=== PATIENT | male | born 1945 | race Caucasian/White ===

== ENCOUNTER 2016-10-29 15:06 | Inpatient (IN) | payer OTHER, MEDICARE ==
[2016-10-29] MEDS ORDERED: SODIUM CHLORIDE 0.9% 1,000 ML IV STA ×2 (15:26)
--- NOTE | 2016-10-29 15:46 | ED ---
General Adult HPI - General Chief complaint: Neuro Symptoms/Deficit Stated complaint: numbness right side Time Seen by Provider: 10/29/16 15:26 Source: patient, RN notes reviewed, old records reviewed Mode of arrival: wheelchair Limitations: no limitations - History of Present Illness Initial comments: This is a 62-year-old male the ER for evaluation bear patient is a for evaluation of neurological symptoms or complaint. Patient was slurred speech. Patient has right-sided not continuing. Patient has history of CVA TIA, history of high blood pressure history of high cholesterol history of cancer, history of NC, history of diabetes. Symptoms are about 10 AM today, seemed to wax and wane. - Related Data Home Medications Medication Instructions Recorded Confirmed RX: Nitroglycerin Sl Tabs 0.4 mg SUBLINGUAL Q5M PRN 08/11/13 10/29/16 [Nitrostat] RX: Tamsulosin [Flomax] 0.4 mg PO QAM 08/28/13 10/29/16 RX: Aspirin 81 mg PO BID 11/14/14 10/29/16 RX: Cholecalciferol [Vitamin D3] 1,000 unit PO QAM 11/14/14 10/29/16 Atorvastatin [Lipitor] 20 mg PO HS 10/29/16 10/29/16 Cyanocobalamin (Vitamin B-12) 2,000 mcg PO DAILY 10/29/16 10/29/16 [Vitamin B-12] Ferrous Sulfate [Feosol] 325 mg PO DAILY 10/29/16 10/29/16 Furosemide [Lasix] 20 mg PO DAILY 10/29/16 10/29/16 Insulin Aspart [NovoLOG] See Protocol SQ AC-TID 10/29/16 10/29/16 Insulin Glargine [Lantus] 10 unit SQ DAILY 10/29/16 10/29/16 RX: Omeprazole 40 mg PO DAILY 10/29/16 10/29/16 amLODIPine [Norvasc] 5 mg PO DAILY 10/29/16 10/29/16 prednisoLONE ACETATE [Pred Forte 1 drop RIGHT EYE QID 10/29/16 10/29/16 1%] Allergies Allergy/AdvReac Type Severity Reaction Status Date / Time enalapril [Enalapril] AdvReac Unknown Unknown Verified 10/29/16 15:39 lisinopril AdvReac Dizziness Verified 10/29/16 15:39 Review of Systems ROS Statement: Those systems with pertinent positive or pertinent negative responses have been documented in the HPI. ROS Other: All systems not noted in ROS Statement are negative. 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 ulcer in past. Last Myocardial Infarction Date:: 11/2012 History of Any Multi-Drug Resistant Organisms: None Reported Past Surgical History: Bowel Resection, Heart Catheterization, Heart Catheterization With Stent, Hernia Repair Additional Past Surgical History / Comment(s): Colon Resection 1999. Right femoral thrombolectomy 11/2012. Colonoscopy 2012. Anal fissure repair.RT CARTOTID ENDARTERECTOMY, incarcerated ventral hernia/lysis of adhesions. Past Anesthesia/Blood Transfusion Reactions: No Reported Reaction Additional Past Anesthesia/Blood Transfusion Reaction / Comment(s): HX OF BLOOD TRANSFUSION Date of Last Stent Placement:: 11/2012 Past Psychological History: No Psychological Hx Reported Smoking Status: Former smoker Past Alcohol Use History: Occasional Past Drug Use History: None Reported - Past Family History Father Family Medical History: CVA/TIA, Diabetes Mellitus Mother Family Medical History: Dementia General Exam - General Exam Comments Initial Comments: NIH of 2 Limitations: no limitations General appearance: alert, in no apparent distress Head exam: Present: atraumatic, normocephalic, normal inspection Eye exam: Present: normal appearance, PERRL, EOMI. Absent: scleral icterus, conjunctival injection, periorbital swelling ENT exam: Present: normal exam, mucous membranes moist Neck exam: Present: normal inspection. Absent: tenderness, meningismus, lymphadenopathy Respiratory exam: Present: normal lung sounds bilaterally. Absent: respiratory distress, wheezes, rales, rhonchi, stridor Cardiovascular Exam: Present: regular rate, normal rhythm, normal heart sounds. Absent: systolic murmur, diastolic murmur, rubs, gallop, clicks GI/Abdominal exam: Present: soft, normal bowel sounds. Absent: distended, tenderness, guarding, rebound, rigid Extremities exam: Present: normal inspection, full ROM, normal capillary refill. Absent: tenderness, pedal edema, joint swelling, calf tenderness Back exam: Present: normal inspection Neurological exam: Present: alert, oriented X3, CN II-XII intact Psychiatric exam: Present: normal affect, normal mood Skin exam: Present: warm, dry, intact, normal color. Absent: rash Course Vital Signs 10/29/16 10/29/16 15:19 16:19 Temperature 97.5 F L Pulse Rate 77 Pulse Rate [ 80 Left] Respiratory 16 18 Rate Blood Pressure 195/89 Blood Pressure 180/82 [Left Arm] O2 Sat by Pulse 99 Oximetry - Reevaluation(s) Reevaluation #1: 10/29/16 16:21 Patient not a TPA candidate secondary to onset of symptoms being 10 AM, arrival to ER [id number] Reevaluation #2: 10/29/16 16:21 Patient still having right-sided numbness and tingling, no appreciable strength deficit. Slurred speech has resolved EKG Findings - EKG Comments: EKG Findings:: EKG shows sinus rate of 72, pO2 56, QRS 154, QRS 462 Medical Decision Making - Medical Decision Making 6 emailed ear with history of CVA TIA, history of multiple medical Jackelyn is including heart disease with stents. Patient be admitted for neurological observation, evaluation and treatment - Lab Data Result diagrams: 10/29/16 15:44 10/29/16 15:44 Lab Results 10/29/16 10/29/16 10/29/16 Range/Units 15:44 15:44 15:44 WBC 7.7 (3.8-10.6) k/uL RBC 5.09 (4.30-5.90) m/uL Hgb 14.8 (13.0-17.5) gm/dL Hct 44.0 (39.0-53.0) % MCV 86.4 (80.0-100.0) fL MCH 29.1 (25.0-35.0) pg MCHC 33.7 (31.0-37.0) g/dL RDW 15.2 (11.5-15.5) % Plt Count 171 (150-450) k/uL Neutrophils % 77 % Lymphocytes % 15 % Monocytes % 4 % Eosinophils % 2 % Basophils % 1 % Neutrophils # 5.9 (1.3-7.7) k/uL Lymphocytes # 1.1 (1.0-4.8) k/uL Monocytes # 0.3 (0-1.0) k/uL Eosinophils # 0.2 (0-0.7) k/uL Basophils # 0.0 (0-0.2) k/uL PT (9.0-12.0) sec INR (<1.2) APTT (22.0-30.0) sec Sodium 143 (137-145) mmol/L Potassium 5.5 H (3.5-5.1) mmol/L Chloride 107 (98-107) mmol/L Carbon Dioxide 24 (22-30) mmol/L Anion Gap 12 mmol/L BUN 25 H (9-20) mg/dL Creatinine 1.40 H (0.66-1.25) mg/dL Est GFR (MDRD) Af Amer >60 (>60 ml/min/1.73 sqM) Est GFR (MDRD) Non-Af 50 (>60 ml/min/1.73 sqM) Glucose 105 H (74-99) mg/dL Calcium 10.2 (8.4-10.2) mg/dL Phosphorus 3.5 (2.5-4.5) mg/dL Magnesium 1.8 (1.6-2.3) mg/dL Total Bilirubin 0.9 (0.2-1.3) mg/dL AST 20 (17-59) U/L ALT 47 (21-72) U/L Alkaline Phosphatase 76 (38-126) U/L Total Creatine Kinase 65 (55-170) U/L CK-MB (CK-2) 0.8 (0.0-2.4) ng/mL CK-MB (CK-2) Rel Index 1.2 Troponin I <0.012 (0.000-0.034) ng/mL Total Protein 7.6 (6.3-8.2) g/dL Albumin 4.7 (3.5-5.0) g/dL 10/29/16 Range/Units 15:44 WBC (3.8-10.6) k/uL RBC (4.30-5.90) m/uL Hgb (13.0-17.5) gm/dL Hct (39.0-53.0) % MCV (80.0-100.0) fL MCH (25.0-35.0) pg MCHC (31.0-37.0) g/dL RDW (11.5-15.5) % Plt Count (150-450) k/uL Neutrophils % % Lymphocytes % % Monocytes % % Eosinophils % % Basophils % % Neutrophils # (1.3-7.7) k/uL Lymphocytes # (1.0-4.8) k/uL Monocytes # (0-1.0) k/uL Eosinophils # (0-0.7) k/uL Basophils # (0-0.2) k/uL PT 11.3 (9.0-12.0) sec INR 1.1 (<1.2) APTT 27.9 (22.0-30.0) sec Sodium (137-145) mmol/L Potassium (3.5-5.1) mmol/L Chloride (98-107) mmol/L Carbon Dioxide (22-30) mmol/L Anion Gap mmol/L BUN (9-20) mg/dL Creatinine (0.66-1.25) mg/dL Est GFR (MDRD) Af Amer (>60 ml/min/1.73 sqM) Est GFR (MDRD) Non-Af (>60 ml/min/1.73 sqM) Glucose (74-99) mg/dL Calcium (8.4-10.2) mg/dL Phosphorus (2.5-4.5) mg/dL Magnesium (1.6-2.3) mg/dL Total Bilirubin (0.2-1.3) mg/dL AST (17-59) U/L ALT (21-72) U/L Alkaline Phosphatase (38-126) U/L Total Creatine Kinase (55-170) U/L CK-MB (CK-2) (0.0-2.4) ng/mL CK-MB (CK-2) Rel Index Troponin I (0.000-0.034) ng/mL Total Protein (6.3-8.2) g/dL Albumin (3.5-5.0) g/dL - Radiology Data Radiology results: report reviewed (Chest x-ray negative CT brain is negative for acute disease), image reviewed Disposition Clinical Impression: Cerebrovascular accident Disposition: ADMITTED IP TO THIS HOSP Condition: Fair
[2016-10-29 16:04] LABS: Basophils % (A) 1 %; CH 29.3; CHCM 34.1; Eosinophils # (A) 0.2 k/uL (0-0.7); Eosinophils % (A) 2 %; HDW 2.71; HGB 14.8 gm/dL (13.0-17.5); Luc # (Auto) 0.14; Luc % (Auto) 2; Lymphocytes # (A) 1.1 k/uL (1.0-4.8); Lymphocytes % (A) 15 %; MCH 29.1 pg (25.0-35.0); MCHC 33.7 g/dL (31.0-37.0); MCV 86.4 fL (80.0-100.0); Monocytes # (A) 0.3 k/uL (0-1.0); Monocytes % (A) 4 %; Neutrophils # (A) 5.9 k/uL (1.3-7.7); Neutrophils % (A) 77 %; RBC 5.09 m/uL (4.30-5.90); RDW 15.2 % (11.5-15.5); WBC 7.7 k/uL (3.8-10.6); WBC (Perox) 7.24
[2016-10-29 16:08] LABS: INR 1.1 (<1.2); Partial Thromboplastin Time 27.9 sec (22.0-30.0); Prothrombin Time 11.3 sec (9.0-12.0)
--- NOTE | 2016-10-29 16:11 | CT ---
EXAMINATION TYPE: CT brain wo con DATE OF EXAM: 10/29/2016 COMPARISON: 11/05/2013 HISTORY: Patient complains of right side body weakness and numbness. CT DLP: 776.2 mGycm Automated exposure control for dose reduction was used. FINDINGS: There is diffuse cerebral cortical atrophy. There is a 4 cm area of hypodensity in the right posterio r frontal lobe cortex. There is a 5 x 3 cm area of hypodensity in the right occipital lobe cortex. Th ere is no mass effect nor midline shift. There is no sign of intracranial hemorrhage. There is mild w lyle matter hypodensity around the frontal horns of the lateral ventricles. There is a 2.5 cm area of hypodensity in the medial left occipital lobe. IMPRESSION: CEREBRAL ATROPHY. OLD RIGHT POSTERIOR FRONTAL LOBE CORTICAL INFARCT. OLD BILATERAL OCCIPITAL LOBE INF ARCTS. NO SIGNIFICANT CHANGE COMPARED TO OLD EXAM.
[2016-10-29] MEDS ORDERED: ASPIRIN 325 MG TAB PO STA (16:17)
[2016-10-29 16:18] LABS: ALT 47 U/L (21-72); AST 20 U/L (17-59); Alkaline Phosphatase 76 U/L (38-126); Anion Gap 12 mmol/L; Blood Urea Nitrogen 25 mg/dL (9-20); Calcium 10.2 mg/dL (8.4-10.2); Carbon Dioxide 24 mmol/L (22-30); Chloride 107 mmol/L (98-107); Creatine Kinase 65 U/L (55-170); Glucose 105 mg/dL (74-99); Magnesium 1.8 mg/dL (1.6-2.3); Non-African American GFR(MDRD) 50 (>60 ml/min/1.73 sqM); Phosphorous 3.5 mg/dL (2.5-4.5); Potassium 5.5 mmol/L (3.5-5.1); Sodium 143 mmol/L (137-145); Total Bilirubin 0.9 mg/dL (0.2-1.3); Total Protein 7.6 g/dL (6.3-8.2)
--- NOTE | 2016-10-29 16:24 | XR ---
EXAMINATION TYPE: XR chest 2V DATE OF EXAM: 10/29/2016 COMPARISON: 05/27/2015 HISTORY: Slurred speech TECHNIQUE: Frontal and lateral views of the chest are obtained. FINDINGS: Heart and mediastinum are normal. Lungs are clear of consolidation. There are small calcif ied granulomata at the right pulmonary hilum. There is no pleural effusion. IMPRESSION: No active cardiopulmonary disease. No change compared to old exam.
[2016-10-29 16:30] LABS: Creatine Kinase MB 0.8 ng/mL (0.0-2.4); Troponin I <0.012 ng/mL (0.000-0.034)
[2016-10-29] MEDS ORDERED: SODIUM CHLORIDE 0.9% 1,000 ML IV SCH (16:30)
[2016-10-29 17:14] LABS: Appearance,Urine Clear (Clear); Bilirubin,Urine Negative (Negative); Glucose,Urine (UA) Negative (Negative); Ketones,Urine Negative (Negative); Leukocyte Esterase,Urine Negative (Negative); Mucus,Urine Rare /hpf; Nitrite,Urine Negative (Negative); Particle Count 1747; Protein,Urine 1+ (Negative); Specific Gravity,Urine 1.003 (1.001-1.035); Sperm,Urine Occasional /hpf; UA Billing (MACRO vs. MICRO) MICRO; Urobilinogen,Urine <2.0 mg/dL (<2.0); WBC,Urine <1 /hpf (0-5)
[2016-10-29 17:24] LABS: Glucose,Whole Blood 98 mg/dL (75-99)
--- NOTE | 2016-10-29 18:24 | P.HPIM ---
History of Present Illness Patient is a very pleasant 70-year-old man came in with the complaints of right upper limb and lower limb tingling numbness involving the whole right side of the body except for face, he denied any weakness in the right side. Patient apparently appears to have had some speech abnormality as per the he is unable to explain what appears like Wernicke's aphasia, although not clear. Patient in symptoms are resolving at this point of time patient has good strength in bilateral upper limbs. Patient had a history of CVA in the past patient is on aspirin 81 mg daily along with the high-dose statin. Patient has history of coronary artery disease stents in the past and history of cardiomyopathy previous ejection be fraction being 45% patient is on Lasix with poor kidney function of creatinine of 1.6 and he ago his creatinine was 1.4 before that it was around 1. Neurology a valid the patient already in the recommending aspirin as well as Plavix which are started. Repeating an echocardiogram today which will help me today as is the recent ejection fraction and also looking for intraventricular thrombus. As a part of stroke workup carotid Doppler was ordered and neurology is recommending an MRI as well. Review of Systems REVIEW OF SYSTEMS: CONSTITUTIONAL: No fever, no malaise, no fatigue. HEENT: No recent visual problems or hearing problems. Denied any sore throat. CARDIOVASCULAR: No chest pain, orthopnea, PND, no palpitations, no syncope. PULMONARY: No shortness of breath, no cough, no hemoptysis. GASTROINTESTINAL: No diarrhea, no nausea, no vomiting, no abdominal pain. Normoactive bowel sounds. NEUROLOGICAL: No headaches, HEMATOLOGICAL: Denies any bleeding or petechiae. GENITOURINARY: Denies any burning micturition, frequency, or urgency. MUSCULOSKELETAL/RHEUMATOLOGICAL: Denies any joint pain, swelling, or any muscle pain. ENDOCRINE: Denies any polyuria or polydipsia. Past Medical History Past Medical History: Coronary Artery Disease (CAD), Cancer, Heart Failure, CVA/ TIA, Diabetes Mellitus, Deep Vein Thrombosis (DVT), GERD/Reflux, Hyperlipidemia , Hypertension, Myocardial Infarction ([place]) Additional Past Medical History / Comment(s): Blood transfusion; BOWEL OBRSTRUCTION, HX 2ND DEGREE HB,IBS,A FIB, RT FEMORAL DVT,CARDIO PULMONARY ARREST 2013, ATRIAL SEPTAL DEFECT,PVD, COLON CANCER 2007, per old hx ? ulcer in past. Last Myocardial Infarction Date:: 11/2012 History of Any Multi-Drug Resistant Organisms: None Reported Past Surgical History: Bowel Resection, Heart Catheterization, Heart Catheterization With Stent, Hernia Repair Additional Past Surgical History / Comment(s): Colon Resection 1999. Right femoral thrombolectomy 11/2012. Colonoscopy 2012. Anal fissure repair.RT CARTOTID ENDARTERECTOMY, incarcerated ventral hernia/lysis of adhesions. Past Anesthesia/Blood Transfusion Reactions: No Reported Reaction Additional Past Anesthesia/Blood Transfusion Reaction / Comment(s): HX OF BLOOD TRANSFUSION Date of Last Stent Placement:: 11/2012 Past Psychological History: No Psychological Hx Reported Smoking Status: Former smoker Past Alcohol Use History: Occasional Past Drug Use History: None Reported - Past Family History Father Family Medical History: CVA/TIA, Diabetes Mellitus Mother Family Medical History: Dementia Medications and Allergies Home Medications Medication Instructions Recorded Confirmed Type Nitroglycerin Sl Tabs [Nitrostat] 0.4 mg SUBLINGUAL Q5M PRN 08/11/13 10/29/16 History Tamsulosin [Flomax] 0.4 mg PO QAM 08/28/13 10/29/16 History Aspirin 81 mg PO BID 11/14/14 10/29/16 History Cholecalciferol [Vitamin D3] 1,000 unit PO QAM 11/14/14 10/29/16 History Atorvastatin [Lipitor] 20 mg PO HS 10/29/16 10/29/16 History Cyanocobalamin (Vitamin B-12) 2,000 mcg PO DAILY 10/29/16 10/29/16 History [Vitamin B-12] Ferrous Sulfate [Feosol] 325 mg PO DAILY 10/29/16 10/29/16 History Furosemide [Lasix] 20 mg PO DAILY 10/29/16 10/29/16 History Insulin Aspart [NovoLOG] See Protocol SQ AC-TID 10/29/16 10/29/16 History Insulin Glargine [Lantus] 10 unit SQ DAILY 10/29/16 10/29/16 History Omeprazole 40 mg PO DAILY 10/29/16 10/29/16 History amLODIPine [Norvasc] 5 mg PO DAILY 10/29/16 10/29/16 History prednisoLONE ACETATE [Pred Forte 1 drop RIGHT EYE QID 10/29/16 10/29/16 History 1%] Allergies Allergy/AdvReac Type Severity Reaction Status Date / Time enalapril [Enalapril] AdvReac Unknown Unknown Verified 10/29/16 15:39 lisinopril AdvReac Dizziness Verified 10/29/16 15:39 Physical Exam Vitals: Vital Signs Temp Pulse Pulse Resp BP BP Pulse Ox 10/29/16 17:00 98.1 F 79 20 163/87 98 10/29/16 16:44 96.9 F L 85 18 191/87 97 10/29/16 16:19 80 18 180/82 10/29/16 15:19 97.5 F L 77 16 195/89 99 Intake and Output 10/29/16 10/29/16 10/29/16 06:59 14:59 22:59 Intake Total 100 Output Total 350 Balance -250 Intake: Intake, IV Titration 100 Amount Sodium Chloride 0.9% 1, 100 000 ml @ 100 mls/hr IV . Q10H REZA Rx#:[id number] Output: Urine 350 Other: Weight 94.801 kg Patient Weight 10/30/16 06:59 Weight 94.801 kg PHYSICAL EXAMINATION: GENERAL: The patient is alert and oriented x3, not in any acute distress. Well developed, well nourished. HEENT: Pupils are round and equally reacting to light. EOMI. No scleral icterus. No conjunctival pallor. Normocephalic, atraumatic. No pharyngeal erythema. No thyromegaly. CARDIOVASCULAR: S1 and S2 present. No murmurs, rubs, or gallops. PULMONARY: Chest is clear to auscultation, no wheezing or crackles. ABDOMEN: Soft, nontender, nondistended, normoactive bowel sounds. No palpable organomegaly. MUSCULOSKELETAL: No joint swelling or deformity. EXTREMITIES: No cyanosis, clubbing, or pedal edema. NEUROLOGICAL: Gross neurological examination did not reveal any focal deficits. SKIN: No rashes. Results CBC & Chem 7: 10/29/16 15:44 10/29/16 15:44 Labs: Abnormal Lab Results - Last 24 Hours (Table) 10/29/16 10/29/16 Range/Units 15:44 16:56 Potassium 5.5 H (3.5-5.1) mmol/L BUN 25 H (9-20) mg/dL Creatinine 1.40 H (0.66-1.25) mg/dL Glucose 105 H (74-99) mg/dL Urine Protein 1+ H (Negative) Urine Mucus Rare H (None) /hpf Urine Sperm Occasional H (None) /hpf Thrombosis Risk Factor Assmnt - Choose All That Apply Each Factor Represents 1 point: Obesity (BMI >25) Other Risk Factors: Yes Each Risk Factor Represents 2 Points: Age 61-74 years Each Risk Factor Represents 3 Points: History of DVT/PE Thrombosis Risk Factor Assessment Total Risk Factor Score: 6 Thrombosis Risk Factor Assessment Level: High Risk Assessment and Plan Plan: Possible TIA: Appears to have pure sensory TIA probably involving the posterior ventrolateral nucleus of the thalamus, although we may not find any ischemic lesions on MRI as patient had a TIA with complete resolution of symptoms. Antiplatelet therapy as mentioned above. On aspirin and Plavix as recommended by neurology. #2 congestive heart failure chronic systolic dysfunction, ischemic cardiomyopathy with previous ejection fraction which was low at around 35-40%: Patient is hypervolemic at this point of time with acute renal failure because of that reason I'll hold off on Lasix patient is getting IV fluids presently which will be discontinued as well. #3 history of CVA in the past 4 Type 2 diabetes mellitus: Continue with his own home regimen along with sliding scale titration as per the blood sugars here #5 history of coronary artery disease #6 hypertension continue with his home regimen as his blood pressure remains high. But we will let his blood pressures stay little bit high as permissive hypertension post TIA #7 benign prostatic hypertrophy #8 acute renal failure: Secondary to excessive diuretic therapy which is being held. #9 hyperlipidemia #10 gastroesophageal reflux disease
--- NOTE | 2016-10-29 18:29 | P.CNNES ---
History of Present Illness Consult date: 10/29/16 Reason for Consult: Patient admitted for episode of slurred speech and TIA versus stroke. History of Present Illness: This patient is a 70-year-old right-handed male who apparently was in his usual state of health until early this morning. Patient was out driving with his in his vehicle and apparently noticed sudden onset of right-sided numbness involving his right arm and leg. He did not pay much attention initially thinking it would resolve. He then became a little concerned as the numbness persisted. Apparently he was able to drive himself home and when he got out of the vehicle his noted that he was having difficulty walking. He seemed to be off balance and having and a very unsteady gait. Patient was concerned as he has a history of stroke as well as blood clot in the legs which caused him similar symptoms of weakness. His also noted that he was having word finding difficulties during this episode. As a patient does have previous history of stroke they were concerned and decided to come to the emergency room at [facility] for further evaluation. Patient was evaluated in the emergency room by Dr. Segura. He underwent a computed tomography scan of the brain today which revealed evidence of cerebral atrophy with evidence of an old right temporal lobe infarct as well as bilateral occipital infarcts. No evidence of new or acute stroke was noted. Patient states he does take aspirin on a regular basis since his initial stroke. His last stroke occurred in 2013. He was also on Plavix up until recently when his service counselor Dr. Leal recommended to stop the Plavix. Patient is currently only on aspirin therapy. He does have a history of coronary artery disease with stent placement. Since admission to the hospital his strength has improved on the right side. The patient was evaluated in the ER by Dr. Segura. He was not felt to be a TPA candidate as his onset of symptoms occurred early this morning at 10 AM. He was out of the therapeutic window. He was subsequently admitted to the hospital today for further evaluation. Patient states he is feeling somewhat better since admission. He does have a known history of diabetes mellitus and is on insulin therapy. His last hemoglobin A1c was 6.8. The patient is now been admitted and neurology has been consulted for further evaluation and recommendations. Review of Systems Constitutional: Denies chills, Denies fever Eyes: denies blurred vision, denies pain Ears, nose, mouth and throat: Denies headache, Denies sore throat Cardiovascular: Denies chest pain, Denies shortness of breath Respiratory: Denies cough Gastrointestinal: Denies abdominal pain, Denies diarrhea, Denies nausea, Denies vomiting Musculoskeletal: Denies myalgias Integumentary: Denies pruritus, Denies rash Neurological: Reports change in speech, Reports confusion, Reports lack of coordination, Reports paresthesias, Reports tingling, Denies numbness, Denies weakness Psychiatric: Denies anxiety, Denies depression Endocrine: Denies fatigue, Denies weight change Past Medical History Past Medical History: Coronary Artery Disease (CAD), Cancer, Heart Failure, CVA/ TIA, Diabetes Mellitus, Deep Vein Thrombosis (DVT), GERD/Reflux, Hyperlipidemia , Hypertension, Myocardial Infarction (ID) Additional Past Medical History / Comment(s): Blood transfusion; BOWEL OBRSTRUCTION, HX 2ND DEGREE HB,IBS,A FIB, RT FEMORAL DVT,CARDIO PULMONARY ARREST 2013, ATRIAL SEPTAL DEFECT,PVD, COLON CANCER 2007, per old hx ? ulcer in past. Last Myocardial Infarction Date:: 11/2012 History of Any Multi-Drug Resistant Organisms: None Reported Past Surgical History: Bowel Resection, Heart Catheterization, Heart Catheterization With Stent, Hernia Repair Additional Past Surgical History / Comment(s): Colon Resection 1999. Right femoral thrombolectomy 11/2012. Colonoscopy 2012. Anal fissure repair.RT CARTOTID ENDARTERECTOMY, incarcerated ventral hernia/lysis of adhesions. Past Anesthesia/Blood Transfusion Reactions: No Reported Reaction Additional Past Anesthesia/Blood Transfusion Reaction / Comment(s): HX OF BLOOD TRANSFUSION Date of Last Stent Placement:: 11/2012 Past Psychological History: No Psychological Hx Reported Smoking Status: Former smoker Past Alcohol Use History: Occasional Past Drug Use History: None Reported - Past Family History Father Family Medical History: CVA/TIA, Diabetes Mellitus Mother Family Medical History: Dementia Medications and Allergies Home Medications Medication Instructions Recorded Confirmed Type Nitroglycerin Sl Tabs [Nitrostat] 0.4 mg SUBLINGUAL Q5M PRN 08/11/13 10/29/16 History Tamsulosin [Flomax] 0.4 mg PO QAM 08/28/13 10/29/16 History Aspirin 81 mg PO BID 11/14/14 10/29/16 History Cholecalciferol [Vitamin D3] 1,000 unit PO QAM 11/14/14 10/29/16 History Atorvastatin [Lipitor] 20 mg PO HS 10/29/16 10/29/16 History Cyanocobalamin (Vitamin B-12) 2,000 mcg PO DAILY 10/29/16 10/29/16 History [Vitamin B-12] Ferrous Sulfate [Feosol] 325 mg PO DAILY 10/29/16 10/29/16 History Furosemide [Lasix] 20 mg PO DAILY 10/29/16 10/29/16 History Insulin Aspart [NovoLOG] See Protocol SQ AC-TID 10/29/16 10/29/16 History Insulin Glargine [Lantus] 10 unit SQ DAILY 10/29/16 10/29/16 History Omeprazole 40 mg PO DAILY 10/29/16 10/29/16 History amLODIPine [Norvasc] 5 mg PO DAILY 10/29/16 10/29/16 History prednisoLONE ACETATE [Pred Forte 1 drop RIGHT EYE QID 10/29/16 10/29/16 History 1%] Allergies Allergy/AdvReac Type Severity Reaction Status Date / Time enalapril [Enalapril] AdvReac Unknown Unknown Verified 10/29/16 15:39 lisinopril AdvReac Dizziness Verified 10/29/16 15:39 Physical Examination - Vital Signs Vital Signs: Vital Signs Temp Pulse Pulse Resp BP BP Pulse Ox 10/29/16 17:00 98.1 F 79 20 163/87 98 10/29/16 16:19 80 18 180/82 10/29/16 15:19 97.5 F L 77 16 195/89 99 Intake and Output 10/29/16 10/29/16 10/29/16 06:59 14:59 22:59 Other: Weight 94.801 kg Patient Weight 10/30/16 06:59 Weight 94.801 kg - Constitutional General appearance: average body habitus, cooperative - EENT EENT: PERRL, mucous membranes moist - Respiratory Respiratory: lungs clear, normal breath sounds - Cardiovascular Cardiovascular: regular rate, normal S1, normal S2 Extremities: no peripheral edema bilaterally - Gastrointestinal Gastrointestinal: normoactive bowel sounds - Integumentary Integumentary: normal - Neurologic Cranial nerve examination: PERRL, EOMI, VFF, V1/V2/V3 grossly intact, face symmetric, tongue midline, intact gag reflex, intact corneal reflex, normal palatal elevation Speech examination: intact Sensorimotor examination: intact Detailed motor examination: grossly full strength in all extremities Motor examination - right side: 5/5: biceps, triceps, wrist flexion, wrist extension, market sales manager, hip flexors, knee extensors, dorsiflexion, toe extension (EHL) , plantarflexion Motor examination - left side: 5/5: biceps, triceps, wrist flexion, wrist extension, market sales manager, hip flexors, knee extensors, dorsiflexion, toe extension (EHL) , plantarflexion Detailed sensory examination: intact Reflex and gait examination: intact Reflexes: 1+: ankle, bicep, knee, tricep - Musculoskeletal Musculoskeletal: no pain - Psychiatric Psychiatric: mood/affect appropriate, cooperative Results - Laboratory Findings CBC and BMP: 10/29/16 15:44 10/29/16 15:44 Abnormal Lab Findings: Abnormal Labs 10/29/16 10/29/16 15:44 16:56 Potassium 5.5 H BUN 25 H Creatinine 1.40 H Glucose 105 H Urine Protein 1+ H Urine Mucus Rare H Urine Sperm Occasional H Assessment and Plan (1) Left acute arterial ischemic stroke, MCA (middle cerebral artery) Status: Acute Code(s): I63.512 - CEREB INFRC D/T UNSP OCCLS OR STENOS OF LEFT MID CEREB ART (2) Occipital stroke Status: Acute Code(s): I63.9 - CEREBRAL INFARCTION, UNSPECIFIED (3) Colon cancer Status: Acute Code(s): C18.9 - MALIGNANT NEOPLASM OF COLON, UNSPECIFIED (4) Diabetes mellitus Status: Chronic Code(s): E11.9 - TYPE 2 DIABETES MELLITUS WITHOUT COMPLICATIONS Plan: This patient is a 70-year-old male who was in his usual state of health until early this morning. He was driving his vehicle at 10 AM when he developed sudden right-sided numbness and tingling involving his right arm and leg. He was able to drive home and when he got out of the vehicle his noted that he was unsteady in his walk. Seemed to have difficulty with his gait. She also noted that he was having word finding difficulties. Patient was brought into the emergency room at [facility] for further evaluation. He was seen in the ER by Dr. Segura. He was not felt to be a candidate for TPA as he was out of the therapeutic window. He was sent for computed tomography scan of the brain which revealed old bilateral occipital strokes and right parietal temporal lobe infarct. He was admitted to hospital for further evaluation. His neurological examination at this time is nonfocal. Clinical history suggesting acute left hemispheric TIA. We have recommended a complete stroke evaluation for the patient. He is currently on aspirin. Depending on his workup he may benefit from a combination of dual platelet therapy with aspirin and Plavix. His overall prognosis at this time remains guarded. Case was discussed at length with the patient and his at bedside. All their questions are answered. They are aware of his guarded condition. We will continue close neurological follow-up for this patient during this admission. Time with Patient: Greater than 30
[2016-10-29] MEDS: prednisoLONE ACETATE 1% OPHTH DROPS 1 ML BTL RIGHT EYE SCH ×2 (18:30→19:58)
[2016-10-29] MEDS: ATORVASTATIN 20 MG TAB PO SCH (19:58)
[2016-10-29] MEDS: FAMOTIDINE 20 MG TAB PO SCH (19:59)
[2016-10-29] MEDS: CLOPIDOGREL 75 MG TAB PO SCH (19:59)
[2016-10-29 20:14] LABS: Glucose,Whole Blood 134 mg/dL (75-99)
[2016-10-29] MEDS ORDERED: ATORVASTATIN 40 MG TAB PO SCH (21:00)
[2016-10-29] MEDS ORDERED: ATORVASTATIN 80 MG TAB PO SCH (21:00)
[2016-10-30 05:46] LABS: Glucose,Whole Blood 92 mg/dL (75-99)
[2016-10-30 06:15] LABS: CH 29.1; CHCM 33.7; HCT 41.4 % (39.0-53.0); HDW 2.69; HGB 13.8 gm/dL (13.0-17.5); MCH 28.9 pg (25.0-35.0); MCHC 33.2 g/dL (31.0-37.0); MCV 86.9 fL (80.0-100.0); Mean Platelet Volume 8.6; RBC 4.76 m/uL (4.30-5.90)
[2016-10-30 06:33] LABS: Anion Gap 9 mmol/L; Blood Urea Nitrogen 23 mg/dL (9-20); Calcium 9.3 mg/dL (8.4-10.2); Carbon Dioxide 27 mmol/L (22-30); Chloride 107 mmol/L (98-107); Cholesterol 142 mg/dL (<200); Glucose 89 mg/dL (74-99); HDL Cholesterol 61 mg/dL (40-60); Non-African American GFR(MDRD) 51 (>60 ml/min/1.73 sqM); Potassium 4.6 mmol/L (3.5-5.1); Sodium 143 mmol/L (137-145); Triglycerides 79 mg/dL (<150)
[2016-10-30] MEDS: ASPIRIN 81 MG CHEW PO SCH (08:33)
[2016-10-30] MEDS: CLOPIDOGREL 75 MG TAB PO SCH (08:33)
[2016-10-30] MEDS: TAMSULOSIN 0.4 MG CAP.ER.24H PO SCH (08:34)
[2016-10-30] MEDS: amLODIPine 5 MG TAB PO SCH (08:34)
[2016-10-30] MEDS: FAMOTIDINE 20 MG TAB PO SCH ×2 (08:34→19:56)
[2016-10-30] MEDS: prednisoLONE ACETATE 1% OPHTH DROPS 1 ML BTL RIGHT EYE SCH ×4 (08:34→19:56)
[2016-10-30] MEDS: INSULIN GLARGINE 100 UNIT/ML 10 ML VIAL SQ SCH (08:38)
[2016-10-30] MEDS ORDERED: ASPIRIN 325 MG TAB PO SCH (09:00)
[2016-10-30 11:51] LABS: Glucose,Whole Blood 98 mg/dL (75-99)
--- NOTE | 2016-10-30 13:50 | P.PN ---
Subjective 70-year-old admitted for possible CVA or TIA, patient can use to symptoms of something numbness in the right leg. Patient is awaiting MRI and the echo cardiac exam. Patient denied any new weakness,, fevers, chills, nausea, vomiting, cough, abdominal pain, dysuria. Objective - Vital Signs Vital signs: Vital Signs Temp 95 F L 10/30/16 11:35 Pulse 52 L 10/30/16 11:35 Resp 18 10/30/16 11:35 BP 164/74 10/30/16 11:35 Pulse Ox 97 10/30/16 11:35 Intake & Output 10/29/16 10/30/16 10/30/16 18:59 06:59 18:59 Intake Total 100 120 Output Total 350 970 Balance -250 -970 120 Weight 94.801 kg 90.5 kg Intake: Intake, IV Titration 100 Amount Sodium Chloride 0.9% 1, 100 000 ml @ 100 mls/hr IV . Q10H [facility] Rx#:[id number] Oral 120 Output: Urine 350 970 Other: Voiding Method Urinal Urinal # Voids 1 1 - Exam PHYSICAL EXAMINATION: GENERAL: The patient is alert and oriented x3, not in any acute distress. Well developed, well nourished. HEENT: Pupils are round and equally reacting to light. EOMI. No scleral icterus. No conjunctival pallor. Normocephalic, atraumatic. No pharyngeal erythema. No thyromegaly. CARDIOVASCULAR: S1 and S2 present. No murmurs, rubs, or gallops. PULMONARY: Chest is clear to auscultation, no wheezing or crackles. ABDOMEN: Soft, nontender, nondistended, normoactive bowel sounds. No palpable organomegaly. MUSCULOSKELETAL: No joint swelling or deformity. EXTREMITIES: No cyanosis, clubbing, or pedal edema. NEUROLOGICAL: Gross neurological examination did not reveal any focal deficits. SKIN: No rashes. - Labs CBC & Chem 7: 10/30/16 05:55 10/30/16 05:55 Labs: Abnormal Lab Results - Last 24 Hours (Table) 10/29/16 10/29/16 10/29/16 Range/Units 15:44 16:56 20:13 Potassium 5.5 H (3.5-5.1) mmol/L BUN 25 H (9-20) mg/dL Creatinine 1.40 H (0.66-1.25) mg/dL Glucose 105 H (74-99) mg/dL POC Glucose (mg/dL) 134 H (75-99) mg/dL HDL Cholesterol (40-60) mg/dL Urine Protein 1+ H (Negative) Urine Mucus Rare H (None) /hpf Urine Sperm Occasional H (None) /hpf 10/30/16 Range/Units 05:55 Potassium (3.5-5.1) mmol/L BUN 23 H (9-20) mg/dL Creatinine 1.39 H (0.66-1.25) mg/dL Glucose (74-99) mg/dL POC Glucose (mg/dL) (75-99) mg/dL HDL Cholesterol 61 H (40-60) mg/dL Urine Protein (Negative) Urine Mucus (None) /hpf Urine Sperm (None) /hpf Assessment and Plan Plan: Possible TIA: Appears to have pure sensory TIA probably involving the posterior ventrolateral nucleus of the thalamus, although we may not find any ischemic lesions on MRI as patient had a TIA with complete resolution of symptoms. Antiplatelet therapy as mentioned above. On aspirin and Plavix as recommended by neurology. #2 congestive heart failure chronic systolic dysfunction, ischemic cardiomyopathy with previous ejection fraction which was low at around 35-40%: Patient is hypervolemic at this point of time with acute renal failure because of that reason I'll hold off on Lasix patient is getting IV fluids presently which will be discontinued as well. #3 history of CVA in the past 4 Type 2 diabetes mellitus: Continue with his own home regimen along with sliding scale titration as per the blood sugars here #5 history of coronary artery disease #6 hypertension continue with his home regimen as his blood pressure remains high. But we will let his blood pressures stay little bit high as permissive hypertension post TIA #7 benign prostatic hypertrophy #8 acute renal failure: Secondary to excessive diuretic therapy which is being held. #9 hyperlipidemia #10 gastroesophageal reflux disease
--- NOTE | 2016-10-30 14:38 | US ---
EXAMINATION TYPE: US carotid duplex BILAT DATE OF EXAM: 10/30/2016 COMPARISON: US CLINICAL HISTORY: Tia/ stroke. Tia, right endarterectomy EXAM MEASUREMENTS: RIGHT: Peak Systolic Velocity (PSV) cm/sec ----- Right CCA: 57.2 ----- Right ICA: 100.8 ----- Right ECA: 113.5 ICA/CCA ratio: 1.8 RIGHT: End Diastole cm/sec ----- Right CCA: 15.4 ----- Right ICA: 27.1 ----- Right ECA: 10.4 LEFT: Peak Systolic Velocity (PSV) cm/sec ----- Left CCA: 94.0 ----- Left ICA: 76.1 ----- Left ECA: 96.2 ICA/CCA ratio: 0.8 LEFT: End Diastole cm/sec ----- Left CCA: 13.7 ----- Left ICA: 18.7 ----- Left ECA: 6.6 VERTEBRALS (direction of flow): Right Vertebral: Antegrade Left Vertebral: Antegrade No elevated velocities, no significant stenosis IMPRESSION: There is antegrade flow in the vertebral arteries. The images and measurements suggest c lose to 0% stenosis in both internal carotid arteries. Criteria for Assigning % of Stenosis / Diameter reduction (Estimation based on the indirect measurements of the internal carotid artery velocities (ICA PSV). 1. Normal (no stenosis)=ICA PSV < 125 cm/s: ratio < 2.0: ICA EDV<40 cm/s. 2. Less than 50% stenosis=ICA PSV < 125 cm/s: ratio < 2.0: ICA EDV<40 cm/s. 3. 50 to 69% stenosis=ICA PSV of 125 to 230 cm/s: ration 2.0 ? 4.0: ICA EDV 40-100 cm/s. 4. Greater than 70% stenosis to near occlusion= ICA PSV > 230 cm/s: ratio > 4.0: ICA EDV > 100 cm/s. 5. Near occlusion= ICA PSV velocities may be low or undetectable: variable ratio and ICA EDV. 6. Total occlusion=unable to detect flow.
[2016-10-30 16:44] LABS: Glucose,Whole Blood 105 mg/dL (75-99)
--- NOTE | 2016-10-30 16:58 | P.PN ---
Subjective This patient is a 70-year-old male who is being evaluated for possibility of recurrent TIA. Patient was admitted to hospital yesterday with symptoms of weakness and slurred speech. He is being evaluated for possibility of recurrent TIA versus stroke. He is scheduled to undergo MRI of the brain tomorrow and we are waiting these results. Patient should continue on aspirin plus Plavix at this time for secondary stroke prevention. Patient states he has been doing well today. He has no further recurrent symptoms of TIA. He is scheduled to have MRI of the brain hopefully tomorrow. He is to increase activity as he tolerates and to let us know if there is any recurrent TIA like symptoms. 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 Given the recurrent TIA symptoms we think the dual platelet therapy for the patient is best treatment for his current condition. We will give further recommendations depending on his MRI results. Objective - Vital Signs Vital signs: Vital Signs Temp 95 F L 10/30/16 11:35 Pulse 52 L 10/30/16 11:35 Resp 18 10/30/16 11:35 BP 164/74 10/30/16 11:35 Pulse Ox 97 10/30/16 11:35 Intake & Output 10/29/16 10/30/16 10/30/16 18:59 06:59 18:59 Intake Total 100 120 Output Total 350 970 Balance -250 -970 120 Weight 94.801 kg 90.5 kg Intake: Intake, IV Titration 100 Amount Sodium Chloride 0.9% 1, 100 000 ml @ 100 mls/hr IV . Q10H [facility] Rx#:[id number] Oral 120 Output: Urine 350 970 Other: Voiding Method Urinal Urinal # Voids 1 1 - Exam Physical examination: PHYSICAL EXAMINATION: Patient is resting comfortably in bed. VITAL SIGNS: Blood pressure is [138/72]. Heart rate is [55]. Respiration is [18] . Temperature is [96.7]. HEENT: Head is atraumatic, neck is supple, there were no carotid bruits. CHEST: Lungs are clear to auscultation and percussion. CARDIAC: S1, S2 normal rate and rhythm. There is no murmur. ABDOMEN: Soft and nontender. Bowel sounds are present. EXTREMITIES: There is no pedal edema. Peripheral pulses are present. Neurological examination: Patient has a nonfocal neurological examination today. - Labs CBC & Chem 7: 10/30/16 05:55 10/30/16 05:55 Labs: Abnormal Lab Results - Last 24 Hours (Table) 10/29/16 10/29/16 10/29/16 Range/Units 15:44 16:56 20:13 Potassium 5.5 H (3.5-5.1) mmol/L BUN 25 H (9-20) mg/dL Creatinine 1.40 H (0.66-1.25) mg/dL Glucose 105 H (74-99) mg/dL POC Glucose (mg/dL) 134 H (75-99) mg/dL HDL Cholesterol (40-60) mg/dL Urine Protein 1+ H (Negative) Urine Mucus Rare H (None) /hpf Urine Sperm Occasional H (None) /hpf 10/30/16 Range/Units 05:55 Potassium (3.5-5.1) mmol/L BUN 23 H (9-20) mg/dL Creatinine 1.39 H (0.66-1.25) mg/dL Glucose (74-99) mg/dL POC Glucose (mg/dL) (75-99) mg/dL HDL Cholesterol 61 H (40-60) mg/dL Urine Protein (Negative) Urine Mucus (None) /hpf Urine Sperm (None) /hpf Assessment and Plan (1) Left acute arterial ischemic stroke, MCA (middle cerebral artery) Status: Acute Code(s): I63.512 - CEREB INFRC D/T UNSP OCCLS OR STENOS OF LEFT MID CEREB ART (2) Occipital stroke Status: Acute Code(s): I63.9 - CEREBRAL INFARCTION, UNSPECIFIED (3) Colon cancer Status: Acute Code(s): C18.9 - MALIGNANT NEOPLASM OF COLON, UNSPECIFIED (4) Diabetes mellitus Status: Chronic Code(s): E11.9 - TYPE 2 DIABETES MELLITUS WITHOUT COMPLICATIONS Plan: This patient is a 70-year-old male who is being evaluated for left hemispheric TIA. Patient developed sudden right-sided numbness and some speech impairment while driving yesterday. He was brought into the emergency room subsequent admitted to Hospital. He is scheduled to undergo MRI of the brain tomorrow for further evaluation. He is to continue on dual platelet therapy for secondary stroke prevention. We will continue close neurological follow-up of the patient during this admission. His overall prognosis at this time remains guarded.
[2016-10-30] MEDS: ATORVASTATIN 20 MG TAB PO SCH (19:56)
[2016-10-30 20:54] LABS: Glucose,Whole Blood 138 mg/dL (75-99)
[2016-10-31 01:06] VITALS: RESP 16
[2016-10-31 05:53] LABS: Glucose,Whole Blood 86 mg/dL (75-99)
[2016-10-31] MEDS: FAMOTIDINE 20 MG TAB PO SCH (08:28)
[2016-10-31] MEDS: prednisoLONE ACETATE 1% OPHTH DROPS 1 ML BTL RIGHT EYE SCH ×2 (08:28→16:24)
[2016-10-31] MEDS: TAMSULOSIN 0.4 MG CAP.ER.24H PO SCH (08:28)
[2016-10-31] MEDS: ASPIRIN 81 MG CHEW PO SCH (08:28)
[2016-10-31] MEDS: amLODIPine 5 MG TAB PO SCH (08:28)
[2016-10-31] MEDS: CLOPIDOGREL 75 MG TAB PO SCH (08:28)
[2016-10-31] MEDS: INSULIN GLARGINE 100 UNIT/ML 10 ML VIAL SQ SCH ×2 (08:32→08:41)
[2016-10-31 08:40] VITALS: TEMP 97.9
[2016-10-31 11:26] VITALS: BP 176/81; PULSE 77
--- NOTE | 2016-10-31 11:51 | MR ---
MR brain without contrast HISTORY: Right-sided weakness Multiplanar multisequence imaging obtained through the brain and correlated to prior MRI brain dated 11/07/2013 Evidence of prior infarction involving the right cerebellar hemisphere, right temporal occipital julio césar on is stable. Cortical atrophy is again noted. Scattered hyperintensities on inversion recovery and T 2-weighted sequences within the deep white matter again noted. No hemorrhage or hydrocephalus. There are normal vascular flow voids. Orbits show symmetric appearance. The corpus callosum, pituitary, cer vical medullary junction, cerebellopontine angles are unremarkable. Mucosal disease present in the ma xillary sinuses. There is small bandlike area of restricted diffusion seen within the mayte slightly to the left of mid line. This is an interval finding. IMPRESSION: Subacute ischemia involving the mayte is an interval finding, there are areas of chronic s mall vessel ischemia, age related atrophy.
[2016-10-31 12:01] LABS: Glucose,Whole Blood 112 mg/dL (75-99)
--- NOTE | 2016-10-31 12:14 | ECHOF ---
Referral Reason:TIA/STROKE MEASUREMENTS -------- HEIGHT: 167.6 cm WEIGHT: 89.8 kg BP: 171/80 IVSd: 1.6 cm (0.6 - 1.1) LVIDd: 5.2 cm (3.9 - 5.3) LVPWd: 1.1 cm (0.6 - 1.1) EDV(Teich): 131 ml IVSs: 1.8 cm LVIDs: 4.6 cm LVPWs: 1.1 cm %IVS Thck: 19 % ESV(Teich): 95 ml EF(Teich): 27 % %FS: 13 % SV(Teich): 35 ml LALs A4C: 6.5 cm LAAs A4C: 23.9 cm LAESV A-L A4C: 74 ml LAESV MOD A4C: 72 ml LALs A2C: 6.4 cm LAAs A2C: 24.4 cm LAESV A-L A2C: 79 ml LAESV MOD A2C: 75 ml LAESV(A-L): 77 ml LAESV Index (A-L): 38.77 ml/m Ao Diam: 3.5 cm (2.0 - 3.7) AV Cusp: 2.1 cm (1.5 - 2.6) LA Diam: 3.5 cm (2.7 - 3.8) MV EXCURSION: 14.230 mm (> 18.000) MV EF SLOPE: 83 mm/s (70 - 150) EPSS: 1.3 cm MV E Len: 0.73 m/s MV DecT: 140 ms MV Dec Weber: 5.2 m/s MV A Len: 1.23 m/s MV E/A Ratio: 0.60 MV PHT: 41 ms E/E': 21.65 E': 0.03 m/s MR Vmax: 4.81 m/s MR maxP.57 mmHg AV Vmax: 1.21 m/s AV maxP.85 mmHg AR Vmax: 3.07 m/s AR maxP.60 mmHg AR PHT: 406 ms AR Dec Time: 1400 ms AR Dec Weber: 2.2 m/s TR Vmax: 2.62 m/s TR maxP.37 mmHg RAP: 5.00 mmHg RVSP: 32.37 mmHg FINDINGS -------- Sinus rhythm. This was a technically difficult study with suboptimal views. There is mild concentric left ventricular hypertrophy. Overall left ventricular systolic function is moderately impaired with, an EF between 35 - 40 %. Inferiorlateral Hypokinesis The right ventricle is normal in size and function. LA is moderately dilated 34-39 ml/m2 The right atrium is normal in size. 1.5mg of Definity was utilized for enhancement of images Aortic valve is trileaflet and is mildly thickened. Trace amount of aortic regurgitation. The mitral valve leaflets are mildly thickened. Mild mitral regurgitation is present. Mild tricuspid regurgitation present. The right ventricular systolic pressure, as measured by Doppler, is 32.37mmHg. Pulmonic valve appears structurally normal. The aortic root size is normal. The pericardium is normal. CONCLUSIONS -------- 1. Sinus rhythm. 2. Aortic valve is trileaflet and is mildly thickened. 3. Trace amount of aortic regurgitation. 4. The mitral valve leaflets are mildly thickened. 5. Mild mitral regurgitation is present. 6. Mild tricuspid regurgitation present. 7. The right ventricular systolic pressure, as measured by Doppler, is 32.37mmHg. 8. Pulmonic valve appears structurally normal. 9. The aortic root size is normal. 10. The pericardium is normal. 11. This was a technically difficult study with suboptimal views. 12. There is mild concentric left ventricular hypertrophy. 13. Overall left ventricular systolic function is moderately impaired with, an EF between 35 - 40 %. 14. Inferiorlateral Hypokinesis 15. The right ventricle is normal in size and function. 16. LA is moderately dilated 34-39 ml/m2 17. The right atrium is normal in size. 18. 1.5mg of Definity was utilized for enhancement of images [facility] ADMINISTRATOR: Jennifer Sotelo [facility]
[2016-10-31 12:55] LABS: Anion Gap 11 mmol/L; Blood Urea Nitrogen 24 mg/dL (9-20); Carbon Dioxide 24 mmol/L (22-30); Chloride 104 mmol/L (98-107); Glucose 111 mg/dL (74-99); Non-African American GFR(MDRD) 56 (>60 ml/min/1.73 sqM); Potassium 4.7 mmol/L (3.5-5.1); Sodium 139 mmol/L (137-145)
--- NOTE | 2016-10-31 13:56 | P.DS ---
Providers Date of admission: 10/29/16 16:19 Attending physician: Veronica Dean Consults: 10/29/16 16:20 Consult Physician Routine Consulting Provider: Makayla Douglas Consult Reason/Comments: cva Do you want consulting provider notified?: Yes [facility] Course: 70-year-old admitted for possible CVA or TIA, patient can use to symptoms of something numbness in the right leg, continue to have numbness in the the right leg. Patient had an MRI which showed pontine stroke on the left side which appears to be subacute in nature. Patient is being discharged on aspirin and Plavix as recommended by neurology patient had multiple other strokes in the past. Patient echocardiogram showed the same ejection fraction is 35-40% without any intraventricular or thrombus. And came in with acute renal failure which improved at this point of time his creatinine is now around 1.1 as opposed to 1.4 when he came in his baseline is around 1 Cerebrovascular accident involving the left pontine area: #2 congestive heart failure chronic systolic dysfunction, ischemic cardiomyopathy with previous ejection fraction which was low at around 35-40%: Patient will continue his 20 mg of Lasix #3 history of CVA in the past 4 Type 2 diabetes mellitus: Continue with his own home regimen along with sliding scale titration as per the blood sugars here #5 history of coronary artery disease #6 hypertension continue with his home regimen and increasing the dose of amlodipine because of continued elevation of blood pressure. #7 benign prostatic hypertrophy #8 acute renal failure: Secondary to excessive diuretic therapy which is being held. #9 hyperlipidemia #10 gastroesophageal reflux disease PHYSICAL EXAMINATION: GENERAL: The patient is alert and oriented x3, not in any acute distress. Well developed, well nourished. HEENT: Pupils are round and equally reacting to light. EOMI. No scleral icterus. No conjunctival pallor. Normocephalic, atraumatic. No pharyngeal erythema. No thyromegaly. CARDIOVASCULAR: S1 and S2 present. No murmurs, rubs, or gallops. PULMONARY: Chest is clear to auscultation, no wheezing or crackles. ABDOMEN: Soft, nontender, nondistended, normoactive bowel sounds. No palpable organomegaly. MUSCULOSKELETAL: No joint swelling or deformity. EXTREMITIES: No cyanosis, clubbing, or pedal edema. NEUROLOGICAL: Gross neurological examination did not reveal any focal deficits. SKIN: No rashes. Patient Condition at Discharge: Fair Plan - Discharge Summary New Discharge Prescriptions: New Aspirin 81 mg PO DAILY Clopidogrel Bisulfate [Plavix] 75 mg PO DAILY #30 tab Continue Nitroglycerin Sl Tabs [Nitrostat] 0.4 mg SUBLINGUAL Q5M PRN PRN Reason: Chest Pain Tamsulosin [Flomax] 0.4 mg PO QAM Cholecalciferol [Vitamin D3] 1,000 unit PO QAM Omeprazole 40 mg PO DAILY Insulin Glargine [Lantus] 10 unit SQ DAILY Insulin Aspart [NovoLOG] See Protocol SQ AC-TID Cyanocobalamin (Vitamin B-12) [Vitamin B-12] 2,000 mcg PO DAILY Atorvastatin [Lipitor] 20 mg PO HS Furosemide [Lasix] 20 mg PO DAILY Ferrous Sulfate [Iron (65 MG Elemental)] 325 mg PO DAILY prednisoLONE ACETATE [Pred Forte 1%] 1 drop RIGHT EYE QID Changed amLODIPine [Norvasc] 10 mg PO DAILY #30 Discontinued Aspirin 81 mg PO BID Discharge Medication List Nitroglycerin Sl Tabs [Nitrostat] 0.4 mg SUBLINGUAL Q5M PRN 08/11/13 [History] Tamsulosin [Flomax] 0.4 mg PO QAM 08/28/13 [History] Cholecalciferol [Vitamin D3] 1,000 unit PO QAM 11/14/14 [History] Atorvastatin [Lipitor] 20 mg PO HS 10/29/16 [History] Cyanocobalamin (Vitamin B-12) [Vitamin B-12] 2,000 mcg PO DAILY 10/29/16 [ History] Ferrous Sulfate [Iron (65 MG Elemental)] 325 mg PO DAILY 10/29/16 [History] Furosemide [Lasix] 20 mg PO DAILY 10/29/16 [History] Insulin Aspart [NovoLOG] See Protocol SQ AC-TID 10/29/16 [History] Insulin Glargine [Lantus] 10 unit SQ DAILY 10/29/16 [History] Omeprazole 40 mg PO DAILY 10/29/16 [History] prednisoLONE ACETATE [Pred Forte 1%] 1 drop RIGHT EYE QID 10/29/16 [History] Aspirin 81 mg PO DAILY 10/31/16 [Rx] Clopidogrel Bisulfate [Plavix] 75 mg PO DAILY #30 tab 10/31/16 [Rx] amLODIPine [Norvasc] 10 mg PO DAILY #30 10/31/16 [Rx] Follow up Appointment(s)/Referral(s): Makayla Douglas MD [STAFF PHYSICIAN] - 11/18/16 9:45 am Brandon Graham DO [Primary Care Provider] - 11/08/16 10:00 am Patient Instructions/Handouts: Ischemic Stroke (DC) Discharge Disposition: HOME SELF-CARE
[2016-11-01] MEDS ORDERED: FAMOTIDINE 20 MG TAB PO SCH (09:00)
== END 2016-10-31 16:36 | disposition home or self-care (01) | DRG 65 ==
LOC: EC 15:06 → 6SEL 16:19
PROVIDERS: ADMIT Hospitalist; ATTEND Hospitalist
DX: I63.9 Cerebral infarction, unspecified (principal); I50.22 Chronic systolic (congestive) heart failure; N17.9 Acute kidney failure, unspecified; E11.51 Type 2 diabetes mellitus with diabetic peripheral angiopathy without gangrene; I11.0 Hypertensive heart disease with heart failure; E11.9 Type 2 diabetes mellitus without complications; E78.00 Pure hypercholesterolemia, unspecified; E78.5 Hyperlipidemia, unspecified; I25.10 Atherosclerotic heart disease of native coronary artery without angina pectoris; I25.2 Old myocardial infarction; I25.5 Ischemic cardiomyopathy; K21.9 Gastro-esophageal reflux disease without esophagitis; N40.0 Benign prostatic hyperplasia without lower urinary tract symptoms; R26.2 Difficulty in walking, not elsewhere classified; R47.81 Slurred speech; K58.9 Irritable bowel syndrome, unspecified; I48.91 Unspecified atrial fibrillation; T50.2X5A Adverse effect of carbonic-anhydrase inhibitors, benzothiadiazides and other diuretics, initial encounter; Z86.74 Personal history of sudden cardiac arrest; Z95.5 Presence of coronary angioplasty implant and graft; Z87.891 Personal history of nicotine dependence; Z86.73 Personal history of transient ischemic attack (TIA), and cerebral infarction without residual deficits; Z79.4 Long term (current) use of insulin; Z79.82 Long term (current) use of aspirin; Z79.899 Other long term (current) drug therapy; Z88.8 Allergy status to other drugs, medicaments and biological substances; Z85.038 Personal history of other malignant neoplasm of large intestine; Y92.9 Unspecified place or not applicable
CPT/HCPCS: 36415; 70450; 70551; 71020; 80048; 80053; 80061; 81001; 82550; 82553; 83735; 84100; 84484; 85025; 85027; 85610; 85730; 93005; 93306; 93880

== ENCOUNTER 2016-12-18 03:16 | Emergency (ER) | payer MEDICARE, OTHER ==
--- NOTE | 2016-12-18 03:34 | ED ---
General Adult HPI - General Chief complaint: Arrhythmia/Palpitations Stated complaint: Sent by /Janitor Custodian issue Time Seen by Provider: 12/18/16 03:27 Source: patient, family, RN notes reviewed Mode of arrival: ambulatory Limitations: no limitations - History of Present Illness Initial comments: Patient is a pleasant 71-year-old male presenting to the emergency department with possible rhythm problem. Patient was awoken from a phone call stating to come to the hospital. Patient does have a monitor externally attached to his chest. Family states this is present because of a stroke that he had in October. Patient states he feels fine and has no complaints. Patient had no complaints earlier either. No chest pain. No palpitations. No dyspnea fatigue or weakness. - Related Data Home Medications Medication Instructions Recorded Confirmed Nitroglycerin Sl Tabs [Nitrostat] 0.4 mg SUBLINGUAL Q5M PRN 08/11/13 12/18/16 Tamsulosin [Flomax] 0.4 mg PO QAM 08/28/13 12/18/16 Cholecalciferol [Vitamin D3] 1,000 unit PO QAM 11/14/14 12/18/16 Atorvastatin [Lipitor] 20 mg PO HS 10/29/16 12/18/16 Cyanocobalamin (Vitamin B-12) 2,000 mcg PO DAILY 10/29/16 12/18/16 [Vitamin B-12] Ferrous Sulfate [Iron (65 MG 325 mg PO DAILY 10/29/16 12/18/16 Elemental)] Furosemide [Lasix] 20 mg PO DAILY 10/29/16 12/18/16 Insulin Aspart [NovoLOG] See Protocol SQ AC-TID 10/29/16 12/18/16 Insulin Glargine [Lantus] 10 unit SQ DAILY 10/29/16 12/18/16 Omeprazole 40 mg PO DAILY 10/29/16 12/18/16 Metoprolol Succinate [Toprol XL] 50 mg PO 12/18/16 Previous Rx's Medication Instructions Recorded Aspirin 81 mg PO DAILY 10/31/16 Clopidogrel Bisulfate [Plavix] 75 mg PO DAILY #30 tab 10/31/16 amLODIPine [Norvasc] 10 mg PO DAILY #30 10/31/16 hydrALAZINE HCL [Hydralazine HCl] 25 mg PO BID #20 tablet 12/18/16 Allergies Allergy/AdvReac Type Severity Reaction Status Date / Time enalapril [Enalapril] AdvReac Unknown Unknown Verified 12/18/16 03:24 lisinopril AdvReac Dizziness Verified 12/18/16 03:24 Review of Systems ROS Statement: Those systems with pertinent positive or pertinent negative responses have been documented in the HPI. ROS Other: All systems not noted in ROS Statement are negative. Constitutional: Denies: fever Eyes: Denies: eye pain ENT: Denies: ear pain Respiratory: Denies: cough Cardiovascular: Denies: chest pain, palpitations Endocrine: Denies: fatigue Gastrointestinal: Denies: abdominal pain Genitourinary: Denies: urgency Musculoskeletal: Denies: back pain Skin: Denies: rash Neurological: Denies: headache Past Medical History Past Medical History: Coronary Artery Disease (CAD), Cancer, Heart Failure, CVA/ TIA, Diabetes Mellitus, Deep Vein Thrombosis (DVT), GERD/Reflux, Hyperlipidemia , Hypertension, Myocardial Infarction ([place]) Additional Past Medical History / Comment(s): Blood transfusion; BOWEL OBRSTRUCTION, HX 2ND DEGREE HB,IBS,A FIB, RT FEMORAL DVT,CARDIO PULMONARY ARREST 2013, ATRIAL SEPTAL DEFECT,PVD, COLON CANCER 2007, per old hx ? ulcer in past. Last Myocardial Infarction Date:: 11/2012 History of Any Multi-Drug Resistant Organisms: None Reported Past Surgical History: Bowel Resection, Heart Catheterization, Heart Catheterization With Stent, Hernia Repair Additional Past Surgical History / Comment(s): Colon Resection 1999. Right femoral thrombolectomy 11/2012. Colonoscopy 2012. Anal fissure repair.RT CARTOTID ENDARTERECTOMY, incarcerated ventral hernia/lysis of adhesions. Past Anesthesia/Blood Transfusion Reactions: No Reported Reaction Additional Past Anesthesia/Blood Transfusion Reaction / Comment(s): HX OF BLOOD TRANSFUSION Date of Last Stent Placement:: 11/2012 Past Psychological History: No Psychological Hx Reported Smoking Status: Former smoker Past Alcohol Use History: Occasional Past Drug Use History: None Reported - Past Family History Father Family Medical History: CVA/TIA, Diabetes Mellitus Mother Family Medical History: Dementia General Exam Limitations: no limitations General appearance: alert, in no apparent distress Head exam: Present: atraumatic Eye exam: Present: normal appearance, PERRL ENT exam: Present: normal oropharynx Neck exam: Present: normal inspection Respiratory exam: Present: normal lung sounds bilaterally Cardiovascular Exam: Present: regular rate, normal rhythm Expanded Peripheral pulses: 2+: Radial (R), Radial (L), Dorsalis Pedis (R), Dorsalis Pedis (L) GI/Abdominal exam: Present: soft. Absent: tenderness Extremities exam: Present: normal inspection. Absent: pedal edema, calf tenderness Neurological exam: Present: alert Psychiatric exam: Present: normal affect, normal mood Skin exam: Present: normal color Course Vital Signs 12/18/16 12/18/16 03:24 04:35 Pulse Rate 83 77 Respiratory 18 16 Rate Blood Pressure 217/107 201/96 O2 Sat by Pulse 100 93 L Oximetry EKG Findings - EKG Comments: EKG Findings:: Sinus rhythm 75. MA 200. QRS 150. QT 412. QTC 460. Normal axis. Right bundle branch block. Inferior Q waves. Inferior T wave inversion. Medical Decision Making - Medical Decision Making Case discussed in detail with Dr. Rodriguez who is aware of this patient,including labs and blood pressure. He states patient did have low heart rate prior to arrival. He recommends adding hydralazine and holding metoprolol, discharge and follow-up Monday. Patient has had steady heart rate since in the emergency department. Patient remains asymptomatic. Patient and family updated on results and need for close follow-up. - Lab Data Result diagrams: 12/18/16 03:20 12/18/16 03:20 Lab Results 12/18/16 12/18/16 12/18/16 Range/Units 03:20 03:20 03:20 WBC 7.1 (3.8-10.6) k/uL RBC 4.97 (4.30-5.90) m/uL Hgb 14.0 (13.0-17.5) gm/dL Hct 42.6 (39.0-53.0) % MCV 85.7 (80.0-100.0) fL MCH 28.3 (25.0-35.0) pg MCHC 33.0 (31.0-37.0) g/dL RDW 15.0 (11.5-15.5) % Plt Count 161 (150-450) k/uL Neutrophils % 59 % Lymphocytes % 28 % Monocytes % 5 % Eosinophils % 6 % Basophils % 1 % Neutrophils # 4.1 (1.3-7.7) k/uL Lymphocytes # 2.0 (1.0-4.8) k/uL Monocytes # 0.3 (0-1.0) k/uL Eosinophils # 0.5 (0-0.7) k/uL Basophils # 0.0 (0-0.2) k/uL PT (9.0-12.0) sec INR (<1.2) APTT (22.0-30.0) sec Sodium 142 (137-145) mmol/L Potassium 4.2 (3.5-5.1) mmol/L Chloride 108 H (98-107) mmol/L Carbon Dioxide 22 (22-30) mmol/L Anion Gap 12 mmol/L BUN 27 H (9-20) mg/dL Creatinine 1.20 (0.66-1.25) mg/dL Est GFR (MDRD) Af Amer >60 (>60 ml/min/1.73 sqM) Est GFR (MDRD) Non-Af >60 (>60 ml/min/1.73 sqM) Glucose 96 (74-99) mg/dL Calcium 9.7 (8.4-10.2) mg/dL Magnesium 1.7 (1.6-2.3) mg/dL Total Bilirubin 0.7 (0.2-1.3) mg/dL AST 18 (17-59) U/L ALT 27 (21-72) U/L Alkaline Phosphatase 68 (38-126) U/L Total Creatine Kinase 73 (55-170) U/L CK-MB (CK-2) 1.0 (0.0-2.4) ng/mL CK-MB (CK-2) Rel Index 1.4 Troponin I 0.015 (0.000-0.034) ng/mL Total Protein 7.4 (6.3-8.2) g/dL Albumin 4.5 (3.5-5.0) g/dL TSH 7.650 H (0.465-4.680) mIU/L Free T4 1.02 (0.78-2.19) ng/dL Free T3 pg/mL 3.2 (2.8-5.3) pg/ml 12/18/16 Range/Units 03:20 WBC (3.8-10.6) k/uL RBC (4.30-5.90) m/uL Hgb (13.0-17.5) gm/dL Hct (39.0-53.0) % MCV (80.0-100.0) fL MCH (25.0-35.0) pg MCHC (31.0-37.0) g/dL RDW (11.5-15.5) % Plt Count (150-450) k/uL Neutrophils % % Lymphocytes % % Monocytes % % Eosinophils % % Basophils % % Neutrophils # (1.3-7.7) k/uL Lymphocytes # (1.0-4.8) k/uL Monocytes # (0-1.0) k/uL Eosinophils # (0-0.7) k/uL Basophils # (0-0.2) k/uL PT 10.5 (9.0-12.0) sec INR 1.0 (<1.2) APTT 22.8 (22.0-30.0) sec Sodium (137-145) mmol/L Potassium (3.5-5.1) mmol/L Chloride (98-107) mmol/L Carbon Dioxide (22-30) mmol/L Anion Gap mmol/L BUN (9-20) mg/dL Creatinine (0.66-1.25) mg/dL Est GFR (MDRD) Af Amer (>60 ml/min/1.73 sqM) Est GFR (MDRD) Non-Af (>60 ml/min/1.73 sqM) Glucose (74-99) mg/dL Calcium (8.4-10.2) mg/dL Magnesium (1.6-2.3) mg/dL Total Bilirubin (0.2-1.3) mg/dL AST (17-59) U/L ALT (21-72) U/L Alkaline Phosphatase (38-126) U/L Total Creatine Kinase (55-170) U/L CK-MB (CK-2) (0.0-2.4) ng/mL CK-MB (CK-2) Rel Index Troponin I (0.000-0.034) ng/mL Total Protein (6.3-8.2) g/dL Albumin (3.5-5.0) g/dL TSH (0.465-4.680) mIU/L Free T4 (0.78-2.19) ng/dL Free T3 pg/mL (2.8-5.3) pg/ml Disposition Clinical Impression: Bradycardia Disposition: HOME SELF-CARE Condition: Stable Instructions: Bradycardia (ED) Additional Instructions: Hold metoprolol, prescription provided for hydralazine. Follow-up on Monday with your police specialist and primary care physician. Return for weakness, irregular heartbeat, shortness of breath, pain, worsening symptoms or other concerns. Prescriptions: hydrALAZINE HCL [Hydralazine HCl] 25 mg PO BID #20 tablet Referrals: Brandon Graham DO [Primary Care Provider] - 1-2 days Time of Disposition: 05:06
[2016-12-18 03:42] LABS: Basophils % (A) 1 %; CH 29.6; CHCM 34.7; Eosinophils # (A) 0.5 k/uL (0-0.7); Eosinophils % (A) 6 %; HCT 42.6 % (39.0-53.0); HDW 2.78; Luc # (Auto) 0.15; Luc % (Auto) 2; Lymphocytes % (A) 28 %; MCH 28.3 pg (25.0-35.0); MCV 85.7 fL (80.0-100.0); Mean Platelet Volume 8.3; Monocytes # (A) 0.3 k/uL (0-1.0); Monocytes % (A) 5 %; Neutrophils # (A) 4.1 k/uL (1.3-7.7); Neutrophils % (A) 59 %; RBC 4.97 m/uL (4.30-5.90); WBC 7.1 k/uL (3.8-10.6); WBC (Perox) 7.33
[2016-12-18 03:51] LABS: Partial Thromboplastin Time 22.8 sec (22.0-30.0); Prothrombin Time 10.5 sec (9.0-12.0)
--- NOTE | 2016-12-18 03:51 | XR ---
EXAM: XR Chest, 1 View CLINICAL HISTORY: Reason: dysrhythmia TECHNIQUE: Frontal view of the chest. COMPARISON: 10/29/16 FINDINGS: Lungs: Unremarkable. No consolidation. Pleural space: Unremarkable. No pneumothorax. Heart: Unremarkable. No cardiomegaly. Mediastinum: Unremarkable. Bones/joints: Unremarkable. IMPRESSION: Normal chest x-ray.
[2016-12-18 03:52] LABS: ALT 27 U/L (21-72); AST 18 U/L (17-59); Alkaline Phosphatase 68 U/L (38-126); Anion Gap 12 mmol/L; Blood Urea Nitrogen 27 mg/dL (9-20); Calcium 9.7 mg/dL (8.4-10.2); Carbon Dioxide 22 mmol/L (22-30); Chloride 108 mmol/L (98-107); Glucose 96 mg/dL (74-99); Magnesium 1.7 mg/dL (1.6-2.3); Non-African American GFR(MDRD) >60 (>60 ml/min/1.73 sqM); Potassium 4.2 mmol/L (3.5-5.1); Sodium 142 mmol/L (137-145); Total Bilirubin 0.7 mg/dL (0.2-1.3); Total Protein 7.4 g/dL (6.3-8.2)
[2016-12-18 04:15] LABS: Troponin I 0.015 ng/mL (0.000-0.034)
[2016-12-18 04:36] VITALS: RESP 16
[2016-12-18] MEDS ORDERED: FUROSEMIDE 20 MG TAB PO STA (04:36)
[2016-12-18] MEDS ORDERED: amLODIPine 10 MG TAB PO STA (04:36)
[2016-12-18] MEDS ORDERED: METOPROLOL SUCCINATE (ER) 50 MG TAB.ER.24H PO STA (04:36)
[2016-12-18] MEDS ORDERED: hydrALAZINE HCL 25 MG TAB PO STA (04:51)
[2016-12-18 05:11] VITALS: BP 190/90; PULSE 78
== END 2016-12-18 05:22 | disposition home or self-care (01) ==
LOC: EC 03:16
DX: R00.1 Bradycardia, unspecified (principal); I25.10 Atherosclerotic heart disease of native coronary artery without angina pectoris; I11.0 Hypertensive heart disease with heart failure; I50.9 Heart failure, unspecified; E11.9 Type 2 diabetes mellitus without complications; E78.5 Hyperlipidemia, unspecified; K21.9 Gastro-esophageal reflux disease without esophagitis; I25.2 Old myocardial infarction; Z86.718 Personal history of other venous thrombosis and embolism; Z86.73 Personal history of transient ischemic attack (TIA), and cerebral infarction without residual deficits; Z85.038 Personal history of other malignant neoplasm of large intestine; Z87.891 Personal history of nicotine dependence; Z79.4 Long term (current) use of insulin; Z79.899 Other long term (current) drug therapy; Z88.8 Allergy status to other drugs, medicaments and biological substances
CPT/HCPCS: 36415; 71010; 80053; 82550; 82553; 83735; 84439; 84443; 84481; 84484; 85025; 85610; 85730; 93005; 99285

== ENCOUNTER 2017-02-09 08:28 | Day surgery (SDC) | payer MEDICARE, OTHER ==
[2017-02-06 10:47] VITALS: BMI 32.1
[~2017-02-09 08:28] MED LIST: ALPRAZolam 0.25 MG TAB PO PRN; ALPRAZolam 0.5 MG TAB PO PRN; ASPIRIN 325 MG TAB PO STA; ATORVASTATIN 80 MG TAB PO STA; NITROGLYCERIN SL TABS 0.4 MG TAB SUBLINGUAL PRN; SODIUM CHLORIDE 0.9% 1,000 ML in EMPTY BAG 1 BAG IV ONE
[2017-02-09 08:52] VITALS: RESP 18
[2017-02-09 09:01] LABS: Basophils % (A) 1 %; CHCM 33.4; Eosinophils # (A) 0.4 k/uL (0-0.7); Eosinophils % (A) 7 %; HCT 44.6 % (39.0-53.0); HDW 2.76; HGB 14.5 gm/dL (13.0-17.5); Luc # (Auto) 0.08; Luc % (Auto) 1; Lymphocytes # (A) 1.1 k/uL (1.0-4.8); Lymphocytes % (A) 21 %; MCH 28.4 pg (25.0-35.0); MCHC 32.6 g/dL (31.0-37.0); MCV 87.1 fL (80.0-100.0); Mean Platelet Volume 8.4; Monocytes # (A) 0.3 k/uL (0-1.0); Monocytes % (A) 6 %; Neutrophils # (A) 3.5 k/uL (1.3-7.7); Neutrophils % (A) 65 %; RBC 5.12 m/uL (4.30-5.90); RDW 13.8 % (11.5-15.5); WBC 5.5 k/uL (3.8-10.6); WBC (Perox) 5.34
[2017-02-09 09:04] LABS: Glucose,Whole Blood 96 mg/dL (75-99)
[2017-02-09 09:16] LABS: Anion Gap 11 mmol/L; Blood Urea Nitrogen 25 mg/dL (9-20); Calcium 9.4 mg/dL (8.4-10.2); Carbon Dioxide 23 mmol/L (22-30); Chloride 108 mmol/L (98-107); Glucose 109 mg/dL (74-99); Non-African American GFR(MDRD) 53 (>60 ml/min/1.73 sqM); Potassium 4.3 mmol/L (3.5-5.1); Sodium 142 mmol/L (137-145)
[2017-02-09] MEDS ORDERED: VERAPAMIL 2.5 MG/ML 2 ML AMP ONE (10:01)
[2017-02-09] MEDS ORDERED: LIDOCAINE 2% INJ 20 MG/ML (20 ML MDV) ONE (10:02)
[2017-02-09] MEDS ORDERED: MIDAZOLAM 2 MG/2 ML VIAL ONE (10:02)
[2017-02-09] MEDS ORDERED: MIDAZOLAM 2 MG/2 ML VIAL IV ONE (10:57)
[2017-02-09] MEDS ORDERED: LIDOCAINE 2% INJ 20 MG/ML SQ ONE (11:00)
[2017-02-09] MEDS ORDERED: IODIXANOL 320 MG/ML 100 ML INTRAARTER ONE (11:14)
[2017-02-09] MEDS ORDERED: RX INFO: IV CONTRAST WAS GIVEN 1 EACH MISC MISCELLANE PRN (11:23)
[2017-02-09] MEDS ORDERED: SODIUM CHLORIDE 0.9% 1,000 ML IV SCH (11:30)
--- NOTE | 2017-02-09 12:32 | CC ---
CARDIAC CATHETERIZATION REPORT DATE OF SERVICE: 02/09/2017 PERFORMING PHYSICIAN: Mookie Leal MD, Environmental Coordinator. PROCEDURE PERFORMED: 1. Selective right and left coronary angiogram. 2. Left heart catheterization. 3. Left ventriculography. INDICATION: This is a pleasant 71-year-old gentleman who is known to have coronary artery disease and prior chronic total occlusion of the RCA, intermediate disease involving the mid LAD, was diagnosed with cardiomyopathy. The heart catheterization is to see if there is any progression in the severity of coronary artery disease. APPROACH: Right common femoral artery. COMPLICATION: None. LEVEL OF SEDATION: Moderate with sedation length of 24 minutes. PROCEDURE DESCRIPTION: After obtaining an informed consent, the patient was brought to the Cardiac Junior Administrative Assistant. The right common femoral artery was cannulated using micropuncture technique and a micropuncture wire passed easily. Then I placed a 6-Kazakh sheath in the right common femoral artery. Subsequently, I did selective right and left coronary angiogram using JR4 and JL4 catheters. After that, I did left heart catheterization and subsequently, LV gram using 6-Kazakh pigtail catheter. The procedure was completed without any complication. SELECTIVE CORONARY ANGIOGRAM: 1. The RCA is chronically occluded by the proximal portion. 2. The left main is a short left main, but angiographically normal. It bifurcates into the left circumflex and left anterior descending artery. 3. The left circumflex is a large caliber vessel and is a nondominant vessel. The left circumflex has mild disease only. 4. The left anterior descending artery: The proximal LAD appeared to be angiographically normal and gives rise into the first diagonal branch which has 2 subbranches. They have mild disease only. The mid LAD just before the bifurcation of the second diagonal branch has a long tubular lesion appeared to be in the range of 60%. The second diagonal branch appears to be angiographically normal but the LAD distally is stented and the stent is patent. HEMODYNAMICS: The left ventricular end-diastolic pressure was 6 mmHg and no gradient was identified across the aortic valve. Left ventriculography was performed in the ESTRADA projection and using a power injection. The left ventricular systolic function is impaired with EF between 30% to 35% with inferobasal akinesia. CONCLUSION: 1. Chronic total occlusion of the right coronary artery. 2. Normal left main coronary artery. 3. Normal left circumflex coronary artery. 4. Intermediate disease involving the mid left anterior descending artery with patent stent in the distal LAD. 5. Impaired left ventricular function with ejection fraction between 30% to 35%. POSTPROCEDURE MANAGEMENT: I will obtain a stress test as an outpatient to assess for ischemia in the inferior wall. The patient down the line might need to have an ICD for primary prevention. EDITH / SULEIMAN: [id number] /
[2017-02-09 12:35] LABS: Glucose,Whole Blood 88 mg/dL (75-99)
[2017-02-09 17:40] LABS: Glucose,Whole Blood 146 mg/dL (75-99)
[2017-02-09 19:41] VITALS: BP 150/64; PULSE 78; TEMP 97.8
== END 2017-02-09 19:33 | disposition home or self-care (01) ==
LOC: CATHCVL 08:28 → 3OBS 11:20 → CATHCVL 19:33
PROVIDERS: ATTEND Internal Medicine Interventional Cardiology
DX: I25.10 Atherosclerotic heart disease of native coronary artery without angina pectoris (principal); I25.82 Chronic total occlusion of coronary artery; I25.5 Ischemic cardiomyopathy; Z95.5 Presence of coronary angioplasty implant and graft; E78.00 Pure hypercholesterolemia, unspecified; I10 Essential (primary) hypertension; E11.9 Type 2 diabetes mellitus without complications; I77.9 Disorder of arteries and arterioles, unspecified; Z86.73 Personal history of transient ischemic attack (TIA), and cerebral infarction without residual deficits; Z79.02 Long term (current) use of antithrombotics/antiplatelets; Z79.82 Long term (current) use of aspirin; Z79.4 Long term (current) use of insulin; Z79.899 Other long term (current) drug therapy; Z88.8 Allergy status to other drugs, medicaments and biological substances; Z87.891 Personal history of nicotine dependence
CPT/HCPCS: 93458; 80048; 85025; C1894; C1769 ×2; J2001; J2250; Q9967

== ENCOUNTER → 2018-04-11 | Outpatient (CLI) | payer OTHER ==
--- NOTE | 2018-04-11 14:37 | MR ---
EXAMINATION TYPE: MR knee LT wo con DATE OF EXAM: 04/11/2018 COMPARISON: None HISTORY: Left knee pain TECHNIQUE: Multiplanar, multisequence imaging of the left knee is performed without IV contrast. FINDINGS: MEDIAL MENISCUS: There is increased linear signal within the substance of the posterior horn medial m eniscus. This may communicate with the superior anterior articular surface compatible with a horizont al tear. The anterior and posterior horns of the medial meniscus appears small LATERAL MENISCUS: There is increased signal within the substance of the anterior horn lateral meniscu s. No communication with the articular surface is evident. CRUCIATE LIGAMENTS: Posterior cruciate ligament is intact. The anterior cruciate ligament is faintly visualized but has a normal course. Partial tear of the anterior cruciate ligament should be consider ed. COLLATERAL LIGAMENTS: The medial collateral ligament and lateral collateral ligament complex are inta ct and unremarkable. EXTENSOR MECHANISM: Visualized quadriceps and patellar tendons are intact. EFFUSION: There is a moderate joint effusion present. POPLITEAL CYST: No popliteal/huber cyst. TRICOMPARTMENT SPACES AND CARTILAGE: There is narrowing of the medial compartment joint space. There is loss of the articular cartilage along the distal femoral condyle. There is narrowing and loss of t he tibial plateau cartilage anteriorly within the medial compartment. There is thinning of the latera l compartment articular cartilage. There is some thinning of the medial patellofemoral articular cart ilage along the anterior femur. BONE MARROW SIGNAL: No focal abnormal marrow signal is appreciated. OTHER: No additional significant abnormality is appreciated. IMPRESSION: 1. Suspected partial tear of the anterior cruciate ligament. There are fibers that remain present in the normal orientation. 2. Moderate joint effusion. 3. Advanced osteoarthritic degenerative change medial compartment left knee. Moderate narrowing and d egenerative changes are within the lateral compartment joint space and patellofemoral joint space. 4. Horizontal tear posterior horn medial meniscus. There is internal derangement of the anterior horn lateral meniscus.
== END ==
LOC: RADMRIMAIN 11:26
PROVIDERS: ATTEND Orthopaedic Surgery
DX: M17.12 Unilateral primary osteoarthritis, left knee (principal); S83.282A Other tear of lateral meniscus, current injury, left knee, initial encounter; S83.242A Other tear of medial meniscus, current injury, left knee, initial encounter

== ENCOUNTER → 2018-04-24 | Outpatient (CLI) | payer OTHER ==
[2018-04-24 12:51] LABS: Basophils % (A) 1 %; Eosinophils # (A) 0.3 k/uL (0-0.7); Eosinophils % (A) 4 %; HCT 40.1 % (39.0-53.0); HGB 12.5 gm/dL (13.0-17.5); Lymphocytes # (A) 1.1 k/uL (1.0-4.8); Lymphocytes % (A) 16 %; MCH 26.3 pg (25.0-35.0); MCHC 31.2 g/dL (31.0-37.0); MCV 84.4 fL (80.0-100.0); Mean Platelet Volume 7.5; Monocytes # (A) 0.3 k/uL (0-1.0); Monocytes % (A) 5 %; Neutrophils % (A) 73 %; Platelet Count 194 k/uL (150-450); RBC 4.76 m/uL (4.30-5.90); RDW 14.1 % (11.5-15.5); WBC 6.8 k/uL (3.8-10.6)
[2018-04-24 12:53] LABS: Potassium 4.4 mmol/L (3.5-5.1)
== END | disposition home or self-care (01) ==
LOC: LABPAT 11:19
PROVIDERS: ATTEND Orthopaedic Surgery
DX: Z01.818 Encounter for other preprocedural examination (principal); Z01.812 Encounter for preprocedural laboratory examination; M23.92 Unspecified internal derangement of left knee
CPT/HCPCS: 36415; 80051; 85025; 93005

== ENCOUNTER 2018-05-24 10:44 | Day surgery (SDC) | payer OTHER ==
[2018-05-14 16:15] VITALS: BMI 34.4
--- NOTE | 2018-05-23 17:13 | HP ---
HISTORY AND PHYSICAL DATE OF SERVICE: Surgery is scheduled for 05/24/2018 HISTORY OF PRESENT ILLNESS: Austin Barnes is a 72-year-old patient seen with progressive left knee pain. Treatment options were discussed with him. He elected to proceed with arthroscopy. Consent regarding the procedure was obtained, clearance was provided by Dr. Leal. PAST MEDICAL HISTORY: Hypertension, insulin-dependent diabetes, gastroesophageal reflux disease, hyperlipidemia. PAST SURGICAL HISTORY: Cholecystectomy, knee arthroscopy. MEDICATIONS: Amlodipine, aspirin, atorvastatin, furosemide, NovoLog, omeprazole. ALLERGIES: LISINOPRIL, ENALAPRIL. SOCIAL HISTORY: Denies tobacco use. PHYSICAL EXAMINATION: Evaluation of the left knee is range of motion is -1 to 120 degrees. There is a mild effusion. Tenderness along the lateral joint line. Positive lateral Bi's. Crepitus medial, lateral and patellofemoral compartments. Ligaments are stable. Hip rotation without pain. Distal neurovascular exam is intact. RADIOGRAPHS: Of left knee reveal osteoarthritic changes. Left knee MRI revealed medial meniscal tear. IMPRESSION: 1. Internal derangement, left knee with medial meniscal tear. 2. Hypertension. 3. Hyperlipidemia. 4. Insulin-dependent diabetes. PLAN: Arthroscopy left knee with partial meniscectomy and debridement. Surgery is scheduled for 05/24/2018. MMODL / IJN: [id number] /
[~2018-05-24 10:44] MED LIST changes: -ALPRAZolam 0.25 MG TAB PO PRN; -ALPRAZolam 0.5 MG TAB PO PRN; -ASPIRIN 325 MG TAB PO STA; -ATORVASTATIN 80 MG TAB PO STA; +DEXAMETHASONE SOD PHOSPHATE 10 MG/ML 1 ML VIAL IV ONE; +HYDROmorphone 0.5 MG/0.5 ML SYRINGE IVP PRN; +LIDOCAINE 1% 20 ML VIAL (10MG/ML) FOR IV START INTRADERMA PRN; +MIDAZOLAM (PF) 2 MG/2 ML VIAL IV PRN; -NITROGLYCERIN SL TABS 0.4 MG TAB SUBLINGUAL PRN; +ONDANSETRON 4 MG/2 ML VIAL IVP ONE; -SODIUM CHLORIDE 0.9% 1,000 ML in EMPTY BAG 1 BAG IV ONE; +ceFAZolin IN SWFI 2 GM/20 ML SYRINGE IVP ONE; +fentaNYL (PF) 50 MCG/ML 2 ML AMP IV PRN
[2018-05-24 12:02] LABS: Glucose,Whole Blood 110 mg/dL (75-99)
[2018-05-24] MEDS: LACTATED RINGERS 1,000 ML IV SCH ×2 (12:06→12:41)
[2018-05-24] MEDS ORDERED: PROPOFOL 10 MG/ML 20 ML VIAL IV ONE (12:39)
[2018-05-24] MEDS ORDERED: SUCCINYLCHOLINE CHLORIDE 100 MG/5 ML SYR IV ONE (12:39)
[2018-05-24] MEDS ORDERED: MIDAZOLAM 2 MG/2 ML VIAL ONE (12:39)
[2018-05-24] MEDS ORDERED: fentaNYL (PF) 50 MCG/ML 2 ML AMP ONE (12:39)
[2018-05-24] MEDS ORDERED: LIDOCAINE 1% INJ 10MG/ML (20 ML MDV) ONE (12:39)
[2018-05-24] MEDS ORDERED: BUPIVACAINE (PF) 0.25% 30 ML VIAL INTRAARTIC ONE (12:55)
--- NOTE | 2018-05-24 13:29 | P.OP ---
Date of Procedure: 05/24/18 Preoperative Diagnosis: Internal derangement left knee Postoperative Diagnosis: 1. Tear medial meniscus left knee 2. Grade 3 chondromalacia patella left knee 3. Reactive synovitis medial, lateral and suprapatellar compartments left knee Procedure(s) Performed: 1. Arthroscopic partial medial meniscectomy left knee 2. Arthroscopic chondroplasty patella left knee 3. Arthroscopic partial synovectomy medial, lateral and suprapatellar compartments left knee Anesthesia: TRISHAA, local Surgeon: Justin Samaniego Estimated Blood Loss (ml): 10 Pathology: none sent Condition: stable Disposition: PACU Indications for Procedure: 72-year-old patient seen with progressive left knee pain. After treatment options were discussed, he elected to proceed with arthroscopy. Operative Findings: see description of procedure Description of Procedure: Patient was taken to the operative suite. Patient underwent a general anesthetic by the department of anesthesia. Patient was given preoperative antibiotics. The left lower extremity was placed in a well-padded arthroscopic leg barajas. The left leg was prepped and draped in the normal sterile orthopedic fashion. A lateral parapatellar and suprapatellar incision was made. Trochars were inserted. Arthroscopy was initiated. Suprapatellar pouch revealed diffuse thick reactive synovitis. The patellofemoral joint appeared to articulate congruently. There was grade 3 chondromalacia patella with some small osteochondral tears present. The scope was guided into the medial gutter. Loose bodies or plica were identified. The scope was then guided into the medial compartment. A medial parapatellar incision was made. Trocar inserted followed by probe. Was a complex tear involving the mid body and posterior horn of the medial meniscus. There were grade 4 chondral moist changes of the femoral condyle and tibial plateau with areas of exposed bone. There was thick reactive synovitis anteriorly. I performed a partial medial meniscectomy down to stable tissue. I performed a partial synovectomy decompressing that thick reactive synovitis. The residual meniscus was found to be stable. There was good decompression of the synovitis. Scope and probe were then guided into the intercondylar notch. Cruciates were identified, probed and found to be stable. The scope and probe were then guided into lateral compartment. Lateral meniscus revealed no evidence for tear. There were some grade 1/2 chondromalacia changes lateral compartment no osteochondral tears were present. There was thick reactive synovitis anteriorly. I introduced a motorized shaver and performed a partial synovectomy decompressing the synovitis. There was good decompression of the synovitis. The scope was in guided back into the suprapatellar compartment. I introduced a motorized shaver into the super patellar compartment. I debrided some piecemeal fragments of meniscus I encountered. I performed a chondroplasty of the patella getting down to stable osteochondral tissue. I performed a partial synovectomy decompressing the thick reactive synovitis. The shaver was removed. I took one more look on the entire knee, no residual debris. Instruments were now removed from the joint. The joint was infiltrated with .25 % Marcaine. Steri-Strips were applied to the portal sites. Sterile dressings were applied. The patient was placed into a VIRGIL hose. No tourniquet was utilized. The patient was awakened, transferred to a bed and taken to recovery stable satisfactory condition.
[2018-05-24 13:32] VITALS: RESP 16; TEMP 97.4
[2018-05-24 13:39] LABS: Glucose,Whole Blood 136 mg/dL (75-99)
[2018-05-24 14:48] VITALS: BP 153/78; PULSE 74
== END 2018-05-24 15:34 | disposition home or self-care (01) ==
LOC: OR 10:44
PROVIDERS: ATTEND Orthopaedic Surgery
DX: S83.242A Other tear of medial meniscus, current injury, left knee, initial encounter (principal); X58.XXXA Exposure to other specified factors, initial encounter; M22.42 Chondromalacia patellae, left knee; M65.862 Other synovitis and tenosynovitis, left lower leg; I25.10 Atherosclerotic heart disease of native coronary artery without angina pectoris; I10 Essential (primary) hypertension; I25.5 Ischemic cardiomyopathy; E11.51 Type 2 diabetes mellitus with diabetic peripheral angiopathy without gangrene; Z79.4 Long term (current) use of insulin; E78.5 Hyperlipidemia, unspecified; Z72.0 Tobacco use; I69.354 Hemiplegia and hemiparesis following cerebral infarction affecting left non-dominant side; Z95.5 Presence of coronary angioplasty implant and graft; I65.21 Occlusion and stenosis of right carotid artery; Z79.82 Long term (current) use of aspirin; Z79.899 Other long term (current) drug therapy; Z88.8 Allergy status to other drugs, medicaments and biological substances; K21.9 Gastro-esophageal reflux disease without esophagitis; I25.2 Old myocardial infarction
CPT/HCPCS: 84132; 29881; J2250; J1100; J2405; J2001; J3010; J0330; J2704

== ENCOUNTER → 2018-10-15 | Outpatient (CLI) | payer OTHER ==
--- NOTE | 2018-10-15 15:26 | US ---
EXAMINATION TYPE: US kidneys/renal and bladder DATE OF EXAM: 10/15/2018 COMPARISON: NONE CLINICAL HISTORY: 72-year-old male N18.3 CKD stage 3. No pain, CKD TECHNIQUE: Multiple sonographic images of the kidneys and bladder are obtained. FINDINGS: EXAM MEASUREMENTS: Right Kidney: 10.3 x 4.8 x 5.1 cm Left Kidney: 10.8 x 4.4 x 5.6 cm Right Kidney: No hydronephrosis. Left Kidney: Mild pelviectasis likely transient. No calyceal dilatation to suggest hydronephrosis. Bladder: Mildly distended, wnl Bilateral Jets seen IMPRESSION: Mild pelviectasis on the left is likely transient. No calyceal dilatation to suggest hydronephrosis. Both ureteral jets are visualized.
== END | disposition home or self-care (01) ==
LOC: RADUSWWP 10:39
PROVIDERS: ATTEND Internal Medicine
DX: N28.89 Other specified disorders of kidney and ureter (principal); N19 Unspecified kidney failure
CPT/HCPCS: 76770

== ENCOUNTER 2018-10-19 06:45 | Day surgery (SDC) | payer OTHER ==
[~2018-10-19 06:45] MED LIST changes: -DEXAMETHASONE SOD PHOSPHATE 10 MG/ML 1 ML VIAL IV ONE; -HYDROmorphone 0.5 MG/0.5 ML SYRINGE IVP PRN; +LACTATED RINGERS 1,000 ML IV SCH; -LIDOCAINE 1% 20 ML VIAL (10MG/ML) FOR IV START INTRADERMA PRN; -MIDAZOLAM (PF) 2 MG/2 ML VIAL IV PRN; -ONDANSETRON 4 MG/2 ML VIAL IVP ONE; -ceFAZolin IN SWFI 2 GM/20 ML SYRINGE IVP ONE; -fentaNYL (PF) 50 MCG/ML 2 ML AMP IV PRN
[2018-10-19] MEDS ORDERED: LACTATED RINGERS 1,000 ML IV ONE (07:07)
[2018-10-19 07:18] VITALS: TEMP 98.6
[2018-10-19] MEDS ORDERED: KETAMINE 10 MG/ML 20 ML VIAL ONE (07:33)
[2018-10-19] MEDS ORDERED: LIDOCAINE 1% INJ 10MG/ML (20 ML MDV) ONE (07:33)
[2018-10-19] MEDS ORDERED: MIDAZOLAM 2 MG/2 ML VIAL ONE (07:33)
[2018-10-19] MEDS ORDERED: PROPOFOL 10 MG/ML 20 ML VIAL IV ONE (07:33)
[2018-10-19 07:36] LABS: Glucose,Whole Blood 94 mg/dL (75-99)
--- NOTE | 2018-10-19 08:07 | P.PCN ---
Date of Procedure: 10/19/18 Procedure(s) Performed: Brief history: Patient is a pleasant 72-year-old white male, scheduled for an elective upper endoscopy as well as colonoscopy as a part of evaluation of iron deficiency anemia. He has prior history of colon cancer diagnosed in 1999. Status post right hemicolectomy. He denies any GI symptoms. Procedure performed: Esophagogastroduodenoscopy with biopsy Colonoscopy Preoperative diagnosis: Iron deficiency anemia History of colon cancer in 2001 Anesthesia: MAC Procedure: After informed consent was obtained from the patient was brought into the endoscopy unit and IV sedation was administered by anesthesia under continuous monitoring. Initially upper endoscopy was done. The Olympus GF 160 video endoscope was inserted inserted into the mouth and esophagus intubated without any difficulty and was gradually advanced into the stomach and duodenum and carefully examined. The bulb and second part of the duodenum appeared normal. The scope was then withdrawn into the stomach adequately insufflated with air and upon careful examination the antrum had scattered erosions and biopsies were done from this area. The body, cardia and fundus appeared normal. The scope was then withdrawn into the esophagus. The GE junction was located at 40 cm to the incisors. It appeared regular with no erythema erosions or ulcerations. Rest of the esophagus appeared normal. Patient tolerated the procedure well. At this time the patient continued to remain sedation. Initial digital rectal examination was normal. Olympus CF 160 video colonoscope was then inserted into the rectum and gradually advanced to the right colon with the ileocolic anastomosis was visualized and appeared normal. The prep was excellent. Mucosa of the ascending colon, transverse colon, descending colon, sigmoid colon and rectum appeared normal. Retroflexion was performed in the rectum and no lesions were noted. Patient tolerated the procedure well. Impression: 1. Upper endoscopy revealed antral erosive gastritis but no evidence of esophagitis or peptic ulcer disease 2. Colonoscopy revealed normal appearing right-sided ileocolic anastomosis and no evidence of colitis or colorectal neoplasia Recommendations: Findings of this examination were discussed with the patient as well as his family. He was advised to follow with the biopsy results. He can have a repeat surveillance colonoscopy in 5 years.
[2018-10-19 08:15] LABS: Glucose,Whole Blood 98 mg/dL (75-99)
[2018-10-19 08:21] VITALS: BP 154/74; PULSE 69; RESP 16
== END 2018-10-19 08:51 | disposition home or self-care (01) ==
LOC: ORWHC2ENDO 06:45
PROVIDERS: ATTEND Internal Medicine Gastroenterology
DX: D50.9 Iron deficiency anemia, unspecified (principal); Z85.038 Personal history of other malignant neoplasm of large intestine; Z90.49 Acquired absence of other specified parts of digestive tract; Z98.0 Intestinal bypass and anastomosis status; K29.60 Other gastritis without bleeding; K29.50 Unspecified chronic gastritis without bleeding; I10 Essential (primary) hypertension; E78.5 Hyperlipidemia, unspecified; E11.9 Type 2 diabetes mellitus without complications; K21.9 Gastro-esophageal reflux disease without esophagitis; I25.10 Atherosclerotic heart disease of native coronary artery without angina pectoris; Z95.5 Presence of coronary angioplasty implant and graft; I69.359 Hemiplegia and hemiparesis following cerebral infarction affecting unspecified side; Z79.4 Long term (current) use of insulin; Z79.899 Other long term (current) drug therapy; Z88.8 Allergy status to other drugs, medicaments and biological substances; Z97.2 Presence of dental prosthetic device (complete) (partial)
CPT/HCPCS: 43239; 45378; 88305; J2250; J2001; J2704

== ENCOUNTER → 2018-11-06 | Outpatient (CLI) | payer OTHER ==
[2018-11-06 10:18] LABS: HCT 42.7 % (39.0-53.0); HGB 13.6 gm/dL (13.0-17.5); MCH 27.1 pg (25.0-35.0); MCHC 31.8 g/dL (31.0-37.0); MCV 85.3 fL (80.0-100.0); Platelet Count 177 k/uL (150-450); RBC 5.01 m/uL (4.30-5.90)
[2018-11-06 10:50] LABS: Appearance,Urine Clear (Clear); Bilirubin,Urine Negative (Negative); Blood,Urine Negative (Negative); Color,Urine Light Yellow; Glucose,Urine (UA) Negative (Negative); Ketones,Urine Negative (Negative); Leukocyte Esterase,Urine Negative (Negative); Nitrite,Urine Negative (Negative); Protein,Urine Trace (Negative); Specific Gravity,Urine 1.012 (1.001-1.035); Urobilinogen,Urine <2.0 mg/dL (<2.0)
[2018-11-06 19:12] LABS: Iron Saturation 28.68 (15.00-50.00)
[2018-11-06 19:20] LABS: Vitamin D 25 Hydroxy 26.8 ng/mL (30.0-100.0)
[2018-11-06 20:02] LABS: African American GFR (CKD) 43.2 (60.0-200.0); Albumin 4.5 g/dL (3.80-4.90); Albumin/Globulin Ratio 2.05 (1.60-3.17); Anion Gap 13.5 mmol/L (4.00-12.00); BUN/Creat Ratio 22.22 Ratio (12.00-20.00); Calcium 9.5 mg/dL (8.7-10.3); Carbon Dioxide 22.5 mmol/L (21.6-31.8); Globulin 2.2 g/dL (1.6-3.3); Magnesium 1.9 mg/dL (1.5-2.4); Phosphorus 3.3 mg/dL (2.4-5.1); Potassium 5.2 mmol/L (3.5-5.5); Total Bilirubin 0.8 mg/dL (0.3-1.2); Total Protein 6.7 g/dL (6.2-8.2); Uric Acid 8.6 mg/dL (3.7-8.7)
== END | disposition home or self-care (01) ==
LOC: LABWHC1 09:14
PROVIDERS: ATTEND Internal Medicine
DX: N39.0 Urinary tract infection, site not specified (principal); D63.1 Anemia in chronic kidney disease; R80.9 Proteinuria, unspecified; N25.81 Secondary hyperparathyroidism of renal origin; E83.39 Other disorders of phosphorus metabolism; M10.9 Gout, unspecified; N18.3 Chronic kidney disease, stage 3 (moderate)
CPT/HCPCS: 36415; 80053; 81003; 82043; 82306; 82570; 82728; 83540; 83550; 83735; 83970; 84100; 84550; 85027

== ENCOUNTER 2021-11-22 13:57 | Emergency (ER) | payer OTHER ==
[2021-11-22 14:02] VITALS: BP 143/77; PULSE 99; RESP 20
[2021-11-22] MEDS ORDERED: ACETAMINOPHEN TAB 500 MG TAB PO STA (14:20)
[2021-11-22] MEDS ORDERED: SODIUM CHLORIDE 0.9% 500 ML 500 ML IV STA (14:26)
--- NOTE | 2021-11-22 14:29 | ED ---
General Adult HPI - General Chief complaint: Weakness Stated complaint: weakness, hypertension Time Seen by Provider: 11/22/21 14:19 Source: patient Mode of arrival: ambulatory Limitations: no limitations - History of Present Illness Initial comments: Dictation was produced using [employer] dictation software. please excuse any grammatical, word or spelling errors. Chief Complaint: 75-year-old male with multiple comorbidities presents to the a fever and generalized weakness History of Present Illness: 75-year-old male he is vaccinated for COVID-19. Presents to the emergency department for muscle aches and slight respiratory symptoms. Patient has a mild cough nonproductive of sputum. He has mild runny nose also clear. Symptoms began this morning. He started to feel little aching in his legs when he walks. Slightly weak feeling. Patient has any abdominal pain. No diarrhea. No nausea. The ROS documented in this emergency department record has been reviewed and confirmed by me. Those systems with pertinent positive or negative responses have been documented in the HPI. All other systems are other negative and/or n oncontributory. PHYSICAL EXAM: General Impression: Alert and oriented x3, not in acute distress HEENT: Normocephalic atraumatic, extra-ocular movements intact, pupils equal and reactive to light bilaterally, mucous membranes moist. Cardiovascular: Heart regular rate and rhythm Chest: Able to complete full sentences, no retractions, no tachypnea Abdomen: abdomen soft, non-tender, non-distended, no organomegaly Musculoskeletal: Pulses present and equal in all extremities, no peripheral edema Motor: no focal deficits noted Neurological: CN II-XII grossly intact, no focal motor or sensory deficits noted Skin: Intact with no visualized rashes Psych: Normal affect and mood ED course: 75-year-old well-appearing male presents emergency department for myalgias and mild respiratory symptoms. Vital Signs upon arrival shows temperature 101.2, rest of vital signs within acceptable limits. Laboratory evaluation obtained. CBC metabolic panel is unremarkable. Urinalysis negative. Patient is COVID-19 test positive. Chest x-ray is nonacute. Patient observed in emergency department or approximately 2 hours. Reevaluation at bedside at 4:00 PM found to be in stable medical condition. Patient will be prescribed antiviral medications sent to pharmacy. Patient is agreeable discharge. Advised follow-up with primary care doctor. - Related Data Home Medications Medication Instructions Recorded Confirmed Nitroglycerin Sl Tabs [Nitrostat] 0.4 mg SUBLINGUAL Q5M PRN 08/11/13 10/16/18 Tamsulosin [Flomax] 0.4 mg PO QAM 08/28/13 10/19/18 Cholecalciferol [Vitamin D3 (25 1,000 unit PO QAM 11/14/14 10/19/18 Mcg = 1000 Iu)] Atorvastatin [Lipitor] 20 mg PO HS 10/29/16 10/19/18 Cyanocobalamin (Vitamin B-12) 2,000 mcg PO BID 10/29/16 10/19/18 [Vitamin B-12] Furosemide [Lasix] 20 mg PO QAM 10/29/16 10/19/18 Insulin Aspart Scale Rx Form See Protocol SQ ACHS 02/06/17 10/19/18 [NovoLOG Outpatient Scale Rx Form] Aspirin 81 mg PO BID 05/14/18 10/16/18 Famotidine 40 mg PO QAM 10/16/18 10/19/18 Losartan [Cozaar] 25 mg PO QAM 10/16/18 10/19/18 amLODIPine [Norvasc] 10 mg PO QAM 10/16/18 10/19/18 Previous Rx's Medication Instructions Recorded hydrALAZINE HCL 25 mg PO BID #20 tablet 12/18/16 Nirmatrelvir/Ritonavir [Paxlovid 1 each PO BID 5 Days #10 tab 11/22/21 150-100 mg Pack (Eua)] Allergies Allergy/AdvReac Type Severity Reaction Status Date / Time enalapril [Enalapril] AdvReac Unknown Unknown Verified 11/22/21 14:02 lisinopril AdvReac Dizziness Verified 11/22/21 14:02 Review of Systems ROS Statement: Those systems with pertinent positive or pertinent negative responses have been documented in the HPI. ROS Other: All systems not noted in ROS Statement are negative. Past Medical History Past Medical History: Atrial Fibrillation, Coronary Artery Disease (CAD), Cancer, Heart Failure, CVA/TIA, Diabetes Mellitus, Deep Vein Thrombosis (DVT), GERD/Reflux, Hyperlipidemia, Hypertension, Myocardial Infarction (PR), Vascular Disorder Additional Past Medical History / Comment(s): BBOWEL OBSTRUCTION after colon cancer surgery., HX 2ND DEGREE HB,IBS,A FIB, RT FEMORAL DVT,CARDIO PULMONARY ARREST 2013, ATRIAL SEPTAL DEFECT,PVD, COLON CANCER 2006, per old hx ? ulcer in past. states her had a slight stroke no weakness from the stroke. Last Myocardial Infarction Date:: 11/2012 History of Any Multi-Drug Resistant Organisms: None Reported Past Surgical History: Bowel Resection, Heart Catheterization, Heart Catheterization With Stent, Hernia Repair Additional Past Surgical History / Comment(s): Colon Resection 1999. Right femoral thrombolectomy 11/2012. Colonoscopy 2012. Anal fissure repair.RT CARTOTID ENDARTERECTOMY, incarcerated ventral hernia/lysis of adhesions. Past Anesthesia/Blood Transfusion Reactions: No Reported Reaction Additional Past Anesthesia/Blood Transfusion Reaction / Comment(s): HX OF BLOOD TRANSFUSION Date of Last Stent Placement:: 11/2012 Past Psychological History: No Psychological Hx Reported Smoking Status: Never smoker Past Alcohol Use History: Rare Past Drug Use History: None Reported - Past Family History Sister(s) Family Medical History: Cancer Father Family Medical History: CVA/TIA, Diabetes Mellitus Mother Family Medical History: Dementia General Exam Limitations: no limitations Course Vital Signs 11/22/21 13:59 Temperature 101.2 F H Pulse Rate 99 Respiratory 20 Rate Blood Pressure 143/77 O2 Sat by Pulse 96 Oximetry Medical Decision Making - Lab Data Result diagrams: 11/22/21 14:43 11/22/21 14:43 Lab Results 11/22/21 11/22/21 11/22/21 Range/Units 14:43 14:43 14:43 WBC 6.8 (3.8-10.6) k/uL RBC 4.77 (4.30-5.90) m/uL Hgb 14.2 (13.0-17.5) gm/dL Hct 42.0 (39.0-53.0) % MCV 88.1 (80.0-100.0) fL MCH 29.7 (25.0-35.0) pg MCHC 33.7 (31.0-37.0) g/dL RDW 15.5 (11.5-15.5) % Plt Count 157 (150-450) k/uL MPV 7.7 Neutrophils % 87 % Lymphocytes % 5 % Monocytes % 5 % Eosinophils % 1 % Basophils % 1 % Neutrophils # 5.9 (1.3-7.7) k/uL Lymphocytes # 0.3 L (1.0-4.8) k/uL Monocytes # 0.3 (0-1.0) k/uL Eosinophils # 0.1 (0-0.7) k/uL Basophils # 0.0 (0-0.2) k/uL Sodium 136 L (137-145) mmol/L Potassium 4.7 (3.5-5.1) mmol/L Chloride 102 (98-107) mmol/L Carbon Dioxide 20 L (22-30) mmol/L Anion Gap 14 mmol/L BUN 30 H (9-20) mg/dL Creatinine 1.82 H (0.66-1.25) mg/dL Est GFR (CKD-EPI)AfAm 42 (>60 ml/min/1.73 sqM) Est GFR (CKD-EPI)NonAf 36 (>60 ml/min/1.73 sqM) Glucose 124 H (74-99) mg/dL Plasma Lactic Acid Kirk 1.1 (0.7-2.0) mmol/L Calcium 9.4 (8.4-10.2) mg/dL Urine Color Urine Appearance (Clear) Urine pH (5.0-8.0) Ur Specific [place] (1.001-1.035) Urine Protein (Negative) Urine Glucose (UA) (Negative) Urine Ketones (Negative) Urine Blood (Negative) Urine Nitrite (Negative) Urine Bilirubin (Negative) Urine Urobilinogen (<2.0) mg/dL Ur Leukocyte Esterase (Negative) Urine RBC (0-5) /hpf Urine WBC (0-5) /hpf Ur Squamous Epith Cells (0-4) /hpf Urine Bacteria (None) /hpf Urine Mucus (None) /hpf Influenza Type A (PCR) (Not Detectd) Influenza Type B (PCR) (Not Detectd) RSV (PCR) (Not Detectd) SARS-CoV-2 (PCR) (Not Detectd) 11/22/21 11/22/21 Range/Units 14:55 14:55 WBC (3.8-10.6) k/uL RBC (4.30-5.90) m/uL Hgb (13.0-17.5) gm/dL Hct (39.0-53.0) % MCV (80.0-100.0) fL MCH (25.0-35.0) pg MCHC (31.0-37.0) g/dL RDW (11.5-15.5) % Plt Count (150-450) k/uL MPV Neutrophils % % Lymphocytes % % Monocytes % % Eosinophils % % Basophils % % Neutrophils # (1.3-7.7) k/uL Lymphocytes # (1.0-4.8) k/uL Monocytes # (0-1.0) k/uL Eosinophils # (0-0.7) k/uL Basophils # (0-0.2) k/uL Sodium (137-145) mmol/L Potassium (3.5-5.1) mmol/L Chloride (98-107) mmol/L Carbon Dioxide (22-30) mmol/L Anion Gap mmol/L BUN (9-20) mg/dL Creatinine (0.66-1.25) mg/dL Est GFR (CKD-EPI)AfAm (>60 ml/min/1.73 sqM) Est GFR (CKD-EPI)NonAf (>60 ml/min/1.73 sqM) Glucose (74-99) mg/dL Plasma Lactic Acid Kirk (0.7-2.0) mmol/L Calcium (8.4-10.2) mg/dL Urine Color Light Yellow Urine Appearance Clear (Clear) Urine pH 6.0 (5.0-8.0) Ur Specific [place] 1.012 (1.001-1.035) Urine Protein 2+ H (Negative) Urine Glucose (UA) Negative (Negative) Urine Ketones Negative (Negative) Urine Blood Trace H (Negative) Urine Nitrite Negative (Negative) Urine Bilirubin Negative (Negative) Urine Urobilinogen <2.0 (<2.0) mg/dL Ur Leukocyte Esterase Negative (Negative) Urine RBC 1 (0-5) /hpf Urine WBC 1 (0-5) /hpf Ur Squamous Epith Cells <1 (0-4) /hpf Urine Bacteria Rare H (None) /hpf Urine Mucus Rare H (None) /hpf Influenza Type A (PCR) Not Detected (Not Detectd) Influenza Type B (PCR) Not Detected (Not Detectd) RSV (PCR) Not Detected (Not Detectd) SARS-CoV-2 (PCR) Detected A (Not Detectd) Disposition Clinical Impression: Coronavirus infection Disposition: HOME SELF-CARE Condition: Fair Instructions (If sedation given, give patient instructions): Coronavirus Disease 2019 (COVID-19) Prescriptions: Nirmatrelvir/Ritonavir [Paxlovid 150-100 mg Pack (Eua)] 1 each PO BID 5 Days #10 tab Is patient prescribed a controlled substance at d/c from ED?: No Referrals: [facility],Clinic [Primary Care Provider] - 1-2 days Time of Disposition: 15:58
[2021-11-22 14:56] LABS: Basophils % (A) 1 %; Eosinophils # (A) 0.1 k/uL (0-0.7); Eosinophils % (A) 1 %; HGB 14.2 gm/dL (13.0-17.5); Lymphocytes # (A) 0.3 k/uL (1.0-4.8); Lymphocytes % (A) 5 %; MCH 29.7 pg (25.0-35.0); MCHC 33.7 g/dL (31.0-37.0); MCV 88.1 fL (80.0-100.0); Mean Platelet Volume 7.7; Monocytes # (A) 0.3 k/uL (0-1.0); Monocytes % (A) 5 %; Neutrophils # (A) 5.9 k/uL (1.3-7.7); Neutrophils % (A) 87 %; Platelet Count 157 k/uL (150-450); RBC 4.77 m/uL (4.30-5.90); RDW 15.5 % (11.5-15.5); WBC 6.8 k/uL (3.8-10.6)
[2021-11-22 15:04] LABS: Calcium 9.4 mg/dL (8.4-10.2); Potassium 4.7 mmol/L (3.5-5.1)
[2021-11-22 15:16] LABS: Appearance,Urine Clear (Clear); Bacteria,Urine Rare /hpf; Bilirubin,Urine Negative (Negative); Blood,Urine Trace (Negative); Color,Urine Light Yellow; Glucose,Urine (UA) Negative (Negative); Ketones,Urine Negative (Negative); Leukocyte Esterase,Urine Negative (Negative); Mucus,Urine Rare /hpf; Nitrite,Urine Negative (Negative); Protein,Urine 2+ (Negative); RBC,Urine 1 /hpf (0-5); Specific Gravity,Urine 1.012 (1.001-1.035); Squamous Epithelial Cell,Urine <1 /hpf (0-4); Urobilinogen,Urine <2.0 mg/dL (<2.0); WBC,Urine 1 /hpf (0-5)
--- NOTE | 2021-11-22 15:24 | XR ---
EXAMINATION TYPE: XR chest 2V DATE OF EXAM: 11/22/2021 COMPARISON: 12/18/2016 HISTORY: 75-year-old male with fever TECHNIQUE: PA and lateral views FINDINGS: Heart normal size. Aorta and pulmonary vasculature within normal limits. Peribronchial cuffing and in terstitial prominence. No consolidation or pleural effusion. IMPRESSION: Mild interstitial density could reflect bronchitis or asthma. No focal infiltrate seen.
[2021-11-22 16:21] VITALS: TEMP 98.3
== END 2021-11-22 16:34 | disposition home or self-care (01) ==
LOC: EC 13:57
DX: U07.1 COVID-19 (principal); I11.0 Hypertensive heart disease with heart failure; I50.9 Heart failure, unspecified; I48.91 Unspecified atrial fibrillation; I25.10 Atherosclerotic heart disease of native coronary artery without angina pectoris; E11.9 Type 2 diabetes mellitus without complications; K21.9 Gastro-esophageal reflux disease without esophagitis; E78.5 Hyperlipidemia, unspecified; I25.2 Old myocardial infarction; Z88.8 Allergy status to other drugs, medicaments and biological substances; Z79.899 Other long term (current) drug therapy; Z79.4 Long term (current) use of insulin; Z79.82 Long term (current) use of aspirin; Z79.84 Long term (current) use of oral hypoglycemic drugs
CPT/HCPCS: 36415; 71046; 80048; 81001; 83605; 85025; 87636; 96360; 99285

== ENCOUNTER → 2022-04-04 | Outpatient (CLI) | payer OTHER ==
--- NOTE | 2022-04-04 11:56 | US ---
EXAMINATION TYPE: US kidneys/renal and bladder DATE OF EXAM: 04/04/2022 COMPARISON: NONE CLINICAL HISTORY: N81.32 CHRONIC KIDNEY DISEASE, STAGE 3B. EXAM MEASUREMENTS: Right Kidney: 9.5 x 4.1 x 4.6 cm Left Kidney: 10.9 x 5.1 x 4.3 cm Patient of large body habitus with extensive overlying bowel gas, technically limited study. Right Kidney: No evidence of obstructive uropathy. Thinned cortex. Left Kidney: No evidence of obstructive uropathy. Thinned cortex. Bladder: wnl Bilateral Jets seen: yes IMPRESSION: No evidence of obstructive uropathy.
== END | disposition home or self-care (01) ==
LOC: RADUSWWP 10:50
PROVIDERS: ATTEND Internal Medicine Nephrology
DX: N18.32 Chronic kidney disease, stage 3b (principal)
CPT/HCPCS: 76770

== ENCOUNTER → 2024-04-23 | Outpatient (CLI) | payer OTHER ==
[2024-04-23 08:58] LABS: Appearance,Urine Clear (Clear); Bilirubin,Urine Negative (Negative); Blood,Urine Negative (Negative); Color,Urine Colorless; Glucose,Urine (UA) 3+ (Negative); Ketones,Urine Negative (Negative); Leukocyte Esterase,Urine Negative (Negative); Nitrite,Urine Negative (Negative); Protein,Urine Trace (Negative); Specific Gravity,Urine 1.014 (1.001-1.035); Urobilinogen,Urine <2.0 mg/dL (<2.0)
[2024-04-23 15:32] LABS: Basophils # (A) 0.06 X 10*3/uL (0.00-0.10); Basophils % (A) 0.8 %; Eosinophils # (A) 0.38 X 10*3/uL (0.04-0.35); Eosinophils % (A) 5.3 %; HCT 41.3 % (39.6-50.0); HGB 12.9 g/dL (13.0-17.0); Lymphocytes # (A) 1.15 X 10*3/uL (0.90-5.00); Lymphocytes % (A) 15.9 %; MCH 27.3 pg (27.0-32.0); MCHC 31.2 g/dL (32.0-37.0); MCV 87.5 FL (80.0-97.0); Mean Platelet Volume 11.5 FL (9.5-12.2); Monocytes # (A) 0.39 X 10*3/uL (0.20-1.00); Monocytes % (A) 5.4 %; NRBC Per 100 WBC 0 X 10*3/uL (0.00-0.01); Neutrophils # (A) 5.22 X 10*3/uL (1.80-7.70); Neutrophils % (A) 72.3 %; Platelet Count 202 X 10*3/uL (140-440); RBC 4.72 X 10*6/uL (4.40-5.60); RDW 15.2 % (11.5-14.5); WBC 7.22 X 10*3/uL (4.50-10.00)
[2024-04-23 16:51] LABS: % Iron Saturation 18.63 (15.00-50.00); ALT 9 U/L (10-49); AST 16 U/L (14-35); Albumin 4.6 g/dL (3.8-4.9); Albumin/Globulin Ratio 1.77 Ratio (1.60-3.17); Alkaline Phosphatase 57 U/L (41-126); BUN/Creat Ratio 25.27 Ratio (12.00-20.00); Blood Urea Nitrogen 55.6 mg/dL (9.0-27.0); Calcium 9.7 mg/dL (8.7-10.3); Carbon Dioxide 20.1 mmol/L (21.6-31.8); Chloride 107 mmol/L (96-109); Ferritin 72.4 ng/mL (22.0-322.0); Globulin 2.6 g/dL (1.6-3.3); Glucose 106 mg/dL (70-110); Iron 60 UG/DL (65-175); Magnesium 2.2 mg/dL (1.5-2.4); Phosphorus 3.5 mg/dL (2.4-5.1); Potassium 4.8 mmol/L (3.5-5.5); Sodium 140 mmol/L (135-145); Total Bilirubin 0.6 mg/dL (0.3-1.2); Total Iron Binding Capacity 322 UG/DL (228-460); Total Protein 7.2 g/dL (6.2-8.2); Uric Acid 6.4 mg/dL (3.7-8.7)
[2024-04-23 18:31] LABS: Urine Creatinine 68.5 mg/dL (39.0-259.0)
== END | disposition home or self-care (01) ==
LOC: LABWHC1 08:10
PROVIDERS: ATTEND Internal Medicine
DX: N18.32 Chronic kidney disease, stage 3b (principal)
CPT/HCPCS: 36415; 80053; 81003; 82043; 82306; 82570; 82728; 83540; 83550; 83735; 83970; 84100; 84550; 85025

== ENCOUNTER 2024-06-19 09:12 | Inpatient (IN) | payer OTHER, MEDICARE ==
--- NOTE | 2024-06-19 09:39 | ED ---
Extremity Problem HPI - General Chief complaint: Extremity Problem,Nontraumatic Stated complaint: phi leg swelling Time Seen by Provider: 06/19/24 09:19 Source: patient, family, RN notes reviewed Mode of arrival: ambulatory Limitations: no limitations - History of Present Illness Initial comments: 78-year-old male presents emergency department chief complaint of leg swelling, shortness of breath. Patient states he has been having increasing leg swelling and shortness of breath of the last couple days he states he was unable to lay flat last night because he was too short of breath. He does have a history of A-fib and CHF along with renal disease. Patient states he is on Lasix but has not weighed himself recently to know if he is having weight gain he states his symptoms are worse with exertion where he has difficulty while talking due shortness of breath. - Related Data Home Medications Medication Instructions Recorded Confirmed Nitroglycerin Sl Tabs [Nitrostat] 0.4 mg SUBLINGUAL Q5M PRN 08/11/13 10/16/18 Tamsulosin [Flomax] 0.4 mg PO QAM 08/28/13 10/19/18 Cholecalciferol [Vitamin D3 (25 1,000 unit PO QAM 11/14/14 10/19/18 Mcg = 1000 Iu)] Atorvastatin [Lipitor] 20 mg PO HS 10/29/16 10/19/18 Cyanocobalamin (Vitamin B-12) 2,000 mcg PO BID 10/29/16 10/19/18 [Vitamin B-12] Furosemide [Lasix] 20 mg PO QAM 10/29/16 10/19/18 Insulin Aspart Scale Rx Form See Protocol SQ ACHS 02/06/17 10/19/18 [NovoLOG Outpatient Scale Rx Form] Aspirin 81 mg PO BID 05/14/18 10/16/18 Famotidine 40 mg PO QAM 10/16/18 10/19/18 Losartan [Cozaar] 25 mg PO QAM 10/16/18 10/19/18 amLODIPine [Norvasc] 10 mg PO QAM 10/16/18 10/19/18 Previous Rx's Medication Instructions Recorded hydrALAZINE HCL 25 mg PO BID #20 tablet 12/18/16 Nirmatrelvir/Ritonavir [Paxlovid 1 each PO BID 5 Days #10 tab 08/15/22 150-100 mg Pack (Eua)] Allergies Allergy/AdvReac Type Severity Reaction Status Date / Time enalapril [Enalapril] AdvReac Unknown Unknown Verified 06/19/24 09:17 lisinopril AdvReac Dizziness Verified 06/19/24 09:17 Review of Systems ROS Statement: Those systems with pertinent positive or pertinent negative responses have been documented in the HPI. ROS Other: All systems not noted in ROS Statement are negative. Past Medical History Past Medical History: Atrial Fibrillation, Coronary Artery Disease (CAD), Cancer, Heart Failure, CVA/TIA, Diabetes Mellitus, Deep Vein Thrombosis (DVT), GERD/Reflux, Hyperlipidemia, Hypertension, Myocardial Infarction ([place]), Vascular Disorder Additional Past Medical History / Comment(s): BBOWEL OBSTRUCTION after colon cancer surgery., HX 2ND DEGREE HB,IBS,A FIB, RT FEMORAL DVT,CARDIO PULMONARY ARREST 2013, ATRIAL SEPTAL DEFECT,PVD, COLON CANCER 2005, per old hx ? ulcer in past. states her had a slight stroke no weakness from the stroke. Last Myocardial Infarction Date:: 11/2012 History of Any Multi-Drug Resistant Organisms: None Reported Past Surgical History: Bowel Resection, Heart Catheterization, Heart Catheterization With Stent, Hernia Repair Additional Past Surgical History / Comment(s): Colon Resection 1999. Right femoral thrombolectomy 11/2012. Colonoscopy 2012. Anal fissure repair.RT CARTOTID ENDARTERECTOMY, incarcerated ventral hernia/lysis of adhesions. Past Anesthesia/Blood Transfusion Reactions: No Reported Reaction Additional Past Anesthesia/Blood Transfusion Reaction / Comment(s): HX OF BLOOD TRANSFUSION Date of Last Stent Placement:: 11/2012 Past Psychological History: No Psychological Hx Reported Smoking Status: Former smoker Past Alcohol Use History: None Reported Past Drug Use History: None Reported - Past Family History Sister(s) Family Medical History: Cancer Father Family Medical History: CVA/TIA, Diabetes Mellitus Mother Family Medical History: Dementia General Exam Limitations: no limitations General appearance: alert, in no apparent distress Head exam: Present: atraumatic, normocephalic, normal inspection Eye exam: Present: normal appearance, PERRL, EOMI. Absent: scleral icterus, conjunctival injection, periorbital swelling ENT exam: Present: normal exam, mucous membranes moist Neck exam: Present: normal inspection. Absent: tenderness, meningismus, lymphadenopathy Respiratory exam: Present: rales. Absent: normal lung sounds bilaterally, respiratory distress, wheezes, rhonchi, stridor Cardiovascular Exam: Present: regular rate, normal rhythm, normal heart sounds. Absent: systolic murmur, diastolic murmur, rubs, gallop, clicks Extremities exam: Present: pedal edema Neurological exam: Present: alert, oriented X3, CN II-XII intact Skin exam: Present: warm, dry, intact, normal color. Absent: rash Course Vital Signs 06/19/24 06/19/24 09:15 09:30 Temperature 97.7 F Pulse Rate 104 H Pulse Rate [ 79 Graphic Specialist ] Respiratory 18 Rate Blood Pressure 157/89 O2 Sat by Pulse 94 L Oximetry Medical Decision Making - Medical Decision Making Was pt. sent in by a medical professional or institution (ALTAGRACIA Peterson, PRE SALES ARCHITECT, urgent care, hospital, or group home...) When possible be specific @ -No Did you speak to anyone other than the patient for history (EMS, parent, family, police, friend...)? What history was obtained from this source @ -No Did you review nursing and triage notes (agree or disagree)? Why? @ -I reviewed and agree with nursing and triage notes Were old charts reviewed (outside hosp., previous admission, EMS record, old EKG, old radiological studies, urgent care reports/EKG's, group home records)? Report findings @ -No old charts were reviewed Differential Diagnosis (chest pain, altered mental status, abdominal pain women, abdominal pain men, vaginal bleeding, weakness, fever, dyspnea, syncope, headache, dizziness, GI bleed, back pain, seizure, CVA, palpatations, mental health, musculoskeletal)? @ -Differential Dyspnea: Coronary syndrome, arrhythmia, tamponade, asthma, COPD, pulmonary embolism, pneumonia, pneumothorax, pulmonary effusion, anaphylaxis, diabetic ketoacidosis, flailed chest, pulmonary contusion, diaphragmatic rupture, anemia, neuromuscular, this is not meant to be an all-inclusive list. EKG interpreted by me (3pts min.). @ -As above X-rays interpreted by me (1pt min.). @ -Chest x-ray shows pulmonary edema CT interpreted by me (1pt min.). @ -None done U/S interpreted by me (1pt. min.). @ -None done What testing was considered but not performed or refused? (CT, X-rays, U/S, labs)? Why? @ -None What meds were considered but not given or refused? Why? @ -None Did you discuss the management of the patient with other professionals (professionals i.e. , PA, PRE SALES ARCHITECT, lab, RT, psych nurse, protective services social worker, ground crewman mission support, teacher, licensing officer, high risk case manager)? Give summary @ -Dr. Zuniga for admission Was smoking cessation discussed for >3mins.? @ -No Was critical care preformed (if so, how long)? @ -No Were there social determinants of health that impacted care today? How? (Homelessness, low income, unemployed, alcoholism, drug addiction, transportation, low edu. Level, literacy, decrease access to med. care, mcc, rehab)? @ -No Was there de-escalation of care discussed even if they declined (Discuss DNR or withdrawal of care, Hospice)? DNR status @ -No What co-morbidities impacted this encounter? (DM, HTN, Smoking, COPD, CAD, Cancer, CVA, ARF, Chemo, Hep., AIDS, mental health diagnosis, sleep apnea, morbid obesity)? @ -A-fib, CHF Was patient admitted / discharged? Hospital course, mention meds given and route, prescriptions, significant lab abnormalities, going to OR and other pertinent info. @ -Admitted found to have acute CHF exacerbation. Patient started on diuresis. Patient has mildly elevated troponin patient is currently anticoagulated will remain on anticoagulation, patient will cardiology evaluation Undiagnosed new problem with uncertain prognosis? @ -No Drug Therapy requiring intensive monitoring for toxicity (Heparin, Nitro, Insulin, Cardizem)? @ -No Were any procedures done? @ -No Diagnosis/symptom? @ -Acute CHF exacerbation Acute, or Chronic, or Acute on Chronic? @ -Acute Uncomplicated (without systemic symptoms) or Complicated (systemic symptoms)? @ -Complicated Side effects of treatment? @ -No Exacerbation, Progression, or Severe Exacerbation? @ -Exacerbation Poses a threat to life or bodily function? How? (Chest pain, USA, NC, pneumonia, PE, COPD, DKA, ARF, appy, cholecystitis, CVA, Diverticulitis, Homicidal, Suicidal, threat to staff... and all critical care pts) @ -Yes CHF, risk of cardiac function - Lab Data Result diagrams: 06/19/24 09:47 06/19/24 09:47 Lab Results 06/19/24 06/19/24 06/19/24 Range/Units 09:47 09:47 09:47 WBC 7.8 (3.8-10.6) k/uL RBC 4.76 (4.30-5.90) m/uL Hgb 12.4 L (13.0-17.5) gm/dL Hct 41.5 (39.0-53.0) % MCV 87.2 (80.0-100.0) fL MCH 26.0 (25.0-35.0) pg MCHC 29.8 L (31.0-37.0) g/dL RDW 16.0 H (11.5-15.5) % Plt Count 201 (150-450) k/uL MPV 7.6 Neutrophils % 82 % Lymphocytes % 10 % Monocytes % 4 % Eosinophils % 2 % Basophils % 0 % Neutrophils # 6.3 (1.3-7.7) k/uL Lymphocytes # 0.8 L (1.0-4.8) k/uL Monocytes # 0.3 (0-1.0) k/uL Eosinophils # 0.2 (0-0.7) k/uL Basophils # 0.0 (0-0.2) k/uL Hypochromasia Marked Anisocytosis Slight PT 11.2 (10.0-12.5) sec INR 1.0 (<1.2) APTT 24.8 (22.0-30.0) sec Sodium 140 (137-145) mmol/L Potassium 5.4 H (3.5-5.1) mmol/L Chloride 107 (98-107) mmol/L Carbon Dioxide 20 L (22-30) mmol/L Anion Gap 13 mmol/L BUN 53 H (9-20) mg/dL Creatinine 2.16 H (0.66-1.25) mg/dL Est GFR (CKD-EPI)AfAm 33 (>60 ml/min/1.73 sqM) Est GFR (CKD-EPI)NonAf 29 (>60 ml/min/1.73 sqM) Glucose 123 H (74-99) mg/dL Calcium 10.3 H (8.4-10.2) mg/dL Magnesium 2.3 (1.6-2.3) mg/dL Total Bilirubin 1.1 (0.2-1.3) mg/dL AST 19 (17-59) U/L ALT 13 (4-49) U/L Alkaline Phosphatase 66 (38-126) U/L Troponin I (0.000-0.034) ng/mL NT-Pro-B Natriuret Pep 82432 pg/mL Total Protein 7.9 (6.3-8.2) g/dL Albumin 4.9 (3.5-5.0) g/dL 06/19/24 Range/Units 09:47 WBC (3.8-10.6) k/uL RBC (4.30-5.90) m/uL Hgb (13.0-17.5) gm/dL Hct (39.0-53.0) % MCV (80.0-100.0) fL MCH (25.0-35.0) pg MCHC (31.0-37.0) g/dL RDW (11.5-15.5) % Plt Count (150-450) k/uL MPV Neutrophils % % Lymphocytes % % Monocytes % % Eosinophils % % Basophils % % Neutrophils # (1.3-7.7) k/uL Lymphocytes # (1.0-4.8) k/uL Monocytes # (0-1.0) k/uL Eosinophils # (0-0.7) k/uL Basophils # (0-0.2) k/uL Hypochromasia Anisocytosis PT (10.0-12.5) sec INR (<1.2) APTT (22.0-30.0) sec Sodium (137-145) mmol/L Potassium (3.5-5.1) mmol/L Chloride (98-107) mmol/L Carbon Dioxide (22-30) mmol/L Anion Gap mmol/L BUN (9-20) mg/dL Creatinine (0.66-1.25) mg/dL Est GFR (CKD-EPI)AfAm (>60 ml/min/1.73 sqM) Est GFR (CKD-EPI)NonAf (>60 ml/min/1.73 sqM) Glucose (74-99) mg/dL Calcium (8.4-10.2) mg/dL Magnesium (1.6-2.3) mg/dL Total Bilirubin (0.2-1.3) mg/dL AST (17-59) U/L ALT (4-49) U/L Alkaline Phosphatase (38-126) U/L Troponin I 0.046 H* (0.000-0.034) ng/mL NT-Pro-B Natriuret Pep pg/mL Total Protein (6.3-8.2) g/dL Albumin (3.5-5.0) g/dL - EKG Data -: EKG Interpreted by Me EKG Comments: EKG performed at 9: 27 A-fib rate of 77 QRS 154 QT/QTc 416/448 Critical Care Time Critical Care Time: Yes Total Critical Care Time: 35 Disposition Clinical Impression: Acute exacerbation of CHF (congestive heart failure), Dyspnea, Elevated troponin Disposition: ADMITTED IP TO THIS HOSP Condition: Poor Referrals: Brandon Graham DO [Primary Care Provider] - 1-2 days Time of Disposition: 10:38
[2024-06-19 10:00] LABS: Anisocytosis Slight; Basophils % (A) 0 %; Eosinophils # (A) 0.2 k/uL (0-0.7); Eosinophils % (A) 2 %; HCT 41.5 % (39.0-53.0); HGB 12.4 gm/dL (13.0-17.5); Hypochromasia Marked; Lymphocytes # (A) 0.8 k/uL (1.0-4.8); Lymphocytes % (A) 10 %; MCHC 29.8 g/dL (31.0-37.0); MCV 87.2 fL (80.0-100.0); Mean Platelet Volume 7.6; Monocytes # (A) 0.3 k/uL (0-1.0); Monocytes % (A) 4 %; Neutrophils # (A) 6.3 k/uL (1.3-7.7); Neutrophils % (A) 82 %; Platelet Count 201 k/uL (150-450); RBC 4.76 m/uL (4.30-5.90); WBC 7.8 k/uL (3.8-10.6)
--- NOTE | 2024-06-19 10:02 | XR ---
EXAMINATION TYPE: XR chest 2V DATE OF EXAM: 06/19/2024 9:55 AM COMPARISON: Chest radiographs from 11/22/2021. CLINICAL INDICATION: Male, 78 years old with history of difficulty breathing; [facility] TECHNIQUE: XR chest 2V Frontal and lateral views of the chest. FINDINGS: Lungs/Pleura: No evidence of focal consolidation or pneumothorax. Blunting of the costophrenic angles is present. Pulmonary vascularity: Pulmonary vascular congestion. Heart/mediastinum: Cardiomediastinal silhouette is enlarged and stable. Musculoskeletal: No acute osseous pathology. Other findings: None IMPRESSION: Cardiomegaly, pulmonary vascular congestion and bilateral pleural effusions. Correlate with BNP for c ongestive heart failure. [facility], , 06/19/2024 10:00 AM
[2024-06-19 10:12] LABS: ALT 13 U/L (4-49); AST 19 U/L (17-59); African American GFR (CKD) 33 (>60 ml/min/1.73 sqM); Albumin 4.9 g/dL (3.5-5.0); Alkaline Phosphatase 66 U/L (38-126); Anion Gap 13 mmol/L; Blood Urea Nitrogen 53 mg/dL (9-20); Calcium 10.3 mg/dL (8.4-10.2); Carbon Dioxide 20 mmol/L (22-30); Chloride 107 mmol/L (98-107); Glucose 123 mg/dL (74-99); Magnesium 2.3 mg/dL (1.6-2.3); Non-African American GFR(CKD) 29 (>60 ml/min/1.73 sqM); Partial Thromboplastin Time 24.8 sec (22.0-30.0); Potassium 5.4 mmol/L (3.5-5.1); Prothrombin Time 11.2 sec (10.0-12.5); Sodium 140 mmol/L (137-145); Total Bilirubin 1.1 mg/dL (0.2-1.3); Total Protein 7.9 g/dL (6.3-8.2)
[2024-06-19 10:19] LABS: NT-Pro-B-Type Natriuretic Pept 10700 pg/mL
[2024-06-19] MEDS: FUROSEMIDE 10 MG/ML 4 ML VIAL IV STA (10:38)
--- NOTE | 2024-06-19 12:22 | P.HPIM ---
History of Present Illness H&P Date: 06/19/24 History of Presenting Illness: Patient is a very pleasant 78-year-old male with a past medical history of CAD status post stenting x 2, history of cardiac arrest in 2013, ischemic cardiomyopathy, chronic systolic congestive heart failure, valvular heart dis ease with atrial septal defect, chronic atrial fibrillation, hypertension, hyperlipidemia, peripheral vascular disease, carotid stenosis status post R carotid endarterectomy, colon cancer status post bowel resection, insulin- dependent diabetes mellitus, stage IV CKD, DVT status post femoral thrombectomy, and previous CVA with no reported deficits. He presented to the emergency department with a chief complaint of bilateral lower extremity edema and shortness of breath. Patient reports he began noticing swelling in his legs a couple days ago and yesterday noticed that he was experiencing significant exertional shortness of breath and was unable to lie down last night due to severe orthopnea. Patient does report that he has a history of congestive heart failure and follows outpatient with Dr. Leal. Patient's reports that he is on Lasix and has been taking as prescribed. Patient and deny any recent medication changes. Patient denies having any headache, lightheadedness, d izziness, fevers, chills, diaphoresis, chest pain, palpitations, productive cough, abdominal pain, nausea, vomiting, or experiencing any numbness or focal weakness in his extremities. Upon arrival to our facility, patient underwent evaluation in the emergency department. Vital signs upon arrival show blood pressure 157/89, heart rate 104, respiratory rate 18, temp 97.7 F, and SpO2 of 94% on room air. EKG completed showing atrial fibrillation with a controlled ventricular rate of 77 bpm with T wave inversion in inferior, anterior, and septal leads II, III, aVF and V2 through V4. Chest x-ray showing cardiomegaly with pulmonary vascular congestion and bilateral pleural effusions consistent with CHF. Labs completed and reviewed. CBC showing normocytic anemia with hemoglobin of 12.4. Coagulation profile normal findings. BMP showing hyperkalemia with potassium of 5.4, hypocarbia with bicarb of 20, elevated anion gap of 13 and elevated renal function consistent with known stage IV CKD with BUN of 53, creatinine 2.16, GFR of 29. Blood glucose 123. Magnesium 2.3. Liver profile unremarkable. Troponin was elevated at 0.046 with proBNP of 10,700. Patient admitted under our services with consultation to cardiology. Review of systems: Pertinent positives and negatives as discussed in HPI, a complete review of systems was performed and all other systems are negative. Physical exam: Vital signs reviewed and stable. General: Nontoxic, no distress and appears stated age. Derm: Skin warm and dry, normal coloration for ethnicity. Head: Atraumatic, normocephalic and symmetric. Eyes: EOM's intact, no lid lag, and anicteric sclera Mouth: no lip lesions, mucus membranes moist Cardiovascular: Irregularly irregular, systolic murmur, positive posterior tibial pulses bilaterally, and cap refill < 2 seconds. Lungs: Respirations even, regular, and unlabored on room air. Lungs diminished w ith bibasilar crackles Abdominal: soft, nontender to palpation, no guarding, no appreciable organome vlad Ext: ROM intact. No gross muscle atrophy, 2-3+ pitting bilateral lower extremity edema, no contractures Neuro: Speech clear, face symmetrical and CN II-XII grossly intact with no noted focal neuro deficits Psych: Alert and oriented to person, place, time, and situation. Appropriate and pleasant affect. Assessment and Plan of Care: Acute on chronic systolic heart failure exacerbation Elevated troponin Ischemic cardiomyopathy with previously known EF of 45% History of CAD status post stenting History of cardiac arrest in 2013 Chronic atrial fibrillation History of valvular heart disease with atrial septal defect Peripheral vascular disease Carotid stenosis status post right carotid endarterectomy -Cardiology consult -Telemetry monitoring -Trend troponins -ProBNP 10,700 -Daily weights with Close monitoring of I's and O's -Cardiac diet -Lasix 40 mg IVP every 12 hours -Continue aspirin 81 mg daily, atorvastatin 20 mg nightly, Eliquis 5 mg twice daily, amlodipine 10 mg daily, Farxiga 5 mg daily, and hydralazine 50 mg 3 times daily. Losartan held secondary to hyperkalemia. -Lipid profile and Hgb A1c with a.m. labs. -Continued close monitoring of electrolytes while diuresing. -Consult placed to heart failure navigator program Hyperkalemia Stage IV CKD -Hyperkalemia with potassium 5.4, patient given IV diuretics for treatment of CHF which will in turn treat hyperkalemia. Losartan held at this time recommending discontinuation upon discharge secondary to hyperkalemia. -Will continue to monitor renal function and electrolytes closely. Insulin-dependent diabetes mellitus -Patient placed on glycemic protocol with NovoLog sliding scale. Follow-up on morning hemoglobin A1c. History of colon cancer status post bowel resection -Continue outpatient follow-ups with yearly cancer screenings. Data and imaging reviewed: As stated above in HPI The patient is admitted with an anticipated greater than 2 midnight stay for evaluation of CHF exacerbation and elevated troponin CODE STATUS: Full code DVT prophylaxis: Eliquis Anticipated discharge date: Pending clinical course Anticipated discharge place: Pending clinical course Patient was seen independently by Nurse Practitioner. This document was prepared using [employer] dictation software. Please allow for errors in adjuster leader while rare they do occur. Vin Murphy NP rendered care for this patient independently, reviewed the findings and plan as documented in the note above and agree with plan. I did not physically speak with or examine the patient on this date. Past Medical History Past Medical History: Atrial Fibrillation, Coronary Artery Disease (CAD), Cancer, Heart Failure, CVA/TIA, Diabetes Mellitus, Deep Vein Thrombosis (DVT), GERD/Reflux, Hyperlipidemia, Hypertension, Myocardial Infarction ([place]), Vascular Disorder Additional Past Medical History / Comment(s): BBOWEL OBSTRUCTION after colon cancer surgery., HX 2ND DEGREE HB,IBS,A FIB, RT FEMORAL DVT,CARDIO PULMONARY ARREST 2013, ATRIAL SEPTAL DEFECT,PVD, COLON CANCER 2005, per old hx ? ulcer in past. states her had a slight stroke no weakness from the stroke. Last Myocardial Infarction Date:: 11/2012 History of Any Multi-Drug Resistant Organisms: None Reported Past Surgical History: Bowel Resection, Heart Catheterization, Heart Catheterization With Stent, Hernia Repair Additional Past Surgical History / Comment(s): Colon Resection 1999. Right femoral thrombolectomy 11/2012. Colonoscopy 2012. Anal fissure repair.RT CARTOTID ENDARTERECTOMY, incarcerated ventral hernia/lysis of adhesions. Past Anesthesia/Blood Transfusion Reactions: No Reported Reaction Additional Past Anesthesia/Blood Transfusion Reaction / Comment(s): HX OF BLOOD TRANSFUSION Date of Last Stent Placement:: 11/2012 Past Psychological History: No Psychological Hx Reported Smoking Status: Former smoker Past Alcohol Use History: None Reported Past Drug Use History: None Reported - Past Family History Sister(s) Family Medical History: Cancer Father Family Medical History: CVA/TIA, Diabetes Mellitus Mother Family Medical History: Dementia Medications and Allergies Home Medications Medication Instructions Recorded Confirmed Type Nitroglycerin Sl Tabs [Nitrostat] 0.4 mg SL Q5M PRN 08/11/13 06/19/24 History Tamsulosin [Flomax] 0.4 mg PO DAILY 08/28/13 06/19/24 History Cholecalciferol [Vitamin D3 (25 50 mcg PO DAILY 11/14/14 06/19/24 History Mcg = 1000 Iu)] Atorvastatin [Lipitor] 20 mg PO HS 10/29/16 06/19/24 History Furosemide [Lasix] 20 mg PO AC-[id number] 10/29/16 06/19/24 History Famotidine 40 mg PO DAILY 10/16/18 06/19/24 History Aspirin EC [Ecotrin Low Dose] 162 mg PO DAILY 06/19/24 06/19/24 History Empagliflozin [Jardiance] 10 mg PO DAILY 06/19/24 06/19/24 History INSULIN ASPART (NovoLOG) [NovoLOG See Protocol SQ AC-TID 06/19/24 06/19/24 History (formulary)] Losartan [Cozaar] 50 mg PO BID 06/19/24 06/19/24 History Vitamin B-12 100mcg 200 mcg PO DAILY 06/19/24 06/19/24 History allopurinoL 100 mg PO DAILY 06/19/24 06/19/24 History amLODIPine [Norvasc] 10 mg PO DAILY 06/19/24 06/19/24 History calcitrioL 0.25 mcg PO MOWEFR 06/19/24 06/19/24 History Allergies Allergy/AdvReac Type Severity Reaction Status Date / Time enalapril [Enalapril] AdvReac Unknown STATES BP Verified 06/19/24 11:01 TOO LOW lisinopril AdvReac Dizziness Verified 06/19/24 11:01 niacin AdvReac hyperglycemia, Verified 06/19/24 11:01 nausea Physical Exam Vitals: Vital Signs Temp Pulse Pulse Resp BP Pulse Ox 06/19/24 09:30 79 06/19/24 09:15 97.7 F 104 H 18 157/89 94 L Intake and Output 06/18/24 06/19/24 06/19/24 22:59 06:59 14:59 Other: Weight 99.79 kg Results CBC & Chem 7: 06/19/24 09:47 06/19/24 09:47 Labs: Abnormal Lab Results - Last 24 Hours (Table) 06/19/24 06/19/24 06/19/24 Range/Units 09:47 09:47 09:47 Hgb 12.4 L (13.0-17.5) gm/dL MCHC 29.8 L (31.0-37.0) g/dL RDW 16.0 H (11.5-15.5) % Lymphocytes # 0.8 L (1.0-4.8) k/uL Potassium 5.4 H (3.5-5.1) mmol/L Carbon Dioxide 20 L (22-30) mmol/L BUN 53 H (9-20) mg/dL Creatinine 2.16 H (0.66-1.25) mg/dL Glucose 123 H (74-99) mg/dL Calcium 10.3 H (8.4-10.2) mg/dL Troponin I 0.046 H* (0.000-0.034) ng/mL
--- NOTE | 2024-06-19 13:10 | P.CRDCN ---
History of Present Illness Consult date: 06/19/24 Consult reason: congestive heart failure History of present illness: This is 78-year-old male patient of Dr. Leal with past medical history of co ronary artery disease with known BYPRODUCTS SUPERVISOR of the RCA, known intermediate disease involving the left coronary system, cardiomyopathy, valvular heart disease, dilated thoracic aorta, hypertension, dyslipidemia, carotid atherosclerosis, history of TIA, diabetes mellitus type 2, peripheral vascular disease. We have been asked to evaluate the patient for CHF. Patient states that his leg started getting swelling about 3 days ago. His states that he does not usually complain of pain but the lower legs have been very painful. Patient denies chest pain. Also patient states he does not have history of atrial fibrillation and has never been told he has irregular heartbeat. Patient is found to be in atrial fibrillation upon evaluation. Patient has been started on IV Lasix 40 mg every 12 hours. Blood pressure 157/89, heart rate 104, pulse ox 94% on room air. Patient is seen today in the emergency center waiting for bed on the cardiac stepdown unit. In records from 2013 and 2014, it was documented patient had paroxysmal atrial fibrillation but this note was not continued in the office notes. -EKG: Atrial fibrillation 77 bpm -Chest x-ray: Cardiomegaly, pulmonary vascular congestion and bilateral pleural effusions. -Laboratory studies: WBC 7.8, hemoglobin 12.4. Potassium 5.4, BUN 53 creatinine 2.16, troponin 0.046, proBNP 10,700. -Home cardiac medications: Amlodipine 10 mg daily, aspirin 162 mg daily, atorvastatin 20 mg at bedtime, Jardiance 10 mg daily, Lasix 20 mg daily, losart an 50 mg twice daily, Nitrostat as needed. -Cardiac catheterization performed in 2017 revealed BYPRODUCTS SUPERVISOR of the RCA, intermediate disease involving the mid LAD and patent stent in the distal LAD. -Echocardiogram performed 08/10/2022 revealed EF of 45%, moderate MR, mild AR, dilated aorta at 3.8 cm. -Lexiscan Cardiolite stress test performed 08/10/2022 revealed large inferior scar, small anterior scar with small PI ischemia. Review Of Systems: CONSTITUTIONAL: Denies fever or chills. HEENT: Denies blurred vision, vision changes, or eye pain. Denies hemoptysis CARDIOVASCULAR: Denies chest pain. Denies orthopnea. Denies PND. Denies palpitations. Reports edema. RESPIRATORY: Denies shortness of breath. GASTROINTESTINAL: Denies abdominal pain. Denies nausea or vomiting. HEMATOLOGIC: Denies bleeding disorders. GENITOURINARY: Denies any blood in urine. SKIN: Denies puritis. Denies rash. Physical examination: Gen: This is a 78-year-old male in no acute distress VS: reviewed HEENT: Head is atraumatic, normocephalic. Pupils equal, round. Sclerae is anicteric. NECK: Supple. No JVD. LUNGS: Diminished. No wheezes or rhonchi. No intercostal retractions. HEART: Irregular rate and rhythm. Systolic murmur. ABDOMEN: Soft No tenderness. EXTREMITIES: Bilateral lower extremity edema. No calf tenderness. NEUROLOGICAL: Patient is awake, alert and oriented x3. Assessment: Acute on chronic systolic heart failure Coronary artery disease with known [employer] SUPERVISOR of the RCA and known intermediate disease involving the left coronary system Ischemic cardiomyopathy with EF of 45% Uncontrolled hypertension Dyslipidemia Carotid atherosclerosis History of TIA Peripheral vascular disease Persistent atrial fibrillation Plan: Resume patient's home cardiac medications Change aspirin to 81 mg daily Continue IV Lasix 40 mg every 12 hours Add hydralazine 50 mg 3 times daily Monitor ЕЛЕНА, daily weights, electrolytes and renal function Obtain 2-D echocardiogram and Doppler study to assess cardiac structure and fu nction Further recommendations to follow based upon clinical course Thank you kindly for this consultation. Nurse practitioner note has been reviewed, I agree with documented findings and plan of care. Patient was seen and examined. Past Medical History Past Medical History: Atrial Fibrillation, Coronary Artery Disease (CAD), Cancer, Heart Failure, CVA/TIA, Diabetes Mellitus, Deep Vein Thrombosis (DVT), GERD/Reflux, Hyperlipidemia, Hypertension, Myocardial Infarction ([place]), Vascular Disorder Additional Past Medical History / Comment(s): BBOWEL OBSTRUCTION after colon cancer surgery., HX 2ND DEGREE HB,IBS,A FIB, RT FEMORAL DVT,CARDIO PULMONARY ARREST 2013, ATRIAL SEPTAL DEFECT,PVD, COLON CANCER 2005, per old hx ? ulcer in past. states her had a slight stroke no weakness from the stroke. Last Myocardial Infarction Date:: 11/2012 History of Any Multi-Drug Resistant Organisms: None Reported Past Surgical History: Bowel Resection, Heart Catheterization, Heart Catheterization With Stent, Hernia Repair Additional Past Surgical History / Comment(s): Colon Resection 1999. Right femoral thrombolectomy 11/2012. Colonoscopy 2012. Anal fissure repair.RT CARTOTID ENDARTERECTOMY, incarcerated ventral hernia/lysis of adhesions. Past Anesthesia/Blood Transfusion Reactions: No Reported Reaction Additional Past Anesthesia/Blood Transfusion Reaction / Comment(s): HX OF BLOOD TRANSFUSION Date of Last Stent Placement:: 11/2012 Past Psychological History: No Psychological Hx Reported Smoking Status: Former smoker Past Alcohol Use History: None Reported Past Drug Use History: None Reported - Past Family History Sister(s) Family Medical History: Cancer Father Family Medical History: CVA/TIA, Diabetes Mellitus Mother Family Medical History: Dementia Medications and Allergies Home Medications Medication Instructions Recorded Confirmed Type Nitroglycerin Sl Tabs [Nitrostat] 0.4 mg SL Q5M PRN 08/11/13 06/19/24 History Tamsulosin [Flomax] 0.4 mg PO DAILY 08/28/13 06/19/24 History Cholecalciferol [Vitamin D3 (25 50 mcg PO DAILY 11/14/14 06/19/24 History Mcg = 1000 Iu)] Atorvastatin [Lipitor] 20 mg PO HS 10/29/16 06/19/24 History Furosemide [Lasix] 20 mg PO AC-BRKFST 10/29/16 06/19/24 History Famotidine 40 mg PO DAILY 10/16/18 06/19/24 History Aspirin EC [Ecotrin Low Dose] 162 mg PO DAILY 06/19/24 06/19/24 History Empagliflozin [Jardiance] 10 mg PO DAILY 06/19/24 06/19/24 History INSULIN ASPART (NovoLOG) [NovoLOG See Protocol SQ AC-TID 06/19/24 06/19/24 History (formulary)] Losartan [Cozaar] 50 mg PO BID 06/19/24 06/19/24 History Vitamin B-12 100mcg 200 mcg PO DAILY 06/19/24 06/19/24 History allopurinoL 100 mg PO DAILY 06/19/24 06/19/24 History amLODIPine [Norvasc] 10 mg PO DAILY 06/19/24 06/19/24 History calcitrioL 0.25 mcg PO MOWEFR 06/19/24 06/19/24 History Allergies Allergy/AdvReac Type Severity Reaction Status Date / Time enalapril [Enalapril] AdvReac Unknown STATES BP Verified 06/19/24 11:01 TOO LOW lisinopril AdvReac Dizziness Verified 06/19/24 11:01 niacin AdvReac hyperglycemia, Verified 06/19/24 11:01 nausea Physical Exam Vitals: Vital Signs Temp Pulse Pulse Resp BP Pulse Ox 06/19/24 09:30 79 06/19/24 09:15 97.7 F 104 H 18 157/89 94 L Intake and Output 06/18/24 06/19/24 06/19/24 22:59 06:59 14:59 Other: Weight 99.79 kg Results 06/19/24 09:47 06/19/24 09:47 Cardiac Enzymes 06/19/24 06/19/24 Range/Units 09:47 09:47 AST 19 (17-59) U/L Troponin I 0.046 H* (0.000-0.034) ng/mL Coagulation 06/19/24 Range/Units 09:47 PT 11.2 (10.0-12.5) sec APTT 24.8 (22.0-30.0) sec CBC 06/19/24 Range/Units 09:47 WBC 7.8 (3.8-10.6) k/uL RBC 4.76 (4.30-5.90) m/uL Hgb 12.4 L (13.0-17.5) gm/dL Hct 41.5 (39.0-53.0) % Plt Count 201 (150-450) k/uL Comprehensive Metabolic Panel 06/19/24 Range/Units 09:47 Sodium 140 (137-145) mmol/L Potassium 5.4 H (3.5-5.1) mmol/L Chloride 107 (98-107) mmol/L Carbon Dioxide 20 L (22-30) mmol/L BUN 53 H (9-20) mg/dL Creatinine 2.16 H (0.66-1.25) mg/dL Glucose 123 H (74-99) mg/dL Calcium 10.3 H (8.4-10.2) mg/dL AST 19 (17-59) U/L ALT 13 (4-49) U/L Alkaline Phosphatase 66 (38-126) U/L Total Protein 7.9 (6.3-8.2) g/dL Albumin 4.9 (3.5-5.0) g/dL Current Medications Generic Name Dose Route Start Last Admin Trade Name Pepito PRN Reason Stop Dose Admin Allopurinol 100 mg 06/20/24 09:00 Allopurinol 100 Mg Tab PO DAILY REZA Amlodipine Besylate 10 mg 06/20/24 09:00 Amlodipine 10 Mg Tab PO DAILY REZA Atorvastatin Calcium 20 mg 06/19/24 21:00 Atorvastatin 40 Mg Tab PO HS REZA Calcitriol 0.25 mcg 06/19/24 12:30 Calcitriol 0.25 Mcg Cap PO MOWEFR REZA Furosemide 40 mg 06/19/24 21:00 Furosemide 10 Mg/Ml 4 Ml Vial IV Q12HR REZA Losartan Potassium 50 mg 06/19/24 21:00 Losartan 50 Mg Tab PO BID [facility] Non-Formulary Medication 162 mg 06/20/24 09:00 Aspirin Ec PO DAILY [facility] Non-Formulary Medication 50 mcg 06/20/24 09:00 Cholecalciferol PO DAILY REZA Non-Formulary Medication 10 mg 06/20/24 09:00 Empagliflozin [Jardiance] PO DAILY [facility] Non-Formulary Medication 40 mg 06/20/24 09:00 Famotidine [Famotidine] PO DAILY REZA Tamsulosin HCl 0.4 mg 06/20/24 09:00 Tamsulosin 0.4 Mg Cap.Er.24h PO DAILY [facility] Intake and Output 06/18/24 06/19/24 06/19/24 22:59 06:59 14:59 Other: Weight 99.79 kg Patient Weight 06/20/24 06:59 Weight 99.79 kg 06/19/24 09:47 06/19/24 09:47
[2024-06-19] MEDS: ASPIRIN 81 MG PO STA (13:20)
[2024-06-19] MEDS: APIXABAN 5 MG TAB PO SCH (13:21)
[2024-06-19] MEDS: hydrALAZINE HCL 50 MG TAB PO SCH (16:32)
[2024-06-19] MEDS ORDERED: DEXTROSE 50% SYRINGE 50 ML IVP PRN ×2 (17:22)
[2024-06-19 17:38] LABS: Glucose,Whole Blood 123 mg/dL (70-110)
[2024-06-19] MEDS: INSULIN LISPRO (HumaLOG) 100 UNIT/ML 10 mL VL SQ SCH (17:39)
[2024-06-19] MEDS ORDERED: LOSARTAN 50 MG TAB PO SCH (21:00)
[2024-06-19 21:03] LABS: Glucose,Whole Blood 164 mg/dL (70-110)
[2024-06-19] MEDS: ATORVASTATIN 20 MG TAB PO SCH (21:25)
[2024-06-19] MEDS: FUROSEMIDE 10 MG/ML 4 ML VIAL IV SCH (21:26)
[2024-06-20 06:53] LABS: Glucose,Whole Blood 117 mg/dL (70-110)
[2024-06-20 07:41] LABS: Anisocytosis Slight; HCT 41.6 % (39.0-53.0); HGB 12.5 gm/dL (13.0-17.5); Hypochromasia Marked; MCH 26.1 pg (25.0-35.0); MCHC 30.1 g/dL (31.0-37.0); MCV 86.7 fL (80.0-100.0); Mean Platelet Volume 7.5; Platelet Count 211 k/uL (150-450); WBC 8.7 k/uL (3.8-10.6)
[2024-06-20 08:04] LABS: African American GFR (CKD) 26 (>60 ml/min/1.73 sqM); Anion Gap 13 mmol/L; Blood Urea Nitrogen 60 mg/dL (9-20); Calcium 10.4 mg/dL (8.4-10.2); Carbon Dioxide 23 mmol/L (22-30); Chloride 104 mmol/L (98-107); Glucose 123 mg/dL (74-99); Magnesium 2.2 mg/dL (1.6-2.3); Non-African American GFR(CKD) 22 (>60 ml/min/1.73 sqM); Potassium 5.3 mmol/L (3.5-5.1); Sodium 140 mmol/L (137-145)
[2024-06-20] MEDS ORDERED: FAMOTIDINE 20 MG TAB PO SCH (09:00)
[2024-06-20] MEDS ORDERED: ASPIRIN 81 MG PO SCH (09:00)
[2024-06-20] MEDS: TAMSULOSIN 0.4 MG CAP.ER.24H PO SCH (09:31)
[2024-06-20] MEDS: amLODIPine 10 MG TAB PO SCH (09:31)
[2024-06-20] MEDS: allopurinoL 100 MG TAB PO SCH (09:32)
[2024-06-20] MEDS: FUROSEMIDE 40 MG TAB PO SCH (09:32)
[2024-06-20] MEDS: CHOLECALCIFEROL 25 MCG (1000 IU) TABLET PO SCH (09:32)
[2024-06-20] MEDS: FAMOTIDINE 20 MG TAB PO SCH (09:32)
[2024-06-20] MEDS: ASPIRIN 81 MG PO SCH (09:32)
[2024-06-20] MEDS: DAPAGLIFLOZIN PROPANEDIOL 5 MG TABLET PO SCH (09:32)
--- NOTE | 2024-06-20 10:13 | P.NPCON ---
History of Present Illness - Reason for Consult acute renal failure, chronic renal failure - History of Present Illness Reason for consultation: Acute kidney injury on chronic kidney disease History of present illness: Patient is a 78-year-old male seen in renal consultation for acute kidney injury on chronic kidney disease. Patient has chronic kidney disease stage IIIb with baseline creatinine 1.8-2 secondary to diabetic kidney disease. Creatinine was 2.16 on admission and is 2.69 today. Patient came to the hospital due to worsening edema in the lower extremities progressively getting worse over the last 2 to 3 days. Patient states he does take diuretic at home. He denies any weight gain. Patient states edema has improved with IV Lasix he has been receiving this admission. He is on room air and denies any chest pain or shortness of breath. Patient does have longstanding history of diabetes. Also has history of coronary artery disease with cardiac stents. It is noted the patient has systolic CHF ejection fraction of 45%. He denies excessive salt intake. He does admit to drinking 2-3 small bottles of pop and 2 cups of coffee daily. He denies excessive water intake. No vomiting or diarrhea. No chest pain. No fever or chills. Vital signs are stable. General: No acute distress. HEENT: Head exam is unremarkable. LUNGS: No audible rhonchi or wheezes. HEART: Rate and Rhythm are regular. ABDOMEN: Nontender. EXTREMITITES: No edema. Past Medical History Past Medical History: Atrial Fibrillation, Coronary Artery Disease (CAD), Cance r, Heart Failure, CVA/TIA, Diabetes Mellitus, Deep Vein Thrombosis (DVT), GERD/Reflux, Hyperlipidemia, Hypertension, Myocardial Infarction ([place]), Vascular Disorder Additional Past Medical History / Comment(s): BBOWEL OBSTRUCTION after colon cancer surgery., HX 2ND DEGREE HB,IBS,A FIB, RT FEMORAL DVT,CARDIO PULMONARY ARREST 2013, ATRIAL SEPTAL DEFECT,PVD, COLON CANCER 2005, per old hx ? ulcer in past. states her had a slight stroke no weakness from the stroke. Last Myocardial Infarction Date:: 11/2012 History of Any Multi-Drug Resistant Organisms: None Reported Past Surgical History: Bowel Resection, Heart Catheterization, Heart Catheterization With Stent, Hernia Repair Additional Past Surgical History / Comment(s): Colon Resection 1999. Right femoral thrombolectomy 11/2012. Colonoscopy 2012. Anal fissure repair.RT CARTOTID ENDARTERECTOMY, incarcerated ventral hernia/lysis of adhesions. Past Anesthesia/Blood Transfusion Reactions: No Reported Reaction Additional Past Anesthesia/Blood Transfusion Reaction / Comment(s): HX OF BLOOD TRANSFUSION Date of Last Stent Placement:: 11/2012 Past Psychological History: No Psychological Hx Reported Smoking Status: Former smoker Past Alcohol Use History: None Reported Additional Past Alcohol Use History / Comment(s): started smoking age 19 smoked 1ppk quit age 51 Past Drug Use History: None Reported - Past Family History Sister(s) Family Medical History: Cancer Father Family Medical History: CVA/TIA, Diabetes Mellitus Mother Family Medical History: Dementia Medications and Allergies Home Medications Medication Instructions Recorded Confirmed Type Nitroglycerin Sl Tabs [Nitrostat] 0.4 mg SL Q5M PRN 08/11/13 06/19/24 History Tamsulosin [Flomax] 0.4 mg PO DAILY 08/28/13 06/19/24 History Cholecalciferol [Vitamin D3 (25 50 mcg PO DAILY 11/14/14 06/19/24 History Mcg = 1000 Iu)] Atorvastatin [Lipitor] 20 mg PO HS 10/29/16 06/19/24 History Furosemide [Lasix] 20 mg PO AC-BRKFST 10/29/16 06/19/24 History Famotidine 40 mg PO DAILY 10/16/18 06/19/24 History Aspirin EC [Ecotrin Low Dose] 162 mg PO DAILY 06/19/24 06/19/24 History Empagliflozin [Jardiance] 10 mg PO DAILY 06/19/24 06/19/24 History INSULIN ASPART (NovoLOG) [NovoLOG See Protocol SQ AC-TID 06/19/24 06/19/24 History (formulary)] Losartan [Cozaar] 50 mg PO BID 06/19/24 06/19/24 History Vitamin B-12 100mcg 200 mcg PO DAILY 06/19/24 06/19/24 History allopurinoL 100 mg PO DAILY 06/19/24 06/19/24 History amLODIPine [Norvasc] 10 mg PO DAILY 06/19/24 06/19/24 History calcitrioL 0.25 mcg PO MOWEFR 06/19/24 06/19/24 History Allergies Allergy/AdvReac Type Severity Reaction Status Date / Time enalapril [Enalapril] AdvReac Unknown STATES BP Verified 06/19/24 11:01 TOO LOW lisinopril AdvReac Dizziness Verified 06/19/24 11:01 niacin AdvReac hyperglycemia, Verified 06/19/24 11:01 nausea Physical Exam Vitals: Vital Signs Temp Pulse Pulse Resp BP BP Pulse Ox 06/20/24 09:23 98.4 F 81 14 103/69 06/20/24 04:00 105 H 20 92/64 96 06/19/24 23:15 104 H 26 H 130/75 96 06/19/24 18:25 98.4 F 84 18 139/81 96 06/19/24 16:01 89 18 146/89 99 06/19/24 13:17 77 18 148/81 100 Intake and Output 06/19/24 06/20/24 06/20/24 22:59 06:59 14:59 Intake Total 340 Output Total 650 Balance -650 340 Intake: Oral 340 Output: Urine 650 Other: Voiding Method Toilet Urinal Weight 99.79 kg Results - Lab Results Most recent lab results Calcium 10.4 mg/dL (8.4-10.2) H 06/20/24 07:16 Magnesium 2.2 mg/dL (1.6-2.3) 06/20/24 07:16 06/20/24 07:16 06/20/24 07:16 Assessment and Plan Plan: Assessment: 1. Acute kidney injury secondary to ATN secondary to cardiorenal syndrome. Creatinine 2.1 on admission and is 2.69 today. 2. Chronic kidney disease stage IIIb with baseline creatinine 1.8-2 secondary to diabetic kidney disease. 3. Volume overload. Improved with diuresis. 4. Acute on chronic systolic CHF ejection fraction of 45%. 5. Coronary artery disease. 6. Diabetes mellitus. 7. Hypertension with chronic kidney disease. Blood pressure on the lower end. 8. Chronic kidney disease mineral bone disease. Calcium on the higher end at 10.4. On vitamin D and calcitriol. Plan: Agree with transitioning to oral Lasix. Losartan held due to AMY and high potassium. Stop amlodipine as blood pressure is low. Hold hydralazine for systolic blood pressure less than 120. Stop vitamin D for now. Maintain SGLT2 inhibitor. Avoid nephrotoxins. Thank you for the consultation. I will continue to follow the patient with you during his hospital stay.
--- NOTE | 2024-06-20 11:16 | P.PN ---
Subjective Progress Note Date: 06/20/24 Consult reason: congestive heart failure History of present illness: This is 78-year-old male patient of Dr. Leal with past medical history of coronary artery disease with known SALVAGE WINDER of the RCA, known intermediate disease involving the left coronary system, cardiomyopathy, valvular heart disease, dilated thoracic aorta, hypertension, dyslipidemia, carotid atherosclerosis, history of TIA, diabetes mellitus type 2, peripheral vascular disease. We have been asked to evaluate the patient for CHF. Patient states that his leg started getting swelling about 3 days ago. His states that he does not usually complain of pain but the lower legs have been very painful. Patient denies chest pain. Also patient states he does not have history of atrial fibrillation and has never been told he has irregular heartbeat. Patient is found to be in atrial fibrillation upon evaluation. Patient has been started on IV Lasix 40 mg every 12 hours. Blood pressure 157/89, heart rate 104, pulse ox 94% on room air. Patient is seen today in the emergency center waiting for bed on the cardiac stepdown unit. In records from 2013 and 2014, it was documented patient had paroxysmal atrial fibrillation but this note was not continued in the office notes. -EKG: Atrial fibrillation 77 bpm -Chest x-ray: Cardiomegaly, pulmonary vascular congestion and bilateral pleural effusions. -Laboratory studies: WBC 7.8, hemoglobin 12.4. Potassium 5.4, BUN 53 creatinine 2.16, troponin 0.046, proBNP 10,700. -Home cardiac medications: Amlodipine 10 mg daily, aspirin 162 mg daily, atorvastatin 20 mg at bedtime, Jardiance 10 mg daily, Lasix 20 mg daily, losartan 50 mg twice daily, Nitrostat as needed. -Cardiac catheterization performed in 2016 revealed SALVAGE WINDER of the RCA, intermediate disease involving the mid LAD and patent stent in the distal LAD. -Echocardiogram performed 08/10/2022 revealed EF of 45%, moderate MR, mild AR, dilated aorta at 3.8 cm. -Lexiscan Cardiolite stress test performed 08/10/2022 revealed large inferior scar, small anterior scar with small PI ischemia. 06/20 Patient seen and examined in the emergency center. Patient continues to wait for bed on the cardiac stepdown unit. Patient states that his breathing is better from yesterday. He also states that the lower extremity edema is improved. He has been maintained on IV Lasix 40 mg every 12 hours. Blood pressure 103/69, heart rate 81, pulse ox 96% on room air. Repeat blood work reveals hemoglobin 12.5, BUN 16 creatinine 2.69. Amlodipine was discontinued per nephrology for hypotension and parameters for hydralazine. Echocardiogram is pending. Physical examination: Gen: This is a 78-year-old male in no acute distress VS: reviewed HEENT: Head is atraumatic, normocephalic. Pupils equal, round. Sclerae is anicteric. NECK: Supple. No JVD. LUNGS: Diminished. No wheezes or rhonchi. No intercostal retractions. HEART: Irregular rate and rhythm. Systolic murmur. ABDOMEN: Soft No tenderness. EXTREMITIES: Bilateral minimal lower extremity edema. No calf tenderness. NEUROLOGICAL: Patient is awake, alert and oriented x3. Assessment: Acute on chronic systolic heart failure Coronary artery disease with known [employer] WINDER of the RCA and known intermediate disease involving the left coronary system Ischemic cardiomyopathy with EF of 45% Uncontrolled hypertension Dyslipidemia Carotid atherosclerosis History of TIA Peripheral vascular disease Persistent atrial fibrillation Plan: Continue patient's home cardiac medications Change aspirin to 81 mg daily Amlodipine was discontinued by nephrology due to hypotension Losartan on hold for acute kidney injury Transition IV Lasix to oral 40 mg twice daily Continue hydralazine 50 mg 3 times daily and nephrology added parameters Monitor ЕЛЕНА, daily weights, electrolytes and renal function Obtain 2-D echocardiogram and Doppler study to assess cardiac structure and function Further recommendations to follow based upon clinical course Nurse practitioner note has been reviewed, I agree with documented findings and plan of care. Patient was seen and examined. Objective - Vital Signs Vital signs: Vital Signs Temp 98.4 F 06/19/24 18:25 Pulse 105 H 06/20/24 04:00 Resp 20 06/20/24 04:00 BP 92/64 06/20/24 04:00 Pulse Ox 96 06/20/24 04:00 FiO2 Intake & Output 06/19/24 06/20/24 06/20/24 18:59 06:59 18:59 Intake Total 340 Output Total 650 Balance -650 340 Weight 99.79 kg 99.79 kg Intake: Oral 340 Output: Urine 650 Other: Voiding Method Toilet Urinal - Labs CBC & Chem 7: 06/20/24 07:16 06/20/24 07:16 Labs: Abnormal Lab Results - Last 24 Hours (Table) 06/19/24 06/19/24 06/19/24 Range/Units 09:47 09:47 09:47 Hgb 12.4 L (13.0-17.5) gm/dL MCHC 29.8 L (31.0-37.0) g/dL RDW 16.0 H (11.5-15.5) % Lymphocytes # 0.8 L (1.0-4.8) k/uL Potassium 5.4 H (3.5-5.1) mmol/L Carbon Dioxide 20 L (22-30) mmol/L BUN 53 H (9-20) mg/dL Creatinine 2.16 H (0.66-1.25) mg/dL Glucose 123 H (74-99) mg/dL POC Glucose (mg/dL) (70-110) mg/dL Calcium 10.3 H (8.4-10.2) mg/dL Troponin I 0.046 H* (0.000-0.034) ng/mL 06/19/24 06/19/24 06/19/24 Range/Units 12:33 15:55 17:35 Hgb (13.0-17.5) gm/dL MCHC (31.0-37.0) g/dL RDW (11.5-15.5) % Lymphocytes # (1.0-4.8) k/uL Potassium (3.5-5.1) mmol/L Carbon Dioxide (22-30) mmol/L BUN (9-20) mg/dL Creatinine (0.66-1.25) mg/dL Glucose (74-99) mg/dL POC Glucose (mg/dL) 123 H (70-110) mg/dL Calcium (8.4-10.2) mg/dL Troponin I 0.047 H* 0.054 H* (0.000-0.034) ng/mL 06/19/24 06/20/24 06/20/24 Range/Units 21:01 06:51 07:16 Hgb (13.0-17.5) gm/dL MCHC (31.0-37.0) g/dL RDW (11.5-15.5) % Lymphocytes # (1.0-4.8) k/uL Potassium 5.3 H (3.5-5.1) mmol/L Carbon Dioxide (22-30) mmol/L BUN 60 H (9-20) mg/dL Creatinine 2.69 H (0.66-1.25) mg/dL Glucose 123 H (74-99) mg/dL POC Glucose (mg/dL) 164 H 117 H (70-110) mg/dL Calcium 10.4 H (8.4-10.2) mg/dL Troponin I (0.000-0.034) ng/mL 06/20/24 Range/Units 07:16 Hgb 12.5 L (13.0-17.5) gm/dL MCHC 30.1 L (31.0-37.0) g/dL RDW 16.0 H (11.5-15.5) % Lymphocytes # (1.0-4.8) k/uL Potassium (3.5-5.1) mmol/L Carbon Dioxide (22-30) mmol/L BUN (9-20) mg/dL Creatinine (0.66-1.25) mg/dL Glucose (74-99) mg/dL POC Glucose (mg/dL) (70-110) mg/dL Calcium (8.4-10.2) mg/dL Troponin I (0.000-0.034) ng/mL
[2024-06-20 11:47] LABS: Glucose,Whole Blood 122 mg/dL (70-110)
--- NOTE | 2024-06-20 15:26 | P.PN ---
Subjective Progress Note Date: 06/20/24 Patient is a very pleasant 78-year-old male with a past medical history of CAD status post stenting x 2, history of cardiac arrest in 2014, ischemic cardiomyopathy, chronic systolic congestive heart failure, valvular heart disease with atrial septal defect, chronic atrial fibrillation, hypertension, hyperlipidemia, peripheral vascular disease, carotid stenosis status post R carotid endarterectomy, colon cancer status post bowel resection, insulin- dependent diabetes mellitus, stage IV CKD, DVT status post femoral thrombectomy, and previous CVA with no reported deficits. He presented to the emergency department with a chief complaint of bilateral lower extremity edema and shortness of breath. Patient reports he began noticing swelling in his legs a couple days ago and yesterday noticed that he was experiencing significant exertional shortness of breath and was unable to lie down last night due to severe orthopnea. Patient does report that he has a history of congestive heart failure and follows outpatient with Dr. Leal. Patient's reports that he is on Lasix and has been taking as prescribed. Patient and deny any recent medication changes. Patient denies having any headache, lightheadedness, dizziness, fevers, chills, diaphoresis, chest pain, palpitations, productive cough, abdominal pain, nausea, vomiting, or experiencing any numbness or focal weakness in his extremities. Upon arrival to our facility, patient underwent evaluation in the emergency department. Vital signs upon arrival show blood pressure 157/89, heart rate 104, respiratory rate 18, temp 97.7 F, and SpO2 of 94% on room air. EKG completed showing atrial fibrillation with a controlled ventricular rate of 77 bpm with T wave inversion in inferior, anterior, and septal leads II, III, aVF and V2 through V4. Chest x-ray showing cardiomegaly with pulmonary vascular congestion and bilateral pleural effusions consistent with CHF. Labs completed and reviewed. CBC showing normocytic anemia with hemoglobin of 12.4. Coagulation profile normal findings. BMP showing hyperkalemia with potassium of 5.4, hypocarbia with bicarb of 20, elevated anion gap of 13 and elevated renal function consistent w ith known stage IV CKD with BUN of 53, creatinine 2.16, GFR of 29. Blood glucose 123. Magnesium 2.3. Liver profile unremarkable. Troponin was elevated at 0.046 with proBNP of 10,700. Patient admitted under our services with consultation to cardiology. 06/20/2024 patient seen and examined at bedside. No acute events overnight. No new complaints. Labs today showed WBC 8.7, hemoglobin 12.5, platelet count 1 11,000, sodium 140, potassium 5.3, bicarb 23, BUN 16, creatinine 2.69, glucose 123, A1c 6.8, calcium 10.4, magnesium 2.2 Review of systems: Pertinent positives and negatives as discussed in HPI, a complete review of systems was performed and all other systems are negative. Physical exam: Vital signs reviewed and stable. General: Nontoxic, no distress and appears stated age. Derm: Skin warm and dry, normal coloration for ethnicity. Head: Atraumatic, normocephalic and symmetric. Eyes: EOM's intact, anicteric sclera Mouth: no lip lesions, mucus membranes moist Cardiovascular: Irregularly irregular, systolic murmur, positive posterior tibial pulses bilaterally, and cap refill < 2 seconds. Lungs: Respirations even, regular, and unlabored on room air. Lungs diminished with bibasilar crackles Abdominal: soft, nontender to palpation, no guarding, no appreciable organomegaly Ext: ROM intact. No gross muscle atrophy, 1+ pitting bilateral lower extremity edema, no contractures Neuro: Speech clear, face symmetrical and CN II-XII grossly intact with no noted focal neuro deficits Psych: Alert and oriented to person, place, time, and situation. Appropriate and pleasant affect. Assessment and Plan: Patient is a 78-year-old male with extensive cardiac history, CKD, hypertension, hyperlipidemia, PVD here for evaluation of shortness of breath and bilateral lower extremity edema. Found to be in heart failure exacerbation. Found to have hyperkalemia on labs. #. Acute on chronic systolic heart failure exacerbation #. NSTEMI, type II #. Ischemic cardiomyopathy with previously known EF of 45% -Cardiology consult -Telemetry monitoring -Trend troponins -ProBNP 10,700 -Daily weights with Close monitoring of I's and O's -Cardiac diet -Transition to Lasix p.o. 40 mg twice daily -Continue hydralazine 50 mg p.o. Hold if SBP less than 120 per nephrology -Monitor electrolytes while diuresing. -Consult placed to heart failure navigator program -Lipid profile and Hgb A1c with a.m. labs. -Cardiology consulted. Echocardiogram ordered #. Chronic atrial fibrillation -Patient hemodynamically stable -Continue Eliquis 5 mg twice p.o. daily #. AMY on CKD #. Hyperkalemia -Hyperkalemia with potassium 5.3 -Monitor renal function and electrolytes closely. -Losartan held. Recommending discontinuation upon discharge secondary to hyperkalemia. Chronic conditions: #. CAD status post stenting #. Insulin-dependent diabetes mellitus #. Peripheral vascular disease #. Hypertension #. Hyperlipidemia -Continue aspirin 81 mg daily, atorvastatin 20 mg nightly, Farxiga 5 mg daily, and hydralazine 50 mg 3 times daily -Amlodipine held due to hypotension -Patient placed on glycemic protocol with NovoLog sliding scale -Check hemoglobin A1c DVT ppx: Eliquis 5mg PO twice daily I have seen and evaluated the patient today. Discussed with the resident and agree with the residents finding and plan as documented in the resident's note. Changes highlighted in blue font. Objective - Vital Signs Vital signs: Vital Signs Temp 98.4 F 06/19/24 18:25 Pulse 105 H 06/20/24 04:00 Resp 20 06/20/24 04:00 BP 92/64 06/20/24 04:00 Pulse Ox 96 06/20/24 04:00 FiO2 Intake & Output 06/19/24 06/20/24 06/20/24 18:59 06:59 18:59 Output Total 650 Balance -650 Weight 99.79 kg Output: Urine 650 Other: Voiding Method Toilet Urinal - Labs CBC & Chem 7: 06/20/24 07:16 06/20/24 07:16 Labs: Abnormal Lab Results - Last 24 Hours (Table) 06/19/24 06/19/24 06/19/24 Range/Units 09:47 09:47 09:47 Hgb 12.4 L (13.0-17.5) gm/dL MCHC 29.8 L (31.0-37.0) g/dL RDW 16.0 H (11.5-15.5) % Lymphocytes # 0.8 L (1.0-4.8) k/uL Potassium 5.4 H (3.5-5.1) mmol/L Carbon Dioxide 20 L (22-30) mmol/L BUN 53 H (9-20) mg/dL Creatinine 2.16 H (0.66-1.25) mg/dL Glucose 123 H (74-99) mg/dL POC Glucose (mg/dL) (70-110) mg/dL Calcium 10.3 H (8.4-10.2) mg/dL Troponin I 0.046 H* (0.000-0.034) ng/mL 06/19/24 06/19/24 06/19/24 Range/Units 12:33 15:55 17:35 Hgb (13.0-17.5) gm/dL MCHC (31.0-37.0) g/dL RDW (11.5-15.5) % Lymphocytes # (1.0-4.8) k/uL Potassium (3.5-5.1) mmol/L Carbon Dioxide (22-30) mmol/L BUN (9-20) mg/dL Creatinine (0.66-1.25) mg/dL Glucose (74-99) mg/dL POC Glucose (mg/dL) 123 H (70-110) mg/dL Calcium (8.4-10.2) mg/dL Troponin I 0.047 H* 0.054 H* (0.000-0.034) ng/mL 06/19/24 06/20/24 Range/Units 21:01 06:51 Hgb (13.0-17.5) gm/dL MCHC (31.0-37.0) g/dL RDW (11.5-15.5) % Lymphocytes # (1.0-4.8) k/uL Potassium (3.5-5.1) mmol/L Carbon Dioxide (22-30) mmol/L BUN (9-20) mg/dL Creatinine (0.66-1.25) mg/dL Glucose (74-99) mg/dL POC Glucose (mg/dL) 164 H 117 H (70-110) mg/dL Calcium (8.4-10.2) mg/dL Troponin I (0.000-0.034) ng/mL
--- NOTE | 2024-06-20 17:42 | CA ---
Transthoracic Echo Report Name: Austin Barnes Age: 78 Gender: M : 1945 Exam Date: 06/20/2024 13:15 Exam Location: [facility] Ht (in): 66 Wt (lb): 220 Ordering Physician: Vin Murphy Attending/Referring Phys: Fnp Jeana Aguila RDCS Procedure CPT: Indications: chf Cardiac Hx: Technical Quality: Fair Contrast 1: Definity Total Dose (mL): 2 Contrast 2: Total Dose (mL): MEASUREMENTS (Male / Female) Normal Values 2D ECHO LV Diastolic Diameter PLAX 6.3 cm 4.2 - 5.9 / 3.9 - 5.3 cm LV Systolic Diameter PLAX 5.4 cm IVS Diastolic Thickness 1.4 cm 0.6 - 1.0 / 0.6 - 0.9 cm LVPW Diastolic Thickness 1.2 cm 0.6 - 1.0 / 0.6 - 0.9 cm LV Relative Wall Thickness 0.4 RV Internal Dim ED PLAX 2.6 cm LA Systolic Diameter LX 4.5 cm 3.0 - 4.0 / 2.7 - 3.8 cm LV Diastolic Volume MOD 4C 154.9 cm??? LV Systolic Volume MOD 4C 97.9 cm??? LV Ejection Fraction MOD 4C 36.8 % LV Cardiac Index MOD 4C 1998.3 cm???/min???m??? LV Diastolic Length 4C 8.8 cm LV Systolic Length 4C 8.1 cm LA Volume 87.0 cm??? 18 - 58 / 22 - 52 cm??? LA Volume Index 39.6 cm???/m??? 16 - 28 cm???/m??? M-MODE Aortic Root Diameter MM 3.7 cm LA Systolic Diameter MM 4.7 cm LA Ao Ratio MM 1.3 AV Cusp Separation MM 2.3 cm DOPPLER AI Peak Velocity 273.0 cm/s AI Peak Gradient 29.8 mmHg AI Pressure Half Time 1539.3 ms TR Peak Velocity 328.3 cm/s TR Peak Gradient 43.1 mmHg Right Atrial Pressure 10.0 mmHg Pulmonary Artery Systolic Pressu 53.1 mmHg Right Ventricular Systolic Press 53.1 mmHg FINDINGS Left Ventricle Left ventricular ejection fraction is estimated at 30-35 %. Anteroapical and anteroseptal apical akinesis. Mildly increased left ventricular diastolic diameter. Mildly increased left ventricular wall thickness. Right Ventricle Mild right ventricular dilatation. Moderate pulmonary hypertension. Right Atrium Moderate right atrial dilatation. Left Atrium Mildly increased left atrial diameter. Moderately increased left atrial volume. Mildly increased left atrial area. Mitral Valve Mitral valve thickened. Moderate mitral regurgitation. No mitral stenosis.mitral annular calcification. Aortic Valve Trileaflet aortic valve. Mild aortic regurgitation. No aortic stenosis.aortic valve sclerosis. Tricuspid Valve Structurally normal tricuspid valve. Moderate tricuspid regurgitation. No tricuspid stenosis. Pulmonic Valve Structurally normal pulmonic valve. No pulmonic stenosis. Pericardium No pericardial or pleural effusion. Aorta Aorta at upper limits of normal. CONCLUSIONS 1. Severely impaired left ventricular systolic function with segmental wall motion abnormality 2. Moderate mitral regurgitation and mild aortic regurgitation 3. Moderate tricuspid regurgitation with moderate pulmonary hypertension Previewed by: Dr. Marcial Acevedo MD (Electronically Signed) Final Date: 20 June 2024 17:42
[2024-06-20 17:44] LABS: Glucose,Whole Blood 136 mg/dL (70-110)
[2024-06-20 20:01] LABS: Glucose,Whole Blood 142 mg/dL (70-110)
[2024-06-21 06:05] LABS: Glucose,Whole Blood 152 mg/dL (70-110)
[2024-06-21 07:44] LABS: African American GFR (CKD) 20 (>60 ml/min/1.73 sqM); Anion Gap 16 mmol/L; Blood Urea Nitrogen 75 mg/dL (9-20); Carbon Dioxide 18 mmol/L (22-30); Chloride 102 mmol/L (98-107); Glucose 127 mg/dL (74-99); Magnesium 2.1 mg/dL (1.6-2.3); Non-African American GFR(CKD) 18 (>60 ml/min/1.73 sqM); Sodium 136 mmol/L (137-145)
--- NOTE | 2024-06-21 10:43 | P.PN ---
Subjective Patient is seen in follow-up for acute kidney injury on chronic kidney disease. Renal function worse. Edema improved. Admits to good urine output. Denies chest pain or shortness of breath. On room air. Vital signs are stable. General: No acute distress. HEENT: Head exam is unremarkable. LUNGS: No audible rhonchi or wheezes. HEART: Rate and Rhythm are regular. ABDOMEN: Nontender. EXTREMITITES: Trace edema. Objective - Vital Signs Vital signs: Vital Signs Temp 98.4 F 06/21/24 03:30 Pulse 89 06/21/24 03:30 Resp 16 06/21/24 03:30 BP 127/69 06/21/24 03:30 Pulse Ox 95 06/21/24 03:30 FiO2 Intake & Output 06/20/24 06/21/24 06/21/24 18:59 06:59 18:59 Intake Total 340 780 240 Output Total 600 Balance 340 180 240 Weight 99.79 kg 96.9 kg Intake: Oral 340 780 240 Output: Urine 600 Other: Voiding Method Toilet Toilet Urinal Urinal - Labs CBC & Chem 7: 06/20/24 07:16 06/21/24 06:41 Labs: Abnormal Lab Results - Last 24 Hours (Table) 06/20/24 06/20/24 06/20/24 Range/Units 11:46 17:32 20:00 Sodium (137-145) mmol/L Carbon Dioxide (22-30) mmol/L BUN (9-20) mg/dL Creatinine (0.66-1.25) mg/dL Glucose (74-99) mg/dL POC Glucose (mg/dL) 122 H 136 H 142 H (70-110) mg/dL 06/21/24 06/21/24 Range/Units 06:03 06:41 Sodium 136 L (137-145) mmol/L Carbon Dioxide 18 L (22-30) mmol/L BUN 75 H (9-20) mg/dL Creatinine 3.23 H (0.66-1.25) mg/dL Glucose 127 H (74-99) mg/dL POC Glucose (mg/dL) 152 H (70-110) mg/dL Assessment and Plan Plan: Assessment: 1. Acute kidney injury secondary to ATN secondary to cardiorenal syndrome. Renal function worse with diuresis - creatinine 3.23 today. 2. Chronic kidney disease stage IIIb with baseline creatinine 1.8-2 secondary to diabetic kidney disease. 3. Volume overload. Improved with diuresis. 4. Acute on chronic systolic CHF ejection fraction of 30 to 35% with moderate mitral and tricuspid regurgitation and pulmonary hypertension. 5. Coronary artery disease. 6. Diabetes mellitus. 7. Hypertension with chronic kidney disease. Controlled. 8. Chronic kidney disease mineral bone disease. Calcium on the higher end at 10.4--> 10.0 today. Calcitriol and vitamin D discontinued. 9. Metabolic acidosis secondary to acute kidney injury. Plan: Patient received Lasix and Farxiga this morning. Will discontinue for now and reassess tomorrow. All antihypertensives discontinued except hydralazine. Hold hydralazine for systolic blood pressure less than 120. Avoid nephrotoxins. Continue to monitor renal function and urine output. Check renal ultrasound. Add oral bicarb. Advised patient to monitor his weight closely at home and to notify physician if develops edema or gains more than 3 pounds in 1 week duration.
--- NOTE | 2024-06-21 11:34 | P.PN ---
Subjective Progress Note Date: 06/21/24 Patient is a very pleasant 78-year-old male with a past medical history of CAD status post stenting x 2, history of cardiac arrest in 2014, ischemic cardiomyopathy, chronic systolic congestive heart failure, valvular heart disease with atrial septal defect, chronic atrial fibrillation, hypertension, hyperlipidemia, peripheral vascular disease, carotid stenosis status post R carotid endarterectomy, colon cancer status post bowel resection, insulin- dependent diabetes mellitus, stage IV CKD, DVT status post femoral thrombectomy, and previous CVA with no reported deficits. He presented to the emergency department with a chief complaint of bilateral lower extremity edema and shortness of breath. Patient reports he began noticing swelling in his legs a couple days ago and yesterday noticed that he was experiencing significant exertional shortness of breath and was unable to lie down last night due to severe orthopnea. Patient does report that he has a history of congestive heart failure and follows outpatient with Dr. Leal. Patient's reports that he is on Lasix and has been taking as prescribed. Patient and deny any recent medication changes. Patient denies having any headache, lightheadedness, dizziness, fevers, chills, diaphoresis, chest pain, palpitations, productive cough, abdominal pain, nausea, vomiting, or experiencing any numbness or focal weakness in his extremities. Upon arrival to our facility, patient underwent evaluation in the emergency department. Vital signs upon arrival show blood pressure 157/89, heart rate 104, respiratory rate 18, temp 97.7 F, and SpO2 of 94% on room air. EKG completed showing atrial fibrillation with a controlled ventricular rate of 77 bpm with T wave inversion in inferior, anterior, and septal leads II, III, aVF and V2 through V4. Chest x-ray showing cardiomegaly with pulmonary vascular congestion and bilateral pleural effusions consistent with CHF. Labs completed and reviewed. CBC showing normocytic anemia with hemoglobin of 12.4. Coagulation profile normal findings. BMP showing hyperkalemia with potassium of 5.4, hypocarbia with bicarb of 20, elevated anion gap of 13 and elevated renal function consistent w ith known stage IV CKD with BUN of 53, creatinine 2.16, GFR of 29. Blood glucose 123. Magnesium 2.3. Liver profile unremarkable. Troponin was elevated at 0.046 with proBNP of 10,700. Patient admitted under our services with consultation to cardiology. 06/20/2024 patient seen and examined at bedside. No acute events overnight. No new complaints. Labs today showed WBC 8.7, hemoglobin 12.5, platelet count 1 11,000, sodium 140, potassium 5.3, bicarb 23, BUN 16, creatinine 2.69, glucose 123, A1c 6.8, calcium 10.4, magnesium 2.2 06/21/2024 patient seen and examined at bedside. No acute events overnight. No new complaints. Labs today showed sodium 136, potassium 5, bicarb 18, BUN 75, creatinine 3.23, glucose 127, calcium 10, magnesium 2.1. Echocardiogram showed left ventricular ejection fraction estimated at 30 to 35%, moderate mitral regurgitation and mild aortic regurgitation, moderate tricuspid regurgitation with moderate pulmonary hypertension Review of systems: Pertinent positives and negatives as discussed in HPI, a complete review of systems was performed and all other systems are negative. Physical exam: Vital signs reviewed and stable. General: Nontoxic, no distress and appears stated age. Derm: Skin warm and dry, normal coloration for ethnicity. Head: Atraumatic, normocephalic and symmetric. Eyes: EOM's intact, anicteric sclera Mouth: no lip lesions, mucus membranes moist Cardiovascular: S1S2 Regular, systolic murmur, positive posterior tibial pulses bilaterally, and cap refill < 2 seconds. Lungs: Respirations even, regular, and unlabored on room air. Lungs diminished with bibasilar crackles Abdominal: soft, nontender to palpation, no guarding, no appreciable organomegaly Ext: ROM intact. No gross muscle atrophy, 1+ pitting bilateral lower extremity edema, no contractures Neuro: Speech clear, face symmetrical and CN II-XII grossly intact with no noted focal neuro deficits Psych: Alert and oriented to person, place, time, and situation. Appropriate and pleasant affect. Assessment and Plan: Patient is a 78-year-old male with extensive cardiac history, CKD, hypertension, hyperlipidemia, PVD here for evaluation of shortness of breath and bilateral lower extremity edema. Found to be in heart failure exacerbation. Found to have hyperkalemia on labs. #. Acute on chronic systolic heart failure exacerbation, improved #. NSTEMI, type II #. Ischemic cardiomyopathy EF of 30 to 35% -Cardiology consult -Telemetry monitoring -Troponins flat -ProBNP 10,700 -Daily weights with Close monitoring of I's and O's -Cardiac diet -Discontinue Lasix due to worsening renal function -Continue hydralazine 50 mg p.o. Hold if SBP less than 120 per nephrology -Monitor electrolytes and renal function -Consult placed to heart failure navigator program -Lipid profile and Hgb A1c with a.m. labs. -Cardiology consulted. -Echocardiogram showed left ventricular ejection fraction estimated at 30 to 35%, moderate mitral regurgitation and mild aortic regurgitation, moderate tricuspid regurgitation with moderate pulmonary hypertension #. Chronic atrial fibrillation -Patient hemodynamically stable -Continue Eliquis 5 mg twice p.o. daily #. AMY on CKD secondary to diuresis -creatinine 3.23 -Discontinue Lasix due to worsening renal function -Monitor renal function and electrolytes closely. -Losartan held. Recommending discontinuation upon discharge secondary to hyperkalemia. -Encourage oral hydration #. Metabolic acidosis, secondary to uremia #. Hypovolemic hyponatremia secondary to diuresis -Monitor for now -Placed on oral bicarb per nephrology #. Hyperkalemia, resolved -Potassium 5 Chronic conditions: #. CAD status post stenting #. Insulin-dependent diabetes mellitus #. Peripheral vascular disease #. Hypertension #. Hyperlipidemia -Continue aspirin 81 mg daily, atorvastatin 20 mg nightly, Farxiga 5 mg daily, and hydralazine 50 mg 3 times daily -Amlodipine held due to hypotension -Patient placed on glycemic protocol with NovoLog sliding scale -hemoglobin A1c 6.8 DVT ppx: Eliquis 5mg PO twice daily I have seen and evaluated the patient today. Discussed with the resident and agree with the residents finding and plan as documented in the resident's note. Changes highlighted in blue font. Objective - Vital Signs Vital signs: Vital Signs Temp 98.4 F 06/21/24 03:30 Pulse 89 06/21/24 03:30 Resp 16 06/21/24 03:30 BP 127/69 06/21/24 03:30 Pulse Ox 95 06/21/24 03:30 FiO2 Intake & Output 06/20/24 06/21/24 06/21/24 18:59 06:59 18:59 Intake Total 340 780 Output Total 600 Balance 340 180 Weight 99.79 kg 96.9 kg Intake: Oral 340 780 Output: Urine 600 Other: Voiding Method Toilet Toilet Urinal Urinal - Labs CBC & Chem 7: 06/20/24 07:16 06/21/24 06:41 Labs: Abnormal Lab Results - Last 24 Hours (Table) 06/20/24 06/20/24 06/20/24 Range/Units 07:16 07:16 11:46 Sodium (137-145) mmol/L Potassium 5.3 H (3.5-5.1) mmol/L Carbon Dioxide (22-30) mmol/L BUN 60 H (9-20) mg/dL Creatinine 2.69 H (0.66-1.25) mg/dL Glucose 123 H (74-99) mg/dL POC Glucose (mg/dL) 122 H (70-110) mg/dL Hemoglobin A1c 6.8 H (<=6.0) % Calcium 10.4 H (8.4-10.2) mg/dL 06/20/24 06/20/24 06/21/24 Range/Units 17:32 20:00 06:03 Sodium (137-145) mmol/L Potassium (3.5-5.1) mmol/L Carbon Dioxide (22-30) mmol/L BUN (9-20) mg/dL Creatinine (0.66-1.25) mg/dL Glucose (74-99) mg/dL POC Glucose (mg/dL) 136 H 142 H 152 H (70-110) mg/dL Hemoglobin A1c (<=6.0) % Calcium (8.4-10.2) mg/dL 06/21/24 Range/Units 06:41 Sodium 136 L (137-145) mmol/L Potassium (3.5-5.1) mmol/L Carbon Dioxide 18 L (22-30) mmol/L BUN 75 H (9-20) mg/dL Creatinine 3.23 H (0.66-1.25) mg/dL Glucose 127 H (74-99) mg/dL POC Glucose (mg/dL) (70-110) mg/dL Hemoglobin A1c (<=6.0) % Calcium (8.4-10.2) mg/dL
[2024-06-21] MEDS: SODIUM BICARBONATE TAB 650 MG TAB PO SCH (11:54)
[2024-06-21 11:58] LABS: Glucose,Whole Blood 138 mg/dL (70-110)
[2024-06-21 12:46] VITALS: BMI 34.4
--- NOTE | 2024-06-21 13:24 | US ---
EXAMINATION TYPE: US kidneys/renal and bladder DATE OF EXAM: 06/21/2024 COMPARISON: US 04/04/2022 CLINICAL INDICATION: Male, 78 years old with history of amy; AMY TECHNIQUE: Grayscale imaging of the bilateral kidneys and urinary bladder: FINDINGS: EXAM MEASUREMENTS: Right Kidney: 9.3 x 5.5 x 4.6 cm Left Kidney: 10.7 x 6.6 x 6.0 cm Very limited due to gas and pt body habitus. Right Kidney: No hydronephrosis or masses seen Left Kidney: No hydronephrosis or masses seen Bladder: Appears wnl Bilateral Jets seen: Yes IMPRESSION: No evidence for obstructive uropathy or calculus. [facility], , 06/21/2024 1:22 PM
--- NOTE | 2024-06-21 14:24 | P.PN ---
Subjective Progress Note Date: 06/21/24 Consult reason: congestive heart failure History of present illness: This is 78-year-old male patient of Dr. Leal with past medical history of coronary artery disease with known CLAIMS ANALYST of the RCA, known intermediate disease involving the left coronary system, cardiomyopathy, valvular heart disease, dilated thoracic aorta, hypertension, dyslipidemia, carotid atherosclerosis, history of TIA, diabetes mellitus type 2, peripheral vascular disease. We have been asked to evaluate the patient for CHF. Patient states that his leg started getting swelling about 3 days ago. His states that he does not usually complain of pain but the lower legs have been very painful. Patient denies chest pain. Also patient states he does not have history of atrial fibrillation and has never been told he has irregular heartbeat. Patient is found to be in atrial fibrillation upon evaluation. Patient has been started on IV Lasix 40 mg every 12 hours. Blood pressure 157/89, heart rate 104, pulse ox 94% on room air. Patient is seen today in the emergency center waiting for bed on the cardiac stepdown unit. In records from 2013 and 2014, it was documented patient had paroxysmal atrial fibrillation but this note was not continued in the office notes. -EKG: Atrial fibrillation 77 bpm -Chest x-ray: Cardiomegaly, pulmonary vascular congestion and bilateral pleural effusions. -Laboratory studies: WBC 7.8, hemoglobin 12.4. Potassium 5.4, BUN 53 creatinine 2.16, troponin 0.046, proBNP 10,700. -Home cardiac medications: Amlodipine 10 mg daily, aspirin 162 mg daily, atorvastatin 20 mg at bedtime, Jardiance 10 mg daily, Lasix 20 mg daily, losartan 50 mg twice daily, Nitrostat as needed. -Cardiac catheterization performed in 2016 revealed CLAIMS ANALYST of the RCA, intermediate disease involving the mid LAD and patent stent in the distal LAD. -Echocardiogram performed 08/10/2022 revealed EF of 45%, moderate MR, mild AR, dilated aorta at 3.8 cm. -Lexiscan Cardiolite stress test performed 08/10/2022 revealed large inferior scar, small anterior scar with small PI ischemia. 06/20 Patient seen and examined in the emergency center. Patient continues to wait for bed on the cardiac stepdown unit. Patient states that his breathing is better from yesterday. He also states that the lower extremity edema is improved. He has been maintained on IV Lasix 40 mg every 12 hours. Blood pressure 103/69, heart rate 81, pulse ox 96% on room air. Repeat blood work reveals hemoglobin 12.5, BUN 16 creatinine 2.69. Amlodipine was discontinued per nephrology for hypotension and parameters for hydralazine. Echocardiogram is pending. 06/21 Patient seen and examined. Blood pressure 127/69, heart rate 89, pulse ox 95% on room air. Patient's renal function continues to worsen with BUN 75 creatinine 3.23. Potassium 5.0. Results of the echocardiogram reviewed with the patient and his . Nephrology has discontinued Lasix and Farxiga and added oral bicarb. Echocardiogram reveals EF of 30 to 35%, moderate MR and mild AR. Moderate TR and moderate pulmonary hypertension. Renal ultrasound reveals no obstructive uropathy or calculus. Physical examination: Gen: This is a 78-year-old male in no acute distress VS: reviewed HEENT: Head is atraumatic, normocephalic. Pupils equal, round. Sclerae is anicteric. NECK: Supple. No JVD. LUNGS: Diminished. No wheezes or rhonchi. No intercostal retractions. HEART: Irregular rate and rhythm. Systolic murmur. ABDOMEN: Soft No tenderness. EXTREMITIES: Bilateral minimal lower extremity edema. No calf tenderness. NEUROLOGICAL: Patient is awake, alert and oriented x3. Assessment: Acute on chronic systolic heart failure Coronary artery disease with known CLAIMS ANALYST of the RCA and known intermediate disease involving the left coronary system Ischemic cardiomyopathy with EF of 45% Uncontrolled hypertension Acute kidney injury Dyslipidemia Carotid atherosclerosis History of TIA Peripheral vascular disease Persistent atrial fibrillation Plan: Continue current cardiac medications: Eliquis, aspirin, atorvastatin Amlodipine, losartan, Lasix and Farxiga have been discontinued by nephrology Continue hydralazine 50 mg 3 times daily and nephrology added parameters Monitor ЕЛЕНА, daily weights, electrolytes and renal function Further recommendations to follow based upon clinical course Nurse practitioner note has been reviewed, I agree with documented findings and plan of care. Patient was seen and examined. Objective - Vital Signs Vital signs: Vital Signs Temp 98.4 F 06/21/24 03:30 Pulse 89 06/21/24 03:30 Resp 16 06/21/24 03:30 BP 127/69 06/21/24 03:30 Pulse Ox 95 06/21/24 03:30 FiO2 Intake & Output 0306/21/24 06/21/24 18:59 06:59 18:59 Intake Total 340 780 240 Output Total 600 Balance 340 180 240 Weight 99.79 kg 96.9 kg Intake: Oral 340 780 240 Output: Urine 600 Other: Voiding Method Toilet Toilet Urinal Urinal - Labs CBC & Chem 7: 06/20/24 07:16 06/21/24 06:41 Labs: Abnormal Lab Results - Last 24 Hours (Table) 06/20/24 06/20/24 06/20/24 Range/Units 07:16 11:46 17:32 Sodium (137-145) mmol/L Carbon Dioxide (22-30) mmol/L BUN (9-20) mg/dL Creatinine (0.66-1.25) mg/dL Glucose (74-99) mg/dL POC Glucose (mg/dL) 122 H 136 H (70-110) mg/dL Hemoglobin A1c 6.8 H (<=6.0) % 06/20/24 06/21/24 06/21/24 Range/Units 20:00 06:03 06:41 Sodium 136 L (137-145) mmol/L Carbon Dioxide 18 L (22-30) mmol/L BUN 75 H (9-20) mg/dL Creatinine 3.23 H (0.66-1.25) mg/dL Glucose 127 H (74-99) mg/dL POC Glucose (mg/dL) 142 H 152 H (70-110) mg/dL Hemoglobin A1c (<=6.0) %
[2024-06-21 17:08] LABS: Glucose,Whole Blood 172 mg/dL (70-110)
[2024-06-21 20:13] LABS: Glucose,Whole Blood 118 mg/dL (70-110)
[2024-06-22 06:20] LABS: Glucose,Whole Blood 128 mg/dL (70-110)
[2024-06-22 07:53] LABS: African American GFR (CKD) 18 (>60 ml/min/1.73 sqM); Anion Gap 12 mmol/L; Blood Urea Nitrogen 90 mg/dL (9-20); Calcium 9.3 mg/dL (8.4-10.2); Carbon Dioxide 21 mmol/L (22-30); Chloride 102 mmol/L (98-107); Glucose 128 mg/dL (74-99); Magnesium 2.3 mg/dL (1.6-2.3); Non-African American GFR(CKD) 15 (>60 ml/min/1.73 sqM); Potassium 4.8 mmol/L (3.5-5.1); Sodium 135 mmol/L (137-145)
--- NOTE | 2024-06-22 10:22 | P.PN ---
Subjective Patient is seen in follow-up for acute kidney injury on chronic kidney disease. Renal function worsening. Diuretics and Farxiga discontinued June 21, 2024. Edema improved. Admits to good urine output. Denies chest pain or shortness of breath. On room air. Vital signs are stable. General: No acute distress. HEENT: Head exam is unremarkable. LUNGS: No audible rhonchi or wheezes. HEART: Rate and Rhythm are regular. ABDOMEN: Nontender. EXTREMITITES: Trace edema. Objective - Vital Signs Vital signs: Vital Signs Temp 98.9 F 06/22/24 09:30 Pulse 84 06/22/24 09:30 Resp 17 06/22/24 09:30 BP 107/62 06/22/24 09:30 Pulse Ox 96 06/22/24 09:30 FiO2 Intake & Output 06/21/24 06/22/24 06/22/24 18:59 06:59 18:59 Intake Total 480 Output Total 725 Balance 480 -725 Weight 96.9 kg 96.7 kg Intake: Oral 480 Output: Urine 725 Other: Voiding Method Toilet Toilet Toilet Urinal Urinal Urinal - Labs CBC & Chem 7: 06/20/24 07:16 06/22/24 07:04 Labs: Abnormal Lab Results - Last 24 Hours (Table) 06/21/24 06/21/24 06/21/24 Range/Units 11:57 17:06 20:08 Sodium (137-145) mmol/L Carbon Dioxide (22-30) mmol/L BUN (9-20) mg/dL Creatinine (0.66-1.25) mg/dL Glucose (74-99) mg/dL POC Glucose (mg/dL) 138 H 172 H 118 H (70-110) mg/dL 06/22/24 06/22/24 Range/Units 06:15 07:04 Sodium 135 L (137-145) mmol/L Carbon Dioxide 21 L (22-30) mmol/L BUN 90 H (9-20) mg/dL Creatinine 3.62 H (0.66-1.25) mg/dL Glucose 128 H (74-99) mg/dL POC Glucose (mg/dL) 128 H (70-110) mg/dL Assessment and Plan Plan: Assessment: 1. Acute kidney injury secondary to ATN secondary to cardiorenal syndrome. Renal function worse with diuresis - creatinine 3.62 today. No hydronephrosis noted on kidney ultrasound. 2. Chronic kidney disease stage IIIb with baseline creatinine 1.8-2 secondary to diabetic kidney disease. 3. Volume overload. Improved with diuresis. 4. Acute on chronic systolic CHF ejection fraction of 30 to 35% with moderate mitral and tricuspid regurgitation and pulmonary hypertension. 5. Coronary artery disease. 6. Diabetes mellitus. 7. Hypertension with chronic kidney disease. Controlled. 8. Chronic kidney disease mineral bone disease. Calcium on the higher end at 10.4--> now normal. Calcitriol and vitamin D discontinued. 9. Metabolic acidosis secondary to acute kidney injury. On oral bicarb. Improved. Plan: Continue to hold diuretics and SGLT2 inhibitor. Both were discontinued June 21, 2024. All antihypertensives discontinued except hydralazine. Hold hydralazine for systolic blood pressure less than 120. Avoid nephrotoxins. Continue to monitor renal function and urine output. Check bladder scan to make sure no urinary retention. Check chest x-ray. Advised patient to monitor his weight closely at home and to notify physician if develops edema or gains more than 3 pounds in 1 week duration.
--- NOTE | 2024-06-22 11:21 | XR ---
EXAMINATION TYPE: XR chest 1V portable DATE OF EXAM: 06/22/2024 11:16 AM COMPARISON: Chest radiographs from 06/19/2024 TECHNIQUE: XR chest 1V portable Portable AP radiograph of the chest. CLINICAL INDICATION:Male, 78 years old with history of eval; shortness of breath. FINDINGS: Lungs/Pleura: Elevation of the right hemidiaphragm redemonstrated. Blunting of both costophrenic angl es suggesting small pleural effusions. Pulmonary vascularity: Central pulmonary vascular congestion. Heart/mediastinum: Cardiomediastinal silhouette is enlarged and stable. Atherosclerotic calcificatio ns are seen in the aorta. Musculoskeletal: No acute osseous pathology. IMPRESSION: Cardiomegaly and central pulmonary vascular congestion. Possible small bilateral pleural effusions. C orrelate with BNP for congestive heart failure. [facility], , 06/22/2024 11:19 AM
[2024-06-22 11:37] LABS: Glucose,Whole Blood 201 mg/dL (70-110)
--- NOTE | 2024-06-22 11:56 | P.PN ---
Subjective Progress Note Date: 06/22/24 Consult reason: congestive heart failure History of present illness: This is 78-year-old male patient of Dr. Leal with past medical history of coronary artery disease with known WOOL BUYER of the RCA, known intermediate disease involving the left coronary system, cardiomyopathy, valvular heart disease, dilated thoracic aorta, hypertension, dyslipidemia, carotid atherosclerosis, history of TIA, diabetes mellitus type 2, peripheral vascular disease. We have been asked to evaluate the patient for CHF. Patient states that his leg started getting swelling about 3 days ago. His states that he does not usually complain of pain but the lower legs have been very painful. Patient denies chest pain. Also patient states he does not have history of atrial fibrillation and has never been told he has irregular heartbeat. Patient is found to be in atrial fibrillation upon evaluation. Patient has been started on IV Lasix 40 mg every 12 hours. Blood pressure 157/89, heart rate 104, pulse ox 94% on room air. Patient is seen today in the emergency center waiting for bed on the cardiac stepdown unit. In records from 2013 and 2014, it was documented patient had paroxysmal atrial fibrillation but this note was not continued in the office notes. -EKG: Atrial fibrillation 77 bpm -Chest x-ray: Cardiomegaly, pulmonary vascular congestion and bilateral pleural effusions. -Laboratory studies: WBC 7.8, hemoglobin 12.4. Potassium 5.4, BUN 53 creatinine 2.16, troponin 0.046, proBNP 10,700. -Home cardiac medications: Amlodipine 10 mg daily, aspirin 162 mg daily, atorvastatin 20 mg at bedtime, Jardiance 10 mg daily, Lasix 20 mg daily, losartan 50 mg twice daily, Nitrostat as needed. -Cardiac catheterization performed in 2016 revealed WOOL BUYER of the RCA, intermediate disease involving the mid LAD and patent stent in the distal LAD. -Echocardiogram performed 08/10/2022 revealed EF of 45%, moderate MR, mild AR, dilated aorta at 3.8 cm. -Lexiscan Cardiolite stress test performed 08/10/2022 revealed large inferior scar, small anterior scar with small PI ischemia. 06/20 Patient seen and examined in the emergency center. Patient continues to wait for bed on the cardiac stepdown unit. Patient states that his breathing is better from yesterday. He also states that the lower extremity edema is improved. He has been maintained on IV Lasix 40 mg every 12 hours. Blood pressure 103/69, heart rate 81, pulse ox 96% on room air. Repeat blood work reveals hemoglobin 12.5, BUN 16 creatinine 2.69. Amlodipine was discontinued per nephrology for hypotension and parameters for hydralazine. Echocardiogram is pending. 06/21 Patient seen and examined. Blood pressure 127/69, heart rate 89, pulse ox 95% on room air. Patient's renal function continues to worsen with BUN 75 creatinine 3.23. Potassium 5.0. Results of the echocardiogram reviewed with the patient and his . Nephrology has discontinued Lasix and Farxiga and added oral bicarb. Echocardiogram reveals EF of 30 to 35%, moderate MR and mild AR. Moderate TR and moderate pulmonary hypertension. Renal ultrasound reveals no obstructive uropathy or calculus. 06/22 Patient seen and examined. Patient states he is feeling well today. He looks comfortable. He does have worsening renal function. He denies chest pain or shortness of breath. BUN 90, creatinine 3.62 and potassium 4.8. Blood pressure 111/65, heart rate 77, pulse ox 95 % on room air. Repeat chest x-ray reveals cardiomegaly and central pulmonary vascular congestion. Small bilateral pleural effusions. Physical examination: Gen: This is a 78-year-old male in no acute distress VS: reviewed HEENT: Head is atraumatic, normocephalic. Pupils equal, round. Sclerae is anicteric. NECK: Supple. No JVD. LUNGS: Diminished. No wheezes or rhonchi. No intercostal retractions. HEART: Irregular rate and rhythm. Systolic murmur. ABDOMEN: Soft No tenderness. EXTREMITIES: Bilateral minimal lower extremity edema. No calf tenderness. NEUROLOGICAL: Patient is awake, alert and oriented x3. Assessment: Acute on chronic systolic heart failure Coronary artery disease with known WOOL BUYER of the RCA and known intermediate disease involving the left coronary system Ischemic cardiomyopathy with EF of 45% Uncontrolled hypertension Acute kidney injury Dyslipidemia Carotid atherosclerosis History of TIA Peripheral vascular disease Persistent atrial fibrillation Plan: Continue current cardiac medications: Eliquis, aspirin, atorvastatin Amlodipine, losartan, Lasix and Farxiga have been discontinued by nephrology Continue hydralazine 50 mg 3 times daily and nephrology added parameters Monitor ЕЛЕНА, daily weights, electrolytes and renal function Further recommendations to follow based upon clinical course Nurse practitioner note has been reviewed, I agree with documented findings and plan of care. Patient was seen and examined. Objective - Vital Signs Vital signs: Vital Signs Temp 98.9 F 06/22/24 09:30 Pulse 84 06/22/24 09:30 Resp 17 06/22/24 09:30 BP 107/62 06/22/24 09:30 Pulse Ox 96 06/22/24 09:30 FiO2 Intake & Output 06/21/24 06/22/24 06/22/24 18:59 06:59 18:59 Intake Total 480 Output Total 725 Balance 480 -725 Weight 96.9 kg 96.7 kg Intake: Oral 480 Output: Urine 725 Other: Voiding Method Toilet Toilet Toilet Urinal Urinal Urinal - Labs CBC & Chem 7: 06/20/24 07:16 06/22/24 07:04 Labs: Abnormal Lab Results - Last 24 Hours (Table) 06/21/24 06/21/24 06/21/24 Range/Units 11:57 17:06 20:08 Sodium (137-145) mmol/L Carbon Dioxide (22-30) mmol/L BUN (9-20) mg/dL Creatinine (0.66-1.25) mg/dL Glucose (74-99) mg/dL POC Glucose (mg/dL) 138 H 172 H 118 H (70-110) mg/dL 06/22/24 06/22/24 Range/Units 06:15 07:04 Sodium 135 L (137-145) mmol/L Carbon Dioxide 21 L (22-30) mmol/L BUN 90 H (9-20) mg/dL Creatinine 3.62 H (0.66-1.25) mg/dL Glucose 128 H (74-99) mg/dL POC Glucose (mg/dL) 128 H (70-110) mg/dL
--- NOTE | 2024-06-22 13:45 | P.PN ---
Subjective Progress Note Date: 06/22/24 Patient is a very pleasant 78-year-old male with a past medical history of CAD status post stenting x 2, history of cardiac arrest in 2014, ischemic cardiomyopathy, chronic systolic congestive heart failure, valvular heart disease with atrial septal defect, chronic atrial fibrillation, hypertension, hyperlipidemia, peripheral vascular disease, carotid stenosis status post R carotid endarterectomy, colon cancer status post bowel resection, insulin- dependent diabetes mellitus, stage IV CKD, DVT status post femoral thrombectomy, and previous CVA with no reported deficits. He presented to the emergency department with a chief complaint of bilateral lower extremity edema and shortness of breath. Patient reports he began noticing swelling in his legs a couple days ago and yesterday noticed that he was experiencing significant exertional shortness of breath and was unable to lie down last night due to severe orthopnea. Patient does report that he has a history of congestive heart failure and follows outpatient with Dr. Leal. Patient's reports that he is on Lasix and has been taking as prescribed. Patient and deny any recent medication changes. Patient denies having any headache, lightheadedness, dizziness, fevers, chills, diaphoresis, chest pain, palpitations, productive cough, abdominal pain, nausea, vomiting, or experiencing any numbness or focal weakness in his extremities. Upon arrival to our facility, patient underwent evaluation in the emergency department. Vital signs upon arrival show blood pressure 157/89, heart rate 104, respiratory rate 18, temp 97.7 F, and SpO2 of 94% on room air. EKG completed showing atrial fibrillation with a controlled ventricular rate of 77 bpm with T wave inversion in inferior, anterior, and septal leads II, III, aVF and V2 through V4. Chest x-ray showing cardiomegaly with pulmonary vascular congestion and bilateral pleural effusions consistent with CHF. Labs completed and reviewed. CBC showing normocytic anemia with hemoglobin of 12.4. Coagulation profile normal findings. BMP showing hyperkalemia with potassium of 5.4, hypocarbia with bicarb of 20, elevated anion gap of 13 and elevated renal function consistent w ith known stage IV CKD with BUN of 53, creatinine 2.16, GFR of 29. Blood glucose 123. Magnesium 2.3. Liver profile unremarkable. Troponin was elevated at 0.046 with proBNP of 10,700. Patient admitted under our services with consultation to cardiology. 06/20/2024 patient seen and examined at bedside. No acute events overnight. No new complaints. Labs today showed WBC 8.7, hemoglobin 12.5, platelet count 1 11,000, sodium 140, potassium 5.3, bicarb 23, BUN 16, creatinine 2.69, glucose 123, A1c 6.8, calcium 10.4, magnesium 2.2 06/21/2024 patient seen and examined at bedside. No acute events overnight. No new complaints. Labs today showed sodium 136, potassium 5, bicarb 18, BUN 75, creatinine 3.23, glucose 127, calcium 10, magnesium 2.1. Echocardiogram showed left ventricular ejection fraction estimated at 30 to 35%, moderate mitral regurgitation and mild aortic regurgitation, moderate tricuspid regurgitation with moderate pulmonary hypertension 06/22/2024 patient seen and examined at bedside. No acute events overnight. No new complaints. Labs: Sodium 135, potassium 4.8, bicarb 21, BUN 90, creatinine 3.62, glucose 128, calcium 9.3, magnesium 2.3 Review of systems: Pertinent positives and negatives as discussed in HPI, a complete review of systems was performed and all other systems are negative. Physical exam: Vital signs reviewed and stable. General: Nontoxic, no distress and appears stated age. Derm: Skin warm and dry, normal coloration for ethnicity. Head: Atraumatic, normocephalic and symmetric. Eyes: EOM's intact, anicteric sclera Mouth: no lip lesions, mucus membranes moist Cardiovascular: S1S2 Regular, systolic murmur, positive posterior tibial pulses bilaterally, and cap refill < 2 seconds. Lungs: Respirations even, regular, and unlabored on room air. Lungs diminished with bibasilar crackles Abdominal: soft, nontender to palpation, no guarding, no appreciable organomegaly Ext: ROM intact. No gross muscle atrophy, no edema, no contractures Neuro: Speech clear, face symmetrical and CN II-XII grossly intact with no noted focal neuro deficits Psych: Alert and oriented to person, place, time, and situation. Appropriate and pleasant affect. Assessment and Plan: Patient is a 78-year-old male with extensive cardiac history, CKD, hypertension, hyperlipidemia, PVD here for evaluation of shortness of breath and bilateral lower extremity edema. Found to be in heart failure exacerbation. Found to have hyperkalemia on labs. #. Acute on chronic systolic heart failure exacerbation, improved #. NSTEMI, type II #. Ischemic cardiomyopathy EF of 30 to 35% -Cardiology consult -Telemetry monitoring -Troponins flat -ProBNP 10,700 -Daily weights with Close monitoring of I's and O's -Cardiac diet -Laxis discontinued 06/21 -Continue hydralazine 50 mg p.o. Hold if SBP less than 120 per nephrology -Monitor electrolytes and renal function -Consult placed to heart failure navigator program -Lipid profile ordered -Hgb A1c 6.8 -Cardiology consulted. -Echocardiogram showed left ventricular ejection fraction estimated at 30 to 35%, moderate mitral regurgitation and mild aortic regurgitation, moderate tricuspid regurgitation with moderate pulmonary hypertension -Heart failure GDMT on discharge #. AMY on CKD secondary to diuresis -creatinine 3.23 -> 3.62 -Laxis discontinued since 06/21 -Monitor renal function and electrolytes closely. -Losartan held. Recommending discontinuation upon discharge secondary to hyperkalemia. -Encourage oral hydration -On home flomax 0.4mg po daily #. Metabolic acidosis, secondary to uremia, improving #. Hypovolemic hyponatremia secondary to diuresis -Monitor for now -Placed on oral bicarb per nephrology #. Chronic atrial fibrillation -Patient hemodynamically stable -Continue Eliquis 5 mg twice p.o. daily #. Hyperkalemia, resolved Chronic conditions: #. CAD status post stenting #. Insulin-dependent diabetes mellitus #. Peripheral vascular disease #. Hypertension #. Hyperlipidemia -Continue aspirin 81 mg daily, atorvastatin 20 mg nightly, and hydralazine 50 mg 3 times daily, flomax 0.4mg daily -Amlodipine and faxiga held due to hypotension -Patient placed on glycemic protocol with NovoLog sliding scale -hemoglobin A1c 6.8 DVT ppx: Eliquis 5mg PO twice daily I have seen and evaluated the patient today. Discussed with the resident and agree with the residents finding and plan as documented in the resident's note. Changes highlighted in blue font. Objective - Vital Signs Vital signs: Vital Signs Temp 98.9 F 06/22/24 09:30 Pulse 77 06/22/24 11:28 Resp 16 06/22/24 11:28 BP 111/65 06/22/24 11:28 Pulse Ox 95 06/22/24 11:28 FiO2 Intake & Output 03/14/25 03/15/25 03/15/25 18:59 06:59 18:59 Intake Total 480 360 Output Total 725 Balance 480 -725 360 Weight 96.9 kg 96.7 kg Intake: Oral 480 360 Output: Urine 725 Other: Voiding Method Toilet Toilet Toilet Urinal Urinal Urinal - Labs CBC & Chem 7: 06/20/24 07:16 06/22/24 07:04 Labs: Abnormal Lab Results - Last 24 Hours (Table) 06/21/24 06/21/24 06/22/24 Range/Units 17:06 20:08 06:15 Sodium (137-145) mmol/L Carbon Dioxide (22-30) mmol/L BUN (9-20) mg/dL Creatinine (0.66-1.25) mg/dL Glucose (74-99) mg/dL POC Glucose (mg/dL) 172 H 118 H 128 H (70-110) mg/dL 06/22/24 06/22/24 Range/Units 07:04 11:36 Sodium 135 L (137-145) mmol/L Carbon Dioxide 21 L (22-30) mmol/L BUN 90 H (9-20) mg/dL Creatinine 3.62 H (0.66-1.25) mg/dL Glucose 128 H (74-99) mg/dL POC Glucose (mg/dL) 201 H (70-110) mg/dL
[2024-06-22 16:39] LABS: Glucose,Whole Blood 142 mg/dL (70-110)
[2024-06-22 20:18] LABS: Glucose,Whole Blood 188 mg/dL (70-110)
[2024-06-23 06:21] LABS: Glucose,Whole Blood 152 mg/dL (70-110)
[2024-06-23 07:56] LABS: LDL Cholesterol,Calculated 30.4 mg/dL (0.0-131.0); VLDL Calculation 12.74 mg/dL (5.00-40.00)
--- NOTE | 2024-06-23 10:19 | P.PN ---
Subjective Patient is seen in follow-up for acute kidney injury on chronic kidney disease. Renal function worsening. Creatinine 3.62 yesterday. Diuretics and Farxiga discontinued June 21, 2024. Edema improved. Admits to good urine output. Denies chest pain or shortness of breath. On room air. Perez catheter was placed yesterday due to urinary retention. Vital signs are stable. General: No acute distress. HEENT: Head exam is unremarkable. LUNGS: No audible rhonchi or wheezes. HEART: Rate and Rhythm are regular. ABDOMEN: Nontender. EXTREMITITES: Trace edema. Objective - Vital Signs Vital signs: Vital Signs Temp 98.0 F 06/23/24 08:16 Pulse 74 06/23/24 08:16 Resp 18 06/23/24 08:16 BP 117/72 06/23/24 08:16 Pulse Ox 96 06/23/24 08:16 FiO2 Intake & Output 06/22/24 06/23/24 06/23/24 18:59 06:59 18:59 Intake Total 1020 240 480 Output Total 300 350 Balance 720 -110 480 Weight 96.7 kg Intake: Oral 1020 240 480 Output: Urine 300 350 Other: Voiding Method Indwelling Catheter Indwelling Catheter Indwelling Catheter - Labs CBC & Chem 7: 06/20/24 07:16 06/22/24 07:04 Labs: Abnormal Lab Results - Last 24 Hours (Table) 06/22/24 06/22/24 06/22/24 Range/Units 11:36 16:38 20:11 POC Glucose (mg/dL) 201 H 142 H 188 H (70-110) mg/dL Magnesium (1.6-2.3) mg/dL 06/23/24 06/23/24 Range/Units 06:08 07:45 POC Glucose (mg/dL) 152 H (70-110) mg/dL Magnesium 2.4 H (1.6-2.3) mg/dL Assessment and Plan Plan: Assessment: 1. Acute kidney injury secondary to ATN secondary to cardiorenal syndrome. Perez catheter placed June 22, 2024 due to urinary retention. Renal function worse with diuresis - creatinine 3.62 yesterday. No hydronephrosis noted on kidney ultrasound. 2. Chronic kidney disease stage IIIb with baseline creatinine 1.8-2 secondary to diabetic kidney disease. 3. Volume overload. Status post diuresis. Improved. 4. Acute on chronic systolic CHF ejection fraction of 30 to 35% with moderate mitral and tricuspid regurgitation and pulmonary hypertension. 5. Coronary artery disease. 6. Diabetes mellitus. 7. Hypertension with chronic kidney disease. Controlled. 8. Chronic kidney disease mineral bone disease. Calcium on the higher end at 10.4--> now normal. Calcitriol and vitamin D discontinued. 9. Metabolic acidosis secondary to acute kidney injury. On oral bicarb. Improved. 10. Urinary retention. Perez catheter placed June 22. On Flomax. Plan: Continue to hold diuretics and SGLT2 inhibitor. Both were discontinued June 21, 2024. All antihypertensives discontinued except hydralazine. Hold hydralazine for systolic blood pressure less than 120. Avoid nephrotoxins. Continue to monitor renal function and urine output. Advised patient to monitor his weight closely at home and to notify physician if develops edema or gains more than 3 pounds in 1 week duration.
[2024-06-23 10:40] LABS: African American GFR (CKD) 18 (>60 ml/min/1.73 sqM); Anion Gap 16 mmol/L; Blood Urea Nitrogen 96 mg/dL (9-20); Calcium 9.6 mg/dL (8.4-10.2); Carbon Dioxide 19 mmol/L (22-30); Chloride 98 mmol/L (98-107); Glucose 154 mg/dL (74-99); Non-African American GFR(CKD) 16 (>60 ml/min/1.73 sqM); Potassium 4.5 mmol/L (3.5-5.1); Sodium 133 mmol/L (137-145)
[2024-06-23 11:44] LABS: Glucose,Whole Blood 157 mg/dL (70-110)
--- NOTE | 2024-06-23 12:11 | P.PN ---
Subjective Progress Note Date: 06/23/24 Subjective: Patient seen and examined at bedside. No acute events overnight. Was having urinary retention yesterday, Perez catheter in place. Pertinent positives and negatives as discussed above, a complete review of systems was performed and all other systems are negative. Vitals Signs Reviewed. General: Nontoxic, no distress, appears at stated age, Perez catheter in place Derm: Warm, dry Head: Atraumatic, normocephalic, symmetric Eyes: EOMI, no lid lag, anicteric sclera Mouth: No lip lesion, mucus membranes moist Cardiovascular: S1S2 reg, no murmur Lungs: Fine rales bibasilar, no accessory muscle use Abdominal: Soft, nontender to palpation, no guarding, no appreciable organome vlad Ext: No gross muscle atrophy, no edema, no contractures Neuro: CN II-XI grossly intact, no focal neuro deficits Psych: Alert, oriented, appropriate affect Data Reviewed Today: Pertinent Labs: Sodium 133, bicarb 19, anion gap 16, creatinine 3.51, magnesium 2.4, blood sugars range between 1 52-1 57 Imaging: Chest x-ray independently interpreted from yesterday, shows persistent bilateral interstitial opacities unchanged from prior Assessment and Plan: #. Acute on chronic systolic heart failure exacerbation, improved #. NSTEMI, type II #. Ischemic cardiomyopathy EF of 30 to 35% -Cardiology following -Telemetry, daily weights, I's and O's -Laxis discontinued 06/21, patient likely over diuresed -Continue hydralazine 50 mg p.o. Hold if SBP less than 120 per nephrology -Echocardiogram showed left ventricular ejection fraction estimated at 30 to 35%, moderate mitral regurgitation and mild aortic regurgitation, moderate tricuspid regurgitation with moderate pulmonary hypertension -Currently holding Farxiga and losartan #. AMY on CKD secondary to overdiuresis, improving #. Acute urinary retention status post Perez -Creatinine now stable and improving -Hold antihypertensives, but maintained on hydralazine 50 3 times daily with parameters -Monitor renal function and electrolytes closely. -On home flomax 0.4mg po daily -Nephrology following -Do a voiding trial today #. Metabolic acidosis, secondary to uremia #. Hypovolemic hyponatremia secondary to diuresis -Monitor for now -Placed on oral sodium bicarb tabs 650 twice daily per nephrology #. Chronic atrial fibrillation -Patient hemodynamically stable -Continue Eliquis 5 mg twice p.o. daily #. Hyperkalemia, resolved Chronic conditions: #. CAD status post stenting #. Insulin-dependent diabetes mellitus #. Peripheral vascular disease #. Hypertension #. Hyperlipidemia -Continue aspirin 81 mg daily, atorvastatin 20 mg nightly, and hydralazine 50 mg 3 times daily, flomax 0.4mg daily -Amlodipine and faxiga held due to hypotension -Patient placed on glycemic protocol with NovoLog sliding scale, monitor for hyp oglycemia -hemoglobin A1c 6.8 DVT ppx: Eliquis 5mg PO twice daily Code status: Full code Anticipated discharge place: Pending clinical course Anticipated discharge time: pending clinical course Objective - Vital Signs Vital signs: Vital Signs Temp 98.0 F 06/23/24 08:16 Pulse 74 06/23/24 11:01 Resp 17 06/23/24 11:01 BP 137/71 06/23/24 11:01 Pulse Ox 97 06/23/24 11:01 FiO2 Intake & Output 06/22/24 06/23/24 06/23/24 18:59 06:59 18:59 Intake Total 1020 240 720 Output Total 300 350 Balance 720 -110 720 Weight 96.7 kg Intake: Oral 1020 240 720 Output: Urine 300 350 Other: Voiding Method Indwelling Catheter Indwelling Catheter Indwelling Catheter - Labs CBC & Chem 7: 06/20/24 07:16 06/23/24 07:45 Labs: Abnormal Lab Results - Last 24 Hours (Table) 06/22/24 06/22/24 06/23/24 Range/Units 16:38 20:11 06:08 Sodium (137-145) mmol/L Carbon Dioxide (22-30) mmol/L BUN (9-20) mg/dL Creatinine (0.66-1.25) mg/dL Glucose (74-99) mg/dL POC Glucose (mg/dL) 142 H 188 H 152 H (70-110) mg/dL Magnesium (1.6-2.3) mg/dL 06/23/24 06/23/24 06/23/24 Range/Units 07:45 07:45 11:41 Sodium 133 L (137-145) mmol/L Carbon Dioxide 19 L (22-30) mmol/L BUN 96 H (9-20) mg/dL Creatinine 3.51 H (0.66-1.25) mg/dL Glucose 154 H (74-99) mg/dL POC Glucose (mg/dL) 157 H (70-110) mg/dL Magnesium 2.4 H (1.6-2.3) mg/dL
--- NOTE | 2024-06-23 12:38 | P.PN ---
Subjective Progress Note Date: 06/23/24 Consult reason: congestive heart failure History of present illness: This is 78-year-old male patient of Dr. 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 We have been asked to evaluate the patient for CHF. Patient states that his leg started getting swelling about 3 days ago. His states that he does not usually complain of pain but the lower legs have been very painful. Patient denies chest pain. Also patient states he does not have history of atrial fibrillation and has never been told he has irregular heartbeat. Patient is found to be in atrial fibrillation upon evaluation. Patient has been started on IV Lasix 40 mg every 12 hours. Blood pressure 157/89, heart rate 104, pulse ox 94% on room air. Patient is seen today in the emergency center waiting for bed on the cardiac stepdown unit. In records from 2013 and 2014, it was documented patient had paroxysmal atrial fibrillation but this note was not continued in the office notes. -EKG: Atrial fibrillation 77 bpm -Chest x-ray: Cardiomegaly, pulmonary vascular congestion and bilateral pleural effusions. -Laboratory studies: WBC 7.8, hemoglobin 12.4. Potassium 5.4, BUN 53 creatinine 2.16, troponin 0.046, proBNP 10,700. -Home cardiac medications: Amlodipine 10 mg daily, aspirin 162 mg daily, atorvastatin 20 mg at bedtime, Jardiance 10 mg daily, Lasix 20 mg daily, losartan 50 mg twice daily, Nitrostat as needed. -Cardiac catheterization performed in 2016 revealed HYDRAULIC BILLET MAKER of the RCA, intermediate disease involving the mid LAD and patent stent in the distal LAD. -Echocardiogram performed 08/10/2022 revealed EF of 45%, moderate MR, mild AR, dilated aorta at 3.8 cm. -Lexiscan Cardiolite stress test performed 08/10/2022 revealed large inferior scar, small anterior scar with small PI ischemia. 06/20 Patient seen and examined in the emergency center. Patient continues to wait for bed on the cardiac stepdown unit. Patient states that his breathing is better from yesterday. He also states that the lower extremity edema is improved. He has been maintained on IV Lasix 40 mg every 12 hours. Blood pressure 103/69, heart rate 81, pulse ox 96% on room air. Repeat blood work reveals hemoglobin 12.5, BUN 16 creatinine 2.69. Amlodipine was discontinued per nephrology for hypotension and parameters for hydralazine. Echocardiogram is pending. 06/21 Patient seen and examined. Blood pressure 127/69, heart rate 89, pulse ox 95% on room air. Patient's renal function continues to worsen with BUN 75 creatinine 3.23. Potassium 5.0. Results of the echocardiogram reviewed with the patient and his . Nephrology has discontinued Lasix and Farxiga and added oral bicarb. Echocardiogram reveals EF of 30 to 35%, moderate MR and mild AR. Moderate TR and moderate pulmonary hypertension. Renal ultrasound reveals no obstructive uropathy or calculus. 06/22 Patient seen and examined. Patient states he is feeling well today. He looks comfortable. He does have worsening renal function. He denies chest pain or shortness of breath. BUN 90, creatinine 3.62 and potassium 4.8. Blood pressure 111/65, heart rate 77, pulse ox 95 % on room air. Repeat chest x-ray reveals cardiomegaly and central pulmonary vascular congestion. Small bilateral pleural effusions. 06/23 Patient seen and examined. Patient has minimally improved renal function from yesterday with BUN 96, creatinine 3.51. Patient denies chest pain, chest pressure, shortness of breath. Blood pressure 137/71, heart rate 74, pulse ox 97% on room air. Physical examination: Gen: This is a 78-year-old male in no acute distress VS: reviewed HEENT: Head is atraumatic, normocephalic. Pupils equal, round. Sclerae is anicteric. NECK: Supple. No JVD. LUNGS: Diminished. No wheezes or rhonchi. No intercostal retractions. HEART: Irregular rate and rhythm. Systolic murmur. ABDOMEN: Soft No tenderness. EXTREMITIES: Bilateral minimal lower extremity edema. No calf tenderness. NEUROLOGICAL: Patient is awake, alert and oriented x3. Assessment: Acute on chronic systolic heart failure Coronary artery disease with known HYDRAULIC BILLET MAKER of the RCA and known intermediate disease involving the left coronary system Ischemic cardiomyopathy with EF of 45% Uncontrolled hypertension Acute kidney injury Dyslipidemia Carotid atherosclerosis History of TIA Peripheral vascular disease Persistent atrial fibrillation Plan: Continue current cardiac medications: Eliquis, aspirin, atorvastatin Amlodipine, losartan, Lasix and Farxiga have been discontinued by nephrology Continue hydralazine 50 mg 3 times daily and nephrology added parameters Monitor ЕЛЕНА, daily weights, electrolytes and renal function Further recommendations to follow based upon clinical course Nurse practitioner note has been reviewed, I agree with documented findings and plan of care. Patient was seen and examined. Objective - Vital Signs Vital signs: Vital Signs Temp 98.0 F 06/23/24 08:16 Pulse 74 06/23/24 08:16 Resp 18 06/23/24 08:16 BP 117/72 06/23/24 08:16 Pulse Ox 96 06/23/24 08:16 FiO2 Intake & Output 06/22/24 06/23/24 06/23/24 18:59 06:59 18:59 Intake Total 1020 240 480 Output Total 300 350 Balance 720 -110 480 Weight 96.7 kg Intake: Oral 1020 240 480 Output: Urine 300 350 Other: Voiding Method Indwelling Catheter Indwelling Catheter Indwelling Catheter - Labs CBC & Chem 7: 06/20/24 07:16 06/23/24 07:45 Labs: Abnormal Lab Results - Last 24 Hours (Table) 06/22/24 06/22/24 06/22/24 Range/Units 11:36 16:38 20:11 Sodium (137-145) mmol/L Carbon Dioxide (22-30) mmol/L BUN (9-20) mg/dL Creatinine (0.66-1.25) mg/dL Glucose (74-99) mg/dL POC Glucose (mg/dL) 201 H 142 H 188 H (70-110) mg/dL Magnesium (1.6-2.3) mg/dL 06/23/24 06/23/24 06/23/24 Range/Units 06:08 07:45 07:45 Sodium 133 L (137-145) mmol/L Carbon Dioxide 19 L (22-30) mmol/L BUN 96 H (9-20) mg/dL Creatinine 3.51 H (0.66-1.25) mg/dL Glucose 154 H (74-99) mg/dL POC Glucose (mg/dL) 152 H (70-110) mg/dL Magnesium 2.4 H (1.6-2.3) mg/dL
[2024-06-23 16:39] LABS: Glucose,Whole Blood 215 mg/dL (70-110)
[2024-06-23 20:02] LABS: Glucose,Whole Blood 177 mg/dL (70-110)
[2024-06-24 06:17] LABS: Glucose,Whole Blood 119 mg/dL (70-110)
[2024-06-24 07:20] LABS: African American GFR (CKD) 20 (>60 ml/min/1.73 sqM); Anion Gap 14 mmol/L; Calcium 9.1 mg/dL (8.4-10.2); Carbon Dioxide 20 mmol/L (22-30); Chloride 95 mmol/L (98-107); Glucose 112 mg/dL (74-99); Magnesium 2.5 mg/dL (1.6-2.3); Non-African American GFR(CKD) 17 (>60 ml/min/1.73 sqM); Potassium 4.3 mmol/L (3.5-5.1); Sodium 129 mmol/L (137-145)
[2024-06-24 07:33] LABS: Blood Urea Nitrogen 101 mg/dL (9-20)
[2024-06-24 11:25] LABS: Glucose,Whole Blood 220 mg/dL (70-110)
[2024-06-24 11:59] LABS: Anisocytosis Slight; HGB 10.6 gm/dL (13.0-17.5); Hypochromasia Moderate; MCH 26.1 pg (25.0-35.0); MCHC 30.3 g/dL (31.0-37.0); MCV 86.3 fL (80.0-100.0); Mean Platelet Volume 9.6; Platelet Count 176 k/uL (150-450); RBC 4.05 m/uL (4.30-5.90); WBC 8.3 k/uL (3.8-10.6)
--- NOTE | 2024-06-24 12:32 | P.PN ---
Subjective Progress Note Date: 06/24/24 Patient is a very pleasant 78-year-old male with a past medical history of CAD status post stenting x 2, history of cardiac arrest in 2014, ischemic cardiomyopathy, chronic systolic congestive heart failure, valvular heart disease with atrial septal defect, chronic atrial fibrillation, hypertension, hyperlipidemia, peripheral vascular disease, carotid stenosis status post R carotid endarterectomy, colon cancer status post bowel resection, insulin- dependent diabetes mellitus, stage IV CKD, DVT status post femoral thrombectomy, and previous CVA with no reported deficits. He presented to the emergency department with a chief complaint of bilateral lower extremity edema and shortness of breath. Patient reports he began noticing swelling in his legs a couple days ago and yesterday noticed that he was experiencing significant exertional shortness of breath and was unable to lie down last night due to severe orthopnea. Patient does report that he has a history of congestive heart failure and follows outpatient with Dr. Leal. Patient's reports that he is on Lasix and has been taking as prescribed. Patient and deny any recent medication changes. Patient denies having any headache, lightheadedness, dizziness, fevers, chills, diaphoresis, chest pain, palpitations, productive cough, abdominal pain, nausea, vomiting, or experiencing any numbness or focal weakness in his extremities. Upon arrival to our facility, patient underwent evaluation in the emergency department. Vital signs upon arrival show blood pressure 157/89, heart rate 104, respiratory rate 18, temp 97.7 F, and SpO2 of 94% on room air. EKG completed showing atrial fibrillation with a controlled ventricular rate of 77 bpm with T wave inversion in inferior, anterior, and septal leads II, III, aVF and V2 through V4. Chest x-ray showing cardiomegaly with pulmonary vascular congestion and bilateral pleural effusions consistent with CHF. Labs completed and reviewed. CBC showing normocytic anemia with hemoglobin of 12.4. Coagulation profile normal findings. BMP showing hyperkalemia with potassium of 5.4, hypocarbia with bicarb of 20, elevated anion gap of 13 and elevated renal function consistent w ith known stage IV CKD with BUN of 53, creatinine 2.16, GFR of 29. Blood glucose 123. Magnesium 2.3. Liver profile unremarkable. Troponin was elevated at 0.046 with proBNP of 10,700. Patient admitted under our services with consultation to cardiology. 06/20/2024 patient seen and examined at bedside. No acute events overnight. No new complaints. Labs today showed WBC 8.7, hemoglobin 12.5, platelet count 1 11,000, sodium 140, potassium 5.3, bicarb 23, BUN 16, creatinine 2.69, glucose 123, A1c 6.8, calcium 10.4, magnesium 2.2 06/21/2024 patient seen and examined at bedside. No acute events overnight. No new complaints. Labs today showed sodium 136, potassium 5, bicarb 18, BUN 75, creatinine 3.23, glucose 127, calcium 10, magnesium 2.1. Echocardiogram showed left ventricular ejection fraction estimated at 30 to 35%, moderate mitral regurgitation and mild aortic regurgitation, moderate tricuspid regurgitation with moderate pulmonary hypertension 06/22/2024 patient seen and examined at bedside. No acute events overnight. No new complaints. Labs: Sodium 135, potassium 4.8, bicarb 21, BUN 90, creatinine 3.62, glucose 128, calcium 9.3, magnesium 2.3 06/23/2024 Patient seen and examined at bedside. No acute events overnight. Was having urinary retention yesterday, Perez catheter in place. 06/24/2024 patient seen and examined at bedside. No acute events overnight. Patient was still having urinary retention despite having urinary output. Labs: Sodium 129, potassium 4.3, chloride 95, bicarb 20, BUN 101, creatinine 3.26, glucose 112, calcium 9.1, magnesium 2.5 Review of systems: Pertinent positives and negatives as discussed in HPI, a complete review of systems was performed and all other systems are negative. Physical exam: Vital signs reviewed and stable. General: Nontoxic, no distress and appears stated age. Derm: Skin warm and dry, normal coloration for ethnicity. Head: Atraumatic, normocephalic and symmetric. Eyes: EOM's intact, anicteric sclera Mouth: no lip lesions, mucus membranes moist Cardiovascular: S1S2 Regular, systolic murmur, positive posterior tibial pulses bilaterally, and cap refill < 2 seconds. Lungs: Respirations even, regular, and unlabored on room air. Abdominal: soft, nontender to palpation, no guarding, no appreciable orga nomegaly Ext: ROM intact. No gross muscle atrophy, +1 bialteral lower extremity pitting edema, no contractures Neuro: Speech clear, face symmetrical and CN II-XII grossly intact with no noted focal neuro deficits Psych: Alert and oriented to person, place, time, and situation. Appropriate and pleasant affect. Assessment and Plan: Patient is a 78-year-old male with extensive cardiac history, CKD, hypertension, hyperlipidemia, PVD here for evaluation of shortness of breath and bilateral lower extremity edema. Found to be in heart failure exacerbation. Found to have hyperkalemia on labs. #. Acute on chronic systolic heart failure exacerbation, improved #. NSTEMI, type II #. Ischemic cardiomyopathy EF of 30 to 35% -Cardiology consult -Telemetry monitoring -Daily weights with Close monitoring of I's and O's -Cardiac diet with fluid restriction -Laxis discontinued 06/21 -Continue hydralazine 50 mg p.o. Hold if SBP less than 120 per nephrology -Monitor electrolytes and renal function -Consult placed to heart failure navigator program -Cardiology consulted. -Echocardiogram showed left ventricular ejection fraction estimated at 30 to 35%, moderate mitral regurgitation and mild aortic regurgitation, moderate tricuspid regurgitation with moderate pulmonary hypertension -Heart failure GDMT on discharge #. AMY on CKD secondary to diuresis #. Urinary retention -creatinine 3.26 -Laxis discontinued since 06/21 -Monitor renal function and electrolytes closely. -Losartan held. Recommending discontinuation upon discharge secondary to hyperkalemia. -Encourage oral hydration -Bladder scan as needed. Place Perez if severely retaining. -On home flomax 0.4mg po daily #. Metabolic acidosis, secondary to uremia, improving #. Hypovolemic hyponatremia secondary to diuresis -Monitor for now -Discussed with nephrology, placed oral bicarb and repeat CBC, repeat BMP #. Hyperkalemia, resolved Chronic conditions: #. Chronic atrial fibrillation -Patient hemodynamically stable -Continue Eliquis 5 mg twice p.o. daily #. CAD status post stenting #. Insulin-dependent diabetes mellitus #. Peripheral vascular disease #. Hypertension #. Hyperlipidemia -Continue aspirin 81 mg daily, atorvastatin 20 mg nightly, and hydralazine 50 mg 3 times daily, flomax 0.4mg daily -Amlodipine and faxiga held due to hypotension -Patient placed on glycemic protocol with NovoLog sliding scale -hemoglobin A1c 6.8 DVT ppx: Eliquis 5mg PO twice daily I have seen and evaluated the patient today. Discussed with the resident and agree with the residents finding and plan as documented in the resident's note. Changes highlighted in blue font. Objective - Vital Signs Vital signs: Vital Signs Temp 97.5 F L 06/24/24 08:15 Pulse 82 06/24/24 08:15 Resp 17 06/24/24 08:15 BP 123/61 06/24/24 08:15 Pulse Ox 99 06/24/24 08:15 FiO2 Intake & Output 06/23/24 06/24/24 06/24/24 18:59 06:59 18:59 Intake Total 1644 20 10 Output Total 500 504 Balance 1144 20 -494 Weight 98.7 kg Intake: IV 20 10 Invasive Line 2 20 10 Oral 1644 Output: Urine 500 250 Post Void Residual 254 Other: Voiding Method Urinal Urinal Urinal # Voids 1 - Labs CBC & Chem 7: 06/24/24 06:39 06/24/24 12:39 Labs: Abnormal Lab Results - Last 24 Hours (Table) 06/23/24 06/23/24 06/23/24 Range/Units 07:45 11:41 16:38 Sodium 133 L (137-145) mmol/L Chloride (98-107) mmol/L Carbon Dioxide 19 L (22-30) mmol/L BUN 96 H (9-20) mg/dL Creatinine 3.51 H (0.66-1.25) mg/dL Glucose 154 H (74-99) mg/dL POC Glucose (mg/dL) 157 H 215 H (70-110) mg/dL Magnesium (1.6-2.3) mg/dL 06/23/24 06/24/24 06/24/24 Range/Units 20:01 06:16 06:39 Sodium 129 L (137-145) mmol/L Chloride 95 L (98-107) mmol/L Carbon Dioxide 20 L (22-30) mmol/L BUN 101 H* (9-20) mg/dL Creatinine 3.26 H (0.66-1.25) mg/dL Glucose 112 H (74-99) mg/dL POC Glucose (mg/dL) 177 H 119 H (70-110) mg/dL Magnesium 2.5 H (1.6-2.3) mg/dL
--- NOTE | 2024-06-24 12:56 | P.PN ---
Subjective HISTORY OF PRESENT ILLNESS: This is 78-year-old male patient of Dr. Leal with past medical history of coronary artery disease with known PRODUCT DEVELOPMENT COORDINATOR of the RCA, known intermediate disease involving the left coronary system, cardiomyopathy, valvular heart disease, dilated thoracic aorta, hypertension, dyslipidemia, carotid atherosclerosis, history of TIA, diabetes mellitus type 2, peripheral vascular disease. We have been asked to evaluate the patient for CHF. Patient states that his leg started getting swelling about 3 days ago. His states that he does not usually complain of pain but the lower legs have been very painful. Patient denies chest pain. Also patient states he does not have history of atrial fibrillation and has never been told he has irregular heartbeat. Patient is found to be in atrial fibrillation upon evaluation. Patient has been started on IV Lasix 40 mg every 12 hours. Blood pressure 157/89, heart rate 104, pulse ox 94% on room air. Patient is seen today in the emergency center waiting for bed on the cardiac stepdown unit. In records from 2013 and 2014, it was documented patient had paroxysmal atrial fibrillation but this note was not continued in the office notes. -EKG: Atrial fibrillation 77 bpm -Chest x-ray: Cardiomegaly, pulmonary vascular congestion and bilateral pleural effusions. -Laboratory studies: WBC 7.8, hemoglobin 12.4. Potassium 5.4, BUN 53 creatinine 2.16, troponin 0.046, proBNP 10,700. -Home cardiac medications: Amlodipine 10 mg daily, aspirin 162 mg daily, atorvastatin 20 mg at bedtime, Jardiance 10 mg daily, Lasix 20 mg daily, losartan 50 mg twice daily, Nitrostat as needed. -Cardiac catheterization performed in 2016 revealed PRODUCT DEVELOPMENT COORDINATOR of the RCA, intermediate disease involving the mid LAD and patent stent in the distal LAD. -Echocardiogram performed 08/10/2022 revealed EF of 45%, moderate MR, mild AR, dilated aorta at 3.8 cm. -Lexiscan Cardiolite stress test performed 08/10/2022 revealed large inferior scar, small anterior scar with small PI ischemia. 06/20 Patient seen and examined in the emergency center. Patient continues to wait for bed on the cardiac stepdown unit. Patient states that his breathing is better from yesterday. He also states that the lower extremity edema is improved. He has been maintained on IV Lasix 40 mg every 12 hours. Blood pressure 103/69, heart rate 81, pulse ox 96% on room air. Repeat blood work reveals hemoglobin 12.5, BUN 16 creatinine 2.69. Amlodipine was discontinued per nephrology for hypotension and parameters for hydralazine. Echocardiogram is pending. 06/21 Patient seen and examined. Blood pressure 127/69, heart rate 89, pulse ox 95% on room air. Patient's renal function continues to worsen with BUN 75 creatinine 3.23. Potassium 5.0. Results of the echocardiogram reviewed with the patient and his . Nephrology has discontinued Lasix and Farxiga and added oral bicarb. Echocardiogram reveals EF of 30 to 35%, moderate MR and mild AR. Moderate TR and moderate pulmonary hypertension. Renal ultrasound reveals no obstructive uropathy or calculus. 06/22 Patient seen and examined. Patient states he is feeling well today. He looks comfortable. He does have worsening renal function. He denies chest pain or shortness of breath. BUN 90, creatinine 3.62 and potassium 4.8. Blood pressure 111/65, heart rate 77, pulse ox 95 % on room air. Repeat chest x-ray reveals cardiomegaly and central pulmonary vascular congestion. Small bilateral pleural effusions. 06/23 Patient seen and examined. Patient has minimally improved renal function from yesterday with BUN 96, creatinine 3.51. Patient denies chest pain, chest pressure, shortness of breath. Blood pressure 137/71, heart rate 74, pulse ox 97% on room air. 06/24/2024 Patient examined this morning at the bedside. Patient is laying flat in bed. He denies any shortness of breath. He denies any chest pain or pressure. He states that he slept well overnight. Creatinine 3.26. PHYSICAL EXAM: VITAL SIGNS: Reviewed. GENERAL: Well-developed in no acute distress. NECK: Supple. No JVD or thyromegaly LUNGS: Respirations even and unlabored. Lungs essentially clear to auscultation bilaterally. HEART: Irregular rate and rhythm. S1 and S2 heard. Systolic murmur noted. EXTREMITIES: Normal range of motion. No clubbing or cyanosis. Peripheral pulses intact. Minimal bilateral lower extremity edema ASSESSMENT: Hyponatremia Acute on chronic heart failure with reduced EF Coronary artery disease with known PRODUCT DEVELOPMENT COORDINATOR of the RCA and known intermediate disease involving the left coronary system Ischemic cardiomyopathy with EF, 3035% Uncontrolled hypertension, improved Acute on chronic kidney disease Dyslipidemia Carotid atherosclerosis History of TIA Peripheral vascular disease Persistent atrial fibrillation PLAN: Amlodipine, losartan, Lasix and Farxiga have been discontinued by nephrology Continue hydralazine, aspirin, Eliquis, and atorvastatin Continue to monitor kidney function Continue telemetry monitoring Further recommendations pending patient course Nurse practitioner note has been reviewed by physician. Signing provider agrees with the documented findings, assessment, and plan of care documented by FILM PROCESS OPERATOR as a scribe. Objective - Vital Signs Vital signs: Vital Signs Temp 97.5 F L 06/24/24 08:15 Pulse 74 06/24/24 11:48 Resp 16 06/24/24 11:48 BP 114/56 06/24/24 11:48 Pulse Ox 97 06/24/24 11:48 FiO2 Intake & Output 06/23/24 06/24/24 06/24/24 18:59 06:59 18:59 Intake Total 1644 20 10 Output Total 500 504 Balance 1144 20 -494 Weight 98.7 kg Intake: IV 20 10 Invasive Line 2 20 10 Oral 1644 Output: Urine 500 250 Post Void Residual 254 Other: Voiding Method Urinal Urinal Urinal # Voids 1 - Labs CBC & Chem 7: 06/24/24 06:39 06/24/24 06:39 Labs: Abnormal Lab Results - Last 24 Hours (Table) 06/23/24 06/23/24 06/24/24 Range/Units 16:38 20:01 06:16 RBC (4.30-5.90) m/uL Hgb (13.0-17.5) gm/dL Hct (39.0-53.0) % MCHC (31.0-37.0) g/dL RDW (11.5-15.5) % Sodium (137-145) mmol/L Chloride (98-107) mmol/L Carbon Dioxide (22-30) mmol/L BUN (9-20) mg/dL Creatinine (0.66-1.25) mg/dL Glucose (74-99) mg/dL POC Glucose (mg/dL) 215 H 177 H 119 H (70-110) mg/dL Magnesium (1.6-2.3) mg/dL 06/24/24 06/24/24 06/24/24 Range/Units 06:39 06:39 11:23 RBC 4.05 L (4.30-5.90) m/uL Hgb 10.6 L (13.0-17.5) gm/dL Hct 35.0 L (39.0-53.0) % MCHC 30.3 L (31.0-37.0) g/dL RDW 16.0 H (11.5-15.5) % Sodium 129 L (137-145) mmol/L Chloride 95 L (98-107) mmol/L Carbon Dioxide 20 L (22-30) mmol/L BUN 101 H* (9-20) mg/dL Creatinine 3.26 H (0.66-1.25) mg/dL Glucose 112 H (74-99) mg/dL POC Glucose (mg/dL) 220 H (70-110) mg/dL Magnesium 2.5 H (1.6-2.3) mg/dL
[2024-06-24 13:04] LABS: African American GFR (CKD) 19 (>60 ml/min/1.73 sqM); Anion Gap 16 mmol/L; Carbon Dioxide 20 mmol/L (22-30); Chloride 96 mmol/L (98-107); Glucose 162 mg/dL (74-99); Non-African American GFR(CKD) 17 (>60 ml/min/1.73 sqM); Potassium 4.1 mmol/L (3.5-5.1); Sodium 132 mmol/L (137-145)
[2024-06-24 13:10] LABS: Blood Urea Nitrogen 107 mg/dL (9-20)
--- NOTE | 2024-06-24 15:24 | P.PN ---
Subjective Patient is seen for follow-up for acute kidney injury. Patient was noted to be in volume overload on initial admission and received a couple of doses of IV Lasix. Diuretics have been on hold. No complaints of shortness of breath. Patient has been able to ambulate to the bathroom and back without any complaints. Chest x-ray on 06/22/24 did show pulmonary vascular congestion. BUN is elevated at 107. No active bleeding noted. Hemoglobin at 10.6 from 12.4 on initial admission. No steroids noted on med list. Losartan has been on hold. Patient has had urine retention on and off. Perez catheter was discontinued this morning however patient was unable to void and Perez catheter was replaced. Objective - Vital Signs Vital signs: Vital Signs Temp 97.5 F L 06/24/24 08:15 Pulse 74 06/24/24 11:48 Resp 16 06/24/24 11:48 BP 114/56 06/24/24 11:48 Pulse Ox 97 06/24/24 11:48 FiO2 Intake & Output 06/23/24 06/24/24 06/24/24 18:59 06:59 18:59 Intake Total 1644 20 250 Output Total 500 504 Balance 1144 20 -254 Weight 98.7 kg Intake: IV 20 10 Invasive Line 2 20 10 Oral 1644 240 Output: Urine 500 250 Post Void Residual 254 Other: Voiding Method Urinal Urinal Urinal # Voids 1 - Exam Patient is awake, comfortable, no acute distress. Examination of the heart S1 and S2 Examination of the lungs bilateral breath sounds are heard Abdomen is soft nontender Examination of lower extremities shows trace edema bilaterally with chronic skin changes [employer] [place] [place] exam grossly intact - Labs CBC & Chem 7: 06/24/24 06:39 06/24/24 12:39 Labs: Abnormal Lab Results - Last 24 Hours (Table) 06/23/24 06/23/24 06/24/24 Range/Units 16:38 20:01 06:16 RBC (4.30-5.90) m/uL Hgb (13.0-17.5) gm/dL Hct (39.0-53.0) % MCHC (31.0-37.0) g/dL RDW (11.5-15.5) % Sodium (137-145) mmol/L Chloride (98-107) mmol/L Carbon Dioxide (22-30) mmol/L BUN (9-20) mg/dL Creatinine (0.66-1.25) mg/dL Glucose (74-99) mg/dL POC Glucose (mg/dL) 215 H 177 H 119 H (70-110) mg/dL Magnesium (1.6-2.3) mg/dL 06/24/24 06/24/24 06/24/24 Range/Units 06:39 06:39 11:23 RBC 4.05 L (4.30-5.90) m/uL Hgb 10.6 L (13.0-17.5) gm/dL Hct 35.0 L (39.0-53.0) % MCHC 30.3 L (31.0-37.0) g/dL RDW 16.0 H (11.5-15.5) % Sodium 129 L (137-145) mmol/L Chloride 95 L (98-107) mmol/L Carbon Dioxide 20 L (22-30) mmol/L BUN 101 H* (9-20) mg/dL Creatinine 3.26 H (0.66-1.25) mg/dL Glucose 112 H (74-99) mg/dL POC Glucose (mg/dL) 220 H (70-110) mg/dL Magnesium 2.5 H (1.6-2.3) mg/dL 06/24/24 Range/Units 12:39 RBC (4.30-5.90) m/uL Hgb (13.0-17.5) gm/dL Hct (39.0-53.0) % MCHC (31.0-37.0) g/dL RDW (11.5-15.5) % Sodium 132 L (137-145) mmol/L Chloride 96 L (98-107) mmol/L Carbon Dioxide 20 L (22-30) mmol/L BUN 107 H* (9-20) mg/dL Creatinine 3.36 H (0.66-1.25) mg/dL Glucose 162 H (74-99) mg/dL POC Glucose (mg/dL) (70-110) mg/dL Magnesium (1.6-2.3) mg/dL Assessment and Plan Assessment: 1. Acute kidney injury secondary to ATN secondary to cardiorenal syndrome. Perez catheter placed June 22, 2024 due to urinary retention. Renal function worse with diuresis - creatinine slightly improved however BUN remains disproportionately elevated. Hemoglobin is slightly lower than on admission with no active bleeding noted. Patient is not on any steroids. No hydronephrosis noted on kidney ultrasound. 2. Chronic kidney disease stage IIIb with baseline creatinine 1.8-2 secondary to diabetic kidney disease. 3. Volume overload. Status post diuresis. Improved. 4. Acute on chronic systolic CHF ejection fraction of 30 to 35% with moderate mitral and tricuspid regurgitation and pulmonary hypertension. 5. Coronary artery disease. 6. Diabetes mellitus. 7. Hypertension with chronic kidney disease. Controlled. 8. Chronic kidney disease mineral bone disease. Calcium on the higher end at 10.4--> now normal. Calcitriol and vitamin D discontinued. 9. Metabolic acidosis secondary to acute kidney injury. On oral bicarb. Im proved. 10. Urinary retention. Perez catheter placed June 22. On Flomax. Plan: Since patient does not appear to be in significant volume overload, I will proceed with fluid challenge. Check chest x-ray today. Check stool for occult blood to rule out occult GI bleed Continue to hold diuretics Check UA Continue with Perez catheter for now.
[2024-06-24] MEDS: SODIUM CHLORIDE 0.9% 1,000 ML IV SCH (16:34)
[2024-06-24 16:36] LABS: Glucose,Whole Blood 181 mg/dL (70-110)
--- NOTE | 2024-06-24 17:12 | XR ---
EXAMINATION TYPE: XR chest 1V DATE OF EXAM: 06/24/2024 5:00 PM COMPARISON: Chest radiographs from 06/22/2024. CLINICAL INDICATION: Male, 78 years old with history of chf; TECHNIQUE: XR chest 1V Frontal view of the chest. FINDINGS: Lungs/Pleura: There is no evidence of pleural effusion, focal consolidation, or pneumothorax. Pulmonary vascularity: Unremarkable. Heart/mediastinum: Cardiomediastinal silhouette is prominent in size. Musculoskeletal: No acute osseous pathology. Other findings: None IMPRESSION: No acute cardiopulmonary disease/process. [facility], , 06/24/2024 5:10 PM
[2024-06-24] MEDS: ACETAMINOPHEN TAB 325 MG TAB PO PRN (17:59)
[2024-06-24 20:12] LABS: Glucose,Whole Blood 172 mg/dL (70-110)
[2024-06-24] MEDS: MELATONIN 5 MG TABLET PO PRN (20:24)
[2024-06-25 04:54] LABS: African American GFR (CKD) 22 (>60 ml/min/1.73 sqM); Anion Gap 14 mmol/L; Calcium 9.1 mg/dL (8.4-10.2); Carbon Dioxide 20 mmol/L (22-30); Chloride 97 mmol/L (98-107); Glucose 117 mg/dL (74-99); Non-African American GFR(CKD) 19 (>60 ml/min/1.73 sqM); Potassium 4.1 mmol/L (3.5-5.1); Sodium 131 mmol/L (137-145)
[2024-06-25 05:08] LABS: Blood Urea Nitrogen 106 mg/dL (9-20)
[2024-06-25 07:16] LABS: Glucose,Whole Blood 131 mg/dL (70-110)
[2024-06-25 12:05] LABS: Glucose,Whole Blood 238 mg/dL (70-110)
[2024-06-25 13:22] VITALS: RESP 18; TEMP 98.5
--- NOTE | 2024-06-25 13:27 | P.PN ---
Subjective Progress Note Date: 06/25/24 HISTORY OF PRESENT ILLNESS: This is 78-year-old male patient of Dr. Leal with past medical history of co ronary artery disease with known VISUAL DISPLAY MANAGER of the RCA, known intermediate disease involving the left coronary system, cardiomyopathy, valvular heart disease, dilated thoracic aorta, hypertension, dyslipidemia, carotid atherosclerosis, history of TIA, diabetes mellitus type 2, peripheral vascular disease. We have been asked to evaluate the patient for CHF. Patient states that his leg started getting swelling about 3 days ago. His states that he does not usually complain of pain but the lower legs have been very painful. Patient denies chest pain. Also patient states he does not have history of atrial fibrillation and has never been told he has irregular heartbeat. Patient is found to be in atrial fibrillation upon evaluation. Patient has been started on IV Lasix 40 mg every 12 hours. Blood pressure 157/89, heart rate 104, pulse ox 94% on room air. Patient is seen today in the emergency center waiting for bed on the cardiac stepdown unit. In records from 2013 and 2014, it was documented patient had paroxysmal atrial fibrillation but this note was not continued in the office notes. -EKG: Atrial fibrillation 77 bpm -Chest x-ray: Cardiomegaly, pulmonary vascular congestion and bilateral pleural effusions. -Laboratory studies: WBC 7.8, hemoglobin 12.4. Potassium 5.4, BUN 53 creatinine 2.16, troponin 0.046, proBNP 10,700. -Home cardiac medications: Amlodipine 10 mg daily, aspirin 162 mg daily, atorvastatin 20 mg at bedtime, Jardiance 10 mg daily, Lasix 20 mg daily, losart an 50 mg twice daily, Nitrostat as needed. -Cardiac catheterization performed in 2016 revealed VISUAL DISPLAY MANAGER of the RCA, intermediate disease involving the mid LAD and patent stent in the distal LAD. -Echocardiogram performed 08/10/2022 revealed EF of 45%, moderate MR, mild AR, dilated aorta at 3.8 cm. -Lexiscan Cardiolite stress test performed 08/10/2022 revealed large inferior scar, small anterior scar with small PI ischemia. 06/20 Patient seen and examined in the emergency center. Patient continues to wait for bed on the cardiac stepdown unit. Patient states that his breathing is better from yesterday. He also states that the lower extremity edema is improved. He has been maintained on IV Lasix 40 mg every 12 hours. Blood pressure 103/69, heart rate 81, pulse ox 96% on room air. Repeat blood work reveals hemoglobin 12.5, BUN 16 creatinine 2.69. Amlodipine was discontinued per nephrology for hypotension and parameters for hydralazine. Echocardiogram is pending. 06/21 Patient seen and examined. Blood pressure 127/69, heart rate 89, pulse ox 95% on room air. Patient's renal function continues to worsen with BUN 75 creatinine 3.23. Potassium 5.0. Results of the echocardiogram reviewed with the patient and his . Nephrology has discontinued Lasix and Farxiga and added oral bicarb. Echocardiogram reveals EF of 30 to 35%, moderate MR and mild AR. Moderate TR and moderate pulmonary hypertension. Renal ultrasound reveals no obstructive uropathy or calculus. 06/22 Patient seen and examined. Patient states he is feeling well today. He looks comfortable. He does have worsening renal function. He denies chest pain or shortness of breath. BUN 90, creatinine 3.62 and potassium 4.8. Blood pressure 111/65, heart rate 77, pulse ox 95 % on room air. Repeat chest x-ray reveals cardiomegaly and central pulmonary vascular congestion. Small bilateral pleural effusions. 06/23 Patient seen and examined. Patient has minimally improved renal function from yesterday with BUN 96, creatinine 3.51. Patient denies chest pain, chest pressure, shortness of breath. Blood pressure 137/71, heart rate 74, pulse ox 97% on room air. 06/24/2024 Patient examined this morning at the bedside. Patient is laying flat in bed. He denies any shortness of breath. He denies any chest pain or pressure. He states that he slept well overnight. Creatinine 3.26. 06/25 Patient seen and examined on the [facility] floor. Blood pressure 148/87, heart rate 72, pulse ox 97% on room air. Patient has been followed by nephrology for acute kidney injury and is noted some improvement of his lab work. BUN 106, creatinine 3.08, sodium 131, potassium 4.1. Patient's states that he is hoping to go home today. PHYSICAL EXAM: VITAL SIGNS: Reviewed. GENERAL: Well-developed in no acute distress. NECK: Supple. No JVD or thyromegaly LUNGS: Respirations even and unlabored. Lungs essentially clear to auscultation bilaterally. HEART: Irregular rate and rhythm. S1 and S2 heard. Systolic murmur noted. EXTREMITIES: Normal range of motion. No clubbing or cyanosis. Peripheral pulses intact. Minimal bilateral lower extremity edema ASSESSMENT: Hyponatremia Acute on chronic heart failure with reduced EF Coronary artery disease with known VISUAL DISPLAY MANAGER of the RCA and known intermediate disease involving the left coronary system Ischemic cardiomyopathy with EF, 3035% Uncontrolled hypertension, improved Acute on chronic kidney disease Dyslipidemia Carotid atherosclerosis History of TIA Peripheral vascular disease Persistent atrial fibrillation PLAN: Amlodipine, losartan, Lasix and Farxiga have been discontinued by nephrology Continue hydralazine, aspirin, Eliquis, and atorvastatin Patient is cleared for discharge from a cardiology perspective and will follow- up in the office with Dr. Leal in 1 to 2 weeks. Nurse practitioner note has been reviewed by physician. Signing provider agrees with the documented findings, assessment, and plan of care documented by SPINDLE MAKER as a scribe. Objective - Vital Signs Vital signs: Vital Signs Temp 97.9 F 06/25/24 07:18 Pulse 68 06/25/24 07:18 Resp 16 06/25/24 07:18 BP 131/67 06/25/24 07:18 Pulse Ox 97 06/25/24 07:18 FiO2 Intake & Output 06/24/24 06/25/24 06/25/24 18:59 06:59 18:59 Intake Total 490 240 Output Total 1054 500 Balance -564 -260 Weight 99.6 kg Intake: IV 10 Invasive Line 2 10 Oral 480 240 Output: Urine 800 500 Post Void Residual 254 Other: Voiding Method Urinal Indwelling Catheter # Voids 1 - Labs CBC & Chem 7: 06/24/24 06:39 06/25/24 04:06 Labs: Abnormal Lab Results - Last 24 Hours (Table) 06/24/24 06/24/24 06/24/24 Range/Units 06:39 11:23 12:39 RBC 4.05 L (4.30-5.90) m/uL Hgb 10.6 L (13.0-17.5) gm/dL Hct 35.0 L (39.0-53.0) % MCHC 30.3 L (31.0-37.0) g/dL RDW 16.0 H (11.5-15.5) % Sodium 132 L (137-145) mmol/L Chloride 96 L (98-107) mmol/L Carbon Dioxide 20 L (22-30) mmol/L BUN 107 H* (9-20) mg/dL Creatinine 3.36 H (0.66-1.25) mg/dL Glucose 162 H (74-99) mg/dL POC Glucose (mg/dL) 220 H (70-110) mg/dL 06/24/24 06/24/24 06/25/24 Range/Units 16:34 20:11 04:06 RBC (4.30-5.90) m/uL Hgb (13.0-17.5) gm/dL Hct (39.0-53.0) % MCHC (31.0-37.0) g/dL RDW (11.5-15.5) % Sodium 131 L (137-145) mmol/L Chloride 97 L (98-107) mmol/L Carbon Dioxide 20 L (22-30) mmol/L BUN 106 H* (9-20) mg/dL Creatinine 3.08 H (0.66-1.25) mg/dL Glucose 117 H (74-99) mg/dL POC Glucose (mg/dL) 181 H 172 H (70-110) mg/dL 06/25/24 Range/Units 07:15 RBC (4.30-5.90) m/uL Hgb (13.0-17.5) gm/dL Hct (39.0-53.0) % MCHC (31.0-37.0) g/dL RDW (11.5-15.5) % Sodium (137-145) mmol/L Chloride (98-107) mmol/L Carbon Dioxide (22-30) mmol/L BUN (9-20) mg/dL Creatinine (0.66-1.25) mg/dL Glucose (74-99) mg/dL POC Glucose (mg/dL) 131 H (70-110) mg/dL
[2024-06-25 16:13] VITALS: BP 127/75; PULSE 76
[2024-06-25 17:22] LABS: Glucose,Whole Blood 200 mg/dL (70-110)
--- NOTE | 2024-06-25 17:38 | P.PN ---
Subjective Patient is seen for follow-up for acute kidney injury. Patient was noted to be in volume overload on initial admission and received a couple of doses of IV Lasix. Diuretics have been on hold. No complaints of shortness of breath. Patient has been able to ambulate to the bathroom and back without any complaints. Patient was started on gentle IV hydration with saline at 50 cc an hour yesterday. Serum creatinine decreased to 3.0 and BUN at 106. Patient wants to go home today Objective - Vital Signs Vital signs: Vital Signs Temp 98.5 F 06/25/24 13:06 Pulse 76 06/25/24 16:05 Resp 18 06/25/24 13:06 BP 127/75 06/25/24 16:05 Pulse Ox 97 06/25/24 13:06 FiO2 Intake & Output 06/24/24 06/25/24 06/25/24 18:59 06:59 18:59 Intake Total 026 548 6557 Output Total 1054 500 300 Balance -564 -260 700 Weight 99.6 kg Intake: IV 10 Invasive Line 2 10 Oral 205 543 2181 Output: Urine 800 500 300 Post Void Residual 254 Other: Voiding Method Urinal Indwelling Catheter Indwelling Catheter # Voids 1 # Bowel Movements 2 - Exam Patient is awake, comfortable, no acute distress. 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 exam grossly intact - Labs CBC & Chem 7: 06/24/24 06:39 06/25/24 04:06 Labs: Abnormal Lab Results - Last 24 Hours (Table) 06/24/24 06/25/24 06/25/24 Range/Units 20:11 04:06 07:15 Sodium 131 L (137-145) mmol/L Chloride 97 L (98-107) mmol/L Carbon Dioxide 20 L (22-30) mmol/L BUN 106 H* (9-20) mg/dL Creatinine 3.08 H (0.66-1.25) mg/dL Glucose 117 H (74-99) mg/dL POC Glucose (mg/dL) 172 H 131 H (70-110) mg/dL 06/25/24 06/25/24 Range/Units 12:03 17:20 Sodium (137-145) mmol/L Chloride (98-107) mmol/L Carbon Dioxide (22-30) mmol/L BUN (9-20) mg/dL Creatinine (0.66-1.25) mg/dL Glucose (74-99) mg/dL POC Glucose (mg/dL) 238 H 200 H (70-110) mg/dL Assessment and Plan Assessment: 1. Acute kidney injury secondary to ATN secondary to cardiorenal syndrome. Perez catheter placed June 22, 2024 due to urinary retention. Renal function worse with diuresis - creatinine slightly improved however BUN remains disproportionately elevated. Started on gentle IV hydration yesterday. Hemoglobin is slightly lower than on admission with no active bleeding noted. Patient is not on any steroids. No hydronephrosis noted on kidney ultrasound. 2. Chronic kidney disease stage IIIb with baseline creatinine 1.8-2 secondary to diabetic kidney disease. 3. Volume overload. Status post diuresis. Improved. 4. Acute on chronic systolic CHF ejection fraction of 30 to 35% with moderate mitral and tricuspid regurgitation and pulmonary hypertension. 5. Coronary artery disease. 6. Diabetes mellitus. 7. Hypertension with chronic kidney disease. Controlled. 8. Chronic kidney disease mineral bone disease. Calcium on the higher end at 10.4--> now normal. Calcitriol and vitamin D discontinued. 9. Metabolic acidosis secondary to acute kidney injury. On oral bicarb. Improved. 10. Urinary retention. Perez catheter placed June 22. On Flomax. Plan: Patient can be discharged from nephrology standpoint. Advised to monitor weight on a daily basis and resume diuretics if there is more than 2 to 3 pound weight gain in 1 day Continue to hold diuretics for now Continue with Perez catheter for now. Follow-up in the office in 1 week
--- NOTE | 2024-06-25 17:44 | P.DS ---
Providers Date of admission: 06/19/24 10:42 Expected date of discharge: 06/25/24 Attending physician: Abe Zuniga Consults: 06/19/24 10:39 Consult Physician Routine Consulting Provider: Mookie Leal Consult Reason/Comments: chf Do you want consulting provider notified?: Yes 06/19/24 12:42 Consult Physician Routine Consulting Provider: Audi Ruth Consult Reason/Comments: AMY Do you want consulting provider notified?: Yes Primary care physician: [facility] Course: Hospital Course: Patient is a very pleasant 78-year-old male with a past medical history of CAD status post stenting x 2, history of cardiac arrest in 2014, ischemic cardiomyopathy, chronic systolic congestive heart failure, valvular heart disease with atrial septal defect, chronic atrial fibrillation, hypertension, hyperlipidemia, peripheral vascular disease, carotid stenosis status post R carotid endarterectomy, colon cancer status post bowel resection, insulin- dependent diabetes mellitus, stage IV CKD, DVT status post femoral thrombectomy, and previous CVA with no reported deficits. He presented to the emergency department with a chief complaint of bilateral lower extremity edema and shortness of breath. On admission, Vital signs: Blood pressure 157/89, heart rate 104, respiratory rate 18, temp 97.7 F, and SpO2 of 94% on room air. Imaging: EKG completed showing atrial fibrillation with a controlled ventricular rate of 77 bpm with T wave inversion in inferior, anterior, and septal leads II, III, aVF and V2 through V4. Chest x-ray showing cardiomegaly with pulmonary vascular congestion and bilateral pleural effusions consistent with CHF. Labs: hemoglobin of 12.4. Coagulation profile normal findings. potassium of 5.4, hypocarbia with bicarb of 20, elevated anion gap of 13 and elevated renal function consistent with known stage IV CKD with BUN of 53, creatinine 2.16, GFR of 29. Blood glucose 123. Magnesium 2.3. Liver profile unremarkable. Troponi n was elevated at 0.046 with proBNP of 10,700. Patient admitted under our services with consultation to cardiology. Patient was admitted for evaluation of acute on chronic systolic heart failure exacerbation, NSTEMI type II and AMY on CKD. Telemetry, troponins, Lasix, echocardiogram, monitoring of daily weights and I's and O's were ordered. Farxiga and other antihypertensives were held. Cardiology and nephrology consulted. Echocardiogram showed left ventricular ejection fraction estimated at 30 to 35%, moderate mitral regurgitation and mild aortic regurgitation, moderate tricuspid regurgitation with moderate pulmonary hypertension. Patient's course was complicated with urinary retention and he was placed on a Perez for a few days. He became increasingly uremic despite stable creatinine. Perez was removed today and voiding trial was successful. Patient's symptoms improved throughout hospital stay. He is cleared for discharge today and was prescribed hydralazine, Eliquis and oral bicarbonate tablets. We discontinued his Lasix, Jardiance Cozaar and amlodipine. He is advised to closely follow-up with nephrology, urology, cardiology and his PCP. He is advised to have a BMP 1 week later to follow-up his renal function and BUN and to monitor his daily weights. Final Diagnosis: #. Acute on chronic systolic heart failure exacerbation #. NSTEMI, type II #. Ischemic cardiomyopathy EF of 30 to 35% #. AMY on CKD secondary to diuresis #. Urinary retention #. Metabolic acidosis, secondary to uremia, improving #. Hypovolemic hyponatremia secondary to diuresis #. Hyperkalemia, resolved #. Chronic atrial fibrillation #. CAD status post stenting #. Insulin-dependent diabetes mellitus #. Peripheral vascular disease #. Hypertension #. Hyperlipidemia Physical examination: Vital signs reviewed General: non toxic, no distress Derm: no unusual rashes/lesions, warm Head: atraumatic, normocephalic, symmetric Eyes: EOMI, anicteric sclera, pupils equal round reactive to light ENT: Nose and ears atraumatic Neck: No cervical lymphadenopathy, trachea midline, supple Mouth: no lip lesion, mucus membranes moist Cardiovascular: S1S2 reg, no murmur Lungs: CTA bilateral, no rhonchi, no rales, no accessory muscle use Abdominal: soft, nondistended, nontender to palpation, no guarding Ext: muscle strength 5 out of 5 in all 4 extremities grossly, no gross muscle atrophy, no contractures, positive dorsalis pedis pulse bilateral, no edema Neuro: CN II-XI grossly intact, no gross focal neuro deficits Psych: Alert, oriented, appropriate affect and mood A total of 36 minutes of time were spent preparing this complex discharge summary. Patient was discharged on 06/25/2024 at 1440. I have seen and evaluated the patient today. Discussed with the resident and agree with the residents finding and plan as documented in the resident's note. Changes highlighted in blue font. Patient Condition at Discharge: Stable Plan - Discharge Summary Discharge Rx Participant: No New Discharge Prescriptions: New hydrALAZINE HCL [Apresoline] 50 mg PO TID #90 tab Apixaban [Eliquis] 5 mg PO BID #120 tab Sodium Bicarbonate Tab 650 mg PO BID #60 tab Continue Nitroglycerin Sl Tabs [Nitrostat] 0.4 mg SL Q5M PRN PRN Reason: Chest Pain Tamsulosin [Flomax] 0.4 mg PO DAILY Cholecalciferol [Vitamin D3 (25 Mcg = 1000 Iu)] 50 mcg PO DAILY Atorvastatin [Lipitor] 20 mg PO HS Famotidine 40 mg PO DAILY INSULIN ASPART (NovoLOG) [NovoLOG (formulary)] See Protocol SQ AC-TID calcitrioL 0.25 mcg PO MOWEFR allopurinoL 100 mg PO DAILY Aspirin EC [Ecotrin Low Dose] 162 mg PO DAILY Vitamin B-12 100mcg 200 mcg PO DAILY Discontinued Furosemide [Lasix] 20 mg PO AC-BRKFST Empagliflozin [Jardiance] 10 mg PO DAILY Losartan [Cozaar] 50 mg PO BID amLODIPine [Norvasc] 10 mg PO DAILY Discharge Medication List Nitroglycerin Sl Tabs [Nitrostat] 0.4 mg SL Q5M PRN 08/11/13 [History] Tamsulosin [Flomax] 0.4 mg PO DAILY 08/28/13 [History] Cholecalciferol [Vitamin D3 (25 Mcg = 1000 Iu)] 50 mcg PO DAILY 11/14/14 [History] Atorvastatin [Lipitor] 20 mg PO HS 10/29/16 [History] Famotidine 40 mg PO DAILY 10/16/18 [History] Aspirin EC [Ecotrin Low Dose] 162 mg PO DAILY 06/19/24 [History] INSULIN ASPART (NovoLOG) [NovoLOG (formulary)] See Protocol SQ AC-TID 06/19/24 [History] Vitamin B-12 100mcg 200 mcg PO DAILY 06/19/24 [History] allopurinoL 100 mg PO DAILY 06/19/24 [History] calcitrioL 0.25 mcg PO MOWEFR 06/19/24 [History] Apixaban [Eliquis] 5 mg PO BID #120 tab 06/25/24 [Rx] Sodium Bicarbonate Tab 650 mg PO BID #60 tab 06/25/24 [Rx] hydrALAZINE HCL [Apresoline] 50 mg PO TID #90 tab 06/25/24 [Rx] Follow up Appointment(s)/Referral(s): Cyndey Parekh MD [STAFF PHYSICIAN] - 07/08/24 1:20 pm (appointment with Mohamud RUBALCAVA) Mookie Leal MD [STAFF PHYSICIAN] - 07/04/24 4:00 pm Handy Mathis MD [STAFF PHYSICIAN] - 1 Week Brandon Graham DO [Primary Care Provider] - 07/02/24 11:00 am (appointment with [facility] [phone]. ) Ambulatory/Diagnostic Orders: Basic Metabolic Panel [LAB.AMB] Time Frame: 1 Week, Location: None Selected Patient Instructions/Handouts: Heart Failure (DC), Acute Kidney Injury (DC), Enlarged Prostate (BPH) (DC) Activity/Diet/Wound Care/Special Instructions: Please follow up PCP Discharge Disposition: HOME SELF-CARE
== END 2024-06-25 17:48 | disposition home or self-care (01) | DRG 280 ==
LOC: EC 09:12 → 3SCARD 10:41 → OBSVTOIN 10:42 → 3SCARD 15:23 → 5NMEDONC 06-24 17:07
PROVIDERS: ADMIT Student in an Organized Health Care Education/Training Program; ATTEND Student in an Organized Health Care Education/Training Program
DX: I13.0 Hypertensive heart and chronic kidney disease with heart failure and stage 1 through stage 4 chronic kidney disease, or unspecified chronic kidney disease (principal); I50.23 Acute on chronic systolic (congestive) heart failure; I21.A1 Myocardial infarction type 2; N17.0 Acute kidney failure with tubular necrosis; E87.20 Acidosis, unspecified; E87.1 Hypo-osmolality and hyponatremia; E86.1 Hypovolemia; D63.1 Anemia in chronic kidney disease; I48.19 Other persistent atrial fibrillation; N18.4 Chronic kidney disease, stage 4 (severe); E11.22 Type 2 diabetes mellitus with diabetic chronic kidney disease; I27.20 Pulmonary hypertension, unspecified; I08.3 Combined rheumatic disorders of mitral, aortic and tricuspid valves; E11.51 Type 2 diabetes mellitus with diabetic peripheral angiopathy without gangrene; Z79.4 Long term (current) use of insulin; E78.5 Hyperlipidemia, unspecified; E87.5 Hyperkalemia; I25.10 Atherosclerotic heart disease of native coronary artery without angina pectoris; I25.2 Old myocardial infarction; I25.5 Ischemic cardiomyopathy; K21.9 Gastro-esophageal reflux disease without esophagitis; M89.8X9 Other specified disorders of bone, unspecified site; R33.8 Other retention of urine; T50.2X5A Adverse effect of carbonic-anhydrase inhibitors, benzothiadiazides and other diuretics, initial encounter; Z79.01 Long term (current) use of anticoagulants; Z79.82 Long term (current) use of aspirin; Z79.84 Long term (current) use of oral hypoglycemic drugs; Z79.899 Other long term (current) drug therapy; Z86.73 Personal history of transient ischemic attack (TIA), and cerebral infarction without residual deficits; Z85.038 Personal history of other malignant neoplasm of large intestine; Z87.891 Personal history of nicotine dependence; Z90.49 Acquired absence of other specified parts of digestive tract; Z95.5 Presence of coronary angioplasty implant and graft; Z88.8 Allergy status to other drugs, medicaments and biological substances; Z86.79 Personal history of other diseases of the circulatory system; Z87.19 Personal history of other diseases of the digestive system; X58.XXXA Exposure to other specified factors, initial encounter
CPT/HCPCS: 36415; 71045; 71046; 76770; 80048; 80053; 80061; 82272; 83036; 83735; 83880; 84484; 85025; 85027; 85610; 85730; 93005; 93306; 96374; 96376; 99291

== ENCOUNTER 2024-09-14 12:22 | Inpatient (IN) | payer OTHER, MEDICARE ==
--- NOTE | 2024-09-14 12:49 | ED ---
General Adult HPI - General Chief complaint: Fall Stated complaint: Chest Pain Time Seen by Provider: 09/14/24 12:38 Source: patient, family, RN notes reviewed, old records reviewed Mode of arrival: ambulatory Limitations: no limitations - History of Present Illness Initial comments: 78-year-old male history of coronary artery disease presents for evaluation of chest tightness which began this morning at approximately 7 AM. Patient states that with this chest discomfort he did feel somewhat lightheaded and had blurry vision. He states he has felt unsteady on his feet and has had multiple falls including a fall this morning. He denies any trauma associated with the fall specifically no head injury or loss consciousness. Denies any pain complaints secondary to the fall. No vomiting. No diaphoresis. - Related Data Home Medications Medication Instructions Recorded Confirmed Nitroglycerin Sl Tabs [Nitrostat] 0.4 mg SL Q5M PRN 08/11/13 08/28/24 Tamsulosin [Flomax] 0.4 mg PO QAM 08/28/13 08/28/24 Cholecalciferol [Vitamin D3 (25 50 mcg PO MOTUWETHFR 11/14/14 08/28/24 Mcg = 1000 Iu)] Atorvastatin [Lipitor] 20 mg PO HS 10/29/16 08/28/24 Famotidine 40 mg PO QAM 10/16/18 08/28/24 Aspirin EC [Ecotrin Low Dose] 81 mg PO BID 06/19/24 08/28/24 INSULIN ASPART (NovoLOG) [NovoLOG See Protocol SQ AC-TID 06/19/24 08/28/24 (formulary)] Vitamin B-12 100mcg 100 mcg PO BID 06/19/24 08/28/24 allopurinoL 100 mg PO QAM 06/19/24 08/28/24 calcitrioL 0.25 mcg PO MOWEFR 06/19/24 08/28/24 Empagliflozin [Jardiance] 10 mg PO QAM 08/26/24 08/28/24 Furosemide [Lasix] 40 mg PO QAM 08/26/24 08/28/24 Previous Rx's Medication Instructions Recorded Apixaban [Eliquis] 2.5 mg PO BID #0 08/30/24 Levothyroxine Sodium 25 mcg PO DAILY #30 tab 08/30/24 Sucralfate [Carafate] 1 gm PO BID #60 tablet 08/30/24 hydrALAZINE HCL [Apresoline] 50 mg PO TID #90 tab 08/30/24 Allergies Allergy/AdvReac Type Severity Reaction Status Date / Time enalapril [Enalapril] AdvReac Unknown STATES BP Verified 08/28/24 08:11 TOO LOW lisinopril AdvReac Dizziness Verified 08/28/24 08:11 niacin AdvReac hyperglycemia, Verified 08/28/24 08:11 nausea Review of Systems ROS Statement: Those systems with pertinent positive or pertinent negative responses have been documented in the HPI. ROS Other: All systems not noted in ROS Statement are negative. Past Medical History Past Medical History: Atrial Fibrillation, Coronary Artery Disease (CAD), Cancer, Heart Failure, CVA/TIA, Diabetes Mellitus, Deep Vein Thrombosis (DVT), GERD/Reflux, Hearing Disorder / Deafness, Hyperlipidemia, Hypertension, Myocardial Infarction ([place]), Renal Disease, Sleep Apnea/CPAP/BIPAP, Vascular Disorder Additional Past Medical History / Comment(s): BBOWEL OBSTRUCTION after colon cancer surgery., HX 2ND DEGREE HB,IBS,A FIB, RT FEMORAL DVT,CARDIO PULMONARY ARREST 2013, ATRIAL SEPTAL DEFECT,PVD, COLON CANCER 2005, per old hx ? ulcer in past. states her had a slight stroke no weakness from the stroke- states pt had stroke July 2024, no deficits from stroke per . Does not use CPAP Last Myocardial Infarction Date:: 11/2012 History of Any Multi-Drug Resistant Organisms: None Reported Past Surgical History: Bowel Resection, Heart Catheterization, Heart Catheterization With Stent, Hernia Repair Additional Past Surgical History / Comment(s): Colon Resection 1999. Right femoral thrombolectomy 11/2012. Colonoscopy 2012. Anal fissure repair.RT CARTOTID ENDARTERECTOMY, incarcerated ventral hernia/lysis of adhesions. Past Anesthesia/Blood Transfusion Reactions: No Reported Reaction Additional Past Anesthesia/Blood Transfusion Reaction / Comment(s): HX OF BLOOD TRANSFUSION Date of Last Stent Placement:: 11/2012 Past Psychological History: No Psychological Hx Reported Smoking Status: Former smoker - Past Family History Sister(s) Family Medical History: Cancer Father Family Medical History: CVA/TIA, Diabetes Mellitus Mother Family Medical History: Dementia General Exam Limitations: no limitations General appearance: alert, in no apparent distress Head exam: Present: atraumatic, normocephalic Eye exam: Present: normal appearance, PERRL ENT exam: Present: normal exam Neck exam: Present: normal inspection. Absent: tenderness, meningismus Respiratory exam: Present: normal lung sounds bilaterally. Absent: respiratory distress, wheezes Cardiovascular Exam: Present: regular rate, irregular rhythm GI/Abdominal exam: Present: soft. Absent: distended, tenderness Extremities exam: Present: normal inspection, normal capillary refill. Absent: calf tenderness Neurological exam: Present: alert, oriented X3, CN II-XII intact. Absent: motor sensory deficit Psychiatric exam: Present: normal affect, normal mood Course Vital Signs 09/14/24 09/14/24 12:33 13:30 Temperature 97.9 F Pulse Rate 82 76 Respiratory 20 18 Rate Blood Pressure 161/76 126/76 O2 Sat by Pulse 99 99 Oximetry Medical Decision Making - Medical Decision Making Was pt. sent in by a medical professional or institution (, PA, PUBLIC DEFENDER, urgent care, hospital, or intermediate...) When possible be specific @ -No Did you speak to anyone other than the patient for history (EMS, parent, family, police, friend...)? What history was obtained from this source @ -No Did you review nursing and triage notes (agree or disagree)? Why? @ -I reviewed and agree with nursing and triage notes Were old charts reviewed (outside hosp., previous admission, EMS record, old EKG, old radiological studies, urgent care reports/EKG's, intermediate records)? Report findings @ -No old charts were reviewed Differential Chest Pain: Stable Angina, Unstable Angina, STEMI, NSTEMI Aortic Dissection, Pneumothorax, Musculoskeletal, Esophageal Spasm GERD, Cholecystitis, Pancreatitis, Zoster, this is not meant to be an all-inclusive list. EKG interpreted by me (3pts min.). @ -Atrial fibrillation with PVC rate of 79, right bundle branch block, QRS duration 166, QTc 493 X-rays interpreted by me (1pt min.). @ -Chest x-ray shows cardiomegaly and pulmonary vascular congestion CT interpreted by me (1pt min.). @ -None done U/S interpreted by me (1pt. min.). @ -None done What testing was considered but not performed or refused? (CT, X-rays, U/S, labs)? Why? @ -None What meds were considered but not given or refused? Why? @ -None Did you discuss the management of the patient with other professionals (professionals i.e. Dr., PA, PUBLIC DEFENDER, lab, RT, psych nurse, social group worker, board machine set up operator, teacher, aviation safety officer, case coordinator)? Give summary @ -Sound physician group Was smoking cessation discussed for >3mins.? @ -No Was critical care preformed (if so, how long)? @ -[yes, 35 min Were there social determinants of health that impacted care today? How? (Homelessness, low income, unemployed, alcoholism, drug addiction, transportation, low edu. Level, literacy, decrease access to med. care, long-term, rehab)? @ -No Was there de-escalation of care discussed even if they declined (Discuss DNR or withdrawal of care, Hospice)? DNR status @ -No What co-morbidities impacted this encounter? (DM, HTN, Smoking, COPD, CAD, Cancer, CVA, ARF, Chemo, Hep., AIDS, mental health diagnosis, sleep apnea, morbid obesity)? @ -History of hypertension, chronic kidney disease, coronary artery disease Was patient admitted / discharged? Hospital course, given and route, prescriptions, significant lab abnormalities, going to OR and other pertinent info. @ -[78-year-old male presenting with chest tightness, known coronary disease. EKG is rate controlled A-fib without ST segment elevation. Chest x-ray shows mild CHF. Patient has chronic stable anemia. He has chronic stable kidney disease and elevated troponin at 0.2. Patient's symptoms are minimal at the time my evaluation. He is started on heparin and admitted for a non-ST segment elevated [place]. Cardiology placed on consult. Patient was apparently scheduled for heart cath in 9 days. Undiagnosed new problem with uncertain prognosis? @ -No Drug Therapy requiring intensive monitoring for toxicity (Heparin, Nitro, Insulin, Cardizem)? @ -No Were any procedures done? @ -No Diagnosis/symptom? @ -NSTEMI Acute, or Chronic, or Acute on Chronic? @Acute Uncomplicated (without systemic symptoms) or Complicated (systemic symptoms)? @ -Complicated Side effects of treatment? @ -No Exacerbation, Progression, or Severe Exacerbation? @ -No Poses a threat to life or bodily function? How? (Chest pain, [place], [place], pneumonia, PE, COPD, DKA, ARF, appy, cholecystitis, CVA, Diverticulitis, Homicidal, Suicidal, threat to staff... and all critical care pts) @ -[Yes, ACS, arrhythmia - Lab Data Result diagrams: 09/14/24 12:59 09/14/24 12:59 Lab Results 09/14/24 09/14/24 09/14/24 Range/Units 12:59 12:59 12:59 WBC 7.50 (4.50-10.00) 10*3/uL RBC 4.27 L (4.40-5.60) 10*6/uL Hgb 10.5 L (13.0-17.0) g/dL Hct 33.4 L (39.6-50.0) % MCV 78.2 L (80.0-97.0) fL MCH 24.6 L (27.0-32.0) pg MCHC 31.4 L (32.0-37.0) g/dL Plt Count 233 (140-440) 10*3/uL MPV 9.9 (9.5-12.2) fL Immature Gran % (Auto) 0.3 % Neutrophils % 85.2 % Lymphocytes % 7.6 % Monocytes % 5.2 % Eosinophils % 1.2 % Basophils % 0.5 % Immature Gran # 0.02 (0.00-0.04) 10*3/uL Neutrophils # 6.39 (1.80-7.70) 10*3/uL Lymphocytes # 0.57 L (0.90-5.00) 10*3/uL Monocytes # 0.39 (0.20-1.00) 10*3/uL Eosinophils # 0.09 (0.04-0.35) 10*3/uL Basophils # 0.04 (0.00-0.10) 10*3/uL PT 12.3 (10.0-12.5) sec INR 1.1 (<1.2) APTT 27.0 (22.0-30.0) sec Sodium 137 (137-145) mmol/L Potassium 3.3 L (3.5-5.1) mmol/L Chloride 101 (98-107) mmol/L Carbon Dioxide 25 (22-30) mmol/L Anion Gap 11 mmol/L BUN 74 H (9-20) mg/dL Creatinine 2.14 H (0.66-1.25) mg/dL Est GFR (CKD-EPI)AfAm 34 (>60 ml/min/1.73 sqM) Est GFR (CKD-EPI)NonAf 29 (>60 ml/min/1.73 sqM) Glucose 265 H (74-99) mg/dL Calcium 9.5 (8.4-10.2) mg/dL Magnesium 2.1 (1.6-2.3) mg/dL Total Bilirubin 1.1 (0.2-1.3) mg/dL AST 20 (17-59) U/L ALT 14 (4-49) U/L Alkaline Phosphatase 107 (38-126) U/L Troponin I (0.000-0.034) ng/mL Total Protein 6.7 (6.3-8.2) g/dL Albumin 3.9 (3.5-5.0) g/dL 09/14/24 Range/Units 12:59 WBC (4.50-10.00) 10*3/uL RBC (4.40-5.60) 10*6/uL Hgb (13.0-17.0) g/dL Hct (39.6-50.0) % MCV (80.0-97.0) fL MCH (27.0-32.0) pg MCHC (32.0-37.0) g/dL Plt Count (140-440) 10*3/uL MPV (9.5-12.2) fL Immature Gran % (Auto) % Neutrophils % % Lymphocytes % % Monocytes % % Eosinophils % % Basophils % % Immature Gran # (0.00-0.04) 10*3/uL Neutrophils # (1.80-7.70) 10*3/uL Lymphocytes # (0.90-5.00) 10*3/uL Monocytes # (0.20-1.00) 10*3/uL Eosinophils # (0.04-0.35) 10*3/uL Basophils # (0.00-0.10) 10*3/uL PT (10.0-12.5) sec INR (<1.2) APTT (22.0-30.0) sec Sodium (137-145) mmol/L Potassium (3.5-5.1) mmol/L Chloride (98-107) mmol/L Carbon Dioxide (22-30) mmol/L Anion Gap mmol/L BUN (9-20) mg/dL Creatinine (0.66-1.25) mg/dL Est GFR (CKD-EPI)AfAm (>60 ml/min/1.73 sqM) Est GFR (CKD-EPI)NonAf (>60 ml/min/1.73 sqM) Glucose (74-99) mg/dL Calcium (8.4-10.2) mg/dL Magnesium (1.6-2.3) mg/dL Total Bilirubin (0.2-1.3) mg/dL AST (17-59) U/L ALT (4-49) U/L Alkaline Phosphatase (38-126) U/L Troponin I 0.259 H* (0.000-0.034) ng/mL Total Protein (6.3-8.2) g/dL Albumin (3.5-5.0) g/dL Critical Care Time Critical Care Time: Yes Total Critical Care Time: 35 Disposition Clinical Impression: Acute non-ST elevation myocardial infarction (NSTEMI) Disposition: ADMITTED IP TO THIS HOSP Condition: Stable Is patient prescribed a controlled substance at d/c from ED?: No Referrals: [facility],Clinic [Primary Care Provider] - 1-2 days Time of Disposition: 14:46
[2024-09-14 13:19] LABS: Basophils # (A) 0.04 10*3/uL (0.00-0.10); Basophils % (A) 0.5 %; Eosinophils # (A) 0.09 10*3/uL (0.04-0.35); Eosinophils % (A) 1.2 %; HCT 33.4 % (39.6-50.0); HGB 10.5 g/dL (13.0-17.0); Lymphocytes # (A) 0.57 10*3/uL (0.90-5.00); Lymphocytes % (A) 7.6 %; MCH 24.6 pg (27.0-32.0); MCHC 31.4 g/dL (32.0-37.0); MCV 78.2 fL (80.0-97.0); Mean Platelet Volume 9.9 fL (9.5-12.2); Monocytes # (A) 0.39 10*3/uL (0.20-1.00); Monocytes % (A) 5.2 %; Neutrophils # (A) 6.39 10*3/uL (1.80-7.70); Neutrophils % (A) 85.2 %; Platelet Count 233 10*3/uL (140-440); RBC 4.27 10*6/uL (4.40-5.60); RDW 17.9 % (11.5-14.5)
[2024-09-14 13:31] LABS: INR 1.1 (<1.2); Prothrombin Time 12.3 sec (10.0-12.5)
[2024-09-14 13:38] LABS: ALT 14 U/L (4-49); AST 20 U/L (17-59); African American GFR (CKD) 34 (>60 ml/min/1.73 sqM); Albumin 3.9 g/dL (3.5-5.0); Alkaline Phosphatase 107 U/L (38-126); Anion Gap 11 mmol/L; Blood Urea Nitrogen 74 mg/dL (9-20); Calcium 9.5 mg/dL (8.4-10.2); Carbon Dioxide 25 mmol/L (22-30); Chloride 101 mmol/L (98-107); Glucose 265 mg/dL (74-99); Magnesium 2.1 mg/dL (1.6-2.3); Non-African American GFR(CKD) 29 (>60 ml/min/1.73 sqM); Potassium 3.3 mmol/L (3.5-5.1); Sodium 137 mmol/L (137-145); Total Bilirubin 1.1 mg/dL (0.2-1.3); Total Protein 6.7 g/dL (6.3-8.2)
--- NOTE | 2024-09-14 14:04 | XR ---
EXAMINATION TYPE: XR chest 2V DATE OF EXAM: 09/14/2024 1:21 PM COMPARISON: 06/24/2024 CLINICAL INDICATION: Male, 78 years old with history of Chest Pain, TECHNIQUE: XR chest 2V view(s) obtained. FINDINGS: The heart size is enlarged. The pulmonary vasculature is prominent. Subpulmonic effusion on the right may be present. IMPRESSION: 1. Clinical correlation for congestive heart failure. 2. Subpulmonic pleural fluid on the right may be present. [facility], , 09/14/2024 2:01 PM
[2024-09-14] MEDS ORDERED: HEPARIN SODIUM 1,000 UN/ML (10ML VL) IV PRN (14:15)
[2024-09-14] MEDS: ASPIRIN 325 MG TAB PO STA (14:37)
[2024-09-14] MEDS: POTASSIUM CHLORIDE ER 20 MEQ TAB.ER PO STA (14:37)
[2024-09-14] MEDS ORDERED: NALOXONE 0.4 MG/ML 1 ML VIAL IV PRN (14:42)
[2024-09-14] MEDS ORDERED: ACETAMINOPHEN TAB 325 MG TAB PO PRN (14:42)
[2024-09-14] MEDS: HEPARIN SODIUM 1,000 UN/ML (10ML VL) IV ONE (14:45)
[2024-09-14] MEDS: HEPARIN SOD,PORK IN 0.45% NACL 25,000 UNIT in 0.45% NACL 1 250ML.BAG IV SCH (14:46)
[2024-09-14] MEDS ORDERED: DEXTROSE 50% SYRINGE 50 ML IVP PRN ×2 (15:28)
--- NOTE | 2024-09-14 15:54 | P.HPIM ---
History of Present Illness H&P Date: 09/14/24 History of Presenting Illness: Patient is a very pleasant 78-year-old male with a past medical history of CAD status post stenting x 2, history of cardiac arrest in 2013, ischemic cardiomyopathy, chronic systolic congestive heart failure, valvular heart disease with atrial septal defect, chronic atrial fibrillation on anticoagulation with Eliquis, hypertension, hyperlipidemia, peripheral vascular disease, carotid stenosis status post R carotid endarterectomy, colon cancer status post bowel resection, insulin-dependent diabetes mellitus, stage IV CKD, DVT status post femoral thrombectomy, and previous CVA with no reported deficits. He presented to the emergency department with a chief complaint of chest pain. Patient reports he has been experiencing some generalized weakness, dizziness/lightheadedness, and fatigue over the past few days and today while ambulating from kitchen to the bathroom he had a fall. Patient admits to feeling weak and dizzy with some blurred vision prior to the fall, but believes he just lost his balance and fell. Patient reports he is unsure if he hit his head or lost consciousness, but states "I do not think so". He reports immediately after falling he had pain to his chest. He reports initially the pain was throughout his entire chest and described as a heaviness or tightness. Patient denies sustaining any injuries or pain from the fall other than the chest pain. He reports he was supposed to be seen by Dr. Leal for heart cath on 09/23 secondary to recent ischemic workup and found to have cardiomyopathy with an EF of 30%. Patient reports the pain in his chest improved but remained as a heaviness to his midsternal chest so he came to the emergency department for evaluation. He denies having any fevers, chills, headache, changes in vision or hearing, palpitations, shortness of breath, cough or congestion, abdominal pain, nausea, vomiting, or experiencing any increased or changes in his lower extremity edema. Patient does report his edema fluctuates daily if he is on his feet more, but it is currently at baseline. Upon arrival to our facility, patient underwent evaluation in the emergency department. Vital signs upon arrival show blood pressure 161/76, heart rate 82, respiratory rate 20, temp 97.9 F, and SpO2 of 99% on room air. EKG was completed showing atrial fibrillation with a controlled ventricular rate of 79 bpm with frequent PVCs and a right bundle branch block. Chest x-ray completed showing prominent pulmonary vascular congestion and right sided subpulmonic pleural fluid possibly present. Labs completed and reviewed. CBC showing microcytic anemia with hemoglobin of 10.5, MCV 78.2, MCH 24.6, and MCHC of 31.4. Coagulation profile normal findings. BMP showing hypokalemia with potassium of 3.3 and renal function consistent with known CKD stage IV with BUN of 74, creatinine 2.14, GFR of 29. Liver profile unremarkable. Magnesium 2.1. Calcium 9.5. Troponin was elevated at 0.259. Patient started on low intensity heparin infusion for treatment of NSTEMI and was admitted under services with consultation to cardiology. Review of systems: Pertinent positives and negatives as discussed in HPI, a complete review of systems was performed and all other systems are negative. Physical exam: Vital signs reviewed and stable. General: Nontoxic, no distress and appears stated age. Derm: Skin warm and dry, normal coloration for ethnicity. Head: Atraumatic, normocephalic and symmetric. Eyes: EOM's intact, no lid lag, and anicteric sclera Mouth: no lip lesions, mucus membranes moist Cardiovascular: regular rate and rhythm with normal S1S2, systolic murmur, positive posterior tibial pulses bilaterally, and cap refill < 2 seconds. Lungs: Respirations even, regular, and unlabored on room air. Lungs diminished, no rhonchi, no rales, no wheezing, and no accessory muscle usage. Abdominal: soft, nontender to palpation, no guarding, no appreciable organomegaly Ext: ROM intact. No gross muscle atrophy, 1+ pitting bilateral lower extremity edema, no contractures Neuro: Speech clear, face symmetrical and CN II-XII grossly intact with no noted focal neuro deficits Psych: Alert and oriented to person, place, time, and situation. Appropriate and pleasant affect. Assessment and Plan of Care: NSTEMI Acute on chronic systolic heart failure Ischemic cardiomyopathy with a EF of 30% History of CAD status post stenting History of cardiac arrest in 2014 Valvular heart disease with atrial septal defect Chronic atrial fibrillation Hypertension Hyperlipidemia -Cardiology consulted, appreciate recommendations -Telemetry monitoring -Trend troponins obtain a proBNP -Continue low intensity heparin infusion with close monitoring of PTT every 6 hours for goal therapeutic range of 45 to 79 seconds. -Continue cardiac medication regimen with aspirin 81 mg daily, atorvastatin 40 mg nightly, Jardiance 10 mg daily, and as needed hydralazine 50 mg 3 times daily as needed for elevated blood pressures. Right-sided subpulmonic pleural effusion Order placed for ultrasound chest to verify size, if moderate to large in size and need to be drained will consult bakery pastry internship for thoracentesis at that time. - Monitor pulse ox and provide patient with supplemental oxygen if needed to maintain SpO2 equal to or greater than 90%. Microcytic anemia with history of recent GI bleed and history of colon cancer status post bowel resection Hemoglobin 10.5 which appears stable from previous hemoglobin drawn on 08/29/2024 resulting at 10.8. Continue to monitor hemoglobin levels closely with repeat a.m. labs. GI prophylaxis with Protonix 40 mg daily. Insulin-dependent diabetes mellitus Patient placed on glycemic protocol with NovoLog sliding scale. Follow-up on hemoglobin A1c results. CKD stage IV Renal function appears to be stable at baseline. Will use nephrotoxic medications cautiously and continue to monitor renal function closely with repeat a.m. labs. Fall at home prior to arrival - Patient initially told ED staff he did not hit head or lose consciousness upon examination patient then stating to both myself and RN that he is unsure if he hit his head or lost consciousness but did not think so. - Secondary to home anticoagulant use with Eliquis and current need for heparin infusion for treatment of NSTEMI order placed for stat CT brain. Data and imaging reviewed: As stated above in HPI. The patient is admitted with an anticipated greater than 2 midnight stay for evaluation of NSTEMI CODE STATUS: Full code DVT prophylaxis: Heparin infusion Discussed with: Patient, RN, and ED physician Anticipated discharge date: Pending clinical course Anticipated discharge place: Pending clinical course Patient was seen independently by Nurse Practitioner. This document was prepared using [employer] dictation software. Please allow for errors in pattern fitter while rare they do occur. Vin Murphy NP rendered care for this patient independently, reviewed the findings and plan as documented in the note above and agree with plan. I did not physically speak with or examine the patient on this date. Past Medical History Past Medical History: Atrial Fibrillation, Coronary Artery Disease (CAD), Cancer, Heart Failure, CVA/TIA, Diabetes Mellitus, Deep Vein Thrombosis (DVT), GERD/Reflux, Hearing Disorder / Deafness, Hyperlipidemia, Hypertension, Myocardial Infarction ([place]), Renal Disease, Sleep Apnea/CPAP/BIPAP, Vascular Disorder Additional Past Medical History / Comment(s): BBOWEL OBSTRUCTION after colon cancer surgery., HX 2ND DEGREE HB,IBS,A FIB, RT FEMORAL DVT,CARDIO PULMONARY ARREST 2013, ATRIAL SEPTAL DEFECT,PVD, COLON CANCER 2005, per old hx ? ulcer in past. states her had a slight stroke no weakness from the stroke- states pt had stroke July 2024, no deficits from stroke per . Does not use CPAP Last Myocardial Infarction Date:: 11/2012 History of Any Multi-Drug Resistant Organisms: None Reported Past Surgical History: Bowel Resection, Heart Catheterization, Heart Catheterization With Stent, Hernia Repair Additional Past Surgical History / Comment(s): Colon Resection 1999. Right femoral thrombolectomy 11/2012. Colonoscopy 2012. Anal fissure repair.RT CARTOTID ENDARTERECTOMY, incarcerated ventral hernia/lysis of adhesions. Past Anesthesia/Blood Transfusion Reactions: No Reported Reaction Additional Past Anesthesia/Blood Transfusion Reaction / Comment(s): HX OF BLOOD TRANSFUSION Date of Last Stent Placement:: 11/2012 Past Psychological History: No Psychological Hx Reported Smoking Status: Former smoker - Past Family History Sister(s) Family Medical History: Cancer Father Family Medical History: CVA/TIA, Diabetes Mellitus Mother Family Medical History: Dementia Medications and Allergies Home Medications Medication Instructions Recorded Confirmed Type Nitroglycerin Sl Tabs [Nitrostat] 0.4 mg SL Q5M PRN 08/11/13 09/14/24 History Tamsulosin [Flomax] 0.4 mg PO DAILY 08/28/13 09/14/24 History Atorvastatin [Lipitor] 20 mg PO HS 10/29/16 09/14/24 History Famotidine 40 mg PO DAILY 10/16/18 09/14/24 History Aspirin EC [Ecotrin Low Dose] 162 mg PO DAILY 06/19/24 09/14/24 History INSULIN ASPART (NovoLOG) [NovoLOG See Protocol SQ AC-TID 06/19/24 09/14/24 History (formulary)] Vitamin B-12 100mcg 200 mcg PO DAILY 06/19/24 09/14/24 History allopurinoL 100 mg PO DAILY 06/19/24 09/14/24 History calcitrioL 0.25 mcg PO MOWEFR 06/19/24 09/14/24 History Empagliflozin [Jardiance] 10 mg PO DAILY 08/26/24 09/14/24 History Levothyroxine Sodium 25 mcg PO DAILY #30 tab 08/30/24 09/14/24 Rx Sucralfate [Carafate] 1 gm PO BID #60 tablet 08/30/24 09/14/24 Rx Apixaban [Eliquis] 2.5 mg PO BID 09/14/24 09/14/24 History Cholecalciferol (Vitamin D3) 50 mcg PO MOTUWETHFR 09/14/24 09/14/24 History [Vitamin D3 (50 Mcg = 2000 Iu)] Furosemide [Lasix] 40 mg PO DAILY 09/14/24 09/14/24 History hydrALAZINE HCL [Apresoline] 50 mg PO TID PRN 09/14/24 09/14/24 History Allergies Allergy/AdvReac Type Severity Reaction Status Date / Time enalapril [Enalapril] AdvReac Unknown STATES BP Verified 09/14/24 15:47 TOO LOW lisinopril AdvReac Dizziness Verified 09/14/24 15:47 niacin AdvReac hyperglycemia, Verified 09/14/24 15:47 nausea Physical Exam Vitals: Vital Signs Temp Pulse Resp BP Pulse Ox 09/14/24 13:30 76 18 126/76 99 09/14/24 12:33 97.9 F 82 20 161/76 99 Intake and Output 09/14/24 09/14/24 09/14/24 06:59 14:59 22:59 Other: Weight 95.254 kg Results CBC & Chem 7: 09/14/24 12:59 09/14/24 12:59 Labs: Abnormal Lab Results - Last 24 Hours (Table) 09/14/24 09/14/24 09/14/24 Range/Units 12:59 12:59 12:59 RBC 4.27 L (4.40-5.60) 10*6/uL Hgb 10.5 L (13.0-17.0) g/dL Hct 33.4 L (39.6-50.0) % MCV 78.2 L (80.0-97.0) fL MCH 24.6 L (27.0-32.0) pg MCHC 31.4 L (32.0-37.0) g/dL Lymphocytes # 0.57 L (0.90-5.00) 10*3/uL Potassium 3.3 L (3.5-5.1) mmol/L BUN 74 H (9-20) mg/dL Creatinine 2.14 H (0.66-1.25) mg/dL Glucose 265 H (74-99) mg/dL Troponin I 0.259 H* (0.000-0.034) ng/mL
--- NOTE | 2024-09-14 16:59 | P.CRDCN ---
History of Present Illness Consult date: 09/14/24 History of present illness: HISTORY OF PRESENTING ILLNESS: 78-year-old male known to Dr. Ruggiero. 1 week ago patient was hospitalized for the acute on chronic anemia with concerns of possible GI bleeding. He had an upper GI endoscopy which showed duodenal ulcer with evidence of bleeding done by Dr. Restrepo. He also was found to have cardiomyopathy with a EF of 30% on last admission with moderate MR moderate TR. For this he was scheduled for an ischemic evaluation with a heart cath on of this month with Dr. Ruggiero as an outpatient. Today he presented to the hospital because of increased worsening generalized weakness for last few days along with an episode of fall. He reports that he did not pass out but felt very weak in his legs and was not able to sustain his weight. He is also been reporting substernal chest heaviness. On this admission troponin was checked and it was elevated at 0.2. Creatinine was 2.1. On review of his old record reports like creatinine is somewhat at baseline. EKG shows atrial fibrillation heart rate 79, right bundle branch block with nonspecific ST changes and PVC. chest x-ray showsSmall right pleural effusion, mild increased interstitial markings with mild fluid in the right fissure. Heart cath 2017 showed APPLICATIONS COORDINATOR's of RCA, intermediate disease in mid LAD patent stent in distal LAD REVIEW OF SYSTEMS: 14 point review of system is negative except what is mentioned above in HPI. PHYSICAL EXAMINATION: Neck: Brisk carotid upstroke, no jugular venous distention. Lungs: Clear to auscultation. Heart: Irregular pulse systolic murmur Abdomen: Soft nontender, positive bowel sounds. Extremities: 1+ pitting edema bilateral lower extremity Neuro: Alert, oritented, no focal deficits. Detailed neuro exam was not per formed. ASSESSMENT: # NSTEMI # Cardiomyopathy with a EF of 30 to 35% # Valvular heart disease with moderate MR, moderate TR, mild AI # Known CAD with APPLICATIONS COORDINATOR of RCA with moderate nonobstructive disease in LAD mid, distal patent stent from 2017 # Persistent atrial fibrillation # Generalized weakness, likely multifactorial # Anemia with recent evidence of GI bleeding 08/30/2024 with bleeding duodenal u lcer PLAN: Aspirin Lipitor IV heparin drip Resume GDMT for heart failure Imdur 30 mg, hydralazine 25 mg 4 times daily, Coreg 6.25 mg twice daily Lasix 60 mg daily, Farxiga 10 mg daily Check for NT-proBNP, lipid panel Check for CPK levels IV Protonix twice daily, iron supplementation Watch for signs of bleeding Kehinde Mckeon MD, [facility], [facility] Thank you for allowing [facility] to participate in this patient's care. Feel free to reach out in case of any followup questions. Past Medical History Past Medical History: Atrial Fibrillation, Coronary Artery Disease (CAD), Cancer, Heart Failure, CVA/TIA, Diabetes Mellitus, Deep Vein Thrombosis (DVT), GERD/Reflux, Hearing Disorder / Deafness, Hyperlipidemia, Hypertension, Myocardial Infarction ([place]), Renal Disease, Sleep Apnea/CPAP/BIPAP, Vascular Disorder Additional Past Medical History / Comment(s): BBOWEL OBSTRUCTION after colon cancer surgery., HX 2ND DEGREE HB,IBS,A FIB, RT FEMORAL DVT,CARDIO PULMONARY ARREST 2013, ATRIAL SEPTAL DEFECT,PVD, COLON CANCER 2005, per old hx ? ulcer in past. states her had a slight stroke no weakness from the stroke- states pt had stroke July 2024, no deficits from stroke per . Does not use CPAP Last Myocardial Infarction Date:: 11/2012 History of Any Multi-Drug Resistant Organisms: None Reported Past Surgical History: Bowel Resection, Heart Catheterization, Heart Catheterization With Stent, Hernia Repair Additional Past Surgical History / Comment(s): Colon Resection 1999. Right f emoral thrombolectomy 11/2012. Colonoscopy 2012. Anal fissure repair.RT CARTOTID ENDARTERECTOMY, incarcerated ventral hernia/lysis of adhesions. Past Anesthesia/Blood Transfusion Reactions: No Reported Reaction Additional Past Anesthesia/Blood Transfusion Reaction / Comment(s): HX OF BLOOD TRANSFUSION Date of Last Stent Placement:: 11/2012 Past Psychological History: No Psychological Hx Reported Smoking Status: Former smoker - Past Family History Sister(s) Family Medical History: Cancer Father Family Medical History: CVA/TIA, Diabetes Mellitus Mother Family Medical History: Dementia Medications and Allergies Home Medications Medication Instructions Recorded Confirmed Type Nitroglycerin Sl Tabs [Nitrostat] 0.4 mg SL Q5M PRN 08/11/13 09/14/24 History Tamsulosin [Flomax] 0.4 mg PO DAILY 08/28/13 09/14/24 History Atorvastatin [Lipitor] 20 mg PO HS 10/29/16 09/14/24 History Famotidine 40 mg PO DAILY 10/16/18 09/14/24 History Aspirin EC [Ecotrin Low Dose] 162 mg PO DAILY 06/19/24 09/14/24 History INSULIN ASPART (NovoLOG) [NovoLOG See Protocol SQ AC-TID 06/19/24 09/14/24 History (formulary)] Vitamin B-12 100mcg 200 mcg PO DAILY 06/19/24 09/14/24 History allopurinoL 100 mg PO DAILY 06/19/24 09/14/24 History calcitrioL 0.25 mcg PO MOWEFR 06/19/24 09/14/24 History Empagliflozin [Jardiance] 10 mg PO DAILY 08/26/24 09/14/24 History Levothyroxine Sodium 25 mcg PO DAILY #30 tab 08/30/24 09/14/24 Rx Sucralfate [Carafate] 1 gm PO BID #60 tablet 08/30/24 09/14/24 Rx Apixaban [Eliquis] 2.5 mg PO BID 09/14/24 09/14/24 History Cholecalciferol (Vitamin D3) 50 mcg PO MOTUWETHFR 09/14/24 09/14/24 History [Vitamin D3 (50 Mcg = 2000 Iu)] Furosemide [Lasix] 20 mg PO DAILY 09/14/24 09/14/24 History hydrALAZINE HCL [Apresoline] 50 mg PO TID PRN 09/14/24 09/14/24 History Allergies Allergy/AdvReac Type Severity Reaction Status Date / Time enalapril [Enalapril] AdvReac Unknown STATES BP Verified 09/14/24 15:47 TOO LOW lisinopril AdvReac Dizziness Verified 09/14/24 15:47 niacin AdvReac hyperglycemia, Verified 09/14/24 15:47 nausea Physical Exam Vitals: Vital Signs Temp Pulse Resp BP Pulse Ox 09/14/24 16:00 97.8 F 64 18 145/73 97 09/14/24 13:30 76 18 126/76 99 09/14/24 12:33 97.9 F 82 20 161/76 99 Intake and Output 09/14/24 09/14/24 09/14/24 06:59 14:59 22:59 Other: Weight 95.254 kg Results 09/14/24 12:59 06/07/25 12:59 Cardiac Enzymes 09/14/24 09/14/24 09/14/24 Range/Units 12:59 12:59 16:01 AST 20 (17-59) U/L Troponin I 0.259 H* 0.230 H* (0.000-0.034) ng/mL Coagulation 09/14/24 Range/Units 12:59 PT 12.3 (10.0-12.5) sec APTT 27.0 (22.0-30.0) sec CBC 09/14/24 Range/Units 12:59 WBC 7.50 (4.50-10.00) 10*3/uL RBC 4.27 L (4.40-5.60) 10*6/uL Hgb 10.5 L (13.0-17.0) g/dL Hct 33.4 L (39.6-50.0) % Plt Count 233 (140-440) 10*3/uL Comprehensive Metabolic Panel 09/14/24 Range/Units 12:59 Sodium 137 (137-145) mmol/L Potassium 3.3 L (3.5-5.1) mmol/L Chloride 101 (98-107) mmol/L Carbon Dioxide 25 (22-30) mmol/L BUN 74 H (9-20) mg/dL Creatinine 2.14 H (0.66-1.25) mg/dL Glucose 265 H (74-99) mg/dL Calcium 9.5 (8.4-10.2) mg/dL AST 20 (17-59) U/L ALT 14 (4-49) U/L Alkaline Phosphatase 107 (38-126) U/L Total Protein 6.7 (6.3-8.2) g/dL Albumin 3.9 (3.5-5.0) g/dL Current Medications Generic Name Dose Route Start Last Admin Trade Name Freq PRN Reason Stop Dose Admin Acetaminophen 650 mg 09/14/24 14:42 Acetaminophen Tab 325 Mg Tab PO Q6HR PRN Mild Pain or Fever > 100.5 Aspirin 81 mg 09/14/24 21:00 Aspirin 81 Mg PO BID [facility] Atorvastatin Calcium 40 mg 09/14/24 21:00 Atorvastatin 40 Mg Tab PO HS [facility] Carvedilol 6.25 mg 09/14/24 17:30 Carvedilol 6.25 Mg Tab PO BID-W/MEALS RE[facility] Dextrose/Water 25 ml 09/14/24 15:28 Dextrose 50% Syringe 50 Ml IVP PER PROTOCOL PRN Hypoglycemia Protocol Dextrose/Water 50 ml 09/14/24 15:28 Dextrose 50% Syringe 50 Ml IVP PER PROTOCOL PRN Hypoglycemia Protocol Furosemide 60 mg 09/14/24 17:00 Furosemide 20 Mg Tab PO DAILY [facility] Heparin Sodium (Porcine) 0 unit 09/14/24 14:15 Heparin Sodium 1,000 Un/Ml (10ml Vl) IV PER PROTOCOL PRN Low PTT Protocol Hydralazine HCl 25 mg 09/14/24 18:00 Hydralazine Hcl 25 Mg Tab PO QID RE[facility] Heparin Sodium/Sodium Chloride 250 mls @ 10 mls/hr 09/14/24 14:15 09/14/24 14:46 25,000 unit/ Sodium Chloride IV 10.498 units/kg/hr .Q24H REZA 10 mls/hr Administration Protocol 10.498 UNITS/KG/HR Insulin Human Lispro 0 unit 09/14/24 17:30 Insulin Lispro (Humalog) 100 Unit/Ml 10 Ml Vl SQ ACHS [facility] Protocol Isosorbide Mononitrate 30 mg 09/14/24 17:00 Isosorbide Mononitrate Er 30 Mg Tab.Er.24h PO DAILY [facility] Levothyroxine Sodium 25 mcg 09/15/24 06:30 Levothyroxine 25 Mcg Tab PO DAILY@0630 [facility] Naloxone HCl 0.2 mg 09/14/24 14:42 Naloxone 0.4 Mg/Ml 1 Ml Vial IV Q2M PRN Opioid Reversal Pantoprazole Sodium 40 mg 09/14/24 21:00 Pantoprazole 40 Mg/10 Ml Vial IVP BID [facility] Polysaccharide Iron Complex 1 each 09/14/24 17:00 Iron Ps Cmplx/Vit B12/Fa 1 Each Cap PO DAILY [facility] Tamsulosin HCl 0.4 mg 09/15/24 09:00 Tamsulosin 0.4 Mg Cap.Er.24h PO QAM [facility] Intake and Output 09/14/24 09/14/24 09/14/24 06:59 14:59 22:59 Other: Weight 95.254 kg Patient Weight 09/15/24 06:59 Weight 95.254 kg 09/14/24 12:59 09/14/24 12:59
[2024-09-14 17:03] LABS: Glucose,Whole Blood 159 mg/dL (70-110)
--- NOTE | 2024-09-14 17:10 | CT ---
EXAMINATION TYPE: CT brain wo con CT DLP: 1148.4 mGycm, Automated exposure control for dose reduction was used. DATE OF EXAM: 09/14/2024 4:23 PM COMPARISON: MRI brain 10/31/2016. CLINICAL INDICATION:Male, 78 years old with history of fall, Weakness TECHNIQUE: Brain: Axial CT images of the brain were obtained with coronal and sagittal reformats created and rev iewed. Contrast used: None. Oral contrast used: None. FINDINGS: Brain: Extra-axial spaces: No abnormal extra-axial fluid collections. Ventricular system: Dilatation in proportion to cerebral atrophy. There is some ex vacuo dilatation o f the posterior horn of the right lateral ventricle. Cerebral parenchyma: No acute intraparenchymal hemorrhage or mass effect. The salamanca-white junction is well differentiated. Scattered hypoattenuating areas are seen within the white matter. There is ext ensive areas of encephalomalacia involving the right temporal and right frontal parietal lobes with a dditional areas of encephalomalacia seen involving the more medial right occipital lobe. Small area o f encephalomalacia is also seen in the medial left occipital lobe. In the right frontoparietal lobe m ore superiorly abutting the areas of encephalomalacia are some hypoattenuated changes of the parenchy ma that are less conspicuous. Cerebellum: Encephalomalacia seen in the right cerebellar hemisphere. Mass effect: No evidence of midline shift. Intracranial vasculature: Atherosclerotic calcifications of the intracranial vessels. Soft tissues: Normal. Calvarium/osseous structures: No depressed skull fracture. Paranasal sinuses and mastoid air cells: Mild scattered paranasal sinus disease. Visualized orbits: Orbital contents are intact. IMPRESSION: 1. There hypoattenuation changes which are slightly more subtle seen in the area of the right frontal parietal parenchyma abutting areas of encephalomalacia also likely representing remote injury change s however if there is any clinical concern for acute stroke consider brain MRI to further characteriz e this finding. Otherwise no acute intracranial process. 2. Encephalomalacia involving the bilateral cerebral hemispheres and right cerebellum relating to claudia or injuries. [facility], , 09/14/2024 5:07 PM
[2024-09-14] MEDS ORDERED: DAPAGLIFLOZIN PROPANEDIOL 10 MG TABLET PO SCH (17:15)
[2024-09-14] MEDS: INSULIN LISPRO (HumaLOG) 100 UNIT/ML 10 mL VL SQ SCH (17:39)
[2024-09-14] MEDS: FUROSEMIDE 20 MG TAB PO SCH (17:40)
[2024-09-14] MEDS: hydrALAZINE HCL 25 MG TAB PO SCH (17:41)
[2024-09-14] MEDS: ISOSORBIDE MONONITRATE ER 30 MG TAB.ER.24H PO SCH (17:41)
[2024-09-14] MEDS: carvediloL 6.25 MG TAB PO SCH (17:41)
[2024-09-14] MEDS: IRON PS CMPLX/VIT B12/FA 1 EACH CAP PO SCH (17:55)
--- NOTE | 2024-09-14 20:09 | US ---
EXAMINATION TYPE: US chest DATE OF EXAM: 09/14/2024 COMPARISON: NONE CLINICAL INDICATION: Male, 78 years old with history of right sided subpulmonic pleural fluid, assess size; right pleural effusion. TECHNIQUE: Grayscale imaging of the chest. Targeted ultrasound of the posterior lower right hemithor ax FINDINGS: EXAM MEASUREMENTS: Right Pleural Effusion pocket size: 9.4 cm Right skin surface to fluid distance: 2.2 cm tissue visualized 4.5 cm deep in fluid Right side marked for possible thoracentesis outside the dept. Pulmonologists are able to review the images in the patient?s EMR. IMPRESSIONS: 1. Right pleural effusion [facility], , 09/14/2024 8:07 PM
[2024-09-14 20:17] LABS: Glucose,Whole Blood 173 mg/dL (70-110)
[2024-09-14 20:18] LABS: NT-Pro-B-Type Natriuretic Pept 23800 pg/mL
[2024-09-14] MEDS ORDERED: ASPIRIN 81 MG PO SCH (21:00)
[2024-09-14] MEDS: PANTOPRAZOLE 40 MG/10 ML VIAL IVP SCH (21:23)
[2024-09-14] MEDS: ATORVASTATIN 40 MG TAB PO SCH (21:23)
[2024-09-15 06:02] LABS: Glucose,Whole Blood 115 mg/dL (70-110)
[2024-09-15] MEDS: LEVOTHYROXINE 25 MCG TAB PO SCH (06:36)
[2024-09-15] MEDS: TAMSULOSIN 0.4 MG CAP.ER.24H PO SCH (09:06)
[2024-09-15] MEDS: ASPIRIN 81 MG PO SCH (09:07)
[2024-09-15] MEDS: DAPAGLIFLOZIN PROPANEDIOL 10 MG TABLET PO SCH (09:07)
[2024-09-15 09:41] LABS: Basophils # (A) 0.06 10*3/uL (0.00-0.10); Basophils % (A) 0.9 %; Eosinophils # (A) 0.18 10*3/uL (0.04-0.35); Eosinophils % (A) 2.8 %; HCT 31.5 % (39.6-50.0); HGB 9.7 g/dL (13.0-17.0); Lymphocytes # (A) 0.67 10*3/uL (0.90-5.00); Lymphocytes % (A) 10.3 %; MCH 24.4 pg (27.0-32.0); MCHC 30.8 g/dL (32.0-37.0); MCV 79.3 fL (80.0-97.0); Mean Platelet Volume 10.9 fL (9.5-12.2); Monocytes # (A) 0.37 10*3/uL (0.20-1.00); Monocytes % (A) 5.7 %; Neutrophils # (A) 5.19 10*3/uL (1.80-7.70); Platelet Count 251 10*3/uL (140-440); RBC 3.97 10*6/uL (4.40-5.60); RDW 18.1 % (11.5-14.5); WBC 6.49 10*3/uL (4.50-10.00)
[2024-09-15 09:54] LABS: African American GFR (CKD) 32 (>60 ml/min/1.73 sqM); Anion Gap 9 mmol/L; Blood Urea Nitrogen 73 mg/dL (9-20); Calcium 9.3 mg/dL (8.4-10.2); Carbon Dioxide 28 mmol/L (22-30); Chloride 101 mmol/L (98-107); Glucose 134 mg/dL (74-99); Non-African American GFR(CKD) 28 (>60 ml/min/1.73 sqM); Potassium 3.7 mmol/L (3.5-5.1); Sodium 138 mmol/L (137-145)
[2024-09-15 09:59] LABS: INR 1.2 (<1.2); Prothrombin Time 12.4 sec (10.0-12.5)
[2024-09-15 10:14] LABS: Chol/HDL Ratio 1.55 Ratio; LDL Cholesterol,Calculated 20.5 mg/dL (0.0-131.0); VLDL Calculation 7.56 mg/dL (5.00-40.00)
--- NOTE | 2024-09-15 11:27 | P.PN ---
Subjective Progress Note Date: 09/15/24 Hospital Course: Patient is a very pleasant 78-year-old male with a past medical history of CAD status post stenting x 2, history of cardiac arrest in 2014, ischemic cardiomyopathy, chronic systolic congestive heart failure, valvular heart disease with atrial septal defect, chronic atrial fibrillation on anticoagulation with Eliquis, hypertension, hyperlipidemia, peripheral vascular disease, carotid stenosis status post R carotid endarterectomy, previous CVA, colon cancer status post bowel resection, insulin-dependent diabetes mellitus, stage IV CKD, DVT status post femoral thrombectomy, and previous CVA with no reported deficits. He presented to the emergency department with a chief complaint of chest pain. Patient reports he has been experiencing some generalized weakness, dizziness/lightheadedness, and fatigue over the past few days and today while ambulating from kitchen to the bathroom he had a fall. Patient admits to feeling weak and dizzy with some blurred vision prior to the fall, but believes he just lost his balance and fell. Patient reports he is unsure if he hit his head or lost consciousness, but states "I do not think so". He reports immediately after falling he had pain to his chest. He reports initially the pain was throughout his entire chest and described as a heaviness or tightness. Patient denies sustaining any injuries or pain from the fall other than the chest pain. He reports he was supposed to be seen by Dr. Leal for heart cath on 09/23 secondary to recent ischemic workup and found to have cardiomyopathy with an EF of 30%. Patient reports the pain in his chest improved but remained as a heaviness to his midsternal chest so he came to the emergency department for evaluation. He denies having any fevers, chills, headache, changes in vision or hearing, palpitations, shortness of breath, cough or congestion, abdominal pain, nausea, vomiting, or experiencing any increased or changes in his lower extremity edema. Patient does report his edema fluctuates daily if he is on his feet more, but it is currently at baseline. Upon arrival to our facility, patient underwent evaluation in the emergency department. Vital signs upon arrival show blood pressure 161/76, heart rate 82, respiratory rate 20, temp 97.9 F, and SpO2 of 99% on room air. EKG was completed showing atrial fibrillation with a controlled ventricular rate of 79 bpm with frequent PVCs and a right bundle branch block. Chest x-ray completed showing prominent pulmonary vascular congestion and right sided subpulmonic pleural fluid possibly present. Labs completed and reviewed. CBC showing microcytic anemia with hemoglobin of 10.5, MCV 78.2, MCH 24.6, and MCHC of 31.4. Coagulation profile normal findings. BMP showing hypokalemia with potassium of 3.3 and renal function consistent with known CKD stage IV with BUN of 74, creatinine 2.14, GFR of 29. Liver profile unremarkable. Magnesium 2.1. Calcium 9.5. Troponin was elevated at 0.259. Patient started on low intensity heparin infusion for treatment of NSTEMI and was admitted under services with consultation to cardiology. Troponins trended and flat resulting at 0.259, 0.230, and 0.259. proBNP 23,800. Ultrasound completed showing a 9.4 cm fluid collection that was marked for possible thoracentesis. Physical exam: Patient seen and fully evaluated at bedside this morning. He reports chest pain has resolved and denies any other complaints at this time including headache, lightheadedness, dizziness shortness of breath, nausea, vomiting, or experiencing any numbness/tingling/weakness in his extremities. Patient's at bedside, they were both updated on chest ultrasound results and that pulmonology was consulted. Patient's reports patient previously had a pleural effusion in that same region with removal of 1.5 L of fluid. Vital signs reviewed and stable. General: Nontoxic, no distress and appears stated age. Derm: Skin warm and dry, normal coloration for ethnicity. Head: Atraumatic, normocephalic and symmetric. Eyes: EOM's intact, no lid lag, and anicteric sclera Mouth: no lip lesions, mucus membranes moist Cardiovascular: regular rate and rhythm with normal S1S2, systolic murmur, positive posterior tibial pulses bilaterally, and cap refill < 2 seconds. Lungs: Respirations even, regular, and unlabored on room air. Lungs diminished, no rhonchi, no rales, no wheezing, and no accessory muscle usage. Abdominal: soft, nontender to palpation, no guarding, no appreciable o rganomegaly Ext: ROM intact. No gross muscle atrophy, 1+ pitting bilateral lower extremity edema, no contractures Neuro: Speech clear, face symmetrical and CN II-XII grossly intact with no noted focal neuro deficits Psych: Alert and oriented to person, place, time, and situation. Appropriate and pleasant affect. Assessment and Plan of Care: Elevated troponins, flat. Likely type II NSTEMI Acute on chronic systolic heart failure Ischemic cardiomyopathy with a EF of 30% History of CAD status post stenting History of cardiac arrest in 2014 Valvular heart disease with atrial septal defect Chronic atrial fibrillation Hypertension Hyperlipidemia -Cardiology consulted, discussed plan of care with Dr. Mckeon -Telemetry monitoring -Troponins trended resulting at 0.259, 0.230, and 0.259. proBNP 23,800. -Continue low intensity heparin infusion with close monitoring of PTT every 6 hours for goal therapeutic range of 45 to 79 seconds. -Continue cardiac medication regimen with aspirin 81 mg daily, atorvastatin 40 mg nightly, Jardiance 10 mg daily, Lasix 60 mg daily, hydralazine 25 mg 4 times daily, and isosorbide mononitrate 30 mg daily. Right-sided subpulmonic pleural effusion Ultrasound completed showing a 9.4 cm fluid collection that was marked for possible thoracentesis. Pulmonology consulted - Monitor pulse ox and provide patient with supplemental oxygen if needed to maintain SpO2 equal to or greater than 90%. Microcytic anemia secondary to iron deficiency anemia with history of recent GI bleed and history of colon cancer status post bowel resection Hemoglobin 10.5 which appears stable from previous hemoglobin drawn on 08/29/2024 resulting at 10.8. Continue to monitor hemoglobin levels closely with repeat a.m. labs. GI prophylaxis with Protonix 40 mg daily. Continue Niferex iron supplementation daily. Insulin-dependent diabetes mellitus Patient placed on glycemic protocol with NovoLog sliding scale. Follow-up on hemoglobin A1c results. CKD stage IV Renal function appears to be stable at baseline. Will use nephrotoxic medications cautiously and continue to monitor renal function closely with repeat a.m. labs. Fall at home prior to arrival History of CVA - Patient initially told ED staff he did not hit head or lose consciousness upon examination patient then stating to both myself and RN that he is unsure if he hit his head or lost consciousness but did not think so. - CT brain revealing hypoattenuation changes slightly more subtle in the right frontal parietal parenchyma abutting areas of encephalomalacia likely reactive presenting remote injury changes patient cerebellum relating to prior injuries, however no reported acute intracranial process. Patient does have known history of previous CVA Continue daily aspirin and atorvastatin. Maintain fall precautions Consult placed to physical and Occupational Therapy secondary to generalized weakness and recurrent falls at home Data and imaging reviewed: Labs reviewed. Troponins trended resulting at 0.259, 0.230, and 0.259. proBNP 23,800. CBC showing stable microcytic anemia with hemoglobin of 9.7. Coagulation profile showing therapeutic PTT of 62.9. BMP showing resolution of hypokalemia with repeat potassium was 3.7 and renal function at baseline with BUN of 73, creatinine 2.21 and GFR of 28. Blood glucose 134. Magnesium 2.0. Vital signs reviewed. Blood pressure 118/63, heart rate 60, respiratory rate 17, temp 97.6 F, and SpO2 of 98% on room air. Ultrasound completed showing a 9.4 cm fluid collection that was marked for possible thoracentesis. - CT brain revealing hypoattenuation changes slightly more subtle in the right frontal parietal parenchyma abutting areas of encephalomalacia likely reactive presenting remote injury changes patient cerebellum relating to prior injuries, however no reported acute intracranial process. Patient does have known history of previous CVA CODE STATUS: Full code DVT prophylaxis: Heparin infusion Discussed with: Patient, RN, and Dr. Mckeon, legal referee Anticipated discharge date: Pending clinical course Anticipated discharge place: Pending clinical course Patient was seen independently by Nurse Practitioner. This document was prepared using [employer] dictation software. Please allow for errors in construction consultant while rare they do occur. Vin Murphy NP rendered care for this patient independently, reviewed the findings and plan as documented in the note above and agree with plan. I did not physically speak with or examine the patient on this date. Objective - Vital Signs Vital signs: Vital Signs Temp 98.0 F 09/14/24 20:22 Pulse 59 L 09/15/24 04:57 Resp 17 09/15/24 04:57 BP 124/71 09/15/24 04:57 Pulse Ox 98 09/15/24 04:57 FiO2 Intake & Output 09/14/24 09/15/24 09/15/24 18:59 06:59 18:59 Intake Total 10 480 Output Total 0 327 Balance 0 -317 480 Weight 95.254 kg 95.6 kg Intake: IV 10 Invasive Line 1 10 Oral 480 Output: Urine 0 327 Stool 0 Urine/Stool Mix 0 Other: Voiding Method Urinal Urinal # Voids 0 # Bowel Movements 0 1 - Labs CBC & Chem 7: 09/15/24 07:49 09/15/24 07:49 Labs: Abnormal Lab Results - Last 24 Hours (Table) 09/14/24 09/14/24 09/14/24 Range/Units 12:59 12:59 12:59 RBC 4.27 L (4.40-5.60) 10*6/uL Hgb 10.5 L (13.0-17.0) g/dL Hct 33.4 L (39.6-50.0) % MCV 78.2 L (80.0-97.0) fL MCH 24.6 L (27.0-32.0) pg MCHC 31.4 L (32.0-37.0) g/dL Lymphocytes # 0.57 L (0.90-5.00) 10*3/uL APTT (22.0-30.0) sec Potassium 3.3 L (3.5-5.1) mmol/L BUN 74 H (9-20) mg/dL Creatinine 2.14 H (0.66-1.25) mg/dL Glucose 265 H (74-99) mg/dL POC Glucose (mg/dL) (70-110) mg/dL Troponin I 0.259 H* (0.000-0.034) ng/mL 09/14/24 09/14/24 09/14/24 Range/Units 16:01 17:02 18:47 RBC (4.40-5.60) 10*6/uL Hgb (13.0-17.0) g/dL Hct (39.6-50.0) % MCV (80.0-97.0) fL MCH (27.0-32.0) pg MCHC (32.0-37.0) g/dL Lymphocytes # (0.90-5.00) 10*3/uL APTT (22.0-30.0) sec Potassium (3.5-5.1) mmol/L BUN (9-20) mg/dL Creatinine (0.66-1.25) mg/dL Glucose (74-99) mg/dL POC Glucose (mg/dL) 159 H (70-110) mg/dL Troponin I 0.230 H* 0.259 H* (0.000-0.034) ng/mL 09/14/24 09/14/2409/15/25 Range/Units 20:15 20:22 06:01 RBC (4.40-5.60) 10*6/uL Hgb (13.0-17.0) g/dL Hct (39.6-50.0) % MCV (80.0-97.0) fL MCH (27.0-32.0) pg MCHC (32.0-37.0) g/dL Lymphocytes # (0.90-5.00) 10*3/uL APTT 55.0 H (22.0-30.0) sec Potassium (3.5-5.1) mmol/L BUN (9-20) mg/dL Creatinine (0.66-1.25) mg/dL Glucose (74-99) mg/dL POC Glucose (mg/dL) 173 H 115 H (70-110) mg/dL Troponin I (0.000-0.034) ng/mL
[2024-09-15 11:44] LABS: Glucose,Whole Blood 150 mg/dL (70-110)
[2024-09-15] MEDS ORDERED: ALPRAZolam 0.25 MG TAB PO PRN (13:00)
[2024-09-15] MEDS ORDERED: NITROGLYCERIN SL TABS 0.4 MG TAB SUBLINGUAL PRN (13:00)
--- NOTE | 2024-09-15 13:00 | P.NPCON ---
History of Present Illness - Reason for Consult chronic renal failure - History of Present Illness Patient is a 78-year-old male with history of coronary artery disease, ischemic cardiomyopathy with a EF of 30%, chronic kidney disease stage IV with baseline creatinine around 2 mg/dL. Patient had an episode of acute kidney injury in June 2024 with serum creatinine improving to 2.2 on 08/29/2024. He is admitted to the hospital with complaints of weakness, status post fall. He did experience some lightheadedness and dizziness on and off for the past 1 week Patient did have some chest pressure. No significant shortness of breath. Troponin is elevated at 0.2. Patient is being considered for cardiac c atheterization. Serum creatinine was 2.1 on admission and it is 2.2 today. No chest pain currently Blood pressure has been on the lower side with systolic noted at 92 mmHg yesterday Past Medical History Past Medical History: Atrial Fibrillation, Coronary Artery Disease (CAD), Cancer, Heart Failure, CVA/TIA, Diabetes Mellitus, Deep Vein Thrombosis (DVT), GERD/Reflux, Hearing Disorder / Deafness, Hyperlipidemia, Hypertension, Myocardial Infarction (OR), Renal Disease, Sleep Apnea/CPAP/BIPAP, Vascular Disorder Additional Past Medical History / Comment(s): BBOWEL OBSTRUCTION after colon cancer surgery., HX 2ND DEGREE HB,IBS,A FIB, RT FEMORAL DVT,CARDIO PULMONARY ARREST 2013, ATRIAL SEPTAL DEFECT,PVD, COLON CANCER 2005, per old hx ? ulcer in past. states her had a slight stroke no weakness from the stroke- states pt had stroke July 2024, no deficits from stroke per . Does not use CPAP Last Myocardial Infarction Date:: 11/2012 History of Any Multi-Drug Resistant Organisms: None Reported Past Surgical History: Bowel Resection, Heart Catheterization, Heart Catheterization With Stent, Hernia Repair Additional Past Surgical History / Comment(s): Colon Resection 1999. Right femoral thrombolectomy 11/2012. Colonoscopy 2012. Anal fissure repair.RT CARTOTID ENDARTERECTOMY, incarcerated ventral hernia/lysis of adhesions. Past Anesthesia/Blood Transfusion Reactions: No Reported Reaction Additional Past Anesthesia/Blood Transfusion Reaction / Comment(s): HX OF BLOOD TRANSFUSION Date of Last Stent Placement:: 11/2012 Past Psychological History: No Psychological Hx Reported Smoking Status: Former smoker Past Alcohol Use History: None Reported Additional Past Alcohol Use History / Comment(s): started smoking age 19 smoked 1ppk quit age 51 Past Drug Use History: None Reported - Past Family History Sister(s) History Unknown: Yes Family Medical History: Cancer Father History Unknown: Yes Family Medical History: CVA/TIA, Diabetes Mellitus Mother History Unknown: Yes Family Medical History: Dementia Medications and Allergies Home Medications Medication Instructions Recorded Confirmed Type Nitroglycerin Sl Tabs [Nitrostat] 0.4 mg SL Q5M PRN 08/11/13 09/14/24 History Tamsulosin [Flomax] 0.4 mg PO DAILY 08/28/13 09/14/24 History Atorvastatin [Lipitor] 20 mg PO HS 10/29/16 09/14/24 History Famotidine 40 mg PO DAILY 10/16/18 09/14/24 History Aspirin EC [Ecotrin Low Dose] 162 mg PO DAILY 06/19/24 09/14/24 History INSULIN ASPART (NovoLOG) [NovoLOG See Protocol SQ AC-TID 06/19/24 09/14/24 History (formulary)] Vitamin B-12 100mcg 200 mcg PO DAILY 06/19/24 09/14/24 History allopurinoL 100 mg PO DAILY 06/19/24 09/14/24 History calcitrioL 0.25 mcg PO MOWEFR 06/19/24 09/14/24 History Empagliflozin [Jardiance] 10 mg PO DAILY 08/26/24 09/14/24 History Levothyroxine Sodium 25 mcg PO DAILY #30 tab 08/30/24 09/14/24 Rx Sucralfate [Carafate] 1 gm PO BID #60 tablet 08/30/24 09/14/24 Rx Apixaban [Eliquis] 2.5 mg PO BID 09/14/24 09/14/24 History Cholecalciferol (Vitamin D3) 50 mcg PO MOTUWETHFR 09/14/24 09/14/24 History [Vitamin D3 (50 Mcg = 2000 Iu)] Furosemide [Lasix] 40 mg PO DAILY 09/14/24 09/14/24 History hydrALAZINE HCL [Apresoline] 50 mg PO TID PRN 09/14/24 09/14/24 History Allergies Allergy/AdvReac Type Severity Reaction Status Date / Time enalapril [Enalapril] AdvReac Unknown STATES BP Verified 09/14/24 15:47 TOO LOW lisinopril AdvReac Dizziness Verified 09/14/24 15:47 niacin AdvReac hyperglycemia, Verified 09/14/24 15:47 nausea Physical Exam Vitals: Vital Signs Temp Pulse Pulse Resp BP BP Pulse Ox 09/15/24 11:24 97.6 F 59 L 17 133/83 100 09/15/24 08:58 60 09/15/24 08:57 97.6 F 60 17 118/63 98 09/15/24 04:57 59 L 17 124/71 98 09/14/24 22:49 77 16 92/51 95 09/14/24 20:22 98.0 F 63 16 133/67 98 09/14/24 18:45 98.3 F 69 16 130/77 98 09/14/24 18:32 69 16 09/14/24 17:36 97.8 F 66 18 140/82 96 09/14/24 16:00 97.8 F 64 18 145/73 97 09/14/24 13:30 76 18 126/76 99 Intake and Output 09/14/24 09/15/24 09/15/24 22:59 06:59 14:59 Intake Total 10 692.5 Output Total 325 2 Balance -315 -2 692.5 Intake: IV 10 Invasive Line 1 10 Intake, IV Titration 212.5 Amount Heparin Sod,Pork in 0.45% 212.5 NaCl 25,000 unit In 0.45 % NaCl 1 250ml.bag @ 10. 498 UNITS/KG/HR 10 mls/hr IV .Q24H [facility] Rx#: [id number] Oral 480 Output: Urine 325 2 Stool 0 Urine/Stool Mix 0 Other: Voiding Method Urinal Urinal Urinal # Voids 0 # Bowel Movements 0 1 Weight 95.254 kg 95.6 kg Patient is awake, comfortable, no acute distress Examination of the heart S1 and S2 Examination of the lungs bilateral breath sounds are heard Abdomen is soft nontender Examination lower extremities shows no significant edema INSTRUMENTAL MUSICIAN exam grossly intact Results - Lab Results Most recent lab results Calcium 9.3 mg/dL (8.4-10.2) 09/15/24 07:49 Magnesium 2.0 mg/dL (1.6-2.3) 09/15/24 07:49 09/15/24 07:49 09/15/24 07:49 Assessment and Plan Assessment: 1. Chronic kidney disease stage IV secondary to nephrosclerosis with baseline creatinine around 2 mg/dL. Renal function is at baseline 2. Non-ST elevation OR being considered for cardiac catheterization tomorrow 3. Hypertension with CKD stage IV, blood pressure currently on the lower side 4. Ischemic cardiomyopathy with a EF of 30% 5. Anemia of chronic disease rule out iron deficiency Plan: Okay to proceed with cardiac catheterization tomorrow. Renal function is at baseline Recommend to lower dose of hydralazine or Coreg as blood pressure has been on the lower side with systolic noted in the 90s yesterday hypotension will exacerbate acute kidney injury with IV contrast administration Repeat labs in a.m. Check iron profile Add Rex Thank you for the consultation. We will continue to follow the patient with you during his hospitalization
--- NOTE | 2024-09-15 14:22 | P.CNPUL ---
History of Present Illness Consult date: 09/15/24 Reason for consult: pleural effusion History of present illness: This is a 78-year male patient who is currently hospitalized for generalized wea kness, shortness of breath, substernal chest heaviness and abnormal troponins at 0.2 x 3 respectively. The patient has chronic A-fib, coronary artery disease and cardiomyopathy with impaired LV function with an ejection fraction of 30% with moderate MR and TR. Patient also has chronic stage III/IV kidney disease. He had a recent hospitalization at [facility] and he was noted to have a pleural effusion on the left and the patient was given a thoracentesis with a total of 1.5 L of pleural fluid was aspirated. Repeat chest x-ray from this current admission showing cardiomegaly, small pleural effusion is also noted on the chest x-ray on the right. Based on that, the patient was given an ultrasound of the chest and a 4 cm pocket of fluid was noted in the right. Based on that, a pulmonary consultation was requested. The patient is currently on room air oxygen. Resting comfortably in bed. Denies having any significant shortness of breath. A1c has at 6.4 with a hemoglobin of 9.7 and platelet count of 51. INR is 1.2 and the patient is currently on IV heparin, of Eliquis with a BUN of 73 and a creatinine of 2.2 and a GFR of 28 and a sodium level of 138 and a potassium level of 3.7. The patient is on Lasix 60 mg p.o. daily. He remains on Coreg 6.25 mg p.o. twice a day, Farxiga 10 mg p.o. daily, and IV heparin. No pleurisy. No hemoptysis. No other new complaints otherwise for now. Review of Systems Constitutional: Reports fatigue, Reports weakness Eyes: denies as per HPI, denies blurred vision, denies bulging eye, denies decreased vision, denies diplopia, denies discharge, denies dry eye, denies irritation, denies itching, denies pain, denies photophobia, denies loss of peripheral vision, denies loss of vision, denies tunnel vision/blind spots Ears: deny: decreased hearing, ear discharge, earache, tinnitus Ears, nose, mouth and throat: Reports as per HPI Breasts: absent: as per HPI, gynecomastia Cardiovascular: Reports decreased exercise tolerance Respiratory: Reports as per HPI Gastrointestinal: Reports as per HPI Genitourinary: Reports as per HPI Musculoskeletal: Reports as per HPI Musculoskeletal: absent: ankle pain, ankle stiffness, ankle swelling, as per HPI, elbow pain, elbow stiffness, elbow swelling, foot pain, foot stiffness, foot swelling, hand pain, hand stiffness, hand swelling, hip pain, hip stiffness, hip swelling, knee pain, knee stiffness, knee swelling, shoulder pain, shoulder stiffness, shoulder swelling, wrist pain, wrist stiffness, wrist swelling Integumentary: Reports as per HPI Neurological: Reports as per HPI Psychiatric: Reports as per HPI Endocrine: Reports as per HPI Hematologic/Lymphatic: Reports as per HPI Allergic/Immunologic: Reports as per HPI Past Medical History Past Medical History: Atrial Fibrillation, Coronary Artery Disease (CAD), Cancer, Heart Failure, CVA/TIA, Diabetes Mellitus, Deep Vein Thrombosis (DVT), GERD/Reflux, Hearing Disorder / Deafness, Hyperlipidemia, Hypertension, Myocardial Infarction ([place]), Renal Disease, Sleep Apnea/CPAP/BIPAP, Vascular Disorder Additional Past Medical History / Comment(s): BBOWEL OBSTRUCTION after colon cancer surgery., HX 2ND DEGREE HB,IBS,A FIB, RT FEMORAL DVT,CARDIO PULMONARY ARREST 2013, ATRIAL SEPTAL DEFECT,PVD, COLON CANCER 2005, per old hx ? ulcer in past. states her had a slight stroke no weakness from the stroke- states pt had stroke July 2024, no deficits from stroke per . Does not use CPAP Last Myocardial Infarction Date:: 11/2012 History of Any Multi-Drug Resistant Organisms: None Reported Past Surgical History: Bowel Resection, Heart Catheterization, Heart Catheterization With Stent, Hernia Repair Additional Past Surgical History / Comment(s): Colon Resection 1999. Right femoral thrombolectomy 11/2012. Colonoscopy 2012. Anal fissure repair.RT CARTOTID ENDARTERECTOMY, incarcerated ventral hernia/lysis of adhesions. Past Anesthesia/Blood Transfusion Reactions: No Reported Reaction Additional Past Anesthesia/Blood Transfusion Reaction / Comment(s): HX OF BLOOD TRANSFUSION Date of Last Stent Placement:: 11/2012 Past Psychological History: No Psychological Hx Reported Smoking Status: Former smoker Past Alcohol Use History: None Reported Additional Past Alcohol Use History / Comment(s): started smoking age 19 smoked 1ppk quit age 51 Past Drug Use History: None Reported - Past Family History Sister(s) History Unknown: Yes Family Medical History: Cancer Father History Unknown: Yes Family Medical History: CVA/TIA, Diabetes Mellitus Mother History Unknown: Yes Family Medical History: Dementia Medications and Allergies Home Medications Medication Instructions Recorded Confirmed Type Nitroglycerin Sl Tabs [Nitrostat] 0.4 mg SL Q5M PRN 08/11/13 09/14/24 History Tamsulosin [Flomax] 0.4 mg PO DAILY 08/28/13 09/14/24 History Atorvastatin [Lipitor] 20 mg PO HS 10/29/16 09/14/24 History Famotidine 40 mg PO DAILY 10/16/18 09/14/24 History Aspirin EC [Ecotrin Low Dose] 162 mg PO DAILY 06/19/24 09/14/24 History INSULIN ASPART (NovoLOG) [NovoLOG See Protocol SQ AC-TID 06/19/24 09/14/24 History (formulary)] Vitamin B-12 100mcg 200 mcg PO DAILY 06/19/24 09/14/24 History allopurinoL 100 mg PO DAILY 06/19/24 09/14/24 History calcitrioL 0.25 mcg PO MOWEFR 06/19/24 09/14/24 History Empagliflozin [Jardiance] 10 mg PO DAILY 08/26/24 09/14/24 History Levothyroxine Sodium 25 mcg PO DAILY #30 tab 08/30/24 09/14/24 Rx Sucralfate [Carafate] 1 gm PO BID #60 tablet 08/30/24 09/14/24 Rx Apixaban [Eliquis] 2.5 mg PO BID 09/14/24 09/14/24 History Cholecalciferol (Vitamin D3) 50 mcg PO MOTUWETHFR 09/14/24 09/14/24 History [Vitamin D3 (50 Mcg = 2000 Iu)] Furosemide [Lasix] 40 mg PO DAILY 09/14/24 09/14/24 History hydrALAZINE HCL [Apresoline] 50 mg PO TID PRN 09/14/24 09/14/24 History Allergies Allergy/AdvReac Type Severity Reaction Status Date / Time enalapril [Enalapril] AdvReac Unknown STATES BP Verified 09/14/24 15:47 TOO LOW lisinopril AdvReac Dizziness Verified 09/14/24 15:47 niacin AdvReac hyperglycemia, Verified 09/14/24 15:47 nausea Physical Exam Vitals: Vital Signs Temp Pulse Pulse Resp BP BP Pulse Ox 09/15/24 08:58 60 09/15/24 08:57 97.6 F 60 17 118/63 98 09/15/24 04:57 59 L 17 124/71 98 09/14/24 22:49 77 16 92/51 95 09/14/24 20:22 98.0 F 63 16 133/67 98 09/14/24 18:45 98.3 F 69 16 130/77 98 09/14/24 18:32 69 16 09/14/24 17:36 97.8 F 66 18 140/82 96 09/14/24 16:00 97.8 F 64 18 145/73 97 09/14/24 13:30 76 18 126/76 99 09/14/24 12:33 97.9 F 82 20 161/76 99 Intake and Output 09/14/24 09/15/24 09/15/24 22:59 06:59 14:59 Intake Total 10 480 Output Total 325 2 Balance -315 -2 480 Intake: IV 10 Invasive Line 1 10 Oral 480 Output: Urine 325 2 Stool 0 Urine/Stool Mix 0 Other: Voiding Method Urinal Urinal Urinal # Voids 0 # Bowel Movements 0 1 Weight 95.254 kg 95.6 kg The patient appeared well nourished and normally developed. Vital signs as documented., Comfortable the patient is on room air oxygen with a body mass index of 34.0. Head exam is unremarkable. No scleral icterus or corneal arcus noted. Neck is without jugular venous distension, thyromegaly, or carotid bruits. Carotid upstrokes are brisk bilaterally. Lungs are diminished in the right lung base however, there is adequate air entry bilaterally. Cardiac exam reveals the PMI to be normally sized and situated. Rhythm is regular. First and second heart sounds normal. No murmurs, rubs or gallops. Abdominal exam reveals normal bowel sounds, no masses, no organomegaly and no aortic enlargement. Extremities are nonedematous and both femoral and pedal pulses are normal. Examination of the skin revealed no evidence of significant rashes, suspicious appearing nevi or other concerning lesions. Neurologically, the patient is awake and alert and the patient does not have any focal neurological deficit. Cranial nerves are essentially intact. Results - Laboratory Findings CBC and BMP: 09/15/24 07:49 09/15/24 07:49 PT/INR, D-dimer PT 12.4 sec (10.0-12.5) 09/15/24 07:49 INR 1.2 (<1.2) H 09/15/24 07:49 Abnormal lab findings: Abnormal Labs 09/14/24 09/14/24 09/14/24 12:59 12:59 12:59 RBC 4.27 L Hgb 10.5 L Hct 33.4 L MCV 78.2 L MCH 24.6 L MCHC 31.4 L Lymphocytes # 0.57 L INR APTT Potassium 3.3 L BUN 74 H Creatinine 2.14 H Glucose 265 H POC Glucose (mg/dL) Troponin I 0.259 H* 09/14/24 09/14/24 09/14/24 16:01 17:02 18:47 RBC Hgb Hct MCV MCH MCHC Lymphocytes # INR APTT Potassium BUN Creatinine Glucose POC Glucose (mg/dL) 159 H Troponin I 0.230 H* 0.259 H* 09/14/24 09/14/24 09/15/24 20:15 20:22 06:01 RBC Hgb Hct MCV MCH MCHC Lymphocytes # INR APTT 55.0 H Potassium BUN Creatinine Glucose POC Glucose (mg/dL) 173 H 115 H Troponin I 09/15/24 09/15/24 09/15/24 07:49 07:49 07:49 RBC 3.97 L Hgb 9.7 L Hct 31.5 L MCV 79.3 L MCH 24.4 L MCHC 30.8 L Lymphocytes # 0.67 L INR 1.2 H APTT Potassium BUN 73 H Creatinine 2.21 H Glucose 134 H POC Glucose (mg/dL) Troponin I 09/15/24 07:49 RBC Hgb Hct MCV MCH MCHC Lymphocytes # INR APTT 62.9 H Potassium BUN Creatinine Glucose POC Glucose (mg/dL) Troponin I - Diagnostic Findings Chest x-ray: image reviewed Assessment and Plan Plan: Small right-sided pleural effusion, likely associated with heart failure and the patient has undergone a recent thoracentesis at [facility]. Coronary artery disease, abnormal troponins, questionable NSTEMI, and the patient is being considered for cardiac catheterization CHF with systolic heart failure and an ejection fraction of 30% with moderate MR and TR Chronic atrial fibrillation Diabetes mellitus type 2 Hypertension Hyperlipidemia Chronic stage IV kidney disease Previous history of colon cancer/bowel obstruction back in 2005, resected Previous history of DVT Anemia of chronic disease Plan Continue same treatment. Continue IV heparin Complete the cardiac workup as the patient is currently being considered for a cardiac catheterization. No need for thoracentesis for now. Obtain records from the other hospital regarding the pleural fluid analysis. This is likely related to CHF. The patient is not having any major respiratory difficulties. He is on room air oxygen and is able to lay down flat without having any dyspnea. Chest x-ray was noted. Blood work was noted. Currently on Lasix and Farxiga. Continue Coreg and Imdur and hydralazine. Nephrology consult. Will follow.
[2024-09-15] MEDS: DARBEPOETIN ALFA 40 MCG/0.4 ML SYRINGE SQ SCH (15:56)
[2024-09-15 16:21] LABS: Glucose,Whole Blood 230 mg/dL (70-110)
[2024-09-15 20:54] LABS: Glucose,Whole Blood 165 mg/dL (70-110)
[2024-09-16 00:30] LABS: % Iron Saturation 9.62 (15.00-50.00)
[2024-09-16] MEDS: SODIUM CHLORIDE 0.9% 1,000 ML in EMPTY BAG 1 BAG IV SCH (02:42)
[2024-09-16 06:04] LABS: Glucose,Whole Blood 125 mg/dL (70-110)
[2024-09-16] MEDS ORDERED: HEPARIN SODIUM,PORCINE (1 ML) 2,500 UNIT in SODIUM CHLORIDE 0.9% 250 ML IRRIGATION PRN (07:00)
[2024-09-16] MEDS ORDERED: HEPARIN SODIUM,PORCINE 10,000 UNIT in SODIUM CHLORIDE 0.9% 1,000 ML IRRIGATION PRN (07:00)
[2024-09-16 10:20] LABS: HCT 30.8 % (39.6-50.0); HGB 9.5 g/dL (13.0-17.0); MCH 24.5 pg (27.0-32.0); MCHC 30.8 g/dL (32.0-37.0); MCV 79.4 fL (80.0-97.0); Mean Platelet Volume 10.1 fL (9.5-12.2); Platelet Count 225 10*3/uL (140-440); RBC 3.88 10*6/uL (4.40-5.60); RDW 18.4 % (11.5-14.5); WBC 6.49 10*3/uL (4.50-10.00)
[2024-09-16 11:12] LABS: African American GFR (CKD) 30 (>60 ml/min/1.73 sqM); Anion Gap 15 mmol/L; Blood Urea Nitrogen 78 mg/dL (9-20); Calcium 9.6 mg/dL (8.4-10.2); Carbon Dioxide 24 mmol/L (22-30); Chloride 99 mmol/L (98-107); Glucose 114 mg/dL (74-99); Magnesium 2.1 mg/dL (1.6-2.3); Non-African American GFR(CKD) 26 (>60 ml/min/1.73 sqM); Potassium 3.8 mmol/L (3.5-5.1); Sodium 138 mmol/L (137-145)
[2024-09-16 11:32] LABS: Glucose,Whole Blood 124 mg/dL (70-110)
[2024-09-16] MEDS: SODIUM CHLORIDE 0.9% 1,000 ML IV SCH (12:12)
--- NOTE | 2024-09-16 12:34 | P.PN ---
Subjective Progress Note Date: 09/16/24 Hospital Course: Patient is a very pleasant 78-year-old male with a past medical history of CAD status post stenting x 2, history of cardiac arrest in 2014, ischemic cardiomyopathy, chronic systolic congestive heart failure, valvular heart disease with atrial septal defect, chronic atrial fibrillation on anticoagulation with Eliquis, hypertension, hyperlipidemia, peripheral vascular disease, carotid stenosis status post R carotid endarterectomy, previous CVA, colon cancer status post bowel resection, insulin-dependent diabetes mellitus, stage IV CKD, DVT status post femoral thrombectomy, and previous CVA with no reported deficits. He presented to the emergency department with a chief complaint of chest pain. Patient reports he has been experiencing some generalized weakness, dizziness/lightheadedness, and fatigue over the past few days and today while ambulating from kitchen to the bathroom he had a fall. Patient admits to feeling weak and dizzy with some blurred vision prior to the fall, but believes he just lost his balance and fell. Patient reports he is u nsure if he hit his head or lost consciousness, but states "I do not think so". He reports immediately after falling he had pain to his chest. He reports initially the pain was throughout his entire chest and described as a heaviness or tightness. Patient denies sustaining any injuries or pain from the fall other than the chest pain. He reports he was supposed to be seen by Dr. Leal for heart cath on 09/23 secondary to recent ischemic workup and found to have cardiomyopathy with an EF of 30%. Patient reports the pain in his chest improved but remained as a heaviness to his midsternal chest so he came to the emergency department for evaluation. He denies having any fevers, chills, headache, changes in vision or hearing, palpitations, shortness of breath, cough or congestion, abdominal pain, nausea, vomiting, or experiencing any increased or changes in his lower extremity edema. Patient does report his edema fluctuates daily if he is on his feet more, but it is currently at baseline. Upon arrival to our facility, patient underwent evaluation in the emergency department. Vital signs upon arrival show blood pressure 161/76, heart rate 82, respiratory rate 20, temp 97.9 F, and SpO2 of 99% on room air. EKG was completed showing atrial fibrillation with a controlled ventricular rate of 79 bpm with frequent PVCs and a right bundle branch block. Chest x-ray completed showing prominent pulmonary vascular congestion and right sided subpulmonic pleural fluid possibly present. Labs completed and reviewed. CBC showing microcytic anemia with hemoglobin of 10.5, MCV 78.2, MCH 24.6, and MCHC of 31.4. Coagulation profile normal findings. BMP showing hypokalemia with potassium of 3.3 and renal function consistent with known CKD stage IV with BUN of 74, creatinine 2.14, GFR of 29. Liver profile unremarkable. Magnesium 2.1. Calcium 9.5. Troponin was elevated at 0.259. Patient started on low intensity heparin infusion for treatment of NSTEMI and was admitted under services with consultation to cardiology. Troponins trended and flat resulting at 0.259, 0.230, and 0.259. proBNP 23,800. Ultrasound completed showing a 9.4 cm fluid collection that was marked for possible thoracentesis. Physical exam: Patient seen and fully evaluated at bedside this morning. He was resting comfortably in bed at this time and currently denies having any complaints. Per RN and patient patient had what appears to be a vasovagal episode while ambulating with PT patient was hypotensive and bradycardic with heart rate decreasing down into the 40s and patient reportedly passed out. Episode was reported to be brief only lasting a few seconds. Patient did not fall and was safely assisted back down into chair with no injuries reported. After brief epi sode of loss of consciousness patient denied having any complaints including headache, lightheadedness, dizziness, chest pain, palpitations, shortness of breath, numbness/tingling/focal weakness in his extremities. Patient continues to report continued generalized weakness and fatigue, but otherwise denies chest pain, shortness of breath or any other complaints at this time. Vital signs reviewed and stable. Currently blood pressure 132/60, heart rate 43, respiratory rate 16, temp 97.7 F, and SpO2 of 100% on room air. General: Nontoxic, no distress and appears stated age. Derm: Skin warm and dry, normal coloration for ethnicity. Head: Atraumatic, normocephalic and symmetric. Eyes: EOM's intact, no lid lag, and anicteric sclera Mouth: no lip lesions, mucus membranes moist Cardiovascular: regular rate and rhythm with normal S1S2, systolic murmur, positive posterior tibial pulses bilaterally, and cap refill < 2 seconds. Lungs: Respirations even, regular, and unlabored on room air. Lungs diminished, no rhonchi, no rales, no wheezing, and no accessory muscle usage. Abdominal: soft, nontender to palpation, no guarding, no appreciable organomegaly Ext: ROM intact. No gross muscle atrophy, 1+ pitting bilateral lower extremity edema, no contractures Neuro: Speech clear, face symmetrical and CN II-XII grossly intact with no noted focal neuro deficits Psych: Alert and oriented to person, place, time, and situation. Appropriate and pleasant affect. Assessment and Plan of Care: Elevated troponins, flat. Likely type II NSTEMI Acute on chronic systolic heart failure Ischemic cardiomyopathy with a EF of 30% History of CAD status post stenting History of cardiac arrest in 2013 Valvular heart disease with atrial septal defect Chronic atrial fibrillation Hypertension Hyperlipidemia -Cardiology following, discussed plan of care with cardiac GENERAL SUPERINTENDENT. Patient to undergo cardiac catheterization later today per -Telemetry monitoring -Troponins trended resulting at 0.259, 0.230, and 0.259. proBNP 23,800. -Continue low intensity heparin infusion with close monitoring of PTT every 6 hours for goal therapeutic range of 45 to 79 seconds. -Continue cardiac medication regimen with aspirin 81 mg daily, atorvastatin 40 mg nightly, Jardiance 10 mg daily, Lasix 60 mg daily, hydralazine 25 mg 4 times daily, and isosorbide mononitrate 30 mg daily. Brief episode of loss of consciousness, likely syncope from vasovagal episode resulting from orthostatic hypotension vs cardiogenic from bradycardia - Obtain orthostatic vitals. - Patient to remain on continuous telemetry monitoring. EKG completed at time of episode and personally reviewed showing atrial fibrillation with a slow ventricular response at 52 bpm and a right bundle branch block and new onset T wave inversion in septal lead V2. - Discussed episode of LOC with cardiology GENERAL SUPERINTENDENT stating Coreg was discontinued and patient is still scheduled to undergo heart catheterization later today. Maintain fall precautions Physical and Occupational Therapy following. Right-sided subpulmonic pleural effusion Ultrasound completed showing a 9.4 cm fluid collection that was marked for possible thoracentesis. Pulmonology consulted, discussed plan of care with Dr. Queen. No need for thoracentesis at this time. Continue Lasix 60 mg daily - Monitor pulse ox and provide patient with supplemental oxygen if needed to maintain SpO2 equal to or greater than 90%. Microcytic anemia secondary to iron deficiency anemia with history of recent GI bleed and history of colon cancer status post bowel resection Hemoglobin 10.5 which appears stable from previous hemoglobin drawn on 08/29/2024 resulting at 10.8. Continue to monitor hemoglobin levels closely with repeat a.m. labs. GI prophylaxis with Protonix 40 mg daily. Continue Niferex iron supplementation daily. Insulin-dependent diabetes mellitus Patient placed on glycemic protocol with NovoLog sliding scale. Follow-up on hemoglobin A1c results. CKD stage IV Renal function appears to be slightly higher than baseline with BUN of 78, creatinine of 2.37, GFR of 26 with baseline creatinine of 2.1. Nephrology following Will use nephrotoxic medications cautiously and continue to monitor renal function closely with repeat a.m. labs. Fall at home prior to arrival History of CVA - Patient initially told ED staff he did not hit head or lose consciousness upon examination patient then stating to both myself and RN that he is unsure if he hit his head or lost consciousness but did not think so. - CT brain revealing hypoattenuation changes slightly more subtle in the right frontal parietal parenchyma abutting areas of encephalomalacia likely reactive presenting remote injury changes patient cerebellum relating to prior injuries, however no reported acute intracranial process. Patient does have known history of previous CVA Continue daily aspirin and atorvastatin. Maintain fall precautions Consult placed to physical and Occupational Therapy secondary to generalized weakness and recurrent falls at home Data and imaging reviewed: Labs reviewed. CBC showing stable microcytic anemia with hemoglobin of 9.5. PTT supratherapeutic at 148.0. BMP showing slight worsening of renal function with BUN of 78, creatinine of 2.37, and GFR of 26. Blood glucose 114. Calcium 9.6. Magnesium 2.1 Vital signs reviewed. Blood pressure 132/60, heart rate 43, respiratory rate 16, temp 97.7 F, and SpO2 of 100% on room air CODE STATUS: Full code DVT prophylaxis: Heparin infusion Discussed with: Patient, RN, and Dr. Mckeon, poke in Anticipated discharge date: Pending clinical course Anticipated discharge place: Pending clinical course Patient was seen independently by Nurse Practitioner. This document was prepared using [employer] dictation software. Please allow for errors in geriatric case manager while rare they do occur. Vin Murphy NP rendered care for this patient independently, reviewed the findings and plan as documented in the note above and agree with plan. I did not physically speak with or examine the patient on this date. Objective - Vital Signs Vital signs: Vital Signs Temp 97.6 F 09/16/24 08:00 Pulse 50 L 09/16/24 08:00 Resp 16 09/16/24 08:00 BP 118/61 09/16/24 08:00 Pulse Ox 100 09/16/24 08:00 FiO2 Intake & Output 09/15/24 09/16/24 09/16/24 18:59 06:59 18:59 Intake Total 692.5 0 205.5 Output Total 500 500 Balance 192.5 -500 205.5 Weight 94.8 kg Intake: Intake, IV Titration 212.5 205.5 Amount Heparin Sod,Pork in 0.45% 212.5 205.5 NaCl 25,000 unit In 0.45 % NaCl 1 250ml.bag @ 10. 498 UNITS/KG/HR 10 mls/hr IV .Q24H REZA Rx#: [id number] Oral 480 0 Output: Urine 500 500 Other: Voiding Method Urinal Urinal # Voids 3 - Labs CBC & Chem 7: 09/16/24 09:49 09/16/24 09:49 Labs: Abnormal Lab Results - Last 24 Hours (Table) 09/15/24 09/15/24 09/15/24 Range/Units 07:49 07:49 07:49 INR 1.2 H (<1.2) APTT (22.0-30.0) sec BUN 73 H (9-20) mg/dL Creatinine 2.21 H (0.66-1.25) mg/dL Glucose 134 H (74-99) mg/dL POC Glucose (mg/dL) (70-110) mg/dL Hemoglobin A1c 7.7 H (<=6.0) % Iron (65-175) UG/DL % Saturation (15.00-50.00) Transferrin (204.0-354.0) mg/dL 09/15/24 09/15/24 09/15/24 Range/Units 07:49 07:49 11:43 INR (<1.2) APTT 62.9 H (22.0-30.0) sec BUN (9-20) mg/dL Creatinine (0.66-1.25) mg/dL Glucose (74-99) mg/dL POC Glucose (mg/dL) 150 H (70-110) mg/dL Hemoglobin A1c (<=6.0) % Iron 25 L (65-175) UG/DL % Saturation 9.62 L (15.00-50.00) Transferrin 186.0 L (204.0-354.0) mg/dL 09/15/24 09/15/24 09/16/24 Range/Units 16:20 20:53 06:02 INR (<1.2) APTT (22.0-30.0) sec BUN (9-20) mg/dL Creatinine (0.66-1.25) mg/dL Glucose (74-99) mg/dL POC Glucose (mg/dL) 230 H 165 H 125 H (70-110) mg/dL Hemoglobin A1c (<=6.0) % Iron (65-175) UG/DL % Saturation (15.00-50.00) Transferrin (204.0-354.0) mg/dL 09/16/24 Range/Units 07:04 INR (<1.2) APTT 148.0 H* (22.0-30.0) sec BUN (9-20) mg/dL Creatinine (0.66-1.25) mg/dL Glucose (74-99) mg/dL POC Glucose (mg/dL) (70-110) mg/dL Hemoglobin A1c (<=6.0) % Iron (65-175) UG/DL % Saturation (15.00-50.00) Transferrin (204.0-354.0) mg/dL
--- NOTE | 2024-09-16 13:13 | P.PN ---
Subjective Progress Note Date: 09/16/24 This is a 78-year male patient who is currently hospitalized for generalized weakness, shortness of breath, substernal chest heaviness and abnormal troponins at 0.2 x 3 respectively. The patient has chronic A-fib, coronary artery disease and cardiomyopathy with impaired LV function with an ejection fraction of 30% with moderate MR and TR. Patient also has chronic stage III/IV kidney disease. He had a recent hospitalization at [facility] and he was noted to have a pleural effusion on the left and the patient was given a thoracentesis with a total of 1.5 L of pleural fluid was aspirated. Repeat chest x-ray from this current admission showing cardiomegaly, small pleural effusion is also noted on the chest x-ray on the right. Based on that, the patient was given an ultrasound of the chest and a 4 cm pocket of fluid was noted in the right. Based on that, a pulmonary consultation was requested. The patient is currently on room air oxygen. Resting comfortably in bed. Denies having any significant shortness of breath. A1c has at 6.4 with a hemoglobin of 9.7 and platelet count of 51. INR is 1.2 and the patient is currently on IV heparin, of Eliquis with a BUN of 73 and a creatinine of 2.2 and a GFR of 28 and a sodium level of 138 and a potassium level of 3.7. The patient is on Lasix 60 mg p.o. daily. He remains on Coreg 6.25 mg p.o. twice a day, Farxiga 10 mg p.o. daily, and IV heparin. No pleurisy. No hemoptysis. No other new complaints otherwise for now. The patient is seen today September 16, 2024 in follow-up on the regular medical floor. He is currently sitting up in bed. Awake and alert in no acute distress. He is maintaining good O2 saturations up to the 100% on room air oxygen. He has been afebrile. Hemodynamically stable. White count 6.4. Hemo globin 9.5. Platelets 225. Sodium 138. Potassium 3.8. Bicarb 24. BUN 78. Creatinine 2.37. Glucose 114. He remains on heparin drip. Remains on oral diuretics. Currently net -300 mL balance. Objective - Vital Signs Vital signs: Vital Signs Temp 97.7 F 09/16/24 12:00 Pulse 43 L 06/09/25 12:00 Resp 16 09/16/24 12:00 BP 132/60 09/16/24 12:00 Pulse Ox 100 09/16/24 12:00 FiO2 Intake & Output 09/15/24 09/16/24 09/16/24 18:59 06:59 18:59 Intake Total 692.5 0 205.5 Output Total 500 500 Balance 192.5 -500 205.5 Weight 94.8 kg Intake: Intake, IV Titration 212.5 205.5 Amount Heparin Sod,Pork in 0.45% 212.5 205.5 NaCl 25,000 unit In 0.45 % NaCl 1 250ml.bag @ 10. 498 UNITS/KG/HR 10 mls/hr IV .Q24H [facility] Rx#: [id number] Oral 480 0 Output: Urine 500 500 Other: Voiding Method Urinal Urinal Urinal # Voids 3 - Exam GENERAL EXAM: Alert, pleasant 78-year-old male, on room air oxygen, comfortable in no apparent distress. HEAD: Normocephalic. EYES: Normal reaction of pupils, equal size. NOSE: Clear with pink turbinates. THROAT: No erythema or exudates. NECK: No masses, no JVD. CHEST: No chest wall deformity. LUNGS: Equal air entry with crackles in the right lung base. CVS: S1 and S2 normal with no audible murmur, regular rhythm. ABDOMEN: No hepatosplenomegaly, normal bowel sounds, no guarding or rigidity. SPINE: No scoliosis or deformity SKIN: No rashes CENTRAL NERVOUS SYSTEM: No focal deficits, tone is normal in all 4 extremities. EXTREMITIES: There is no peripheral edema. No clubbing, no cyanosis. Peripheral pulses are intact. - Labs CBC & Chem 7: 09/16/24 09:49 09/16/24 09:49 Labs: Abnormal Lab Results - Last 24 Hours (Table) 09/15/24 09/15/24 09/15/24 Range/Units 07:49 07:49 16:20 RBC (4.40-5.60) 10*6/uL Hgb (13.0-17.0) g/dL Hct (39.6-50.0) % MCV (80.0-97.0) fL MCH (27.0-32.0) pg MCHC (32.0-37.0) g/dL APTT (22.0-30.0) sec BUN (9-20) mg/dL Creatinine (0.66-1.25) mg/dL Glucose (74-99) mg/dL POC Glucose (mg/dL) 230 H (70-110) mg/dL Hemoglobin A1c 7.7 H (<=6.0) % Iron 25 L (65-175) UG/DL % Saturation 9.62 L (15.00-50.00) Transferrin 186.0 L (204.0-354.0) mg/dL 09/15/24 09/16/24 09/16/24 Range/Units 20:53 06:02 07:04 RBC (4.40-5.60) 10*6/uL Hgb (13.0-17.0) g/dL Hct (39.6-50.0) % MCV (80.0-97.0) fL MCH (27.0-32.0) pg MCHC (32.0-37.0) g/dL APTT 148.0 H* (22.0-30.0) sec BUN (9-20) mg/dL Creatinine (0.66-1.25) mg/dL Glucose (74-99) mg/dL POC Glucose (mg/dL) 165 H 125 H (70-110) mg/dL Hemoglobin A1c (<=6.0) % Iron (65-175) UG/DL % Saturation (15.00-50.00) Transferrin (204.0-354.0) mg/dL 09/16/24 09/16/24 09/16/24 Range/Units 09:49 09:49 11:30 RBC 3.88 L (4.40-5.60) 10*6/uL Hgb 9.5 L (13.0-17.0) g/dL Hct 30.8 L (39.6-50.0) % MCV 79.4 L (80.0-97.0) fL MCH 24.5 L (27.0-32.0) pg MCHC 30.8 L (32.0-37.0) g/dL APTT (22.0-30.0) sec BUN 78 H (9-20) mg/dL Creatinine 2.37 H (0.66-1.25) mg/dL Glucose 114 H (74-99) mg/dL POC Glucose (mg/dL) 124 H (70-110) mg/dL Hemoglobin A1c (<=6.0) % Iron (65-175) UG/DL % Saturation (15.00-50.00) Transferrin (204.0-354.0) mg/dL Assessment and Plan Assessment: Small right-sided pleural effusion, likely associated with heart failure and the patient has undergone a recent thoracentesis at [facility] Coronary artery disease, abnormal troponins, questionable NSTEMI, and the patient is being considered for cardiac catheterization CHF with systolic heart failure and an ejection fraction of 30% with moderate MR and TR Chronic atrial fibrillation, on Eliquis in the outpatient setting Diabetes mellitus type 2 Hypertension Hyperlipidemia Chronic stage IV kidney disease Previous history of colon cancer/bowel obstruction back in 2005, resected Previous history of DVT Anemia of chronic disease Plan: The patient was seen and evaluated Chest x-ray, labs and medications reviewed Ultrasound of the chest reviewed Stable and on room air oxygen No plans for thoracentesis at this time Continue oral diuretics Remains on a heparin drip Remains on Farxiga Remains on aspirin and statin Renal function slightly worsened Nephrology is following Being considered for possible cardiac catheterization The plan was discussed with the patient and his family who are at the bedside This patient was seen independently by the pulmonary nurse practitioner addressing pulmonary issues I have personally seen and examined the patient, performed the documentation and the assessment and plan as written. Number of minutes spent on the visit: 25 Dictation was produced using [employer]chor[employer] dictation software. Please excuse any gra mmatical, word or spelling errors.
--- NOTE | 2024-09-16 13:35 | P.PN ---
Subjective HISTORY OF PRESENT ILLNESS: 78-year-old male known to Dr. Ruggiero. 1 week ago patient was hospitalized for the acute on chronic anemia with concerns of possible GI bleeding. He had an upper GI endoscopy which showed duodenal ulcer with evidence of bleeding done by Dr. Restrepo. He also was found to have cardiomyopathy with a EF of 30% on last admission with moderate MR moderate TR. For this he was scheduled for an ischemic evaluation with a heart cath on of this month with Dr. Ruggiero as an outpatient. Today he presented to the hospital because of increased worsening generalized weakness for last few days along with an episode of fall. He reports that he did not pass out but felt very weak in his legs and was not able to sustain his weight. He is also been reporting substernal chest heaviness. On this admission troponin was checked and it was elevated at 0.2. Creatinine was 2.1. On review of his old record reports like creatinine is somewhat at baseline. EKG shows atrial fibrillation heart rate 79, right bundle branch block with nonspecific ST changes and PVC. chest x-ray showsSmall right pleural effusion, mild increased interstitial markings with mild fluid in the right fissure. Heart cath 2016 showed LEGAL RECRUITER's of RCA, intermediate disease in mid LAD patent stent in distal LAD 09/16/2024 Patient examined this morning at the bedside. Patient currently denies any chest pain or pressure. He denies any shortness of breath. Patient did have a vasovagal episode this morning when walking with physical therapy. Telemetry reveals atrial fibrillation with slow ventricular rate in the 50s. PHYSICAL EXAM: VITAL SIGNS: Reviewed. GENERAL: Well-developed in no acute distress. NECK: Supple. No JVD or thyromegaly LUNGS: Respirations even and unlabored. Lungs essentially clear to auscultation bilaterally. HEART: Irregular rate and rhythm. S1 and S2 heard. EXTREMITIES: Normal range of motion. No clubbing or cyanosis. Peripheral pulses intact. No lower extremity edema ASSESSMENT: Non-STEMI Known CAD with LEGAL RECRUITER of RCA with moderate nonobstructive disease in LAD mid, distal patent stent from 2017 Valvular heart disease with moderate MR, mild AR, moderate TR Paroxysmal atrial fibrillation Bradycardia with heart rates in the 50s Brief episode of loss of consciousness, suspect vasovagal versus significant bradycardia History of syncope Anemia with recent evidence of GI bleeding 08/30/2024 with bleeding duodenal ulcer Ischemic cardiomyopathy, 30 to 35% Chronic kidney disease PLAN: Per Dr. Mauro, give 200cc IVF bolus then fluids at 100cc/hr Eliquis remains on hold. Currently on IV heparin. May DC due to cath scheduled for today. Discontinue coreg today. Will re-evaluate tomorrow to see about reinitiating on decreased dose Continue additional cardiac medications including aspirin, Lipitor, Farxiga, La six, hydralazine, and Imdur Patient scheduled for cardiac catheterization today with Dr. Leal Further recommendations pending patient course Nurse practitioner note has been reviewed by physician. Signing provider agrees with the documented findings, assessment, and plan of care documented by CRUMB PACKER as a scribe. Objective - Vital Signs Vital signs: Vital Signs Temp 97.7 F 09/16/24 12:00 Pulse 43 L 09/16/24 12:00 Resp 16 09/16/24 12:00 BP 132/60 09/16/24 12:00 Pulse Ox 100 09/16/24 12:00 FiO2 Intake & Output 09/15/24 09/16/24 09/16/24 18:59 06:59 18:59 Intake Total 692.5 0 205.5 Output Total 500 500 Balance 192.5 -500 205.5 Weight 94.8 kg Intake: Intake, IV Titration 212.5 205.5 Amount Heparin Sod,Pork in 0.45% 212.5 205.5 NaCl 25,000 unit In 0.45 % NaCl 1 250ml.bag @ 10. 498 UNITS/KG/HR 10 mls/hr IV .Q24H [facility] Rx#: [id number] Oral 480 0 Output: Urine 500 500 Other: Voiding Method Urinal Urinal Urinal # Voids 3 - Labs CBC & Chem 7: 09/16/24 09:49 09/16/24 09:49 Labs: Abnormal Lab Results - Last 24 Hours (Table) 09/15/24 09/15/24 09/15/24 Range/Units 07:49 16:20 20:53 RBC (4.40-5.60) 10*6/uL Hgb (13.0-17.0) g/dL Hct (39.6-50.0) % MCV (80.0-97.0) fL MCH (27.0-32.0) pg MCHC (32.0-37.0) g/dL APTT (22.0-30.0) sec BUN (9-20) mg/dL Creatinine (0.66-1.25) mg/dL Glucose (74-99) mg/dL POC Glucose (mg/dL) 230 H 165 H (70-110) mg/dL Iron 25 L (65-175) UG/DL % Saturation 9.62 L (15.00-50.00) Transferrin 186.0 L (204.0-354.0) mg/dL 09/16/24 09/16/24 09/16/24 Range/Units 06:02 07:04 09:49 RBC 3.88 L (4.40-5.60) 10*6/uL Hgb 9.5 L (13.0-17.0) g/dL Hct 30.8 L (39.6-50.0) % MCV 79.4 L (80.0-97.0) fL MCH 24.5 L (27.0-32.0) pg MCHC 30.8 L (32.0-37.0) g/dL APTT 148.0 H* (22.0-30.0) sec BUN (9-20) mg/dL Creatinine (0.66-1.25) mg/dL Glucose (74-99) mg/dL POC Glucose (mg/dL) 125 H (70-110) mg/dL Iron (65-175) UG/DL % Saturation (15.00-50.00) Transferrin (204.0-354.0) mg/dL 09/16/24 09/16/24 Range/Units 09:49 11:30 RBC (4.40-5.60) 10*6/uL Hgb (13.0-17.0) g/dL Hct (39.6-50.0) % MCV (80.0-97.0) fL MCH (27.0-32.0) pg MCHC (32.0-37.0) g/dL APTT (22.0-30.0) sec BUN 78 H (9-20) mg/dL Creatinine 2.37 H (0.66-1.25) mg/dL Glucose 114 H (74-99) mg/dL POC Glucose (mg/dL) 124 H (70-110) mg/dL Iron (65-175) UG/DL % Saturation (15.00-50.00) Transferrin (204.0-354.0) mg/dL
--- NOTE | 2024-09-16 15:04 | P.PN ---
Subjective Patient is seen for follow-up of chronic kidney disease. He is scheduled for cardiac catheterization today. This morning blood pressure was low while walking with PT and patient received a fluid bolus. Serum creatinine 2.3 today No significant complaints currently. Objective - Vital Signs Vital signs: Vital Signs Temp 97.7 F 09/16/24 12:00 Pulse 43 L 09/16/24 12:00 Resp 16 09/16/24 12:00 BP 132/60 09/16/24 12:00 Pulse Ox 100 09/16/24 12:00 FiO2 Intake & Output 09/15/24 09/16/24 09/16/24 18:59 06:59 18:59 Intake Total 692.5 0 205.5 Output Total 500 500 Balance 192.5 -500 205.5 Weight 94.8 kg Intake: Intake, IV Titration 212.5 205.5 Amount Heparin Sod,Pork in 0.45% 212.5 205.5 NaCl 25,000 unit In 0.45 % NaCl 1 250ml.bag @ 10. 498 UNITS/KG/HR 10 mls/hr IV .Q24H [facility] Rx#: [id number] Oral 480 0 Output: Urine 500 500 Other: Voiding Method Urinal Urinal Urinal # Voids 3 - Exam Patient is awake, comfortable, no acute distress Examination of the heart S1 and S2 Examination of the lungs bilateral breath sounds are heard Abdomen is soft nontender Examination of lower extremities shows no evidence of edema [employer] exam grossly intact - Labs CBC & Chem 7: 09/16/24 09:49 09/16/24 09:49 Labs: Abnormal Lab Results - Last 24 Hours (Table) 09/15/24 09/15/24 09/15/24 Range/Units 07:49 16:20 20:53 RBC (4.40-5.60) 10*6/uL Hgb (13.0-17.0) g/dL Hct (39.6-50.0) % MCV (80.0-97.0) fL MCH (27.0-32.0) pg MCHC (32.0-37.0) g/dL APTT (22.0-30.0) sec BUN (9-20) mg/dL Creatinine (0.66-1.25) mg/dL Glucose (74-99) mg/dL POC Glucose (mg/dL) 230 H 165 H (70-110) mg/dL Iron 25 L (65-175) UG/DL % Saturation 9.62 L (15.00-50.00) Transferrin 186.0 L (204.0-354.0) mg/dL 09/16/24 09/16/24 09/16/24 Range/Units 06:02 07:04 09:49 RBC 3.88 L (4.40-5.60) 10*6/uL Hgb 9.5 L (13.0-17.0) g/dL Hct 30.8 L (39.6-50.0) % MCV 79.4 L (80.0-97.0) fL MCH 24.5 L (27.0-32.0) pg MCHC 30.8 L (32.0-37.0) g/dL APTT 148.0 H* (22.0-30.0) sec BUN (9-20) mg/dL Creatinine (0.66-1.25) mg/dL Glucose (74-99) mg/dL POC Glucose (mg/dL) 125 H (70-110) mg/dL Iron (65-175) UG/DL % Saturation (15.00-50.00) Transferrin (204.0-354.0) mg/dL 09/16/24 09/16/24 Range/Units 09:49 11:30 RBC (4.40-5.60) 10*6/uL Hgb (13.0-17.0) g/dL Hct (39.6-50.0) % MCV (80.0-97.0) fL MCH (27.0-32.0) pg MCHC (32.0-37.0) g/dL APTT (22.0-30.0) sec BUN 78 H (9-20) mg/dL Creatinine 2.37 H (0.66-1.25) mg/dL Glucose 114 H (74-99) mg/dL POC Glucose (mg/dL) 124 H (70-110) mg/dL Iron (65-175) UG/DL % Saturation (15.00-50.00) Transferrin (204.0-354.0) mg/dL Assessment and Plan Assessment: 1. Chronic kidney disease stage IV secondary to nephrosclerosis with baseline creatinine around 2 mg/dL. Renal function is close to baseline. 2. Non-ST elevation [place] being considered for cardiac catheterization tomorrow 3. Hypertension with CKD stage IV, blood pressure currently on the lower side 4. Ischemic cardiomyopathy with a EF of 30% 5. Anemia of chronic disease with significant iron deficiency noted Plan: Okay to proceed with cardiac catheterization. Renal function is at baseline Avoid hypotension Repeat labs in a.m. Continue Aranesp Add iron supplementation
[2024-09-16 16:52] LABS: Glucose,Whole Blood 207 mg/dL (70-110)
[2024-09-16 20:53] LABS: Glucose,Whole Blood 186 mg/dL (70-110)
[2024-09-16] MEDS ORDERED: HEPARIN SODIUM 1,000 UN/ML (10ML VL) IV PRN (21:28)
[2024-09-16] MEDS: HEPARIN SOD,PORK IN 0.45% NACL 25,000 UNIT in 0.45% NACL 1 250ML.BAG IV SCH (22:08)
[2024-09-17 03:00] LABS: HGB 9.3 g/dL (13.0-17.0); MCH 23.5 pg (27.0-32.0); MCV 78.5 fL (80.0-97.0); Mean Platelet Volume 9.9 fL (9.5-12.2); Platelet Count 216 10*3/uL (140-440); RBC 3.95 10*6/uL (4.40-5.60); RDW 18.1 % (11.5-14.5)
[2024-09-17 03:34] LABS: African American GFR (CKD) 32 (>60 ml/min/1.73 sqM); Anion Gap 12 mmol/L; Blood Urea Nitrogen 82 mg/dL (9-20); Calcium 9.6 mg/dL (8.4-10.2); Carbon Dioxide 24 mmol/L (22-30); Chloride 100 mmol/L (98-107); Glucose 124 mg/dL (74-99); Magnesium 2.1 mg/dL (1.6-2.3); Non-African American GFR(CKD) 27 (>60 ml/min/1.73 sqM); Potassium 3.9 mmol/L (3.5-5.1); Sodium 136 mmol/L (137-145)
[2024-09-17 06:21] LABS: Glucose,Whole Blood 124 mg/dL (70-110)
[2024-09-17] MEDS: ATORVASTATIN 80 MG TAB PO STA (09:27)
[2024-09-17] MEDS: ASPIRIN 81 MG PO STA (09:28)
--- NOTE | 2024-09-17 11:00 | P.PN ---
Subjective HISTORY OF PRESENT ILLNESS: 78-year-old male known to Dr. Ruggiero. 1 week ago patient was hospitalized for the acute on chronic anemia with concerns of possible GI bleeding. He had an upper GI endoscopy which showed duodenal ulcer with evidence of bleeding done by Dr. Restrpeo. He also was found to have cardiomyopathy with a EF of 30% on last admission with moderate MR moderate TR. For this he was scheduled for an ischemic evaluation with a heart cath on of this month with Dr. Ruggiero as an outpatient. Today he presented to the hospital because of increased worsening generalized weakness for last few days along with an episode of fall. He reports that he did not pass out but felt very weak in his legs and was not able to sustain his weight. He is also been reporting substernal chest heaviness. On this admission troponin was checked and it was elevated at 0.2. Creatinine was 2.1. On review of his old record reports like creatinine is somewhat at baseline. EKG shows atrial fibrillation heart rate 79, right bundle branch block with nonspecific ST changes and PVC. chest x-ray showsSmall right pleural effusion, mild increased interstitial markings with mild fluid in the right fissure. 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 Patient currently denies any chest pain or pressure. He denies any shortness of breath. Patient did have a vasovagal episode this morning when walking with physical therapy. Telemetry reveals atrial fibrillation with slow ventricular rate in the 50s. 09/17/2024 Patient seen and examined resting comfortably in bed in no acute distress. Heart rate remains in the 50s on telemetry, sinus rhythm. Coreg has been discontinued. He will have a cardiac catheterization later today with Dr. Ruggiero. Blood pressure 137/67 heart rate 54 afebrile maintaining oxygen saturation on room air. PHYSICAL EXAM: VITAL SIGNS: Reviewed GENERAL: Well-developed in no acute distress. NECK: Supple. No JVD or thyromegaly LUNGS: Respirations even and unlabored. Lungs essentially clear to auscultation bilaterally. HEART: Irregular rate and rhythm. S1 and S2 heard. EXTREMITIES: Normal range of motion. No clubbing or cyanosis. Peripheral pulses intact. 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 Leal Further recommendations pending patient course Nurse practitioner note has been reviewed by physician. Signing provider agrees with the documented findings, assessment, and plan of care documented by CS ASSOCIATE as a scribe. Objective - Vital Signs Vital signs: Vital Signs Temp 97.8 F 09/17/24 08:45 Pulse 54 L 09/17/24 08:45 Resp 16 09/17/24 08:45 BP 137/69 09/17/24 08:45 Pulse Ox 100 09/17/24 08:45 FiO2 Intake & Output 09/16/24 09/17/24 09/17/24 18:59 06:59 18:59 Intake Total 215.5 90.333 0 Output Total 200 400 Balance 15.5 -309.667 0 Weight 95.8 kg Intake: IV 10 20 Invasive Line 1 10 20 Intake, IV Titration 205.5 70.333 0 Amount Heparin Sod,Pork in 0.45% 205.5 NaCl 25,000 unit In 0.45 % NaCl 1 250ml.bag @ 10. 498 UNITS/KG/HR 10 mls/hr IV .Q24H [facility] Rx#: [id number] Heparin Sod,Pork in 0.45% 70.333 0 NaCl 25,000 unit In 0.45 % NaCl 1 250ml.bag @ 10. 5485 UNITS/KG/HR 10 mls/ hr IV .Q24H [facility] Rx#: [id number] Output: Urine 200 400 Other: Voiding Method Urinal Urinal # Bowel Movements 1 - Labs CBC & Chem 7: 09/17/24 02:48 09/17/24 02:48 Labs: Abnormal Lab Results - Last 24 Hours (Table) 09/16/24 09/16/24 09/16/24 Range/Units 09:49 11:30 16:50 RBC (4.40-5.60) 10*6/uL Hgb (13.0-17.0) g/dL Hct (39.6-50.0) % MCV (80.0-97.0) fL MCH (27.0-32.0) pg MCHC (32.0-37.0) g/dL APTT (22.0-30.0) sec Sodium (137-145) mmol/L BUN 78 H (9-20) mg/dL Creatinine 2.37 H (0.66-1.25) mg/dL Glucose 114 H (74-99) mg/dL POC Glucose (mg/dL) 124 H 207 H (70-110) mg/dL 09/16/24 09/17/24 09/17/24 Range/Units 20:52 02:48 02:48 RBC 3.95 L (4.40-5.60) 10*6/uL Hgb 9.3 L (13.0-17.0) g/dL Hct 31.0 L (39.6-50.0) % MCV 78.5 L (80.0-97.0) fL MCH 23.5 L (27.0-32.0) pg MCHC 30.0 L (32.0-37.0) g/dL APTT (22.0-30.0) sec Sodium 136 L (137-145) mmol/L BUN 82 H (9-20) mg/dL Creatinine 2.25 H (0.66-1.25) mg/dL Glucose 124 H (74-99) mg/dL POC Glucose (mg/dL) 186 H (70-110) mg/dL 09/17/24 09/17/24 Range/Units 02:48 06:19 RBC (4.40-5.60) 10*6/uL Hgb (13.0-17.0) g/dL Hct (39.6-50.0) % MCV (80.0-97.0) fL MCH (27.0-32.0) pg MCHC (32.0-37.0) g/dL APTT 33.6 H (22.0-30.0) sec Sodium (137-145) mmol/L BUN (9-20) mg/dL Creatinine (0.66-1.25) mg/dL Glucose (74-99) mg/dL POC Glucose (mg/dL) 124 H (70-110) mg/dL
[2024-09-17 11:13] LABS: Glucose,Whole Blood 126 mg/dL (70-110)
--- NOTE | 2024-09-17 12:42 | P.PN ---
Subjective Patient is seen for follow-up of chronic kidney disease. He is scheduled for cardiac catheterization today. Blood pressures have been within normal range. No hypotension noted. Serum creatinine 2.25 today No significant complaints currently. Objective - Vital Signs Vital signs: Vital Signs Temp 97.8 F 09/17/24 08:45 Pulse 93 09/17/24 12:36 Resp 16 09/17/24 12:36 BP 143/72 09/17/24 12:36 Pulse Ox 98 09/17/24 12:36 FiO2 Intake & Output 09/16/24 09/17/24 09/17/24 18:59 06:59 18:59 Intake Total 215.5 90.333 0 Output Total 200 400 Balance 15.5 -309.667 0 Weight 95.8 kg Intake: IV 10 20 Invasive Line 1 10 20 Intake, IV Titration 205.5 70.333 0 Amount Heparin Sod,Pork in 0.45% 205.5 NaCl 25,000 unit In 0.45 % NaCl 1 250ml.bag @ 10. 498 UNITS/KG/HR 10 mls/hr IV .Q24H [facility] Rx#: [id number] Heparin Sod,Pork in 0.45% 70.333 0 NaCl 25,000 unit In 0.45 % NaCl 1 250ml.bag @ 10. 5485 UNITS/KG/HR 10 mls/ hr IV .Q24H [facility] Rx#: [id number] Output: Urine 200 400 Other: Voiding Method Urinal Urinal Urinal # Bowel Movements 1 - Exam Patient is awake, comfortable, no acute distress Examination of the heart S1 and S2 Examination of the lungs bilateral breath sounds are heard Abdomen is soft nontender Examination of lower extremities shows no evidence of edema RETAIL AND RESTAURANT ASSOCIATE exam grossly intact - Labs CBC & Chem 7: 09/17/24 02:48 09/17/24 02:48 Labs: Abnormal Lab Results - Last 24 Hours (Table) 09/16/24 09/16/24 09/17/24 Range/Units 16:50 20:52 02:48 RBC 3.95 L (4.40-5.60) 10*6/uL Hgb 9.3 L (13.0-17.0) g/dL Hct 31.0 L (39.6-50.0) % MCV 78.5 L (80.0-97.0) fL MCH 23.5 L (27.0-32.0) pg MCHC 30.0 L (32.0-37.0) g/dL APTT (22.0-30.0) sec Sodium (137-145) mmol/L BUN (9-20) mg/dL Creatinine (0.66-1.25) mg/dL Glucose (74-99) mg/dL POC Glucose (mg/dL) 207 H 186 H (70-110) mg/dL 09/17/24 09/17/24 09/17/24 Range/Units 02:48 02:48 06:19 RBC (4.40-5.60) 10*6/uL Hgb (13.0-17.0) g/dL Hct (39.6-50.0) % MCV (80.0-97.0) fL MCH (27.0-32.0) pg MCHC (32.0-37.0) g/dL APTT 33.6 H (22.0-30.0) sec Sodium 136 L (137-145) mmol/L BUN 82 H (9-20) mg/dL Creatinine 2.25 H (0.66-1.25) mg/dL Glucose 124 H (74-99) mg/dL POC Glucose (mg/dL) 124 H (70-110) mg/dL 09/17/24 Range/Units 11:12 RBC (4.40-5.60) 10*6/uL Hgb (13.0-17.0) g/dL Hct (39.6-50.0) % MCV (80.0-97.0) fL MCH (27.0-32.0) pg MCHC (32.0-37.0) g/dL APTT (22.0-30.0) sec Sodium (137-145) mmol/L BUN (9-20) mg/dL Creatinine (0.66-1.25) mg/dL Glucose (74-99) mg/dL POC Glucose (mg/dL) 126 H (70-110) mg/dL Assessment and Plan Assessment: 1. Chronic kidney disease stage IV secondary to nephrosclerosis with baseline creatinine around 2 mg/dL. Renal function is close to baseline. 2. Non-ST elevation [place] being considered for cardiac catheterization tomorrow 3. Hypertension with CKD stage IV, blood pressure currently on the lower side 4. Ischemic cardiomyopathy with a EF of 30% 5. Anemia of chronic disease with significant iron deficiency noted Plan: Okay to proceed with cardiac catheterization. Renal function is at baseline Avoid hypotension Repeat labs in a.m. Continue Aranesp Add iron supplementation
--- NOTE | 2024-09-17 12:53 | P.PN ---
Subjective Progress Note Date: 09/17/24 Hospital Course: Patient is a very pleasant 78-year-old male with a past medical history of CAD status post stenting x 2, history of cardiac arrest in 2014, ischemic cardiomyopathy, chronic systolic congestive heart failure, valvular heart disease with atrial septal defect, chronic atrial fibrillation on anticoagulation with Eliquis, hypertension, hyperlipidemia, peripheral vascular disease, carotid stenosis status post R carotid endarterectomy, previous CVA, colon cancer status post bowel resection, insulin-dependent diabetes mellitus, stage IV CKD, DVT status post femoral thrombectomy, and previous CVA with no reported deficits. He presented to the emergency department with a chief complaint of chest pain. Patient reports he has been experiencing some generalized weakness, dizziness/lightheadedness, and fatigue over the past few days and today while ambulating from kitchen to the bathroom he had a fall. Patient admits to feeling weak and dizzy with some blurred vision prior to the fall, but believes he just lost his balance and fell. Patient reports he is u nsure if he hit his head or lost consciousness, but states "I do not think so". He reports immediately after falling he had pain to his chest. He reports initially the pain was throughout his entire chest and described as a heaviness or tightness. Patient denies sustaining any injuries or pain from the fall other than the chest pain. He reports he was supposed to be seen by Dr. Leal for heart cath on 09/23 secondary to recent ischemic workup and found to have cardiomyopathy with an EF of 30%. Patient reports the pain in his chest improved but remained as a heaviness to his midsternal chest so he came to the emergency department for evaluation. He denies having any fevers, chills, headache, changes in vision or hearing, palpitations, shortness of breath, cough or congestion, abdominal pain, nausea, vomiting, or experiencing any increased or changes in his lower extremity edema. Patient does report his edema fluctuates daily if he is on his feet more, but it is currently at baseline. Upon arrival to our facility, patient underwent evaluation in the emergency department. Vital signs upon arrival show blood pressure 161/76, heart rate 82, respiratory rate 20, temp 97.9 F, and SpO2 of 99% on room air. EKG was completed showing atrial fibrillation with a controlled ventricular rate of 79 bpm with frequent PVCs and a right bundle branch block. Chest x-ray completed showing prominent pulmonary vascular congestion and right sided subpulmonic pleural fluid possibly present. Labs completed and reviewed. CBC showing microcytic anemia with hemoglobin of 10.5, MCV 78.2, MCH 24.6, and MCHC of 31.4. Coagulation profile normal findings. BMP showing hypokalemia with potassium of 3.3 and renal function consistent with known CKD stage IV with BUN of 74, creatinine 2.14, GFR of 29. Liver profile unremarkable. Magnesium 2.1. Calcium 9.5. Troponin was elevated at 0.259. Patient started on low intensity heparin infusion for treatment of NSTEMI and was admitted under services with consultation to cardiology. Troponins trended and flat resulting at 0.259, 0.230, and 0.259. proBNP 23,800. Ultrasound completed showing a 9.4 cm fluid collection that was marked for possible thoracentesis. Physical exam: Patient seen and fully evaluated at bedside this morning. He was resting comfortably in bed at this time and currently denies having any complaints. He denies having any headache, lightheadedness, dizziness, chest pain, palpitations, shortness of breath, or experiencing any numbness/tingling/weakness in his extremities. Patient's daughter at bedside expressing frustration over delayed time for cardiac catheterization. Patient is scheduled to undergo cardiac catheterization later today. Vital signs reviewed and stable. Currently blood pressure 132/60, heart rate 43, respiratory rate 16, temp 97.7 F, and SpO2 of 100% on room air. General: Nontoxic, no distress and appears stated age. Derm: Skin warm and dry, normal coloration for ethnicity. Head: Atraumatic, normocephalic and symmetric. Eyes: EOM's intact, no lid lag, and anicteric sclera Mouth: no lip lesions, mucus membranes moist Cardiovascular: regular rate and rhythm with normal S1S2, systolic murmur, positive posterior tibial pulses bilaterally, and cap refill < 2 seconds. Lungs: Respirations even, regular, and unlabored on room air. Lungs diminished, no rhonchi, no rales, no wheezing, and no accessory muscle usage. Abdominal: soft, nontender to palpation, no guarding, no appreciable organomegaly Ext: ROM intact. No gross muscle atrophy, 1+ pitting bilateral lower extremity edema, no contractures Neuro: Speech clear, face symmetrical and CN II-XII grossly intact with no noted focal neuro deficits Psych: Alert and oriented to person, place, time, and situation. Appropriate and pleasant affect. Assessment and Plan of Care: Elevated troponins, flat. Likely type II NSTEMI Acute on chronic systolic heart failure Ischemic cardiomyopathy with a EF of 30% History of CAD status post stenting History of cardiac arrest in 2014 Valvular heart disease with atrial septal defect Chronic atrial fibrillation Hypertension Hyperlipidemia -Cardiology following, discussed plan of care with cardiac HOP GROWER. Patient to undergo cardiac catheterization later today per -Telemetry monitoring -Troponins trended resulting at 0.259, 0.230, and 0.259. proBNP 23,800. -Continue low intensity heparin infusion with close monitoring of PTT every 6 hours for goal therapeutic range of 45 to 79 seconds. -Continue cardiac medication regimen with aspirin 81 mg daily, atorvastatin 40 mg nightly, Jardiance 10 mg daily, Lasix 60 mg daily, hydralazine 25 mg 4 times daily, and isosorbide mononitrate 30 mg daily. Brief episode of loss of consciousness, likely syncope from vasovagal episode resulting from orthostatic hypotension vs cardiogenic from bradycardia - Obtain orthostatic vitals. - Patient to remain on continuous telemetry monitoring. EKG completed at time of episode and personally reviewed showing atrial fibrillation with a slow ventricular response at 52 bpm and a right bundle branch block and new onset T wave inversion in septal lead V2. - Discussed episode of LOC with cardiology HOP GROWER stating Coreg was discontinued and patient is still scheduled to undergo heart catheterization later today. Maintain fall precautions Physical and Occupational Therapy following. Right-sided subpulmonic pleural effusion Ultrasound completed showing a 9.4 cm fluid collection that was marked for possible thoracentesis. Pulmonology consulted, discussed plan of care with answerer stating No need for thoracentesis at this time. Continue Lasix 60 mg daily - Monitor pulse ox and provide patient with supplemental oxygen if needed to maintain SpO2 equal to or greater than 90%. Microcytic anemia secondary to iron deficiency anemia with history of recent GI bleed and history of colon cancer status post bowel resection Hemoglobin downtrending slightly but stable at 9.3. Continue to monitor hemoglobin levels closely with repeat a.m. labs. GI prophylaxis with Protonix 40 mg daily. Continue Niferex iron supplementation daily. Insulin-dependent diabetes mellitus Patient placed on glycemic protocol with NovoLog sliding scale. Follow-up on hemoglobin A1c results. CKD stage IV Renal function appears to be slightly higher than baseline with BUN of 82, creatinine of 2.25, GFR of 27 with baseline creatinine of 2.1. Nephrology following Will use nephrotoxic medications cautiously and continue to monitor renal function closely with repeat a.m. labs. Fall at home prior to arrival History of CVA - Patient initially told ED staff he did not hit head or lose consciousness upon initial examination patient then stated to both myself and RN that he is unsure if he hit his head or lost consciousness but did not think so. - CT brain revealing hypoattenuation changes slightly more subtle in the right frontal parietal parenchyma abutting areas of encephalomalacia likely reactive presenting remote injury changes patient cerebellum relating to prior injuries, however no reported acute intracranial process. Patient does have known history of previous CVA Continue daily aspirin and atorvastatin. Maintain fall precautions Consult placed to physical and Occupational Therapy secondary to generalized w eakness and recurrent falls at home Data and imaging reviewed: Labs reviewed. CBC showing stable microcytic anemia with hemoglobin of 9.3. PTT subtherapeutic at 33.6.. BMP consistent with CKD stage IV with BUN of 82, creatinine 2.25, GFR of 27. Blood glucose 124. Magnesium 2.1. Vital signs reviewed. Blood pressure 137/69, heart rate 54, respiratory rate 16, temp 97.8 F, and SpO2 100% on room air. Orthostatic vitals also completed and slightly positive for orthostatic hypotension with blood pressure supine 149/80, standing 133/78, and standing 130/76. CODE STATUS: Full code DVT prophylaxis: Heparin infusion Discussed with: Patient, RN, and cardiology HOP GROWER Anticipated discharge date: Pending clinical course Anticipated discharge place: Pending clinical course Patient was seen independently by Nurse Practitioner. This document was prepared using [employer] dictation software. Please allow for errors in arborist climber while rare they do occur. Vin Murphy NP rendered care for this patient independently, reviewed the findings and plan as documented in the note above and agree with plan. I did not physically speak with or examine the patient on this date. Objective - Vital Signs Vital signs: Vital Signs Temp 97.7 F 09/17/24 04:00 Pulse 57 L 09/17/24 04:00 Resp 16 09/17/24 04:00 BP 149/80 09/17/24 04:00 Pulse Ox 99 09/17/24 04:00 FiO2 Intake & Output 06/09/25 06/10/25 06/10/25 18:59 06:59 18:59 Intake Total 215.5 90.333 0 Output Total 200 400 Balance 15.5 -309.667 0 Weight 95.8 kg Intake: IV 10 20 Invasive Line 1 10 20 Intake, IV Titration 205.5 70.333 0 Amount Heparin Sod,Pork in 0.45% 205.5 NaCl 25,000 unit In 0.45 % NaCl 1 250ml.bag @ 10. 498 UNITS/KG/HR 10 mls/hr IV .Q24H REZA Rx#: [id number] Heparin Sod,Pork in 0.45% 70.333 0 NaCl 25,000 unit In 0.45 % NaCl 1 250ml.bag @ 10. 5485 UNITS/KG/HR 10 mls/ hr IV .Q24H REZA Rx#: [id number] Output: Urine 200 400 Other: Voiding Method Urinal Urinal # Bowel Movements 1 - Labs CBC & Chem 7: 09/17/24 02:48 09/17/24 02:48 Labs: Abnormal Lab Results - Last 24 Hours (Table) 09/16/24 09/16/24 09/16/24 Range/Units 09:49 09:49 11:30 RBC 3.88 L (4.40-5.60) 10*6/uL Hgb 9.5 L (13.0-17.0) g/dL Hct 30.8 L (39.6-50.0) % MCV 79.4 L (80.0-97.0) fL MCH 24.5 L (27.0-32.0) pg MCHC 30.8 L (32.0-37.0) g/dL APTT (22.0-30.0) sec Sodium (137-145) mmol/L BUN 78 H (9-20) mg/dL Creatinine 2.37 H (0.66-1.25) mg/dL Glucose 114 H (74-99) mg/dL POC Glucose (mg/dL) 124 H (70-110) mg/dL 09/16/24 09/16/24 09/17/24 Range/Units 16:50 20:52 02:48 RBC 3.95 L (4.40-5.60) 10*6/uL Hgb 9.3 L (13.0-17.0) g/dL Hct 31.0 L (39.6-50.0) % MCV 78.5 L (80.0-97.0) fL MCH 23.5 L (27.0-32.0) pg MCHC 30.0 L (32.0-37.0) g/dL APTT (22.0-30.0) sec Sodium (137-145) mmol/L BUN (9-20) mg/dL Creatinine (0.66-1.25) mg/dL Glucose (74-99) mg/dL POC Glucose (mg/dL) 207 H 186 H (70-110) mg/dL 09/17/24 09/17/24 09/17/24 Range/Units 02:48 02:48 06:19 RBC (4.40-5.60) 10*6/uL Hgb (13.0-17.0) g/dL Hct (39.6-50.0) % MCV (80.0-97.0) fL MCH (27.0-32.0) pg MCHC (32.0-37.0) g/dL APTT 33.6 H (22.0-30.0) sec Sodium 136 L (137-145) mmol/L BUN 82 H (9-20) mg/dL Creatinine 2.25 H (0.66-1.25) mg/dL Glucose 124 H (74-99) mg/dL POC Glucose (mg/dL) 124 H (70-110) mg/dL
--- NOTE | 2024-09-17 13:17 | P.PN ---
Subjective Progress Note Date: 09/17/24 This is a 78-year male patient who is currently hospitalized for generalized weakness, shortness of breath, substernal chest heaviness and abnormal troponins at 0.2 x 3 respectively. The patient has chronic A-fib, coronary artery disease and cardiomyopathy with impaired LV function with an ejection fraction of 30% with moderate MR and TR. Patient also has chronic stage III/IV kidney disease. He had a recent hospitalization at [facility] and he was noted to have a pleural effusion on the left and the patient was given a thoracentesis with a total of 1.5 L of pleural fluid was aspirated. Repeat chest x-ray from this current admission showing cardiomegaly, small pleural effusion is also noted on the chest x-ray on the right. Based on that, the patient was given an ultrasound of the chest and a 4 cm pocket of fluid was noted in the right. Based on that, a pulmonary consultation was requested. The patient is currently on room air oxygen. Resting comfortably in bed. Denies having any significant shortness of breath. A1c has at 6.4 with a hemoglobin of 9.7 and platelet count of 51. INR is 1.2 and the patient is currently on IV heparin, of Eliquis with a BUN of 73 and a creatinine of 2.2 and a GFR of 28 and a sodium level of 138 and a potassium level of 3.7. The patient is on Lasix 60 mg p.o. daily. He remains on Coreg 6.25 mg p.o. twice a day, Farxiga 10 mg p.o. daily, and IV heparin. No pleurisy. No hemoptysis. No other new complaints otherwise for now. The patient is seen today September 16, 2024 in follow-up on the regular medical floor. He is currently sitting up in bed. Awake and alert in no acute distress. He is maintaining good O2 saturations up to the 100% on room air oxygen. He has been afebrile. Hemodynamically stable. White count 6.4. Hemo globin 9.5. Platelets 225. Sodium 138. Potassium 3.8. Bicarb 24. BUN 78. Creatinine 2.37. Glucose 114. He remains on heparin drip. Remains on oral diuretics. Currently net -300 mL balance. The patient is seen today September 17, 2024 in follow-up on the selective care unit. He is currently resting in bed. Awake and alert in no acute distress. Maintaining good O2 saturations in the upper 90s on room air oxygen. Has been afebrile. Hemodynamically stable. Denies any chest pain currently. Denies any worsening shortness of breath, cough or congestion. White count 5.8. Hemoglobin 9.3. Platelets 216. Sodium 136. Potassium 3.9. Bicarb 24. BUN 82. Creatinine 2.25. Glucose 124. He remains on a heparin drip. Plan is for cardiac catheterization today. Coreg had been placed on hold due to bradycardia. He remains on oral diuretics. Currently in a -300 mL balance. Objective - Vital Signs Vital signs: Vital Signs Temp 97.8 F 09/17/24 08:45 Pulse 93 09/17/24 12:36 Resp 16 09/17/24 12:36 BP 143/72 09/17/24 12:36 Pulse Ox 98 09/17/24 12:36 FiO2 Intake & Output 09/16/24 09/17/24 09/17/24 18:59 06:59 18:59 Intake Total 215.5 90.333 0 Output Total 200 400 Balance 15.5 -309.667 0 Weight 95.8 kg Intake: IV 10 20 Invasive Line 1 10 20 Intake, IV Titration 205.5 70.333 0 Amount Heparin Sod,Pork in 0.45% 205.5 NaCl 25,000 unit In 0.45 % NaCl 1 250ml.bag @ 10. 498 UNITS/KG/HR 10 mls/hr IV .Q24H REZA Rx#: [id number] Heparin Sod,Pork in 0.45% 70.333 0 NaCl 25,000 unit In 0.45 % NaCl 1 250ml.bag @ 10. 5485 UNITS/KG/HR 10 mls/ hr IV .Q24H REZA Rx#: [id number] Output: Urine 200 400 Other: Voiding Method Urinal Urinal Urinal # Bowel Movements 1 - Exam GENERAL EXAM: Alert, 78-year-old male, resting in bed, on room air oxygen, comfortable in no apparent distress. HEAD: Normocephalic. EYES: Normal reaction of pupils, equal size. NOSE: Clear with pink turbinates. THROAT: No erythema or exudates. NECK: No masses, no JVD. CHEST: No chest wall deformity. LUNGS: Equal air entry with crackles in the right lung base. CVS: S1 and S2 normal with no audible murmur, regular rhythm. ABDOMEN: No hepatosplenomegaly, normal bowel sounds, no guarding or rigidity. SPINE: No scoliosis or deformity SKIN: No rashes CENTRAL NERVOUS SYSTEM: No focal deficits, tone is normal in all 4 extremities. EXTREMITIES: There is no peripheral edema. No clubbing, no cyanosis. Peripheral pulses are intact. - Labs CBC & Chem 7: 09/17/24 02:48 09/17/24 02:48 Labs: Abnormal Lab Results - Last 24 Hours (Table) 09/16/24 09/16/24 09/17/24 Range/Units 16:50 20:52 02:48 RBC 3.95 L (4.40-5.60) 10*6/uL Hgb 9.3 L (13.0-17.0) g/dL Hct 31.0 L (39.6-50.0) % MCV 78.5 L (80.0-97.0) fL MCH 23.5 L (27.0-32.0) pg MCHC 30.0 L (32.0-37.0) g/dL APTT (22.0-30.0) sec Sodium (137-145) mmol/L BUN (9-20) mg/dL Creatinine (0.66-1.25) mg/dL Glucose (74-99) mg/dL POC Glucose (mg/dL) 207 H 186 H (70-110) mg/dL 09/17/24 09/17/24 09/17/24 Range/Units 02:48 02:48 06:19 RBC (4.40-5.60) 10*6/uL Hgb (13.0-17.0) g/dL Hct (39.6-50.0) % MCV (80.0-97.0) fL MCH (27.0-32.0) pg MCHC (32.0-37.0) g/dL APTT 33.6 H (22.0-30.0) sec Sodium 136 L (137-145) mmol/L BUN 82 H (9-20) mg/dL Creatinine 2.25 H (0.66-1.25) mg/dL Glucose 124 H (74-99) mg/dL POC Glucose (mg/dL) 124 H (70-110) mg/dL 09/17/24 Range/Units 11:12 RBC (4.40-5.60) 10*6/uL Hgb (13.0-17.0) g/dL Hct (39.6-50.0) % MCV (80.0-97.0) fL MCH (27.0-32.0) pg MCHC (32.0-37.0) g/dL APTT (22.0-30.0) sec Sodium (137-145) mmol/L BUN (9-20) mg/dL Creatinine (0.66-1.25) mg/dL Glucose (74-99) mg/dL POC Glucose (mg/dL) 126 H (70-110) mg/dL Assessment and Plan Assessment: Small right-sided pleural effusion, likely associated with heart failure and the patient has undergone a recent thoracentesis at [facility] Coronary artery disease, abnormal troponins, NSTEMI, and the patient is being considered for cardiac catheterization Chronic systolic congestive heart failure and an ejection fraction of 30% with moderate MR and TR Chronic atrial fibrillation, on Eliquis in the outpatient setting Diabetes mellitus type 2 Hypertension Hyperlipidemia Chronic 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 Baseline creatinine around 2 Previous history of colon cancer/bowel obstruction back in 2005, resected Previous history of DVT Anemia of chronic disease Plan: The patient was seen and evaluated Labs and medications reviewed Stable and on room air oxygen No plans for thoracentesis at this time Continue diuretics Remains on a heparin drip Remains on Farxiga Remains on aspirin and statin Renal function noted Nephrology is following Being considered for cardiac catheterization today Patient and his family aware of the plan We will see on an as needed basis I have personally seen and examined the patient, performed the documentation and the assessment and plan as written. Number of minutes spent on the visit: 10 Dictation was produced using [employer] dictation software. Please excuse any grammatical, word or spelling errors.
[2024-09-17] MEDS: SODIUM FERRIC GLUCONAT-SUCROSE 125 MG in SODIUM CHLORIDE 0.9% 100 ML IVPB SCH (13:30)
[2024-09-17 16:26] LABS: Glucose,Whole Blood 208 mg/dL (70-110)
[2024-09-17] MEDS: LIDOCAINE 2% (PF) 20 MG/ML 5 ML VIAL SQ ONE (18:43)
[2024-09-17] MEDS: fentaNYL (PF) 50 MCG/1 ML VIAL IVP ONE ×2 (18:43→18:54)
[2024-09-17] MEDS: MIDAZOLAM 2 MG/2 ML VIAL IVP ONE (18:43)
[2024-09-17] MEDS: HEPARIN SODIUM,PORCINE 10,000 UNIT in SODIUM CHLORIDE 0.9% 1,000 ML IRRIGATION ONE (18:55)
[2024-09-17] MEDS: HEPARIN SODIUM,PORCINE (1 ML) 2,500 UNIT in SODIUM CHLORIDE 0.9% 250 ML IRRIGATION ONE (18:55)
[2024-09-17] MEDS: SODIUM CHLORIDE 0.9% 1,000 ML IV ONE (18:55)
[2024-09-17] MEDS ORDERED: RX INFO: IV CONTRAST WAS GIVEN 1 EACH MISC MISCELLANE PRN (19:02)
--- NOTE | 2024-09-17 19:06 | P.PCN ---
Date of Procedure: 09/17/24 Operative Findings: CARDIAC CATHETERIZATION PERFORMING PHYSICIAN: Mookie Leal MD, RPVI PROCEDURE PERFORMED: 1. Selective right and left coronary angiogram 2. Left heart catheterization 3. Ultrasound-guided access of the left common femoral artery and selective left common femoral artery angio INDICATION: Cardiomyopathy COMPLICATION: None APPROACH: Right common femoral artery LEVEL OF SEDATION: Moderate with sedation in length of 19 minutes PROCEDURE DESCRIPTION: After obtaining an informed consent, the patient was brought to cardiac labor delivery rn. Local anesthesia was performed using lidocaine subcutaneously. The left common femoral artery was cannulated using Seldinger technique, the guidewire passed easily, following that we advanced a 6 Turkish sheath dilator assembly, the wire and dilator were removed and sheath was flushed. Selective right and left coronary angiogram using a 6-Turkish JR4 and JL catheters. Following that we did left heart catheterization using 6-Turkish pigtail catheter. The procedure was completed there was no complication. SELECTIVE CORONARY ANGIOGRAM: The right coronary artery: Large caliber vessel and a dominant vessel and calcified vessel appears to be chronically occluded with ipsilateral and contralateral collateral Left main: Heavily calcified The left circumflex: Large caliber vessel nondominant vessel with severe diffuse disease and heavily calcified vessel. The left anterior descending artery: Large caliber vessel. The LAD is occluded with a long area of occlusion extending from the mid to distal portion with multiple layers of stent was noted and the artery itself is heavily calcified. HEMODYNAMICS: The LVEDP was 20 mmHg with no significant gradient across aortic valve CONCLUSION: 1. Extremely calcified right and left coronary system 2. Severe triple-vessel CAD with AUTOMATIC EMBROIDERY MACHINE TENDER of the RCA and diffuse severe disease involving the LCx and AUTOMATIC EMBROIDERY MACHINE TENDER of the LAD as well 3. Elevated left-sided filling pressure POSTPROCEDURE MANAGEMENT: Medical treatment
[2024-09-17] MEDS: IOPAMIDOL-370 100ML BTL INTRATHECA ONE (19:20)
[2024-09-17 20:43] LABS: Glucose,Whole Blood 125 mg/dL (70-110)
[2024-09-17] MEDS: SODIUM CHLORIDE 0.9% 1,000 ML IV SCH (20:48)
[2024-09-18 06:18] LABS: Glucose,Whole Blood 123 mg/dL (70-110)
[2024-09-18] MEDS ORDERED: carvediloL 6.25 MG TAB PO SCH (07:30)
[2024-09-18] MEDS ORDERED: HEPARIN SODIUM 1,000 UN/ML (10ML VL) IV PRN (09:33)
[2024-09-18 10:16] LABS: Basophils # (A) 0.04 10*3/uL (0.00-0.10); Basophils % (A) 0.6 %; Eosinophils # (A) 0.07 10*3/uL (0.04-0.35); Eosinophils % (A) 1.1 %; HCT 31.4 % (39.6-50.0); HGB 9.6 g/dL (13.0-17.0); Lymphocytes # (A) 0.47 10*3/uL (0.90-5.00); Lymphocytes % (A) 7.1 %; MCH 24.4 pg (27.0-32.0); MCHC 30.6 g/dL (32.0-37.0); MCV 79.7 fL (80.0-97.0); Mean Platelet Volume 10.6 fL (9.5-12.2); Monocytes # (A) 0.42 10*3/uL (0.20-1.00); Monocytes % (A) 6.4 %; Neutrophils # (A) 5.56 10*3/uL (1.80-7.70); Neutrophils % (A) 84.5 %; Platelet Count 223 10*3/uL (140-440); RBC 3.94 10*6/uL (4.40-5.60); RDW 18.5 % (11.5-14.5); WBC 6.58 10*3/uL (4.50-10.00)
[2024-09-18 10:25] LABS: INR 1.2 (<1.2); Partial Thromboplastin Time 30.2 sec (22.0-30.0); Prothrombin Time 12.8 sec (10.0-12.5)
[2024-09-18] MEDS: HEPARIN SOD,PORK IN 0.45% NACL 25,000 UNIT in 0.45% NACL 1 250ML.BAG IV SCH (10:51)
--- NOTE | 2024-09-18 11:40 | P.PN ---
Subjective HISTORY OF PRESENT ILLNESS: 78-year-old male known to Dr. Ruggiero. 1 week ago patient was hospitalized for the acute on chronic anemia with concerns of possible GI bleeding. He had an upper GI endoscopy which showed duodenal ulcer with evidence of bleeding done by Dr. Restrepo. He also was found to have cardiomyopathy with a EF of 30% on last admission with moderate MR moderate TR. For this he was scheduled for an ischemic evaluation with a heart cath on of this month with Dr. Ruggiero as an outpatient. Today he presented to the hospital because of increased worsening generalized weakness for last few days along with an episode of fall. He reports that he did not pass out but felt very weak in his legs and was not able to sustain his weight. He is also been reporting substernal chest heaviness. On this admission troponin was checked and it was elevated at 0.2. Creatinine was 2.1. On review of his old record reports like creatinine is somewhat at baseline. EKG shows atrial fibrillation heart rate 79, right bundle branch block with nonspecific ST changes and PVC. chest x-ray showsSmall right pleural effusion, mild increased interstitial markings with mild fluid in the right fissure. Heart cath 2016 showed PLOWING GARDENS's of RCA, intermediate disease in mid LAD patent stent in distal LAD 09/16/2024 Patient examined this morning at the bedside. Patient currently denies any chest pain or pressure. He denies any shortness of breath. Patient did have a vasovagal episode this morning when walking with physical therapy. Telemetry reveals atrial fibrillation with slow ventricular rate in the 50s. 09/17/2024 Patient seen and examined resting comfortably in bed in no acute distress. Heart rate remains in the 50s on telemetry, sinus rhythm. Coreg has been discontinued. He will have a cardiac catheterization later today with Dr. Ruggiero. Blood pressure 137/67 heart rate 54 afebrile maintaining oxygen saturation on room air. 09/18/2024 Patient is status post cardiac catheterization yesterday with Dr. Leal revealing extrema calcified right and left coronary system, severe triple-vessel CAD with PLOWING GARDENS of the RCA and diffuse severe disease involving left circumflex and PLOWING GARDENS of the LAD. Elevated left-sided filling pressures. Medical management was recommended. Patient currently denies chest pain or pressure. She denies shortness of breath. Telemetry reveals atrial fibrillation with controlled ventricular rate. Blood pressure stable. Eliquis remains on hold. PHYSICAL EXAM: VITAL SIGNS: Reviewed. GENERAL: Well-developed in no acute distress. NECK: Supple. No JVD or thyromegaly LUNGS: Respirations even and unlabored. Lungs essentially clear to auscultation bilaterally. HEART: Irregular rate and rhythm. S1 and S2 heard. EXTREMITIES: Normal range of motion. No clubbing or cyanosis. Peripheral pulses intact. No lower extremity edema ASSESSMENT: Non-STEMI, s/p cath revealing severe triple-vessel CAD with PLOWING GARDENS of the RCA and diffuse severe disease involving the LCx and PLOWING GARDENS of the LAD Known CAD with PLOWING GARDENS of RCA with moderate nonobstructive disease in LAD mid, distal patent stent from 2017 Valvular heart disease with moderate MR, mild AR, moderate TR Paroxysmal atrial fibrillation Bradycardia with heart rates in the 50s Brief episode of loss of consciousness, suspect vasovagal versus significant bradycardia History of syncope Anemia with recent evidence of GI bleeding 08/30/2024 with bleeding duodenal ulcer Ischemic cardiomyopathy, 30 to 35% Chronic kidney disease PLAN: Eliquis remains on hold. Continue IV heparin in the interim. Continue aspirin, Lipitor, Farxiga, Lasix, hydralazine, Imdur Beta-ramesh has been discontinued. Will resume after pacemaker implantation N.p.o. at midnight Patient to undergo single-chamber pacemaker implantation tomorrow with Dr. Mauro Further recommendations pending patient course Patient to follow-up postdischarge in the office with Dr. Leal Nurse practitioner note has been reviewed by physician. Signing provider agrees with the documented findings, assessment, and plan of care documented by FACILITIES AND GROUNDS DIRECTOR as a scribe. Objective - Vital Signs Vital signs: Vital Signs Temp 97.6 F 09/18/24 10:42 Pulse 55 L 09/18/24 10:42 Resp 18 09/18/24 10:42 BP 143/83 09/18/24 10:42 Pulse Ox 100 09/18/24 10:42 FiO2 Intake & Output 09/17/24 09/18/24 09/18/24 18:59 06:59 18:59 Intake Total 1167.667 20 250 Output Total 600 Balance 1167.667 -580 250 Weight 97.2 kg Intake: IV 210 20 10 Invasive Line 2 10 20 10 Intake, IV Titration 957.667 Amount Heparin Sod,Pork in 0.45% 87.667 NaCl 25,000 unit In 0.45 % NaCl 1 250ml.bag @ 10. 5485 UNITS/KG/HR 10 mls/ hr IV .Q24H [facility] Rx#: [id number] Sodium Chloride 0.9% 1, 770 000 ml @ 70 mls/hr IV . [id number] [facility] Rx#:[id number] Sodium Ferric Gluconat- 100 Sucrose 125 mg In Sodium Chloride 0.9% 100 ml @ 100 mls/hr IVPB DAILY [facility] Rx#:[id number] Oral 240 Output: Urine 600 Other: Voiding Method Urinal Urinal Urinal # Voids 2 - Labs CBC & Chem 7: 09/18/24 10:02 09/17/24 02:48 Labs: Abnormal Lab Results - Last 24 Hours (Table) 09/17/24 09/17/24 09/17/24 Range/Units 16:25 16:30 20:41 RBC (4.40-5.60) 10*6/uL Hgb (13.0-17.0) g/dL Hct (39.6-50.0) % MCV (80.0-97.0) fL MCH (27.0-32.0) pg MCHC (32.0-37.0) g/dL Lymphocytes # (0.90-5.00) 10*3/uL PT (10.0-12.5) sec INR (<1.2) APTT 84.7 H (22.0-30.0) sec POC Glucose (mg/dL) 208 H 125 H (70-110) mg/dL 09/18/24 09/18/24 09/18/24 Range/Units 06:16 10:02 10:02 RBC 3.94 L (4.40-5.60) 10*6/uL Hgb 9.6 L (13.0-17.0) g/dL Hct 31.4 L (39.6-50.0) % MCV 79.7 L (80.0-97.0) fL MCH 24.4 L (27.0-32.0) pg MCHC 30.6 L (32.0-37.0) g/dL Lymphocytes # 0.47 L (0.90-5.00) 10*3/uL PT 12.8 H (10.0-12.5) sec INR 1.2 H (<1.2) APTT 30.2 H (22.0-30.0) sec POC Glucose (mg/dL) 123 H (70-110) mg/dL
[2024-09-18] MEDS: SODIUM CHLORIDE 0.9% 1,000 ML IV SCH ×2 (11:47→12:51)
[2024-09-18 12:02] LABS: Glucose,Whole Blood 163 mg/dL (70-110)
--- NOTE | 2024-09-18 12:57 | P.PN ---
Subjective Progress Note Date: 09/18/24 Hospital Course: Patient is a very pleasant 78-year-old male with a past medical history of CAD status post stenting x 2, history of cardiac arrest in 2014, ischemic cardiomyopathy, chronic systolic congestive heart failure, valvular heart disease with atrial septal defect, chronic atrial fibrillation on anticoagulation with Eliquis, hypertension, hyperlipidemia, peripheral vascular disease, carotid stenosis status post R carotid endarterectomy, previous CVA, colon cancer status post bowel resection, insulin-dependent diabetes mellitus, stage IV CKD, DVT status post femoral thrombectomy, and previous CVA with no reported deficits. He presented to the emergency department with a chief complaint of chest pain. Patient reports he has been experiencing some generalized weakness, dizziness/lightheadedness, and fatigue over the past few days and today while ambulating from kitchen to the bathroom he had a fall. Patient admits to feeling weak and dizzy with some blurred vision prior to the fall, but believes he just lost his balance and fell. Patient reports he is u nsure if he hit his head or lost consciousness, but states "I do not think so". He reports immediately after falling he had pain to his chest. He reports initially the pain was throughout his entire chest and described as a heaviness or tightness. Patient denies sustaining any injuries or pain from the fall other than the chest pain. He reports he was supposed to be seen by Dr. Leal for heart cath on 09/23 secondary to recent ischemic workup and found to have cardiomyopathy with an EF of 30%. Patient reports the pain in his chest improved but remained as a heaviness to his midsternal chest so he came to the emergency department for evaluation. He denies having any fevers, chills, headache, changes in vision or hearing, palpitations, shortness of breath, cough or congestion, abdominal pain, nausea, vomiting, or experiencing any increased or changes in his lower extremity edema. Patient does report his edema fluctuates daily if he is on his feet more, but it is currently at baseline. Upon arrival to our facility, patient underwent evaluation in the emergency department. Vital signs upon arrival show blood pressure 161/76, heart rate 82, respiratory rate 20, temp 97.9 F, and SpO2 of 99% on room air. EKG was completed showing atrial fibrillation with a controlled ventricular rate of 79 bpm with frequent PVCs and a right bundle branch block. Chest x-ray completed showing prominent pulmonary vascular congestion and right sided subpulmonic pleural fluid possibly present. Labs completed and reviewed. CBC showing microcytic anemia with hemoglobin of 10.5, MCV 78.2, MCH 24.6, and MCHC of 31.4. Coagulation profile normal findings. BMP showing hypokalemia with potassium of 3.3 and renal function consistent with known CKD stage IV with BUN of 74, creatinine 2.14, GFR of 29. Liver profile unremarkable. Magnesium 2.1. Calcium 9.5. Troponin was elevated at 0.259. Patient started on low intensity heparin infusion for treatment of NSTEMI and was admitted under services with consultation to cardiology. Troponins trended and flat resulting at 0.259, 0.230, and 0.259. proBNP 23,800. Ultrasound completed showing a 9.4 cm fluid collection that was marked for possible thoracentesis. Physical exam: Patient seen and fully evaluated at bedside this morning. He was resting comfortably in bed at this time and currently denies having any complaints. He denies having any headache, lightheadedness, dizziness, chest pain, palpitations, shortness of breath, or experiencing any numbness/tingling/weakness in his extremities. Cardiac cath access site in left groin showing No hematoma, redness, or drainage. Movement and sensation of left lower extremity intact and patient denies having any numbness/tingling/weakness. Patient reports urinating without difficulties and eating breakfast well this morning. Vital signs reviewed and stable. Currently blood pressure 132/60, heart rate 43, respiratory rate 16, temp 97.7 F, and SpO2 of 100% on room air. General: Nontoxic, no distress and appears stated age. Derm: Skin warm and dry, normal coloration for ethnicity. Head: Atraumatic, normocephalic and symmetric. Eyes: EOM's intact, no lid lag, and anicteric sclera Mouth: no lip lesions, mucus membranes moist Cardiovascular: regular rate and rhythm with normal S1S2, systolic murmur, positive posterior tibial pulses bilaterally, and cap refill < 2 seconds. Lungs: Respirations even, regular, and unlabored on room air. Lungs diminished, no rhonchi, no rales, no wheezing, and no accessory muscle usage. Abdominal: soft, nontender to palpation, no guarding, no appreciable organomegaly Ext: ROM intact. No gross muscle atrophy, 1+ pitting bilateral lower extremity edema, no contractures Neuro: Speech clear, face symmetrical and CN II-XII grossly intact with no noted focal neuro deficits Psych: Alert and oriented to person, place, time, and situation. Appropriate and pleasant affect. Assessment and Plan of Care: Elevated troponins, flat. Likely type II NSTEMI Severe triple-vessel CAD Acute on chronic systolic heart failure Ischemic cardiomyopathy with a EF of 30% History of CAD status post stenting History of cardiac arrest in 2013 Valvular heart disease with atrial septal defect Chronic atrial fibrillation Hypertension Hyperlipidemia -Cardiology following, discussed plan of care with cardiac MOLDED GOODS CONTROLS OPERATOR. -Patient underwent cardiac catheterization on 09/17/2024 revealing Severe triple- vessel CAD with PACKAGE CLERK of the RCA and diffuse severe disease involving the LCx and PACKAGE CLERK of the LAD as well -Continue low intensity heparin infusion with close monitoring of PTT every 6 hours for goal therapeutic range of 45 to 79 seconds. -Patient to remain on continuous telemetry monitoring -Continue cardiac medication regimen with aspirin 81 mg daily, atorvastatin 40 mg nightly, Jardiance 10 mg daily, Lasix 60 mg daily, hydralazine 25 mg 4 times daily, and isosorbide mononitrate 30 mg daily. Brief episode of loss of consciousness, likely syncope from vasovagal episode resulting from orthostatic hypotension vs cardiogenic from symptomatic br adycardia - Obtain orthostatic vitals. - Patient to remain on continuous telemetry monitoring. EKG completed at time of episode and personally reviewed showing atrial fibrillation with a slow ventricular response at 52 bpm and a right bundle branch block and new onset T wave inversion in septal lead V2. - Discussed episode of LOC with cardiology MOLDED GOODS CONTROLS OPERATOR stating Coreg was discontinued and patient is still scheduled to undergo heart catheterization later today. Maintain fall precautions Physical and Occupational Therapy following. Right-sided subpulmonic pleural effusion Ultrasound completed showing a 9.4 cm fluid collection that was marked for possible thoracentesis. Pulmonology consulted, discussed plan of care with order fulfillment specialist stating No need for thoracentesis at this time. Continue Lasix 60 mg daily - Monitor pulse ox and provide patient with supplemental oxygen if needed to maintain SpO2 equal to or greater than 90%. Microcytic anemia secondary to iron deficiency anemia with history of recent GI bleed and history of colon cancer status post bowel resection Hemoglobin stable at 9.6. Continue to monitor hemoglobin levels closely with repeat a.m. labs. GI prophylaxis with Protonix 40 mg daily. Continue Niferex iron supplementation daily. Insulin-dependent diabetes mellitus Patient placed on glycemic protocol with NovoLog sliding scale. Hemoglobin A 1c 7.7%. CKD stage IV Renal function appears to be slightly higher than baseline with BUN of 82, creatinine 2.25, GFR of 27 with baseline creatinine around 2.1.. Nephrology following Will use nephrotoxic medications cautiously and continue to monitor renal function closely with repeat a.m. labs. Fall at home prior to arrival History of CVA - Patient initially told ED staff he did not hit head or lose consciousness upon initial examination patient then stated to both myself and RN that he is unsure if he hit his head or lost consciousness but did not think so. - CT brain revealing hypoattenuation changes slightly more subtle in the right frontal parietal parenchyma abutting areas of encephalomalacia likely reactive presenting remote injury changes patient cerebellum relating to prior injuries, however no reported acute intracranial process. Patient does have known history of previous CVA Continue daily aspirin and atorvastatin. Maintain fall precautions Consult placed to physical and Occupational Therapy secondary to generalized weakness and recurrent falls at home Data and imaging reviewed: Labs reviewed. CBC showing stable microcytic anemia with hemoglobin of 9.6. PTT subtherapeutic at 30.2.. BMP consistent with CKD stage IV with BUN of 82, creatinine 2.25, GFR of 27. Blood glucose 124. Magnesium 2.1. Vital signs reviewed. Blood pressure 136/84, heart rate 64, respiratory rate 18, temp 98.6 F, and SpO2 100% on room air CODE STATUS: Full code DVT prophylaxis: Heparin infusion Discussed with: Patient, RN, and cardiology MOLDED GOODS CONTROLS OPERATOR Anticipated discharge date: Pending clinical course Anticipated discharge place: Pending clinical course Patient was seen independently by Nurse Practitioner. This document was prepared using [employer] dictation software. Please allow for errors in patent agent while rare they do occur. Vin Murphy NP rendered care for this patient independently, reviewed the findings and plan as documented in the note above and agree with plan. I did no t physically speak with or examine the patient on this date. Objective - Vital Signs Vital signs: Vital Signs Temp 97.8 F 09/18/24 03:50 Pulse 66 09/18/24 03:50 Resp 18 09/18/24 03:50 BP 132/61 09/18/24 03:50 Pulse Ox 98 09/18/24 03:50 FiO2 Intake & Output 09/17/24 09/18/24 09/18/24 18:59 06:59 18:59 Intake Total 1167.667 20 Output Total 600 Balance 1167.667 -580 Weight 97.2 kg Intake: IV 210 20 Invasive Line 2 10 20 Intake, IV Titration 957.667 Amount Heparin Sod,Pork in 0.45% 87.667 NaCl 25,000 unit In 0.45 % NaCl 1 250ml.bag @ 10. 5485 UNITS/KG/HR 10 mls/ hr IV .Q24H [facility] Rx#: [id number] Sodium Chloride 0.9% 1, 770 000 ml @ 70 mls/hr IV . [id number] [facility] Rx#:[id number] Sodium Ferric Gluconat- 100 Sucrose 125 mg In Sodium Chloride 0.9% 100 ml @ 100 mls/hr IVPB DAILY [facility] Rx#:[id number] Output: Urine 600 Other: Voiding Method Urinal Urinal # Voids 2 - Labs CBC & Chem 7: 09/18/24 10:02 09/17/24 02:48 Labs: Abnormal Lab Results - Last 24 Hours (Table) 09/17/24 09/17/24 09/17/24 Range/Units 11:12 16:25 16:30 APTT 84.7 H (22.0-30.0) sec POC Glucose (mg/dL) 126 H 208 H (70-110) mg/dL 09/17/24 09/18/24 Range/Units 20:41 06:16 APTT (22.0-30.0) sec POC Glucose (mg/dL) 125 H 123 H (70-110) mg/dL
[2024-09-18 16:48] LABS: Glucose,Whole Blood 135 mg/dL (70-110)
[2024-09-18 20:08] LABS: Glucose,Whole Blood 248 mg/dL (70-110)
--- NOTE | 2024-09-18 21:20 | P.PN ---
Subjective Patient is seen for follow-up of chronic kidney disease. Status post cardiac catheterization 09/17/2024 which showed heavily calcified coronary vessels with severe disease. Blood pressures have been within normal range. No hypotension noted. Serum creatinine 2.25 yesterday. Labs not available from today No significant complaints currently. Objective - Vital Signs Vital signs: Vital Signs Temp 97.8 F 09/18/24 16:12 Pulse 58 L 09/18/24 16:12 Resp 18 09/18/24 16:12 BP 124/78 09/18/24 16:12 Pulse Ox 96 09/18/24 16:12 FiO2 Intake & Output 09/18/24 09/18/24 09/19/24 06:59 18:59 06:59 Intake Total 20 889.298 Output Total 600 900 Balance -580 -10.702 Weight 97.2 kg Intake: IV 20 20 Invasive Line 2 20 20 Intake, IV Titration 64.298 Amount Heparin Sod,Pork in 0.45% 64.298 NaCl 25,000 unit In 0.45 % NaCl 1 250ml.bag @ 10.5 UNITS/KG/HR 10.206 mls/ hr IV .Q24H [facility] Rx#: [id number] Oral 805 Output: Urine 600 900 Other: Voiding Method Urinal Urinal # Voids 2 1 - Exam Patient is awake, comfortable, no acute distress Examination of the heart S1 and S2 Examination of the lungs bilateral breath sounds are heard Abdomen is soft nontender Examination of lower extremities shows no evidence of edema IT DESKTOP SUPPORT SPECIALIST exam grossly intact - Labs CBC & Chem 7: 09/18/24 10:02 09/17/24 02:48 Labs: Abnormal Lab Results - Last 24 Hours (Table) 09/18/24 09/18/24 09/18/24 Range/Units 06:16 10:02 10:02 RBC 3.94 L (4.40-5.60) 10*6/uL Hgb 9.6 L (13.0-17.0) g/dL Hct 31.4 L (39.6-50.0) % MCV 79.7 L (80.0-97.0) fL MCH 24.4 L (27.0-32.0) pg MCHC 30.6 L (32.0-37.0) g/dL Lymphocytes # 0.47 L (0.90-5.00) 10*3/uL PT 12.8 H (10.0-12.5) sec INR 1.2 H (<1.2) APTT 30.2 H (22.0-30.0) sec POC Glucose (mg/dL) 123 H (70-110) mg/dL 09/18/24 09/18/24 09/18/24 Range/Units 12:00 15:24 16:40 RBC (4.40-5.60) 10*6/uL Hgb (13.0-17.0) g/dL Hct (39.6-50.0) % MCV (80.0-97.0) fL MCH (27.0-32.0) pg MCHC (32.0-37.0) g/dL Lymphocytes # (0.90-5.00) 10*3/uL PT (10.0-12.5) sec INR (<1.2) APTT 102.8 H* (22.0-30.0) sec POC Glucose (mg/dL) 163 H 135 H (70-110) mg/dL 09/18/24 Range/Units 20:06 RBC (4.40-5.60) 10*6/uL Hgb (13.0-17.0) g/dL Hct (39.6-50.0) % MCV (80.0-97.0) fL MCH (27.0-32.0) pg MCHC (32.0-37.0) g/dL Lymphocytes # (0.90-5.00) 10*3/uL PT (10.0-12.5) sec INR (<1.2) APTT (22.0-30.0) sec POC Glucose (mg/dL) 248 H (70-110) mg/dL Assessment and Plan Assessment: 1. Chronic kidney disease stage IV secondary to nephrosclerosis with baseline creatinine around 2 mg/dL. Renal function is close to baseline. 2. Non-ST elevation CA status post cardiac catheterization on 09/17/2024 which showed heavily calcified coronaries with severe diffuse disease 3. Hypertension with CKD stage IV, blood pressure currently on the lower side 4. Ischemic cardiomyopathy with a EF of 30% 5. Anemia of chronic disease with significant iron deficiency noted Plan: Follow-up on labs from today Avoid hypotension Repeat labs in a.m. Continue Aranesp Add iron supplementation
[2024-09-19 05:58] LABS: Glucose,Whole Blood 107 mg/dL (70-110)
[2024-09-19 07:57] LABS: Basophils # (A) 0.06 10*3/uL (0.00-0.10); Eosinophils # (A) 0.15 10*3/uL (0.04-0.35); Eosinophils % (A) 2.5 %; HCT 29.1 % (39.6-50.0); HGB 8.9 g/dL (13.0-17.0); Lymphocytes # (A) 0.76 10*3/uL (0.90-5.00); Lymphocytes % (A) 12.5 %; MCH 24.2 pg (27.0-32.0); MCHC 30.6 g/dL (32.0-37.0); MCV 79.1 fL (80.0-97.0); Mean Platelet Volume 10.4 fL (9.5-12.2); Monocytes % (A) 8.2 %; Neutrophils # (A) 4.58 10*3/uL (1.80-7.70); Neutrophils % (A) 75.5 %; Platelet Count 207 10*3/uL (140-440); RBC 3.68 10*6/uL (4.40-5.60); RDW 18.9 % (11.5-14.5); WBC 6.07 10*3/uL (4.50-10.00)
[2024-09-19 08:08] LABS: INR 1.2 (<1.2); Prothrombin Time 12.8 sec (10.0-12.5)
[2024-09-19 08:12] LABS: African American GFR (CKD) 32 (>60 ml/min/1.73 sqM); Anion Gap 11 mmol/L; Blood Urea Nitrogen 74 mg/dL (9-20); Calcium 9.7 mg/dL (8.4-10.2); Carbon Dioxide 23 mmol/L (22-30); Chloride 102 mmol/L (98-107); Glucose 80 mg/dL (74-99); Non-African American GFR(CKD) 28 (>60 ml/min/1.73 sqM); Potassium 3.7 mmol/L (3.5-5.1); Sodium 136 mmol/L (137-145)
[2024-09-19] MEDS: IV FLUID CONTINUATION 1,000 ML IV ONE (09:01)
[2024-09-19 09:08] LABS: Glucose,Whole Blood 104 mg/dL (70-110)
[2024-09-19] MEDS: IOPAMIDOL-370 100ML BTL INJ ONE (10:01)
[2024-09-19] MEDS: PROTAMINE SULFATE 10 MG/ML 5 ML VIAL IV ONE (10:03)
[2024-09-19] MEDS: MIDAZOLAM 2 MG/2 ML VIAL IVP ONE (10:45)
[2024-09-19] MEDS: LIDOCAINE 1% INJ 10MG/ML (20 ML MDV) SQ ONE ×2 (10:46)
[2024-09-19] MEDS: ceFAZolin 2 GM in DEXTROSE 5% IN WATER 50 ML IVPB PRN (10:48)
[2024-09-19] MEDS: ceFAZolin 1 GM in SODIUM CHLORIDE 0.9% IRRIG BTL 250 ML IRRIGATION PRN (10:59)
[2024-09-19] MEDS: HEPARIN SODIUM,PORCINE (1 ML) 2,500 UNIT in SODIUM CHLORIDE 0.9% 250 ML IRRIGATION ONE (10:59)
[2024-09-19] MEDS ORDERED: ACETAMINOPHEN TAB 325 MG TAB PO PRN (12:00)
--- NOTE | 2024-09-19 12:12 | P.PCN ---
Date of Procedure: 09/19/24 Description of Procedure: Date of Procedure: 09/19/24 Description of Procedure: Procedure(s): Single chamber Permanent Pacemaker Implantation; Cardiac Fluoroscopy Indications: Sick sinus syndrome with underlying atrial fibrillation and long pauses of more than 5 seconds with symptoms of near syncope and right bundle branch block /IVCD Preprocedure Diagnosis: Sick sinus syndrome with underlying atrial fibrillation and near syncope with pauses Postprocedure Diagnosis: Sinus syndrome with underlying atrial fibrillation and near syncope with pauses Procedure Details: The risks, benefits, complications, treatment options, and expected outcomes were discussed with the patient. The patient and her concurred with the proposed plan, giving informed consent. Patient was prepped and draped in the usual strict sterile fashion. After the antibiotic was completely infused, 20 mL of 1% lidocaine was infiltrated into the area just medial to the left deltopectoral groove. Using a micropuncture needle technique with fluoroscopic guidance access was obtained into the axillary vein. 1 wires were advanced under to access fluoroscopic guidance in In the right atrium. Using a #15 scalpel, an incision was made. The incision was extended to the pre-pectoral fascia using blunt dissection. Using cautery and dissection a pocket was made. A guidewire was advanced to the heart underfluoroscopic guidance. Sheath was advanced over the guidewire. A guidewire was retained, and dilator was removed. A pacemaker lead was advanced to the heart under fluoroscopic guidance. The sheath was peeled away. The lead was fixated to the right ventricular apex. Appropriate sensing and thresholds were obtained. No diaphragmatic pacing occurred at 10 V and 1.5 ms. . Appropriate sensing and thresholds were obtained. No diaphragmatic pacing occurred at 10 V and 1.5 ms. Both were active leads and both the leads were screwed and and secured to the underlying muscle using 2 separate 0 silk sutures. Hemostasis was achieved. The measurements were then rechecked. A left pre-pectoral pocket was fashioned.The pocket was irrigated with antibiotic and I left an antibiotic sponge in the pocket for 30 minutes. The leads were attached to the generator. The system was placed in the pocket. The pacemaker and lead system were visualized under fluoroscopy. Appropriate redundancy/slack in the lead were noted. The pin of the lead were beyond the set screws. The pulse generator was also secured to the underlying muscle using a 0 silk suture. Hemostasis was reverified. The pocket was then closed with 2.0 and 3.0 Vicryl. Steri-Strips, a gauze dressing, and operative site were placed. Pacemaker Program Manager Rn : [id number] [employer]hir [employer] MRI pacemaker PM 1272, serial #[id number]. The ventricular threshold was 1.0 V at 0.4 ms R waves were 4.1 mV. Lead impedance was 560 ohms Right ventricular lead advanced practice rn: ReferralMD 58 cm lead serial number [id number] The pacemaker was set at a lower rate of 55 high rate of 110 BPM the the mode was PIR Estimated Blood Loss: Less than 50 ml. Complications: None; patient tolerated the procedure well. Disposition: 3 S to telemetry unit.- hemodynamically stable. Condition: Stable. No complications. Tolerated the procedure well. Discussed with patient and family patient will be discharged in 24 hours after device check and chest x-ray. Moderate conscious sedation time was 60 minutes. Patient was administered Versed, . Oxygen saturation hemodynamics and EKG were monitored closely
[2024-09-19 12:28] LABS: Glucose,Whole Blood 105 mg/dL (70-110)
--- NOTE | 2024-09-19 12:53 | XR ---
EXAMINATION TYPE: XR chest 1V portable DATE OF EXAM: 09/19/2024 12:43 PM COMPARISON: Chest radiographs from 09/14/2024. CLINICAL INDICATION: Male, 78 years old with history of Lead placement check; [facility] TECHNIQUE: XR chest 1V portable Frontal view of the chest. FINDINGS: Lungs/Pleura: There is no evidence of pleural effusion, focal consolidation, or pneumothorax. Pulmonary vascularity: Unremarkable. Heart/mediastinum: Cardiomediastinal silhouette is unremarkable. Single-lead cardiac conduction devic e overlying the left hemithorax with lead projecting over the right ventricle. Musculoskeletal: No acute osseous pathology. IMPRESSION: No acute cardiopulmonary disease/process. [facility], , 09/19/2024 12:51 PM
[2024-09-19 13:58] VITALS: BMI 18.5
--- NOTE | 2024-09-19 15:10 | P.PN ---
Subjective Progress Note Date: 09/19/24 Subjective: Patient seen and examined at bedside. No acute events overnight. Status post permanent pacemaker. Pertinent positives and negatives as discussed above, a complete review of systems was performed and all other systems are negative. Vitals Signs Reviewed. General: Nontoxic, no distress and appears stated age. Derm: Skin warm and dry, normal coloration for ethnicity. Head: Atraumatic, normocephalic and symmetric. Eyes: EOM's intact, no lid lag, and anicteric sclera Mouth: no lip lesions, mucus membranes moist Cardiovascular: regular rate and rhythm with normal S1S2, systolic murmur, positive posterior tibial pulses bilaterally, and cap refill < 2 seconds. Lungs: Respirations even, regular, and unlabored on room air. Lungs diminished, no rhonchi, no rales, no wheezing, and no accessory muscle usage. Abdominal: soft, nontender to palpation, no guarding, no appreciable organomegaly Ext: ROM intact. No gross muscle atrophy, 1+ pitting bilateral lower extremity e al, no contractures Neuro: Speech clear, face symmetrical and CN II-XII grossly intact with no noted focal neuro deficits Psych: Alert and oriented to person, place, time, and situation. Appropriate and pleasant affect. Data Reviewed Today: Pertinent Labs: WBC 6.07, hemoglobin 8.9, platelet 207, creatinine 2.22, blood sugars range between 80-1 07 Imaging: Chest x-ray independently interpreted, shows no acute process. Assessment and Plan: Active: Sick sinus syndrome Chronic A-fib Syncope - Patient is now status post permanent pacemaker placement - On Eliquis 2.5 twice daily Severe triple-vessel disease Type II NSTEMI Acute HFrEF, EF 30% History of prior stenting, cardiac arrest in 2013 Valvular heart disease with atrial septal defect Hypertension Dyslipidemia - Cardiology following, patient had cardiac cath on 09/17/2024 which revealed severe triple-vessel disease with SEWING MACHINE OPERATOR of the RCA and diffuse severe disease involving left circumflex and SEWING MACHINE OPERATOR of LAD as well - Was on heparin drip - Continue telemetry monitoring - On aspirin 81 mg, atorvastatin 40 mg, Farxiga 10 mg, Lasix 40 twice daily, hydralazine 25 3 times daily, Imdur 30 daily, losartan 12.5 daily, metoprolol 25 twice daily Right-sided pleural effusion - Pulmonology following, no plans for thoracentesis CKD stage IV Iron deficiency anemia - Nephrology following - On IV iron daily, darbepoetin every 20 - Continue to monitor renal function Type 2 diabetes - Sliding scale insulin, monitor for hypoglycemia Chronic: History of CVA DVT ppx: Eliquis Code status: Full code Anticipated discharge place: Pending clinical course Anticipated discharge time: Pending clinical course Objective - Vital Signs Vital signs: Vital Signs Temp 98.2 F 09/19/24 12:20 Pulse 72 09/19/24 12:35 Resp 17 09/19/24 12:35 BP 136/74 09/19/24 12:35 Pulse Ox 96 09/19/24 12:35 FiO2 Intake & Output 09/18/24 09/19/24 09/19/24 18:59 06:59 18:59 Intake Total 889.298 20 110 Output Total 900 500 300 Balance -10.702 -480 -190 Weight 52 kg 52 kg Intake: IV 20 20 110 Invasive Line 2 20 20 10 Intake, IV Titration 64.298 Amount Heparin Sod,Pork in 0.45% 64.298 NaCl 25,000 unit In 0.45 % NaCl 1 250ml.bag @ 10.5 UNITS/KG/HR 10.206 mls/ hr IV .Q24H REZA Rx#: [id number] Oral 805 Output: Urine 900 500 300 Other: Voiding Method Urinal Urinal Urinal # Voids 1 2 - Labs CBC & Chem 7: 09/19/24 06:52 09/19/24 06:52 Labs: Abnormal Lab Results - Last 24 Hours (Table) 09/18/24 09/18/24 09/18/24 Range/Units 15:24 16:40 20:06 RBC (4.40-5.60) 10*6/uL Hgb (13.0-17.0) g/dL Hct (39.6-50.0) % MCV (80.0-97.0) fL MCH (27.0-32.0) pg MCHC (32.0-37.0) g/dL Lymphocytes # (0.90-5.00) 10*3/uL PT (10.0-12.5) sec INR (<1.2) APTT 102.8 H* (22.0-30.0) sec Sodium (137-145) mmol/L BUN (9-20) mg/dL Creatinine (0.66-1.25) mg/dL POC Glucose (mg/dL) 135 H 248 H (70-110) mg/dL 09/19/24 09/19/24 09/19/24 Range/Units 00:25 06:52 06:52 RBC 3.68 L (4.40-5.60) 10*6/uL Hgb 8.9 L (13.0-17.0) g/dL Hct 29.1 L (39.6-50.0) % MCV 79.1 L (80.0-97.0) fL MCH 24.2 L (27.0-32.0) pg MCHC 30.6 L (32.0-37.0) g/dL Lymphocytes # 0.76 L (0.90-5.00) 10*3/uL PT (10.0-12.5) sec INR (<1.2) APTT 54.3 H (22.0-30.0) sec Sodium 136 L (137-145) mmol/L BUN 74 H (9-20) mg/dL Creatinine 2.22 H (0.66-1.25) mg/dL POC Glucose (mg/dL) (70-110) mg/dL 09/19/24 Range/Units 06:52 RBC (4.40-5.60) 10*6/uL Hgb (13.0-17.0) g/dL Hct (39.6-50.0) % MCV (80.0-97.0) fL MCH (27.0-32.0) pg MCHC (32.0-37.0) g/dL Lymphocytes # (0.90-5.00) 10*3/uL PT 12.8 H (10.0-12.5) sec INR 1.2 H (<1.2) APTT 60.0 H (22.0-30.0) sec Sodium (137-145) mmol/L BUN (9-20) mg/dL Creatinine (0.66-1.25) mg/dL POC Glucose (mg/dL) (70-110) mg/dL
[2024-09-19 16:21] LABS: Glucose,Whole Blood 182 mg/dL (70-110)
[2024-09-19] MEDS: FUROSEMIDE 40 MG TAB PO SCH (16:44)
[2024-09-19 20:02] LABS: Glucose,Whole Blood 249 mg/dL (70-110)
[2024-09-19] MEDS: ceFAZolin 2 GM in DEXTROSE 5% IN WATER 50 ML IVPB SCH (21:13)
[2024-09-19] MEDS: METOPROLOL TARTRATE 25 MG TAB PO SCH (21:16)
[2024-09-20 06:14] LABS: Glucose,Whole Blood 141 mg/dL (70-110)
--- NOTE | 2024-09-20 08:18 | XR ---
EXAMINATION TYPE: XR chest 2V DATE OF EXAM: 09/20/2024 6:36 AM COMPARISON: Chest radiograph from one day prior. CLINICAL INDICATION: Male, 78 years old with history of Lead placement check; [facility] TECHNIQUE: XR chest 2V Frontal and lateral views of the chest. FINDINGS: Lungs/Pleura: There is no evidence of pleural effusion, focal consolidation, or pneumothorax. Pulmonary vascularity: Pulmonary vascular congestion. Heart/mediastinum: Cardiomediastinal silhouette is unremarkable. Single-lead cardiac conduction devic e overlying the left hemithorax with lead projecting over the right ventricle. Musculoskeletal: No acute osseous pathology. IMPRESSION: Mild pulmonary edema [facility], , 09/20/2024 8:16 AM
[2024-09-20 08:30] VITALS: PULSE 64
[2024-09-20 08:31] VITALS: BP 117/69; RESP 15; TEMP 97.1
[2024-09-20] MEDS: APIXABAN 2.5 MG TABLET PO SCH (08:52)
[2024-09-20] MEDS: LOSARTAN 25 MG TAB PO SCH (08:52)
--- NOTE | 2024-09-20 11:12 | P.PN ---
Subjective HISTORY OF PRESENT ILLNESS: 78-year-old male known to Dr. Ruggiero. 1 week ago patient was hospitalized for the acute on chronic anemia with concerns of possible GI bleeding. He had an upper GI endoscopy which showed duodenal ulcer with evidence of bleeding done by Dr. Restrepo. He also was found to have cardiomyopathy with a EF of 30% on last admission with moderate MR moderate TR. For this he was scheduled for an ischemic evaluation with a heart cath on of this month with Dr. Ruggiero as an outpatient. Today he presented to the hospital because of increased worsening generalized weakness for last few days along with an episode of fall. He reports that he did not pass out but felt very weak in his legs and was not able to sustain his weight. He is also been reporting substernal chest heaviness. On this admission troponin was checked and it was elevated at 0.2. Creatinine was 2.1. On review of his old record reports like creatinine is somewhat at baseline. EKG shows atrial fibrillation heart rate 79, right bundle branch block with nonspecific ST changes and PVC. chest x-ray showsSmall right pleural effusion, mild increased interstitial markings with mild fluid in the right fissure. Heart cath 2016 showed SHEET METAL PRODUCTION WORKER's of RCA, intermediate disease in mid LAD patent stent in distal LAD 09/16/2024 Patient examined this morning at the bedside. Patient currently denies any chest pain or pressure. He denies any shortness of breath. Patient did have a vasovagal episode this morning when walking with physical therapy. Telemetry reveals atrial fibrillation with slow ventricular rate in the 50s. 09/17/2024 Patient seen and examined resting comfortably in bed in no acute distress. Heart rate remains in the 50s on telemetry, sinus rhythm. Coreg has been discontinued. He will have a cardiac catheterization later today with Dr. Ruggiero. Blood pressure 137/67 heart rate 54 afebrile maintaining oxygen saturation on room air. 09/18/2024 Patient is status post cardiac catheterization yesterday with Dr. Leal revealing extrema calcified right and left coronary system, severe triple-vessel CAD with SHEET METAL PRODUCTION WORKER of the RCA and diffuse severe disease involving left circumflex and SHEET METAL PRODUCTION WORKER of the LAD. Elevated left-sided filling pressures. Medical management was recommended. Patient currently denies chest pain or pressure. She denies shortness of breath. Telemetry reveals atrial fibrillation with controlled ventricular rate. Blood pressure stable. Eliquis remains on hold. 09/20/2024 Patient is status post pacemaker implantation yesterday with Dr. Mauro. Patient examined at the bedside. He denies chest pain or shortness of breath. Postprocedural x-ray reviewed with correct lead placement and no pneumothorax. Device was interrogated this morning and is functioning appropriately. PHYSICAL EXAM: VITAL SIGNS: Reviewed. GENERAL: Well-developed in no acute distress. NECK: Supple. No JVD or thyromegaly LUNGS: Respirations even and unlabored. Lungs essentially clear to auscultation bilaterally. HEART: Irregular rate and rhythm. S1 and S2 heard. EXTREMITIES: Normal range of motion. No clubbing or cyanosis. Peripheral pulses intact. No lower extremity edema ASSESSMENT: Non-STEMI, s/p cath revealing severe triple-vessel CAD with SHEET METAL PRODUCTION WORKER of the RCA and diffuse severe disease involving the LCx and SHEET METAL PRODUCTION WORKER of the LAD Known CAD with SHEET METAL PRODUCTION WORKER of RCA with moderate nonobstructive disease in LAD mid, distal patent stent from 2016 Sick sinus syndrome, status post pacemaker implantation, 09/19/2024 Valvular heart disease with moderate MR, mild AR, moderate TR Paroxysmal atrial fibrillation Bradycardia with heart rates in the 50s Brief episode of loss of consciousness, suspect vasovagal versus significant bradycardia History of syncope Anemia with recent evidence of GI bleeding 08/30/2024 with bleeding duodenal ulcer Ischemic cardiomyopathy, 30 to 35% Chronic kidney disease PLAN: Continue Eliquis, aspirin, Lipitor, Farxiga, Lasix, hydralazine, Imdur, losartan, metoprolol Patient is stable for discharge home today from a cardiac standpoint Patient to follow-up postdischarge in the office with Dr. Leal Nurse practitioner note has been reviewed by physician. Signing provider agrees with the documented findings, assessment, and plan of care documented by MOTOR BLOCK MECHANIC as a scribe. Objective - Vital Signs Vital signs: Vital Signs Temp 97.1 F L 09/20/24 08:00 Pulse 64 09/20/24 08:00 Resp 15 09/20/24 08:00 BP 117/69 09/20/24 08:00 Pulse Ox 98 09/20/24 08:00 FiO2 Intake & Output 09/19/24 09/20/24 09/20/24 18:59 06:59 18:59 Intake Total 960 20 246 Output Total 600 300 0 Balance 360 -280 246 Weight 52 kg 52 kg Intake: IV 120 20 10 Invasive Line 2 20 20 10 Oral 840 236 Output: Urine 600 300 Stool 0 0 Other: Voiding Method Urinal Urinal Urinal # Voids 2 # Bowel Movements 1 - Labs CBC & Chem 7: 09/19/24 06:52 09/19/24 06:52 Labs: Abnormal Lab Results - Last 24 Hours (Table) 09/19/24 09/19/24 09/20/24 Range/Units 16:20 20:01 06:12 POC Glucose (mg/dL) 182 H 249 H 141 H (70-110) mg/dL
[2024-09-20 11:20] LABS: Glucose,Whole Blood 264 mg/dL (70-110)
--- NOTE | 2024-09-20 13:15 | P.DS ---
Providers Date of admission: 09/14/24 14:42 Expected date of discharge: 09/20/24 Attending physician: Abe Zuniga Consults: 09/14/24 14:42 Consult Physician Routine Consulting Provider: Mooike Leal Consult Reason/Comments: NSTEMI Do you want consulting provider notified?: Yes 09/14/24 16:59 Consult Physician Routine Consulting Provider: Audi Ruth Consult Reason/Comments: CKD, will need heart cath monday Do you want consulting provider notified?: Yes 09/15/24 08:41 Consult Physician Routine Consulting Provider: Jennifer Smith Consult Reason/Comments: R pleural effusion/subpulmonic effusion Do you want consulting provider notified?: Yes Primary care physician: Brandon Graham [facility] Course: Sick sinus syndrome Paroxysmal A-fib Syncope Severe triple-vessel disease Type II NSTEMI Acute HFrEF, EF 30% History of prior stenting, cardiac arrest in 2013 Valvular heart disease with atrial septal defect Hypertension Dyslipidemia Right-sided pleural effusion CKD stage IV Iron deficiency anemia Type 2 diabetes History of CVA Hospital Course: Patient is a very pleasant 78-year-old male with a past medical history of CAD status post stenting x 2, history of cardiac arrest in 2013, ischemic cardiomyopathy, chronic systolic congestive heart failure, valvular heart disease with atrial septal defect, chronic atrial fibrillation on anticoagulation with Eliquis, hypertension, hyperlipidemia, peripheral vascular disease, carotid stenosis status post R carotid endarterectomy, previous CVA, colon cancer status post bowel resection, insulin-dependent diabetes mellitus, stage IV CKD, DVT status post femoral thrombectomy, and previous CVA with no reported deficits. He presented to the emergency department with a chief complaint of chest pain. Upon arrival to our facility, patient underwent evaluation in the emergency department. Vital signs upon arrival show blood pressure 161/76, heart rate 82, respiratory rate 20, temp 97.9 F, and SpO2 of 99% on room air. EKG was completed showing atrial fibrillation with a controlled ventricular rate of 79 bpm with frequent PVCs and a right bundle br anch block. Chest x-ray completed showing prominent pulmonary vascular congestion and right sided subpulmonic pleural fluid possibly present. Labs completed and reviewed. CBC showing microcytic anemia with hemoglobin of 10.5, MCV 78.2, MCH 24.6, and MCHC of 31.4. Coagulation profile normal findings. BMP showing hypokalemia with potassium of 3.3 and renal function consistent with known CKD stage IV with BUN of 74, creatinine 2.14, GFR of 29. Liver profile unremarkable. Magnesium 2.1. Calcium 9.5. Troponin was elevated at 0.259. Patient started on low intensity heparin infusion for treatment of NSTEMI and was admitted under services with consultation to cardiology. Troponins trended and flat resulting at 0.259, 0.230, and 0.259. proBNP 23,800. Ultrasound completed showing a 9.4 cm fluid collection that was marked for possible thoracentesis, but patient did not receive this in the course of hospitalization. Cardiology took the patient to left heart catheterization on 09/17 which revealed severe triple-vessel disease with FAMILY CASEWORKER of the RCA and diffuse severe disease involving left circumflex and FAMILY CASEWORKER of the LAD. Later it was felt the patient had sick sinus syndrome with paroxysmal atrial fibrillation, warranting pacemaker placement. He underwent that procedure on 09/21. Patient remained in stable condition following placement of pacemaker. He was cleared for discharge with cardiology follow-up and PCP follow-up. I spent 38 minutes coordinating this discharge Gen: In NAD, non-toxic HEENT: normocephalic, atraumatic, hearing acuity is intant, mucous membranes moist CVS: perfusing all extremities well, no pitting edema, Respiratory: symmetric chest expansion, no accessory muscle use, GI: soft, NTTP, ND, : no suprapubic tenderness, no CVA tenderness MSK/Derm: no rashes, cyanosis Neuro: CN II-XII intact, no motor weakness, Psych: cooperative, euthymic mood, judgment and insight is intact Patient Condition at Discharge: Good Plan - Discharge Summary Discharge Rx Participant: Yes New Discharge Prescriptions: New Darbepoetin Sherif [Aranesp] 40 mcg SQ Q7D each Losartan [Cozaar] 12.5 mg PO DAILY #30 tab Dapagliflozin Propanediol [Farxiga] 10 mg PO DAILY #30 tab Ferrous Sulfate [Feosol] 325 mg PO DAILY #30 tab Isosorbide Mononitrate ER [Imdur] 30 mg PO DAILY #30 tab Furosemide [Lasix] 40 mg PO BID@0900,1600 #60 tab Atorvastatin [Lipitor] 40 mg PO HS #30 tab Metoprolol Tartrate [Lopressor] 25 mg PO BID #60 tab Pantoprazole [Protonix] 40 mg PO BID #60 tab Acetaminophen Tab [Tylenol] 650 mg PO Q6HR PRN tab PRN Reason: Mild Pain Or Fever > 100.5 Continue Nitroglycerin Sl Tabs [Nitrostat] 0.4 mg SL Q5M PRN PRN Reason: Chest Pain Tamsulosin [Flomax] 0.4 mg PO DAILY Famotidine 40 mg PO DAILY INSULIN ASPART (NovoLOG) [NovoLOG (formulary)] See Protocol SQ AC-TID Levothyroxine Sodium 25 mcg PO DAILY #30 tab calcitrioL 0.25 mcg PO MOWEFR allopurinoL 100 mg PO DAILY Aspirin EC [Ecotrin Low Dose] 162 mg PO DAILY Vitamin B-12 100mcg 200 mcg PO DAILY Sucralfate [Carafate] 1 gm PO BID #60 tablet Cholecalciferol (Vitamin D3) [Vitamin D3 (50 Mcg = 2000 Iu)] 50 mcg PO MOTUWETHFR Apixaban [Eliquis] 2.5 mg PO BID Discontinued Atorvastatin [Lipitor] 20 mg PO HS Empagliflozin [Jardiance] 10 mg PO DAILY hydrALAZINE HCL [Apresoline] 50 mg PO TID PRN PRN Reason: Blood Pressure - High Furosemide [Lasix] 40 mg PO DAILY Discharge Medication List Nitroglycerin Sl Tabs [Nitrostat] 0.4 mg SL Q5M PRN 08/11/13 [History] Tamsulosin [Flomax] 0.4 mg PO DAILY 08/28/13 [History] Famotidine 40 mg PO DAILY 10/16/18 [History] Aspirin EC [Ecotrin Low Dose] 162 mg PO DAILY 06/19/24 [History] INSULIN ASPART (NovoLOG) [NovoLOG (formulary)] See Protocol SQ AC-TID 06/19/24 [History] Vitamin B-12 100mcg 200 mcg PO DAILY 06/19/24 [History] allopurinoL 100 mg PO DAILY 06/19/24 [History] calcitrioL 0.25 mcg PO MOWEFR 06/19/24 [History] Levothyroxine Sodium 25 mcg PO DAILY #30 tab 08/30/24 [Rx] Sucralfate [Carafate] 1 gm PO BID #60 tablet 08/30/24 [Rx] Apixaban [Eliquis] 2.5 mg PO BID 09/14/24 [History] Cholecalciferol (Vitamin D3) [Vitamin D3 (50 Mcg = 2000 Iu)] 50 mcg PO MOTUWETHFR 09/14/24 [History] Acetaminophen Tab [Tylenol] 650 mg PO Q6HR PRN tab 09/20/24 [Rx] Atorvastatin [Lipitor] 40 mg PO HS #30 tab 09/20/24 [Rx] Dapagliflozin Propanediol [Farxiga] 10 mg PO DAILY #30 tab 09/20/24 [Rx] Darbepoetin Sherif [Aranesp] 40 mcg SQ Q7D each 09/20/24 [Rx] Ferrous Sulfate [Feosol] 325 mg PO DAILY #30 tab 09/20/24 [Rx] Furosemide [Lasix] 40 mg PO BID@0900,1600 #60 tab 09/20/24 [Rx] Isosorbide Mononitrate ER [Imdur] 30 mg PO DAILY #30 tab 09/20/24 [Rx] Losartan [Cozaar] 12.5 mg PO DAILY #30 tab 09/20/24 [Rx] Metoprolol Tartrate [Lopressor] 25 mg PO BID #60 tab 09/20/24 [Rx] Pantoprazole [Protonix] 40 mg PO BID #60 tab 09/20/24 [Rx] Follow up Appointment(s)/Referral(s): Kehinde Mckeon MD [Medical Doctor] - 1 Week Primo Rich DO [Doctor of Osteopathic Medicine] - 1 Week Audi Ruth DO [STAFF PHYSICIAN] - 1 Week [facility] [REFERRING] - 1-2 days Patient Instructions/Handouts: Heart Catheterization (DC), Pacemaker (DC) Discharge Disposition: HOME SELF-CARE
--- NOTE | 2024-09-20 21:45 | P.PN ---
Subjective Patient is seen for follow-up of chronic kidney disease. Status post cardiac catheterization 09/17/2024 which showed heavily calcified coronary vessels with severe disease. Status post pacemaker placement yesterday Blood pressures have been within normal range. No hypotension noted. Serum creatinine 2.2 yesterday. No significant complaints currently. Objective - Vital Signs Vital signs: Vital Signs Temp 97.1 F L 09/20/24 08:00 Pulse 64 09/20/24 08:00 Resp 15 09/20/24 08:00 BP 117/69 09/20/24 08:00 Pulse Ox 98 09/20/24 08:00 FiO2 Intake & Output 09/20/24 09/20/24 09/21/24 06:59 18:59 06:59 Intake Total 20 246 Output Total 300 0 Balance -280 246 Weight 52 kg Intake: IV 20 10 Invasive Line 2 20 10 Oral 236 Output: Urine 300 Stool 0 0 Other: Voiding Method Urinal Urinal # Voids 2 # Bowel Movements 1 - Exam Patient is awake, comfortable, no acute distress Examination of the heart S1 and S2 Examination of the lungs bilateral breath sounds are heard Abdomen is soft nontender Examination of lower extremities shows no evidence of edema WASTEWATER PLANT CIVIL ENGINEER exam grossly intact - Labs CBC & Chem 7: 09/19/24 06:52 09/19/24 06:52 Labs: Abnormal Lab Results - Last 24 Hours (Table) 09/20/24 09/20/24 Range/Units 06:12 11:14 POC Glucose (mg/dL) 141 H 264 H (70-110) mg/dL Assessment and Plan Assessment: 1. Chronic kidney disease stage IV secondary to nephrosclerosis with baseline creatinine around 2 mg/dL. Renal function is close to baseline. 2. Non-ST elevation HI status post cardiac catheterization on 09/17/2024 which showed heavily calcified coronaries with severe diffuse disease 3. Hypertension with CKD stage IV, blood pressure currently on the lower side 4. Ischemic cardiomyopathy with a EF of 30% 5. Anemia of chronic disease with significant iron deficiency noted, status post IV iron Plan: Follow-up as outpatient Stable for discharge from nephrology standpoint.
== END 2024-09-20 14:51 | disposition home or self-care (01) | DRG 242 ==
LOC: EC 12:22 → 3SCARD 14:42
PROVIDERS: ADMIT Student in an Organized Health Care Education/Training Program; ATTEND Student in an Organized Health Care Education/Training Program
PROC: B2111ZZ Fluoroscopy of Multiple Coronary Arteries using Low Osmolar Contrast (ICD-10-PCS; 2024-09-17)
PROC: 4A023N7 Measurement of Cardiac Sampling and Pressure, Left Heart, Percutaneous Approach (ICD-10-PCS; 2024-09-17)
PROC: B2151ZZ Fluoroscopy of Left Heart using Low Osmolar Contrast (ICD-10-PCS; 2024-09-17)
PROC: 02HK3JZ Insertion of Pacemaker Lead into Right Ventricle, Percutaneous Approach (ICD-10-PCS; 2024-09-19)
PROC: 0JH604Z Insertion of Pacemaker, Single Chamber into Chest Subcutaneous Tissue and Fascia, Open Approach (ICD-10-PCS; principal; 2024-09-19 10:00)
DX: I21.4 Non-ST elevation (NSTEMI) myocardial infarction (principal); I50.23 Acute on chronic systolic (congestive) heart failure; K26.4 Chronic or unspecified duodenal ulcer with hemorrhage; I13.0 Hypertensive heart and chronic kidney disease with heart failure and stage 1 through stage 4 chronic kidney disease, or unspecified chronic kidney disease; N18.4 Chronic kidney disease, stage 4 (severe); Q21.10 Atrial septal defect, unspecified; D63.1 Anemia in chronic kidney disease; E11.22 Type 2 diabetes mellitus with diabetic chronic kidney disease; I08.1 Rheumatic disorders of both mitral and tricuspid valves; I48.19 Other persistent atrial fibrillation; I21.A1 Myocardial infarction type 2; I49.5 Sick sinus syndrome; Z79.4 Long term (current) use of insulin; I25.10 Atherosclerotic heart disease of native coronary artery without angina pectoris; Z95.5 Presence of coronary angioplasty implant and graft; E78.5 Hyperlipidemia, unspecified; E87.6 Hypokalemia; H91.90 Unspecified hearing loss, unspecified ear; I25.5 Ischemic cardiomyopathy; W19.XXXA Unspecified fall, initial encounter; Z95.0 Presence of cardiac pacemaker; Z87.891 Personal history of nicotine dependence; Z86.718 Personal history of other venous thrombosis and embolism; Z86.73 Personal history of transient ischemic attack (TIA), and cerebral infarction without residual deficits; Z79.899 Other long term (current) drug therapy; Z79.890 Hormone replacement therapy; Z79.82 Long term (current) use of aspirin; Z79.84 Long term (current) use of oral hypoglycemic drugs; Z79.01 Long term (current) use of anticoagulants; Z86.74 Personal history of sudden cardiac arrest; Z85.038 Personal history of other malignant neoplasm of large intestine
CPT/HCPCS: 33207; 36415; 70450; 71045; 71046; 76604; 80048; 80053; 80061; 83036; 83540; 83550; 83735; 83880; 84484; 85025; 85027; 85610; 85730; 93005; 93458; 96365; 96366; 99291

== ENCOUNTER 2024-09-22 11:23 | Inpatient (IN) | payer OTHER, MEDICARE ==
[2024-09-22 12:17] LABS: Basophils # (A) 0.05 10*3/uL (0.00-0.10); Basophils % (A) 0.6 %; Eosinophils # (A) 0.09 10*3/uL (0.04-0.35); Eosinophils % (A) 1.1 %; HGB 10.4 g/dL (13.0-17.0); Lymphocytes % (A) 6.1 %; MCH 25.1 pg (27.0-32.0); MCHC 31.5 g/dL (32.0-37.0); MCV 79.5 fL (80.0-97.0); Mean Platelet Volume 11.3 fL (9.5-12.2); Monocytes # (A) 0.47 10*3/uL (0.20-1.00); Monocytes % (A) 5.7 %; Neutrophils # (A) 7.05 10*3/uL (1.80-7.70); Neutrophils % (A) 86.3 %; Platelet Count 195 10*3/uL (140-440); RBC 4.15 10*6/uL (4.40-5.60); RDW 21.2 % (11.5-14.5); WBC 8.18 10*3/uL (4.50-10.00)
--- NOTE | 2024-09-22 12:20 | XR ---
EXAMINATION TYPE: XR chest 2V DATE OF EXAM: 09/22/2024 12:12 PM COMPARISON: Chest radiographs from 09/20/2024. CLINICAL INDICATION: Male, 78 years old with history of Weakness; [facility] TECHNIQUE: XR chest 2V Frontal and lateral views of the chest. FINDINGS: Lungs/Pleura: No evidence of focal consolidation or pneumothorax. Blunting of the costophrenic angles is present. Pulmonary vascularity: Pulmonary vascular congestion. Heart/mediastinum: Cardiomediastinal silhouette is enlarged. Single-lead cardiac conduction device ov erlying the left hemithorax with lead projecting over the right ventricle. Musculoskeletal: No acute osseous pathology. IMPRESSION: Cardiomegaly, pulmonary vascular congestion and bilateral pleural effusions. Correlate with BNP for c ongestive heart failure. [facility], , 09/22/2024 12:18 PM
[2024-09-22 12:23] LABS: ALT 82 U/L (4-49); AST 301 U/L (17-59); African American GFR (CKD) 19 (>60 ml/min/1.73 sqM); Albumin 3.8 g/dL (3.5-5.0); Alkaline Phosphatase 77 U/L (38-126); Anion Gap 13 mmol/L; Blood Urea Nitrogen 84 mg/dL (9-20); Calcium 9.5 mg/dL (8.4-10.2); Carbon Dioxide 21 mmol/L (22-30); Chloride 99 mmol/L (98-107); Glucose 124 mg/dL (74-99); Magnesium 2.2 mg/dL (1.6-2.3); Non-African American GFR(CKD) 16 (>60 ml/min/1.73 sqM); Potassium 4.3 mmol/L (3.5-5.1); Sodium 133 mmol/L (137-145); Total Protein 6.3 g/dL (6.3-8.2)
--- NOTE | 2024-09-22 12:31 | ED ---
Weakness HPI - General Chief complaint: Weakness Stated complaint: Cardiac issues Time Seen by Provider: 09/22/24 11:35 Source: patient, EMS Mode of arrival: EMS Limitations: no limitations - History of Present Illness Initial comments: 78-year-old male with past medical history of congestive heart failure, coronary artery disease who presents to the emergency department from home. is at bedside and provides history. States the patient had a pacemaker placed on . He has had some worsening shortness of breath. No chest pain. He has had generalized weakness. Reports that he has not urinated since last night. Patient complains of right flank pain. No fevers. Does take Flomax for retention issues but has never had a Perez catheter. He denies any anterior abdominal pain. No history of kidney stones. Denies any numbness, tingling or weakness into his extremities. No other alleviating, precipitating or modifying factors - Related Data Home Medications Medication Instructions Recorded Confirmed Nitroglycerin Sl Tabs [Nitrostat] 0.4 mg SL Q5M PRN 08/11/13 09/22/24 Tamsulosin [Flomax] 0.4 mg PO DAILY 08/28/13 09/22/24 Famotidine 40 mg PO DAILY 10/16/18 09/22/24 Aspirin EC [Ecotrin Low Dose] 162 mg PO DAILY 06/19/24 09/22/24 INSULIN ASPART (NovoLOG) [NovoLOG See Protocol SQ AC-TID 06/19/24 09/22/24 (formulary)] Vitamin B-12 100mcg 200 mcg PO DAILY 06/19/24 09/22/24 allopurinoL 100 mg PO DAILY 06/19/24 09/22/24 calcitrioL 0.25 mcg PO MOWEFR 06/19/24 09/22/24 Apixaban [Eliquis] 2.5 mg PO BID 09/14/24 09/22/24 Cholecalciferol (Vitamin D3) 50 mcg PO MOTUWETHFR 09/14/24 09/22/24 [Vitamin D3 (50 Mcg = 2000 Iu)] Empagliflozin [Jardiance] 10 mg PO DAILY 09/22/24 09/22/24 Furosemide [Lasix] 40 mg PO BID 09/22/24 09/22/24 Metoprolol Succinate [Metoprolol 25 mg PO DAILY 09/22/24 09/22/24 Succinate ER] Previous Rx's Medication Instructions Recorded Levothyroxine Sodium 25 mcg PO DAILY #30 tab 08/30/24 Sucralfate [Carafate] 1 gm PO BID #60 tablet 08/30/24 Acetaminophen Tab [Tylenol] 650 mg PO Q6HR PRN tab 09/20/24 Atorvastatin [Lipitor] 40 mg PO HS #30 tab 09/20/24 Darbepoetin Sherif [Aranesp] 40 mcg SQ Q7D each 09/20/24 Ferrous Sulfate [Feosol] 325 mg PO DAILY #30 tab 09/20/24 Isosorbide Mononitrate ER [Imdur] 30 mg PO DAILY #30 tab 09/20/24 Losartan [Cozaar] 12.5 mg PO DAILY #30 tab 09/20/24 Allergies Allergy/AdvReac Type Severity Reaction Status Date / Time enalapril [Enalapril] AdvReac Unknown STATES BP Verified 09/22/24 16:15 TOO LOW lisinopril AdvReac Dizziness Verified 09/22/24 16:15 niacin AdvReac hyperglycemia, Verified 09/22/24 16:15 nausea Review of Systems ROS Statement: Those systems with pertinent positive or pertinent negative responses have been documented in the HPI. ROS Other: All systems not noted in ROS Statement are negative. Past Medical History Past Medical History: Atrial Fibrillation, Coronary Artery Disease (CAD), Cancer, Heart Failure, CVA/TIA, Diabetes Mellitus, Deep Vein Thrombosis (DVT), GERD/Reflux, Hearing Disorder / Deafness, Hyperlipidemia, Hypertension, Myoc ardial Infarction (AR), Renal Disease, Sleep Apnea/CPAP/BIPAP, Vascular Disorder Additional Past Medical History / Comment(s): BBOWEL OBSTRUCTION after colon cancer surgery., HX 2ND DEGREE HB,IBS,A FIB, RT FEMORAL DVT,CARDIO PULMONARY ARREST 2013, ATRIAL SEPTAL DEFECT,PVD, COLON CANCER 2005, per old hx ? ulcer in past. states her had a slight stroke no weakness from the stroke- states pt had stroke July 2024, no deficits from stroke per . Does not use CPAP Last Myocardial Infarction Date:: 11/2012 History of Any Multi-Drug Resistant Organisms: None Reported Past Surgical History: Bowel Resection, Heart Catheterization, Heart Catheterization With Stent, Hernia Repair, Pacemaker Additional Past Surgical History / Comment(s): Colon Resection 1999. Right femoral thrombolectomy 11/2012. Colonoscopy 2012. Anal fissure repair.RT CARTOTID ENDARTERECTOMY, incarcerated ventral hernia/lysis of adhesions. Past Anesthesia/Blood Transfusion Reactions: No Reported Reaction Additional Past Anesthesia/Blood Transfusion Reaction / Comment(s): HX OF BLOOD TRANSFUSION Date of Last Stent Placement:: 11/2012 Past Psychological History: No Psychological Hx Reported Smoking Status: Former smoker Past Alcohol Use History: None Reported Past Drug Use History: None Reported - Past Family History Sister(s) History Unknown: Yes Family Medical History: Cancer Father History Unknown: Yes Family Medical History: CVA/TIA, Diabetes Mellitus Mother History Unknown: Yes Family Medical History: Dementia General Exam Limitations: no limitations General appearance: alert Head exam: Present: atraumatic, normocephalic, normal inspection Eye exam: Present: normal appearance, PERRL, EOMI. Absent: scleral icterus, conjunctival injection, periorbital swelling ENT exam: Present: normal exam, mucous membranes moist Respiratory exam: Present: rales, decreased breath sounds Cardiovascular Exam: Present: normal rhythm, bradycardia GI/Abdominal exam: Present: soft Extremities exam: Present: normal inspection, full ROM, normal capillary refill. Absent: tenderness, pedal edema, joint swelling, calf tenderness Back exam: Present: CVA tenderness (R) Neurological exam: Present: alert Skin exam: Present: warm, dry, intact, normal color. Absent: rash Course Vital Signs 09/22/24 09/22/24 09/22/24 11:27 14:08 14:19 Temperature 97.8 F Pulse Rate 55 L 54 L Respiratory 20 20 Rate Blood Pressure 93/60 121/66 88/65 O2 Sat by Pulse 99 100 Oximetry 09/22/24 09/22/24 15:29 17:12 Temperature Pulse Rate 55 L 56 L Respiratory 20 20 Rate Blood Pressure 119/75 110/72 O2 Sat by Pulse 99 99 Oximetry - Reevaluation(s) Reevaluation #1: 09/22/24 15:[address] Peres Medical Decision Making - Medical Decision Making Was pt. sent in by a medical professional or institution (, PA, PER DIEM NURSE, urgent care, hospital, or penitentiary...) When possible be specific @ -No Did you speak to anyone other than the patient for history (EMS, parent, family, police, friend...)? What history was obtained from this source @ -I spoke with the for history Did you review nursing and triage notes (agree or disagree)? Why? @ -I reviewed and agree with nursing and triage notes Were old charts reviewed (outside hosp., previous admission, EMS record, old EKG, old radiological studies, urgent care reports/EKG's, penitentiary records)? Report findings @ -I reviewed the discharge summary from 09/20 which made me aware of the patient's discharge medications as well as the type of device Differential Diagnosis (chest pain, altered mental status, abdominal pain women, abdominal pain men, vaginal bleeding, weakness, fever, dyspnea, syncope, headache, dizziness, GI bleed, back pain, seizure, CVA, palpatations, mental health, musculoskeletal)? @ -Differential Abdominal Pain Men: Appendicitis, cholecystitis, diverticulosis, ischemic bowel, pancreatitis, hepatitis, UTI, gastroenteritis, AAA, incarcerated hernia, bowel obstruction, constipation, inflammatory bowel, hepatitis, peptic ulcer disease, splenic infarction, perforated viscus, testicular torsion, this is not meant to be an all-inclusive list EKG interpreted by me (3pts min.). @ -Yes and demonstrates electronic pacemaker with a rate of 54. QRS 228. QTc of 586. Pace maker captures appropriately Repeat EKG conducted at 1355 demonstrates electronic ventricular pacemaker with a rate of 56. QRS 221. QTc of 595. Pacemaker captures appropriately. Repeat EKG at 1357 demonstrates sinus rhythm with a rate of 64. DE interval 171. QRS 169. QTc of 486. No acute ST segment elevations or depressions X-rays interpreted by me (1pt min.). @ -yes which demonstrates pulmonary vascular congestion CT interpreted by me (1pt min.). @ -US which does not demonstrate acute intra-abdominal process U/S interpreted by me (1pt. min.). @ -None done What testing was considered but not performed or refused? (CT, X-rays, U/S, labs)? Why? @ -CT with contrast was considered however patient is in kidney failure What meds were considered but not given or refused? Why? @ -Lasix was considered however patient is in kidney failure as well and therefore we will consult cardiology and nephrology before trying to diurese the patient Did you discuss the management of the patient with other professionals (professionals i.e. , PA, PER DIEM NURSE, lab, RT, psych nurse, social media coordinator, food processor, teacher, banking officer, wrapper caser)? Give summary @ -Spoke with Dr. Bagley for admission Was smoking cessation discussed for >3mins.? @ -No Was critical care preformed (if so, how long)? @ -No Were there social determinants of health that impacted care today? How? (Homelessness, low income, unemployed, alcoholism, drug addiction, transportation, low edu. Level, literacy, decrease access to med. care, group home, rehab)? @ -No Was there de-escalation of care discussed even if they declined (Discuss DNR or withdrawal of care, Hospice)? DNR status @ -No What co-morbidities impacted this encounter? (DM, HTN, Smoking, COPD, CAD, Cancer, CVA, ARF, Chemo, Hep., AIDS, mental health diagnosis, sleep apnea, morbid obesity)? @ -Coronary artery disease, sick sinus syndrome Was patient admitted / discharged? Hospital course, mention meds given and route, prescriptions, significant lab abnormalities, going to OR and other pertinent info. @ -Upon arrival patient seen and evaluated in room 8. Thorough history and physical exam was performed. Patient placed on continuous pulse ox and cardiac monitoring. Twelve-lead EKG is obtained. Patient [place] device is interrogated. Laboratory studies are conducted and chest x-ray was performed. Patient is bladder scanned and it states that there is approximately 400 in the patient's bladder. Perez catheter was placed and patient did have 200 cc of urine in his bladder. CT is performed of the patient's abdomen and pelvis. He does go for CT and does have an episode of altered mental status on the CAT scan table. Patient appears to deviate off and become unresponsive. This only lasts for 5 seconds before the patient comes to. We did attempt to do a CT of the chest as well however due to the patient's altered mental status we discontinued the study. He is placed into trauma bay 2. states that he has had previous episodes like this dating back to 6 months ago. He has been worked up without a diagnosis. I discussed the results with the patient and . Recommended admission for acute kidney injury with concerns for heart failure. Spoke with Dr. Bagley for the admission Undiagnosed new problem with uncertain prognosis? @ -Yes Drug Therapy requiring intensive monitoring for toxicity (Heparin, Nitro, Insulin, Cardizem)? @ -No Were any procedures done? @ -No Diagnosis/symptom? @ -Acute right flank pain, AMY/ckd, acute exacerbation of congestive heart failure, status post pacemaker placement Acute, or Chronic, or Acute on Chronic? @ -Acute on chronic Uncomplicated (without systemic symptoms) or Complicated (systemic symptoms)? @ -Complicated Side effects of treatment? @ -No Exacerbation, Progression, or Severe Exacerbation? @ -No Poses a threat to life or bodily function? How? (Chest pain, USA, AR, pneumonia, PE, COPD, DKA, ARF, appy, cholecystitis, CVA, Diverticulitis, Homicidal, Suicidal, threat to staff... and all critical care pts) @ -Yes as patient appears to be in kidney and heart failure - Lab Data Result diagrams: 09/23/24 06:12 09/24/24 07:15 Lab Results 09/22/24 09/22/24 09/22/24 Range/Units 12:01 12:01 12:01 WBC 8.18 (4.50-10.00) 10*3/uL RBC 4.15 L (4.40-5.60) 10*6/uL Hgb 10.4 L (13.0-17.0) g/dL Hct 33.0 L (39.6-50.0) % MCV 79.5 L (80.0-97.0) fL MCH 25.1 L (27.0-32.0) pg MCHC 31.5 L (32.0-37.0) g/dL Plt Count 195 (140-440) 10*3/uL MPV 11.3 (9.5-12.2) fL Immature Gran % (Auto) 0.2 % Neutrophils % 86.3 % Lymphocytes % 6.1 % Monocytes % 5.7 % Eosinophils % 1.1 % Basophils % 0.6 % Immature Gran # 0.02 (0.00-0.04) 10*3/uL Neutrophils # 7.05 (1.80-7.70) 10*3/uL Lymphocytes # 0.50 L (0.90-5.00) 10*3/uL Monocytes # 0.47 (0.20-1.00) 10*3/uL Eosinophils # 0.09 (0.04-0.35) 10*3/uL Basophils # 0.05 (0.00-0.10) 10*3/uL PT 15.5 H (10.0-12.5) sec INR 1.5 H (<1.2) APTT 28.8 (22.0-30.0) sec Sodium 133 L (137-145) mmol/L Potassium 4.3 (3.5-5.1) mmol/L Chloride 99 (98-107) mmol/L Carbon Dioxide 21 L (22-30) mmol/L Anion Gap 13 mmol/L BUN 84 H (9-20) mg/dL Creatinine 3.48 H (0.66-1.25) mg/dL Est GFR (CKD-EPI)AfAm 19 (>60 ml/min/1.73 sqM) Est GFR (CKD-EPI)NonAf 16 (>60 ml/min/1.73 sqM) Glucose 124 H (74-99) mg/dL Plasma Lactic Acid Kirk (0.7-2.0) mmol/L Calcium 9.5 (8.4-10.2) mg/dL Magnesium 2.2 (1.6-2.3) mg/dL Total Bilirubin 1.0 (0.2-1.3) mg/dL AST 301 H (17-59) U/L ALT 82 H (4-49) U/L Alkaline Phosphatase 77 (38-126) U/L Troponin I (0.000-0.034) ng/mL NT-Pro-B Natriuret Pep 10655 pg/mL Total Protein 6.3 (6.3-8.2) g/dL Albumin 3.8 (3.5-5.0) g/dL Urine Color Urine Appearance (Clear) Urine pH (5.0-8.0) Ur Specific [place] (1.001-1.035) Urine Protein (Negative) Urine Glucose (UA) (Negative) Urine Ketones (Negative) Urine Blood (Negative) Urine Nitrite (Negative) Urine Bilirubin (Negative) Urine Urobilinogen (<2.0) mg/dL Ur Leukocyte Esterase (Negative) Urine RBC (0-5) /hpf Urine WBC (0-5) /hpf Ur Squamous Epith Cells (0-4) /hpf Urine Mucus (None) /hpf 09/22/24 09/22/24 09/22/24 Range/Units 12:01 12:01 13:03 WBC (4.50-10.00) 10*3/uL RBC (4.40-5.60) 10*6/uL Hgb (13.0-17.0) g/dL Hct (39.6-50.0) % MCV (80.0-97.0) fL MCH (27.0-32.0) pg MCHC (32.0-37.0) g/dL Plt Count (140-440) 10*3/uL MPV (9.5-12.2) fL Immature Gran % (Auto) % Neutrophils % % Lymphocytes % % Monocytes % % Eosinophils % % Basophils % % Immature Gran # (0.00-0.04) 10*3/uL Neutrophils # (1.80-7.70) 10*3/uL Lymphocytes # (0.90-5.00) 10*3/uL Monocytes # (0.20-1.00) 10*3/uL Eosinophils # (0.04-0.35) 10*3/uL Basophils # (0.00-0.10) 10*3/uL PT (10.0-12.5) sec INR (<1.2) APTT (22.0-30.0) sec Sodium (137-145) mmol/L Potassium (3.5-5.1) mmol/L Chloride (98-107) mmol/L Carbon Dioxide (22-30) mmol/L Anion Gap mmol/L BUN (9-20) mg/dL Creatinine (0.66-1.25) mg/dL Est GFR (CKD-EPI)AfAm (>60 ml/min/1.73 sqM) Est GFR (CKD-EPI)NonAf (>60 ml/min/1.73 sqM) Glucose (74-99) mg/dL Plasma Lactic Acid Kirk 1.5 (0.7-2.0) mmol/L Calcium (8.4-10.2) mg/dL Magnesium (1.6-2.3) mg/dL Total Bilirubin (0.2-1.3) mg/dL AST (17-59) U/L ALT (4-49) U/L Alkaline Phosphatase (38-126) U/L Troponin I 0.095 H* (0.000-0.034) ng/mL NT-Pro-B Natriuret Pep pg/mL Total Protein (6.3-8.2) g/dL Albumin (3.5-5.0) g/dL Urine Color Yellow Urine Appearance Clear (Clear) Urine pH 5.0 (5.0-8.0) Ur Specific [place] 1.017 (1.001-1.035) Urine Protein Negative (Negative) Urine Glucose (UA) 3+ H (Negative) Urine Ketones Negative (Negative) Urine Blood Negative (Negative) Urine Nitrite Negative (Negative) Urine Bilirubin Negative (Negative) Urine Urobilinogen <2.0 (<2.0) mg/dL Ur Leukocyte Esterase Small H (Negative) Urine RBC <1 (0-5) /hpf Urine WBC 4 (0-5) /hpf Ur Squamous Epith Cells 1 (0-4) /hpf Urine Mucus Rare H (None) /hpf Disposition Clinical Impression: Renal failure (ARF), acute on chronic, Acute exacerbation of CHF (congestive heart failure) Disposition: ADMITTED IP TO THIS [facility] Condition: Serious Is patient prescribed a controlled substance at d/c from ED?: No Time of Disposition: 14:53 Decision to Admit Reason: Admit from EC Decision Date: 09/22/24 Decision Time: 14:53
[2024-09-22 12:32] LABS: NT-Pro-B-Type Natriuretic Pept 19500 pg/mL
[2024-09-22 12:38] LABS: INR 1.5 (<1.2); Partial Thromboplastin Time 28.8 sec (22.0-30.0); Prothrombin Time 15.5 sec (10.0-12.5)
[2024-09-22 13:24] LABS: Appearance,Urine Clear (Clear); Bilirubin,Urine Negative (Negative); Blood,Urine Negative (Negative); Color,Urine Yellow; Glucose,Urine (UA) 3+ (Negative); Ketones,Urine Negative (Negative); Leukocyte Esterase,Urine Small (Negative); Mucus,Urine Rare /hpf; Nitrite,Urine Negative (Negative); Protein,Urine Negative (Negative); RBC,Urine <1 /hpf (0-5); Specific Gravity,Urine 1.017 (1.001-1.035); Squamous Epithelial Cell,Urine 1 /hpf (0-4); Urobilinogen,Urine <2.0 mg/dL (<2.0); WBC,Urine 4 /hpf (0-5)
[2024-09-22] MEDS: fentaNYL (PF) 50 MCG/ML 2 ML AMP IVP STA (13:37)
--- NOTE | 2024-09-22 14:17 | CT ---
EXAMINATION TYPE: CT abdomen pelvis wo con DATE OF EXAM: 09/22/2024 1:58 PM COMPARISON: 11/14/2014. CLINICAL INDICATION: Male, 78 years old with history of right sided back pain, rogelio, recent ppm; Pt br ought in via ems from home. Pt had a pacemaker placed , pt denies any c/p and reports some so b. Pt c.o of genreal weakness with central and bilat lower edema, pt reports last void was yeserday a nd reprorts R flank pain. TECHNIQUE: Axial CT abdomen pelvis wo con;Sagittal and coronal reformats were created on a separate workstation. Contrast used: mL of , (none if empty) Oral contrast used: without Oral Contrast (none if empty) CT DLP: 1584.4 mGycm, Automated exposure control for dose reduction was used. FINDINGS: LOWER CHEST: Moderate cardiomegaly. Severe coronary artery atherosclerosis. Cardiac conduction leads terminating in the heart. Moderate right pleural effusion trace left pleural effusion. ABDOMEN LIVER: Unremarkable GALLBLADDER AND BILE DUCTS: Unremarkable. PANCREAS: Unremarkable. SPLEEN: Unremarkable. ADRENAL GLANDS: Unremarkable. KIDNEYS AND URETERS: No evidence of hydronephrosis or obstructing renal calculus. The ureters are unr emarkable. PELVIS BLADDER: Nondistended with Perez catheter in place. REPRODUCTIVE: Unremarkable. ABDOMEN & PELVIS STOMACH AND BOWEL: No evidence of bowel obstruction. PERITONEUM/RETROPERITONEUM: No evidence of pneumoperitoneum. Moderate ascites around the liver VASCULATURE: Mild atherosclerotic calcifications are present throughout the abdominal aorta and its b ranches. No evidence of aortic aneurysm. MUSCULOSKELETAL: No acute osseous abnormalities. Mild disc degeneration changes are present throughou t the thoracolumbar spine. Degeneration changes at L5-S1 right pars interarticularis defects. LYMPH NODES: No gross evidence for lymphadenopathy. SOFT TISSUE/ABDOMINAL WALL: Unremarkable diastases of the rectus abdominis musculature. Anterior vent ral wall hernias with small bowel loops closely approximating the wall. IMPRESSION: 1. No evidence for acute intra-abdominal process. 2. Circumferential bladder wall thickening correlate with urinalysis for cystitis 3. Moderate ascites around the liver. 4. Ventral wall hernia containing loops of bowel no evidence for obstruction. 5. Moderate cardiomegaly. 6. Right L5 pars interarticularis defects. 7. Perez catheter in appropriate position. 8. Severe coronary artery atherosclerosis. 9. Moderate right pleural effusion, trace left pleural effusion. [facility], , 09/22/2024 2:15 PM
[2024-09-22] MEDS ORDERED: NALOXONE 0.4 MG/ML 1 ML VIAL IV PRN (14:53)
[2024-09-22] MEDS ORDERED: DEXTROSE 50% SYRINGE 50 ML IVP PRN ×2 (16:08)
--- NOTE | 2024-09-22 16:16 | P.HPIM ---
History of Present Illness H&P Date: 09/22/24 78-year-old male with a past medical history of CAD status post stenting x 2, history of cardiac arrest in 2013, chronic systolic congestive heart failure, valvular heart disease with atrial septal defect, chronic atrial fibrillation on anticoagulation with Eliquis, hypertension, hyperlipidemia, peripheral vascular disease, carotid stenosis status post R carotid endarterectomy, previous CVA, colon cancer status post bowel resection, insulin-dependent diabetes mellitus, stage IV CKD, DVT status post femoral thrombectomy, and previous CVA with no reported deficits. He presents to the ED for decreased urine output and right flank pain that has been progressively getting worse since Monday. Patient was recently admitted from 09/14-09/20. He had elevated troponins (peak of 0.259). Cardiology evaluated, underwent cardiac cath which showed severe triple-vessel disease with WASTEWATER ANALYST of the RCA and diffuse severe disease involving left circumflex and WASTEWATER ANALYST of the LAD. He also underwent pacemaker placement on 09/21 for sick sinus syndrome. On the day of discharge, he reports hurting his right back while trying to get into the car. The pain is described as sharp and stabbing. Pain radiated to the RLQ with 10/10 intensity which prompted him to come to the ED. He denies any dizziness, chest pain or shortness of breath. reports 100 cc of urine output since Monday. In the ED he underwent extensive evaluation. BP as low as 88/65, HR in the 50s, T 97.8F, 99% on RA. CBC, Coag panel, CMP significant for RBC 4.15, Hg 10.4, Hct 33, MCV 79.5, PT 15.5, INR 1.5, Na 133, bicarb 21, BUN 84, Cr 3.48, glu 124, AST 301, ALT 82. Trop 0.095. BNP 20710. UA 3+ glucose with small LE. CXR with pulmonary vascular congestion. EKG showing V paced rhythmm with prolonged QT of 586. CT AP showed no intraabdominal process, bladder wall thickening, moderate ascites around the liver, ventral wall hernia with no obstruction, right L5 pars interarticularis defect, severe CAD and moderate R (+ trace left) pleural effusion. Patient is admitted for further workup and management. General: toxic, mild-mod distress, appears at stated age Derm: warm, dry Head: atraumatic, normocephalic, symmetric Eyes: EOMI, no lid lag, anicteric sclera Cardiovascular: S1 S2 angle, no murmur Lungs: Decreased BS bilateral, no rhonchi, no rales , no accessory muscle use Abd: Mild TTP in the RLQ without rebound Ext: no gross muscle atrophy, minimal edema, no contractures Neuro: no focal neuro deficits Psych: Sleepy. AO x 3 +Perez Based on my assessment of this patient, this patient meets a high complexity level of care. Acute on chronic systolic CHF exacerbation: Hold Lasix, Imdur, Losartan and Metoprolol due to hypotension. Strict intake and outtake. Daily weights. Interrogate pacemaker. Telemetry monitoring. Maintain K > 4 and Mg > 2. Cardiology consultation. AMY on CKD stage IV: Possibly cardiorenal. No hydronephrosis on CT. Hold Farxiga and Losartan. Monitor urine output. Repeat BMP in the AM. Nephrology consult. Troponin elevation with history of severe CAD: ASA 162 mg PO QD. Lipitor 40 mg PO QHS. Downtrending since previous admission. Recently underwent cardiac cath. Holding Metoprolol due to hypotension. Cardiology consultation. Pleural effusion: Obtain chest US. Microcytic anemia: At baseline. Continue ferrous sulfate 325 mg PO QD + B12 200 mcg PO QD. Transfuse if Hg < 7. Repeat CBC in the AM. Transaminitis: Possibly cardiohepatic. CT shows moderate ascites around the liver. Hold Lipitor. Repeat CMP in the AM. Right flank pain: Possibly MSK. CT AP unrevealing. [place] 5 mg PO Q6H PRN pain. BPH: Flomax 0.4 mg PO QD. AFib: Eliquis 2.5 mg PO BID for AC. Gout: Allopurinol 100 mg PO QD. Hypothyrodism: Synthroid 25 mcg PO QD. Hypertension: Holding antihypertensive meds due to hypotension. Dyslipidemia: Holding Lipitor due to transaminitis. Diabetes mellitus: ISS with Accuchecks ACHS along with hypoglycemic precautions. Monitor vital signs Q2H. May need ICU for pressors, ionotropes. Monitor renal fu nction for possible need for renal replacement. CODE STATUS: FULL CODE DVT Prophylaxis: Eliquis GI Prophylaxis: Designated medical POA if patient is not able to make medical decisions for themselves: I have reviewed the following compensation consultant notes: ED note I have reviewed the results of the following tests: As above I have ordered the following tests: As above I have discussed the care of this patient with the following independent historian: Family at bedside. I have independently interpreted the following test below: CXR I have discussed the management of this patient with the following physician: Dr. Singh. Past Medical History Past Medical History: Atrial Fibrillation, Coronary Artery Disease (CAD), Cancer, Heart Failure, CVA/TIA, Diabetes Mellitus, Deep Vein Thrombosis (DVT), GERD/Reflux, Hearing Disorder / Deafness, Hyperlipidemia, Hypertension, Myocardial Infarction ([place]), Renal Disease, Sleep Apnea/CPAP/BIPAP, Vascular Disorder Additional Past Medical History / Comment(s): BBOWEL OBSTRUCTION after colon ca ncer surgery., HX 2ND DEGREE HB,IBS,A FIB, RT FEMORAL DVT,CARDIO PULMONARY ARREST 2013, ATRIAL SEPTAL DEFECT,PVD, COLON CANCER 2005, per old hx ? ulcer in past. states her had a slight stroke no weakness from the stroke- states pt had stroke July 2024, no deficits from stroke per . Does not use CPAP Last Myocardial Infarction Date:: 11/2012 History of Any Multi-Drug Resistant Organisms: None Reported Past Surgical History: Bowel Resection, Heart Catheterization, Heart Catheterization With Stent, Hernia Repair, Pacemaker Additional Past Surgical History / Comment(s): Colon Resection 1999. Right femoral thrombolectomy 11/2012. Colonoscopy 2012. Anal fissure repair.RT CARTOTID ENDARTERECTOMY, incarcerated ventral hernia/lysis of adhesions. Past Anesthesia/Blood Transfusion Reactions: No Reported Reaction Additional Past Anesthesia/Blood Transfusion Reaction / Comment(s): HX OF BLOOD TRANSFUSION Date of Last Stent Placement:: 11/2012 Past Psychological History: No Psychological Hx Reported Smoking Status: Former smoker Past Alcohol Use History: None Reported Past Drug Use History: None Reported - Past Family History Sister(s) History Unknown: Yes Family Medical History: Cancer Father History Unknown: Yes Family Medical History: CVA/TIA, Diabetes Mellitus Mother History Unknown: Yes Family Medical History: Dementia Medications and Allergies Home Medications Medication Instructions Recorded Confirmed Type Nitroglycerin Sl Tabs [Nitrostat] 0.4 mg SL Q5M PRN 08/11/13 09/14/24 History Tamsulosin [Flomax] 0.4 mg PO DAILY 08/28/13 09/14/24 History Famotidine 40 mg PO DAILY 10/16/18 09/14/24 History Aspirin EC [Ecotrin Low Dose] 162 mg PO DAILY 06/19/24 09/14/24 History INSULIN ASPART (NovoLOG) [NovoLOG See Protocol SQ AC-TID 06/19/24 09/14/24 History (formulary)] Vitamin B-12 100mcg 200 mcg PO DAILY 06/19/24 09/14/24 History allopurinoL 100 mg PO DAILY 06/19/24 09/14/24 History calcitrioL 0.25 mcg PO MOWEFR 06/19/24 09/14/24 History Levothyroxine Sodium 25 mcg PO DAILY #30 tab 08/30/24 09/14/24 Rx Sucralfate [Carafate] 1 gm PO BID #60 tablet 08/30/24 09/14/24 Rx Apixaban [Eliquis] 2.5 mg PO BID 09/14/24 09/14/24 History Cholecalciferol (Vitamin D3) 50 mcg PO MOTUWETHFR 09/14/24 09/14/24 History [Vitamin D3 (50 Mcg = 2000 Iu)] Acetaminophen Tab [Tylenol] 650 mg PO Q6HR PRN tab 09/20/24 Rx Atorvastatin [Lipitor] 40 mg PO HS #30 tab 09/20/24 Rx Dapagliflozin Propanediol [Farxiga] 10 mg PO DAILY #30 tab 09/20/24 Rx Darbepoetin Sherif [Aranesp] 40 mcg SQ Q7D each 09/20/24 Rx Ferrous Sulfate [Feosol] 325 mg PO DAILY #30 tab 09/20/24 Rx Furosemide [Lasix] 40 mg PO BID@0900,1600 #60 tab 09/20/24 Rx Isosorbide Mononitrate ER [Imdur] 30 mg PO DAILY #30 tab 09/20/24 Rx Losartan [Cozaar] 12.5 mg PO DAILY #30 tab 09/20/24 Rx Metoprolol Tartrate [Lopressor] 25 mg PO BID #60 tab 09/20/24 Rx Pantoprazole [Protonix] 40 mg PO BID #60 tab 09/20/24 Rx Allergies Allergy/AdvReac Type Severity Reaction Status Date / Time enalapril [Enalapril] AdvReac Unknown STATES BP Verified 09/22/24 11:33 TOO LOW lisinopril AdvReac Dizziness Verified 09/22/24 11:33 niacin AdvReac hyperglycemia, Verified 09/22/24 11:33 nausea Physical Exam Vitals: Vital Signs Temp Pulse Resp BP Pulse Ox 09/22/24 15:29 55 L 20 119/75 99 09/22/24 14:19 88/65 09/22/24 14:08 54 L 20 121/66 100 09/22/24 11:27 97.8 F 55 L 20 93/60 99 Intake and Output 09/22/24 09/22/24 09/22/24 06:59 14:59 22:59 Output Total 414 Balance -414 Output: Post Void Residual 414 Other: Weight 97.522 kg Results CBC & Chem 7: 09/22/24 12:01 09/22/24 12:01 Labs: Abnormal Lab Results - Last 24 Hours (Table) 09/22/24 09/22/24 09/22/24 Range/Units 12:01 12:01 12:01 RBC 4.15 L (4.40-5.60) 10*6/uL Hgb 10.4 L (13.0-17.0) g/dL Hct 33.0 L (39.6-50.0) % MCV 79.5 L (80.0-97.0) fL MCH 25.1 L (27.0-32.0) pg MCHC 31.5 L (32.0-37.0) g/dL Lymphocytes # 0.50 L (0.90-5.00) 10*3/uL PT 15.5 H (10.0-12.5) sec INR 1.5 H (<1.2) Sodium 133 L (137-145) mmol/L Carbon Dioxide 21 L (22-30) mmol/L BUN 84 H (9-20) mg/dL Creatinine 3.48 H (0.66-1.25) mg/dL Glucose 124 H (74-99) mg/dL AST 301 H (17-59) U/L ALT 82 H (4-49) U/L Troponin I (0.000-0.034) ng/mL Urine Glucose (UA) (Negative) Ur Leukocyte Esterase (Negative) Urine Mucus (None) /hpf 09/22/24 09/22/24 Range/Units 12:01 13:03 RBC (4.40-5.60) 10*6/uL Hgb (13.0-17.0) g/dL Hct (39.6-50.0) % MCV (80.0-97.0) fL MCH (27.0-32.0) pg MCHC (32.0-37.0) g/dL Lymphocytes # (0.90-5.00) 10*3/uL PT (10.0-12.5) sec INR (<1.2) Sodium (137-145) mmol/L Carbon Dioxide (22-30) mmol/L BUN (9-20) mg/dL Creatinine (0.66-1.25) mg/dL Glucose (74-99) mg/dL AST (17-59) U/L ALT (4-49) U/L Troponin I 0.095 H* (0.000-0.034) ng/mL Urine Glucose (UA) 3+ H (Negative) Ur Leukocyte Esterase Small H (Negative) Urine Mucus Rare H (None) /hpf
[2024-09-22 17:21] LABS: Glucose,Whole Blood 144 mg/dL (70-110)
[2024-09-22] MEDS: INSULIN LISPRO (HumaLOG) 100 UNIT/ML 10 mL VL SQ SCH (17:22)
--- NOTE | 2024-09-22 19:55 | US ---
EXAMINATION TYPE: US chest DATE OF EXAM: 09/22/2024 COMPARISON: XR 09/22/24 CLINICAL INDICATION: Male, 78 years old with history of pleural effusion; bilateral effusion TECHNIQUE: Grayscale imaging of the chest. Targeted ultrasound of the posterior lower bilateral araceli thoraces FINDINGS: EXAM MEASUREMENTS: Right Pleural Effusion pocket size: 3 cm Left Pleural Effusion pocket size: trace effusion Right effusion not marked due to presence of mobile lung tissue in anterior pocket Moderate perihepatic ascites Pulmonologists are able to review the images in the patient?s EMR. IMPRESSIONS: Bilateral pleural effusions. [facility], , 09/22/2024 7:53 PM
[2024-09-22 20:26] LABS: Glucose,Whole Blood 143 mg/dL (70-110)
[2024-09-22] MEDS ORDERED: ATORVASTATIN 40 MG TAB PO SCH (21:00)
[2024-09-22] MEDS: PANTOPRAZOLE 40 MG TABLET PO SCH (21:16)
[2024-09-22] MEDS: SUCRALFATE 1 GM TAB PO SCH (21:16)
[2024-09-22] MEDS: APIXABAN 5 MG TAB PO SCH (21:16)
[2024-09-23] MEDS: HYDROcodone/APAP 5-325MG 1 EACH TAB PO PRN (04:54)
[2024-09-23 06:15] LABS: Glucose,Whole Blood 97 mg/dL (70-110)
[2024-09-23] MEDS: LEVOTHYROXINE 25 MCG TAB PO SCH (06:20)
[2024-09-23 06:54] LABS: Basophils # (A) 0.07 10*3/uL (0.00-0.10); Basophils % (A) 0.9 %; Eosinophils # (A) 0.12 10*3/uL (0.04-0.35); Eosinophils % (A) 1.6 %; HCT 32.8 % (39.6-50.0); HGB 10.1 g/dL (13.0-17.0); Lymphocytes # (A) 0.67 10*3/uL (0.90-5.00); Lymphocytes % (A) 8.7 %; MCH 24.9 pg (27.0-32.0); MCHC 30.8 g/dL (32.0-37.0); MCV 80.8 fL (80.0-97.0); Mean Platelet Volume 10.2 fL (9.5-12.2); Monocytes # (A) 0.46 10*3/uL (0.20-1.00); Monocytes % (A) 5.9 %; Neutrophils # (A) 6.39 10*3/uL (1.80-7.70); Neutrophils % (A) 82.5 %; Platelet Count 178 10*3/uL (140-440); RBC 4.06 10*6/uL (4.40-5.60); RDW 21.5 % (11.5-14.5); WBC 7.74 10*3/uL (4.50-10.00)
[2024-09-23 07:18] LABS: African American GFR (CKD) 18 (>60 ml/min/1.73 sqM); Anion Gap 14 mmol/L; Blood Urea Nitrogen 86 mg/dL (9-20); Calcium 9.4 mg/dL (8.4-10.2); Carbon Dioxide 20 mmol/L (22-30); Chloride 101 mmol/L (98-107); Glucose 87 mg/dL (74-99); Non-African American GFR(CKD) 15 (>60 ml/min/1.73 sqM); Potassium 4.2 mmol/L (3.5-5.1); Sodium 135 mmol/L (137-145)
[2024-09-23] MEDS: allopurinoL 100 MG TAB PO SCH (08:19)
[2024-09-23] MEDS: FERROUS SULFATE 325 MG TAB PO SCH (08:19)
[2024-09-23] MEDS: CYANOCOBALAMIN 500 MCG TAB PO SCH (08:19)
[2024-09-23] MEDS: TAMSULOSIN 0.4 MG CAP.ER.24H PO SCH (08:19)
[2024-09-23] MEDS: ASPIRIN 81 MG PO SCH (08:20)
--- NOTE | 2024-09-23 10:14 | P.CRDCN ---
History of Present Illness Consult date: 09/23/24 Consult reason: congestive heart failure History of present illness: This is a 78-year-old male patient of Dr. Leal with past medical history of coronary artery disease with known DONOR CENTER TECHNICIAN of the RCA and intermediate disease involving the left coronary system as well as cardiomyopathy with EF between 25 and 30%, persistent atrial fibrillation, hypertension, dyslipidemia, history of TIA, carotid atherosclerosis, dilated ascending aorta, chronic kidney disease, history of colon cancer. We have been asked to evaluate the patient for acute CHF. Patient states that he came into the hospital due to right flank and abdominal pain. He states the pain initially started in the right flank and then moved into the abdomen. He denies chest pain or chest pressure. He denies chest tightness. He denies shortness of breath. He denies increased weight or increased edema to the lower extremities. Patient had a recent hospitalization in September at which time he was seen by cardiology and had a permanent pacemaker [employer] placed by Dr. RAJEEV Mauro on 09/19/2024. Patient has had no problems with the pacemaker site. Patient had presented for acute on chronic anemia and found to have a duodenal ulcer with evidence of bleeding. Patient's states that the pacemaker was interrogated in the emergency center but we are unable to locate a report. Blood pressure 115/70, heart rate in the 50s, pulse ox 100% on 2 L nasal cannula. -EKG: Ventricularly paced rhythm -Chest x-ray: Cardiomegaly, pulmonary vascular congestion and bilateral pleural effusions. -CT of the abdomen pelvis without contrast reveals no evidence of acute intra- abdominal process. Correlate for cystitis. Moderate ascites around the liver. No bowel obstruction. Patient does have a ventral hernia. Moderate cardiomegaly severe coronary artery atherosclerosis. Moderate right pleural effusion, trace left peripheral effusion. -Chest ultrasound revealed right pleural fusion pocket of 3 cm. Left pleural effusion pocket trace. -Laboratory studies: WBC 7.7, hemoglobin 10.1. Sodium 135, potassium 1.286 creatinine 3.67. Troponin 0.095, 0.09, 0.91 improved from his visit 09/14. AST 301, ALT 82. -Home cardiac medications: Eliquis 2.5 mg twice daily, aspirin 162 mg daily, atorvastatin 40 mg at bedtime, Jardiance 10 mg daily, ferrous sulfate 325 mg daily, Lasix 40 mg twice daily, Imdur 30 mg daily, losartan 12.5 mg daily, metoprolol succinate 25 mg daily, Nitrostat as needed, also on levothyroxine. -Echocardiogram performed 06/19/2024 revealed EF of 30 to 35% with segmental wall motion abnormality. Moderate mitral regurgitation and mild aortic regurgitation. Moderate tricuspid regurgitation with moderate pulmonary hypertension. Review Of Systems: At the time of my exam: CONSTITUTIONAL: Denies fever or chills. HEENT: Denies blurred vision, vision changes, or eye pain. Denies hemoptysis CARDIOVASCULAR: Denies chest pain. Denies orthopnea. Denies PND. Denies p alpitations RESPIRATORY: Denies shortness of breath. GASTROINTESTINAL: Reports abdominal pain. Denies nausea or vomiting. HEMATOLOGIC: Denies bleeding disorders. GENITOURINARY: Denies any blood in urine. SKIN: Denies puritis. Denies rash. Physical examination: Gen: This is 78-year-old male in no acute distress VS: reviewed HEENT: Head is atraumatic, normocephalic. Pupils equal, round. Sclerae is anicteric. NECK: Supple. No JVD. LUNGS: Clear to auscultation. No wheezes or rhonchi. No intercostal retractions. HEART: Regular rate and rhythm. Distant heart sounds. ABDOMEN: Soft No tenderness. EXTREMITIES: No pedal edema. No calf tenderness. NEUROLOGICAL: Patient is awake, alert and oriented x3. Assessment: Chronic systolic heart failure no clinical evidence of exacerbation Right flank pain and right lower quadrant abdominal pain Acute kidney injury Chronic kidney disease Coronary artery disease with known DONOR CENTER TECHNICIAN of the RCA and intermediate disease in the left coronary system Cardiomyopathy with EF most recently 30 to 35% Persistent atrial fibrillation Recent permanent pacemaker implantation for sick sinus syndrome Hypertension Dyslipidemia History of TIA Carotid atherosclerosis History of colon cancer Plan: Resume patient's home cardiac medications No IV Lasix Interrogate pacemaker No need to repeat echocardiogram as this was done in June Further recommendations to follow based upon clinical course Thank you kindly for this consultation. Nurse practitioner note has been reviewed, I agree with documented findings and plan of care. Patient was seen and examined. Past Medical History Past Medical History: Atrial Fibrillation, Coronary Artery Disease (CAD), Cancer, Heart Failure, CVA/TIA, Diabetes Mellitus, Deep Vein Thrombosis (DVT), GERD/Reflux, Hearing Disorder / Deafness, Hyperlipidemia, Hypertension, Myocardial Infarction ([place]), Renal Disease, Sleep Apnea/CPAP/BIPAP, Vascular Disorder Additional Past Medical History / Comment(s): BBOWEL OBSTRUCTION after colon cancer surgery., HX 2ND DEGREE HB,IBS,A FIB, RT FEMORAL DVT,CARDIO PULMONARY ARREST 2013, ATRIAL SEPTAL DEFECT,PVD, COLON CANCER 2005, per old hx ? ulcer in past. states her had a slight stroke no weakness from the stroke- states pt had stroke July 2024, no deficits from stroke per . Does not use CPAP Last Myocardial Infarction Date:: 11/2012 History of Any Multi-Drug Resistant Organisms: None Reported Past Surgical History: Bowel Resection, Heart Catheterization, Heart Catheterization With Stent, Hernia Repair, Pacemaker Additional Past Surgical History / Comment(s): Colon Resection 1999. Right femoral thrombolectomy 11/2012. Colonoscopy 2012. Anal fissure repair.RT CARTOTID ENDARTERECTOMY, incarcerated ventral hernia/lysis of adhesions. Past Anesthesia/Blood Transfusion Reactions: No Reported Reaction Additional Past Anesthesia/Blood Transfusion Reaction / Comment(s): HX OF BLOOD TRANSFUSION Date of Last Stent Placement:: 11/2012 Type of Cardiac Device: Permanent Pacemaker Device Placement Date:: 09/19/24 Past Psychological History: No Psychological Hx Reported Smoking Status: Former smoker Past Alcohol Use History: None Reported Past Drug Use History: None Reported - Past Family History Sister(s) History Unknown: Yes Family Medical History: Cancer Father History Unknown: Yes Family Medical History: CVA/TIA, Diabetes Mellitus Mother History Unknown: Yes Family Medical History: Dementia Medications and Allergies Home Medications Medication Instructions Recorded Confirmed Type Nitroglycerin Sl Tabs [Nitrostat] 0.4 mg SL Q5M PRN 08/11/13 09/22/24 History Tamsulosin [Flomax] 0.4 mg PO DAILY 08/28/13 09/22/24 History Famotidine 40 mg PO DAILY 10/16/18 09/22/24 History Aspirin EC [Ecotrin Low Dose] 162 mg PO DAILY 06/19/24 09/22/24 History INSULIN ASPART (NovoLOG) [NovoLOG See Protocol SQ AC-TID 06/19/24 09/22/24 History (formulary)] Vitamin B-12 100mcg 200 mcg PO DAILY 06/19/24 09/22/24 History allopurinoL 100 mg PO DAILY 06/19/24 09/22/24 History calcitrioL 0.25 mcg PO MOWEFR 06/19/24 09/22/24 History Levothyroxine Sodium 25 mcg PO DAILY #30 tab 08/30/24 09/22/24 Rx Sucralfate [Carafate] 1 gm PO BID #60 tablet 08/30/24 09/22/24 Rx Apixaban [Eliquis] 2.5 mg PO BID 09/14/24 09/22/24 History Cholecalciferol (Vitamin D3) 50 mcg PO MOTUWETHFR 09/14/24 09/22/24 History [Vitamin D3 (50 Mcg = 2000 Iu)] Acetaminophen Tab [Tylenol] 650 mg PO Q6HR PRN tab 09/20/24 09/22/24 Rx Atorvastatin [Lipitor] 40 mg PO HS #30 tab 09/20/24 09/22/24 Rx Darbepoetin Sherif [Aranesp] 40 mcg SQ Q7D each 09/20/24 09/22/24 Rx Ferrous Sulfate [Feosol] 325 mg PO DAILY #30 tab 09/20/24 09/22/24 Rx Isosorbide Mononitrate ER [Imdur] 30 mg PO DAILY #30 tab 09/20/24 09/22/24 Rx Losartan [Cozaar] 12.5 mg PO DAILY #30 tab 09/20/24 09/22/24 Rx Empagliflozin [Jardiance] 10 mg PO DAILY 09/22/24 09/22/24 History Furosemide [Lasix] 40 mg PO BID 09/22/24 09/22/24 History Metoprolol Succinate [Metoprolol 25 mg PO DAILY 09/22/24 09/22/24 History Succinate ER] Allergies Allergy/AdvReac Type Severity Reaction Status Date / Time enalapril [Enalapril] AdvReac Unknown STATES BP Verified 09/22/24 16:15 TOO LOW lisinopril AdvReac Dizziness Verified 09/22/24 16:15 niacin AdvReac hyperglycemia, Verified 09/22/24 16:15 nausea Physical Exam Vitals: Vital Signs Temp Pulse Pulse Resp BP BP Pulse Ox 09/23/24 04:40 97.4 F L 56 L 18 115/70 100 09/22/24 23:27 54 L 18 126/72 100 09/22/24 19:55 97.2 F L 55 L 18 125/84 100 09/22/24 17:12 56 L 20 110/72 99 09/22/24 15:29 55 L 20 119/75 99 09/22/24 14:19 88/65 09/22/24 14:08 54 L 20 121/66 100 09/22/24 11:27 97.8 F 55 L 20 93/60 99 Intake and Output 09/22/24 09/23/24 09/23/24 22:59 06:59 14:59 Intake Total 120 Output Total 500 Balance -500 120 Intake: Oral 120 Output: Urine 500 Uretheral (Perez) 500 Other: Voiding Method Indwelling Catheter Indwelling Catheter Weight 97.522 kg 84.5 kg Results 09/23/24 06:12 09/23/24 06:12 Cardiac Enzymes 09/22/24 09/22/24 09/22/24 Range/Units 12:01 12:01 15:40 AST 301 H (17-59) U/L Troponin I 0.095 H* 0.090 H* (0.000-0.034) ng/mL 09/22/24 Range/Units 18:19 AST (17-59) U/L Troponin I 0.091 H* (0.000-0.034) ng/mL Coagulation 09/22/24 Range/Units 12:01 PT 15.5 H (10.0-12.5) sec APTT 28.8 (22.0-30.0) sec CBC 09/22/24 09/23/24 Range/Units 12:01 06:12 WBC 8.18 7.74 (4.50-10.00) 10*3/uL RBC 4.15 L 4.06 L (4.40-5.60) 10*6/uL Hgb 10.4 L 10.1 L (13.0-17.0) g/dL Hct 33.0 L 32.8 L (39.6-50.0) % Plt Count 195 178 (140-440) 10*3/uL Comprehensive Metabolic Panel 09/22/24 09/23/24 Range/Units 12:01 06:12 Sodium 133 L 135 L (137-145) mmol/L Potassium 4.3 4.2 (3.5-5.1) mmol/L Chloride 99 101 (98-107) mmol/L Carbon Dioxide 21 L 20 L (22-30) mmol/L BUN 84 H 86 H (9-20) mg/dL Creatinine 3.48 H 3.67 H (0.66-1.25) mg/dL Glucose 124 H 87 (74-99) mg/dL Calcium 9.5 9.4 (8.4-10.2) mg/dL AST 301 H (17-59) U/L ALT 82 H (4-49) U/L Alkaline Phosphatase 77 (38-126) U/L Total Protein 6.3 (6.3-8.2) g/dL Albumin 3.8 (3.5-5.0) g/dL Current Medications Generic Name Dose Route Start Last Admin Trade Name Freq PRN Reason Stop Dose Admin Hydrocodone Bitart/Acetaminophen 1 each 09/22/24 16:09 09/23/24 04:54 Hydrocodone/Apap 5-325mg 1 Each Tab PO 1 each Q6HR PRN Administration Breakthrough Pain Allopurinol 100 mg 09/23/24 09:00 09/23/24 08:19 Allopurinol 100 Mg Tab PO 100 mg DAILY REZA Administration Apixaban 5 mg 09/22/24 21:00 09/23/24 08:19 Apixaban 5 Mg Tab PO 5 mg BID REZA Administration Protocol Aspirin 162 mg 09/23/24 09:00 09/23/24 08:20 Aspirin 81 Mg PO 162 mg DAILY REZA Administration Calcitriol 0.25 mcg 09/23/24 09:00 09/23/24 08:19 Calcitriol 0.25 Mcg Cap PO 0.25 mcg MOWEFR REZA Administration Cyanocobalamin 500 mcg 09/23/24 09:00 09/23/24 08:19 Cyanocobalamin 500 Mcg Tab PO 500 mcg DAILY REZA Administration Dextrose/Water 25 ml 09/22/24 16:08 Dextrose 50% Syringe 50 Ml IVP PER PROTOCOL PRN Hypoglycemia Protocol Dextrose/Water 50 ml 09/22/24 16:08 Dextrose 50% Syringe 50 Ml IVP PER PROTOCOL PRN Hypoglycemia Protocol Ferrous Sulfate 325 mg 09/23/24 09:00 09/23/24 08:19 Ferrous Sulfate 325 Mg Tab PO 325 mg DAILY REZA Administration Insulin Human Lispro 0 unit 09/22/24 17:30 09/23/24 06:22 Insulin Lispro (Humalog) 100 Unit/Ml 10 Ml Vl SQ Not Given ACHS [facility] Protocol Levothyroxine Sodium 25 mcg 09/23/24 06:30 09/23/24 06:20 Levothyroxine 25 Mcg Tab PO 25 mcg 0630 REZA Administration Naloxone HCl 0.2 mg 09/22/24 14:53 Naloxone 0.4 Mg/Ml 1 Ml Vial IV Q2M PRN Opioid Reversal Pantoprazole Sodium 40 mg 09/22/24 21:00 09/23/24 08:20 Pantoprazole 40 Mg Tablet PO 40 mg BID REZA Administration Sucralfate 1 gm 09/22/24 21:00 09/23/24 08:20 Sucralfate 1 Gm Tab PO 1 gm BID REZA Administration Tamsulosin HCl 0.4 mg 09/23/24 09:00 09/23/24 08:19 Tamsulosin 0.4 Mg Cap.Er.24h PO 0.4 mg DAILY REZA Administration Intake and Output 09/22/24 09/23/24 09/23/24 22:59 06:59 14:59 Intake Total 120 Output Total 500 Balance -500 120 Intake: Oral 120 Output: Urine 500 Uretheral (Perez) 500 Other: Voiding Method Indwelling Catheter Indwelling Catheter Weight 97.522 kg 84.5 kg 09/23/24 06:12 09/23/24 06:12
[2024-09-23] MEDS ORDERED: LOSARTAN 25 MG TAB PO SCH (10:15)
--- NOTE | 2024-09-23 10:17 | P.NPCON ---
History of Present Illness - Reason for Consult acute renal failure, chronic renal failure - History of Present Illness Reason for consultation: Acute kidney injury on chronic kidney disease History of present illness: Patient is a 78-year-old male seen in renal consultation for acute kidney injury on chronic kidney disease. Patient has chronic kidney disease stage IV with baseline creatinine 2.2-2.4. Etiology is diabetic kidney disease and cardiorenal syndrome. Patient was recently admitted at this hospital and had a pacemaker placed on . He was discharged home on Monday. According to his , he was given 40 mg of oral Lasix in the morning on Monday with minimal urine output. She gave him 2 more doses of 20 mg of oral Lasix at home with still no response in urine output and she brought him to the hospital due to concern for kidney failure. Creatinine dated September 19, 2024 was 2.2 and was elevated at 3.4 this admission yesterday and is fairly stable at 3.67 today. He currently has a Perez catheter. Chest CT suggestive of pleural effusions. Patient does have history of diabetes. He does have history of coronary artery disease with cardiac stents. No hydronephrosis noted on imaging. No proteinuria on UA. Vital signs are stable. General: No acute distress. HEENT: Head exam is unremarkable. LUNGS: No audible rhonchi or wheezes. HEART: Rate and Rhythm are regular. ABDOMEN: Nontender. EXTREMITITES: Trace edema. Past Medical History Past Medical History: Atrial Fibrillation, Coronary Artery Disease (CAD), Cancer, Heart Failure, CVA/TIA, Diabetes Mellitus, Deep Vein Thrombosis (DVT), GERD/Reflux, Hearing Disorder / Deafness, Hyperlipidemia, Hypertension, Myocardial Infarction (MT), Renal Disease, Sleep Apnea/CPAP/BIPAP, Vascular Disorder Additional Past Medical History / Comment(s): BBOWEL OBSTRUCTION after colon cancer surgery., HX 2ND DEGREE HB,IBS,A FIB, RT FEMORAL DVT,CARDIO PULMONARY AR REST 2013, ATRIAL SEPTAL DEFECT,PVD, COLON CANCER 2005, per old hx ? ulcer in past. states her had a slight stroke no weakness from the stroke- states pt had stroke July 2024, no deficits from stroke per . Does not use CPAP Last Myocardial Infarction Date:: 11/2012 History of Any Multi-Drug Resistant Organisms: None Reported Past Surgical History: Bowel Resection, Heart Catheterization, Heart Catheterization With Stent, Hernia Repair, Pacemaker Additional Past Surgical History / Comment(s): Colon Resection 1999. Right femoral thrombolectomy 11/2012. Colonoscopy 2012. Anal fissure repair.RT CARTOTID ENDARTERECTOMY, incarcerated ventral hernia/lysis of adhesions. Past Anesthesia/Blood Transfusion Reactions: No Reported Reaction Additional Past Anesthesia/Blood Transfusion Reaction / Comment(s): HX OF BLOOD TRANSFUSION Date of Last Stent Placement:: 11/2012 Type of Cardiac Device: Permanent Pacemaker Device Placement Date:: 09/19/24 Past Psychological History: No Psychological Hx Reported Smoking Status: Former smoker Past Alcohol Use History: None Reported Past Drug Use History: None Reported - Past Family History Sister(s) History Unknown: Yes Family Medical History: Cancer Father History Unknown: Yes Family Medical History: CVA/TIA, Diabetes Mellitus Mother History Unknown: Yes Family Medical History: Dementia Medications and Allergies Home Medications Medication Instructions Recorded Confirmed Type Nitroglycerin Sl Tabs [Nitrostat] 0.4 mg SL Q5M PRN 08/11/13 09/22/24 History Tamsulosin [Flomax] 0.4 mg PO DAILY 08/28/13 09/22/24 History Famotidine 40 mg PO DAILY 10/16/18 09/22/24 History Aspirin EC [Ecotrin Low Dose] 162 mg PO DAILY 06/19/24 09/22/24 History INSULIN ASPART (NovoLOG) [NovoLOG See Protocol SQ AC-TID 06/19/24 09/22/24 History (formulary)] Vitamin B-12 100mcg 200 mcg PO DAILY 06/19/24 09/22/24 History allopurinoL 100 mg PO DAILY 06/19/24 09/22/24 History calcitrioL 0.25 mcg PO MOWEFR 06/19/24 09/22/24 History Levothyroxine Sodium 25 mcg PO DAILY #30 tab 08/30/24 09/22/24 Rx Sucralfate [Carafate] 1 gm PO BID #60 tablet 08/30/24 09/22/24 Rx Apixaban [Eliquis] 2.5 mg PO BID 09/14/24 09/22/24 History Cholecalciferol (Vitamin D3) 50 mcg PO MOTUWETHFR 09/14/24 09/22/24 History [Vitamin D3 (50 Mcg = 2000 Iu)] Acetaminophen Tab [Tylenol] 650 mg PO Q6HR PRN tab 09/20/24 09/22/24 Rx Atorvastatin [Lipitor] 40 mg PO HS #30 tab 09/20/24 09/22/24 Rx Darbepoetin Sherif [Aranesp] 40 mcg SQ Q7D each 09/20/24 09/22/24 Rx Ferrous Sulfate [Feosol] 325 mg PO DAILY #30 tab 09/20/24 09/22/24 Rx Isosorbide Mononitrate ER [Imdur] 30 mg PO DAILY #30 tab 09/20/24 09/22/24 Rx Losartan [Cozaar] 12.5 mg PO DAILY #30 tab 09/20/24 09/22/24 Rx Empagliflozin [Jardiance] 10 mg PO DAILY 09/22/24 09/22/24 History Furosemide [Lasix] 40 mg PO BID 09/22/24 09/22/24 History Metoprolol Succinate [Metoprolol 25 mg PO DAILY 09/22/24 09/22/24 History Succinate ER] Allergies Allergy/AdvReac Type Severity Reaction Status Date / Time enalapril [Enalapril] AdvReac Unknown STATES BP Verified 09/22/24 16:15 TOO LOW lisinopril AdvReac Dizziness Verified 09/22/24 16:15 niacin AdvReac hyperglycemia, Verified 09/22/24 16:15 nausea Physical Exam Vitals: Vital Signs Temp Pulse Pulse Resp BP BP Pulse Ox 09/23/24 04:40 97.4 F L 56 L 18 115/70 100 09/22/24 23:27 54 L 18 126/72 100 09/22/24 19:55 97.2 F L 55 L 18 125/84 100 09/22/24 17:12 56 L 20 110/72 99 09/22/24 15:29 55 L 20 119/75 99 09/22/24 14:19 88/65 09/22/24 14:08 54 L 20 121/66 100 09/22/24 11:27 97.8 F 55 L 20 93/60 99 Intake and Output 09/22/24 09/23/24 09/23/24 22:59 06:59 14:59 Intake Total 120 Output Total 500 Balance -500 120 Intake: Oral 120 Output: Urine 500 Uretheral (Perez) 500 Other: Voiding Method Indwelling Catheter Indwelling Catheter Weight 97.522 kg 84.5 kg Results - Lab Results Most recent lab results Calcium 9.4 mg/dL (8.4-10.2) 09/23/24 06:12 Magnesium 2.2 mg/dL (1.6-2.3) 09/22/24 12:01 09/23/24 06:12 09/23/24 06:12 Assessment and Plan Plan: Assessment: 1. Acute kidney injury secondary to ATN secondary to cardiorenal syndrome. Creatinine 3.67 today. No hydronephrosis noted on CT. No proteinuria on UA. 2. Chronic kidney disease stage IV secondary to diabetic kidney disease and cardiorenal syndrome with baseline creatinine near 2.2. 3. Volume overload. 4. Chronic kidney disease mineral bone disease maintained on calcitriol. 5. Diabetes mellitus. 6. Coronary disease with cardiac stents. 7. Acute on chronic systolic CHF ejection fraction of 30 to 35% with moderate mitral regurgitation. Plan: Add IV Lasix 40 mg twice daily. Maintain Perez catheter. Hold Jardiance. Hold losartan. Avoid nephrotoxins. Continue to monitor renal function and urine output. Thank you for the consultation. I will continue to follow the patient with you during his hospital stay.
[2024-09-23 11:14] LABS: Glucose,Whole Blood 142 mg/dL (70-110)
[2024-09-23] MEDS: ISOSORBIDE MONONITRATE ER 30 MG TAB.ER.24H PO SCH (11:36)
[2024-09-23] MEDS: METOPROLOL SUCCINATE (ER) 25 MG TAB.ER.24H PO SCH (11:36)
[2024-09-23] MEDS: FUROSEMIDE 10 MG/ML 4 ML VIAL IV SCH (11:39)
--- NOTE | 2024-09-23 15:41 | P.PN ---
Subjective Progress Note Date: 09/23/24 Hospital Course: 78-year-old male with a past medical history of CAD status post stenting x 2, history of cardiac arrest in 2013, chronic systolic congestive heart failure, valvular heart disease with atrial septal defect, chronic atrial fibrillation on anticoagulation with Eliquis, hypertension, hyperlipidemia, peripheral vascular disease, carotid stenosis status post R carotid endarterectomy, previous CVA, colon cancer status post bowel resection, insulin-dependent diabetes mellitus, stage IV CKD, DVT status post femoral thrombectomy, and previous CVA with no reported deficits. He presents to the ED for decreased urine output and right flank pain that has been progressively getting worse since Monday. Patient was recently admitted from 09/14-09/20. He had elevated troponins (peak of 0.259). Cardiology evaluated, underwent cardiac cath which showed severe triple-vessel disease with PAPER TUBE MACHINE OPERATOR of the RCA and diffuse severe disease involving left circumflex and PAPER TUBE MACHINE OPERATOR of the LAD. He also underwent pacemaker placement on 09/21 for sick sinus syndrome. On the day of discharge, he reports hurting his right back while trying to get into the car. The pain is described as sharp and stabbing. Pain radiated to the RLQ with 10/10 intensity which prompted him to come to the ED. He denies any dizziness, chest pain or shortness of breath. reports 100 cc of urine output since Monday. In the ED he underwent extensive evaluation. BP as low as 88/65, HR in the 50s, T 97.8F, 99% on RA. CBC, Coag panel, CMP significant for RBC 4.15, Hg 10.4, Hct 33, MCV 79.5, PT 15.5, INR 1.5, Na 133, bicarb 21, BUN 84, Cr 3.48, glu 124, AST 301, ALT 82. Trop 0.095. BNP 93044. UA 3+ glucose with small LE. CXR with pulmonary vascular congestion. EKG showing V paced rhythmm with prolonged QT of 586. CT AP showed no intraabdominal process, bladder wall thickening, moderate ascites around the liver, ventral wall hernia with no obstruction, right L5 pars interarticularis defect, severe CAD and moderate R (+ trace left) pleural effusion. Patient is admitted for further workup and management.Cardiology and nephrology consulted. Per cardiology, patient is not in heart failure exacerbation and can be resumed on home medications. Per nephrology, patient is suffering from AMY due to ATN in the settings of cardiorenal syndrome, AV Lasix 40 twice daily added, Jardiance and losartan on hold. 09/23: Patient seen examined at bedside, no acute events overnight, complaining of right flank pain. Discussed with RN, will add lidocaine patch. Patient was seen on oxygen 2 L, no documented hypoxia, will try to wean supplemental oxygen. Patient had bowel movement on 09/21, asked for stool softener, MiraLAX added. Lab work showed normal WBC count and stable hemoglobin 10.1, sodium 135, bicarb 20, creatinine up to 3.67, BUN 86. Blood glucose controlled. Pertinent positives and negatives as discussed above, a complete review of systems was performed and all other systems are negative. Vitals Signs Reviewed. General: [nontoxic], [no distress], [appears at stated age] Derm: [warm], [dry] Head: [atraumatic], [normocephalic], [symmetric] Eyes: [EOMI], [no lid lag], [anicteric sclera] Mouth: [no lip lesion], [mucus membranes moist] Cardiovascular: [S1S2 reg], [no murmur] Lungs: [CTA bilateral], [no rhonchi, no rales] , [no accessory muscle use] Abdominal: [soft], [ nontender to palpation], [no guarding], [no appreciable organomegaly], right flank tenderness Ext: [no gross muscle atrophy], [no edema], [no contractures] Neuro: [ CN II-XI grossly intact], [no focal neuro deficits] Psych: [Alert], [oriented], [appropriate affect] Assessment and Plan: Systolic CHF and mild exacerbation - Continue strict I's and O, daily weights, interrogate pacemaker, continue telemetry, goal potassium above 4 magnesium above 2. - Cardiology consulted, appreciate recommendations - Lasix 40 IV twice daily, monitor BMP daily in the settings of advanced CKD AMY on CKD stage IV likely cardiorenal etiology Right flank pain -No signs of hydronephrosis, kidney stones on CT -Continue holding Farxiga and losartan, monitor strict I's and O's, daily BMP -Nephrology consulted, IV Lasix as above -Nicotine patch ordered for flank pain, discussed with RN Constipation: Start MiraLAX 17 g daily Troponin elevation with history of severe CAD - Continue ASA 162 mg PO QD. Lipitor 40 mg PO QHS - Neurology consulted, appreciate recommendations, blood pressure improved, Imdur 30 mg daily resumed, Toprol-XL 25 mg daily resumed Pleural effusion: Obtain chest US. Right effusion not marked due to presence of mobile lung tissue and anterior pocket. Microcytic anemia: At baseline. Continue ferrous sulfate 325 mg PO QD + B12 200 mcg PO QD. Transfuse if Hg < 7. Repeat CBC in the AM. Transaminitis: Possibly cardiohepatic. CT shows moderate ascites around the liver. Hold Lipitor. Repeat CMP in the morning ordered Right flank pain: Possibly MSK. CT AP unrevealing. [place] 5 mg PO Q6H PRN pain. BPH: Flomax 0.4 mg PO QD. AFib: Eliquis 2.5 mg PO BID for AC. Gout: Allopurinol 100 mg PO QD. Hypothyrodism: Synthroid 25 mcg PO QD. Hypertension: Continue home medications as above Dyslipidemia: Holding Lipitor due to transaminitis. Diabetes mellitus: ISS with Accuchecks ACHS along with hypoglycemic precautions. DVT ppx: Eliquis Code status: Full code Anticipated discharge place: TBD Anticipated discharge time: TBD Objective - Vital Signs Vital signs: Vital Signs Temp 97.8 F 09/23/24 11:35 Pulse 55 L 09/23/24 11:35 Resp 16 09/23/24 11:35 BP 120/54 09/23/24 11:35 Pulse Ox 100 09/23/24 11:35 FiO2 Intake & Output 09/22/24 09/23/24 09/23/24 18:59 06:59 18:59 Intake Total 120 Output Total 414 500 550 Balance -414 -500 -430 Weight 97.522 kg 84.5 kg Intake: Oral 120 Output: Urine 500 550 Uretheral (Perez) 500 Post Void Residual 414 Other: Voiding Method Indwelling Catheter Indwelling Catheter - Labs CBC & Chem 7: 09/23/24 06:12 09/23/24 06:12 Labs: Abnormal Lab Results - Last 24 Hours (Table) 09/22/24 09/22/24 09/22/24 Range/Units 15:40 17:20 18:19 RBC (4.40-5.60) 10*6/uL Hgb (13.0-17.0) g/dL Hct (39.6-50.0) % MCH (27.0-32.0) pg MCHC (32.0-37.0) g/dL Lymphocytes # (0.90-5.00) 10*3/uL Sodium (137-145) mmol/L Carbon Dioxide (22-30) mmol/L BUN (9-20) mg/dL Creatinine (0.66-1.25) mg/dL POC Glucose (mg/dL) 144 H (70-110) mg/dL Troponin I 0.090 H* 0.091 H* (0.000-0.034) ng/mL 09/22/24 09/23/24 09/23/24 Range/Units 20:25 06:12 06:12 RBC 4.06 L (4.40-5.60) 10*6/uL Hgb 10.1 L (13.0-17.0) g/dL Hct 32.8 L (39.6-50.0) % MCH 24.9 L (27.0-32.0) pg MCHC 30.8 L (32.0-37.0) g/dL Lymphocytes # 0.67 L (0.90-5.00) 10*3/uL Sodium 135 L (137-145) mmol/L Carbon Dioxide 20 L (22-30) mmol/L BUN 86 H (9-20) mg/dL Creatinine 3.67 H (0.66-1.25) mg/dL POC Glucose (mg/dL) 143 H (70-110) mg/dL Troponin I (0.000-0.034) ng/mL 09/23/24 Range/Units 11:12 RBC (4.40-5.60) 10*6/uL Hgb (13.0-17.0) g/dL Hct (39.6-50.0) % MCH (27.0-32.0) pg MCHC (32.0-37.0) g/dL Lymphocytes # (0.90-5.00) 10*3/uL Sodium (137-145) mmol/L Carbon Dioxide (22-30) mmol/L BUN (9-20) mg/dL Creatinine (0.66-1.25) mg/dL POC Glucose (mg/dL) 142 H (70-110) mg/dL Troponin I (0.000-0.034) ng/mL
[2024-09-23] MEDS: polyethylene glycoL 3350 17 GM POWD.PACK PO SCH (15:53)
[2024-09-23] MEDS: LIDOCAINE 4% PATCH TOPICAL SCH (15:53)
[2024-09-23 16:07] LABS: Glucose,Whole Blood 198 mg/dL (70-110)
[2024-09-23 19:53] LABS: Glucose,Whole Blood 203 mg/dL (70-110)
[2024-09-24 06:03] LABS: Glucose,Whole Blood 133 mg/dL (70-110)
[2024-09-24 08:09] LABS: ALT 32 U/L (4-49); AST 110 U/L (17-59); African American GFR (CKD) 17 (>60 ml/min/1.73 sqM); Albumin 3.4 g/dL (3.5-5.0); Alkaline Phosphatase 83 U/L (38-126); Anion Gap 12 mmol/L; Blood Urea Nitrogen 91 mg/dL (9-20); Calcium 9.2 mg/dL (8.4-10.2); Carbon Dioxide 21 mmol/L (22-30); Chloride 101 mmol/L (98-107); Glucose 111 mg/dL (74-99); Magnesium 2.3 mg/dL (1.6-2.3); Non-African American GFR(CKD) 14 (>60 ml/min/1.73 sqM); Potassium 4.3 mmol/L (3.5-5.1); Sodium 134 mmol/L (137-145); Total Protein 5.8 g/dL (6.3-8.2)
[2024-09-24] MEDS ORDERED: DAPAGLIFLOZIN PROPANEDIOL 5 MG TABLET PO SCH (09:00)
[2024-09-24] MEDS: FAMOTIDINE 20 MG TAB PO SCH (09:12)
--- NOTE | 2024-09-24 10:23 | P.PN ---
Subjective Progress Note Date: 09/24/24 Consult reason: congestive heart failure History of present illness: This is a 78-year-old male patient of Dr. Leal with past medical history of coronary artery disease with known QUEEN PRODUCER of the RCA and intermediate disease involving the left coronary system as well as cardiomyopathy with EF between 25 and 30%, persistent atrial fibrillation, hypertension, dyslipidemia, history of TIA, carotid atherosclerosis, dilated ascending aorta, chronic kidney disease, history of colon cancer. We have been asked to evaluate the patient for acute CHF. Patient states that he came into the hospital due to right flank and abdominal pain. He states the pain initially started in the right flank and then moved into the abdomen. He denies chest pain or chest pressure. He denies chest tightness. He denies shortness of breath. He denies increased weight or increased edema to the lower extremities. Patient had a recent hospitalization in September at which time he was seen by cardiology and had a permanent pacemaker [employer] [facility] placed by Dr. RAJEEV Mauro on 09/19/2024. Patient has had no problems with the pacemaker site. Patient had presented for acute on chronic anemia and found to have a duodenal ulcer with evidence of bleeding. Patient's states that the pacemaker was interrogated in the emergency center but we are unable to locate a report. Blood pressure 115/70, heart rate in the 50s, pulse ox 100% on 2 L nasal cannula. -EKG: Ventricularly paced rhythm -Chest x-ray: Cardiomegaly, pulmonary vascular congestion and bilateral pleural effusions. -CT of the abdomen pelvis without contrast reveals no evidence of acute intra- abdominal process. Correlate for cystitis. Moderate ascites around the liver. No bowel obstruction. Patient does have a ventral hernia. Moderate cardiomegaly severe coronary artery atherosclerosis. Moderate right pleural effusion, trace left peripheral effusion. -Chest ultrasound revealed right pleural fusion pocket of 3 cm. Left pleural effusion pocket trace. -Laboratory studies: WBC 7.7, hemoglobin 10.1. Sodium 135, potassium 1.286 creatinine 3.67. Troponin 0.095, 0.09, 0.91 improved from his visit 09/14. AST 301, ALT 82. -Home cardiac medications: Eliquis 2.5 mg twice daily, aspirin 162 mg daily, atorvastatin 40 mg at bedtime, Jardiance 10 mg daily, ferrous sulfate 325 mg daily, Lasix 40 mg twice daily, Imdur 30 mg daily, losartan 12.5 mg daily, metoprolol succinate 25 mg daily, Nitrostat as needed, also on levothyroxine. -Echocardiogram performed 06/19/2024 revealed EF of 30 to 35% with segmental wall motion abnormality. Moderate mitral regurgitation and mild aortic regurgitation. Moderate tricuspid regurgitation with moderate pulmonary hypertension. 09/24/2024 Patient seen and examined. He denies chest pain no chest pressure no shortness of breath. Interrogation is not found in his chart. Nursing will follow-up and we will review later. Blood pressure 102/66, heart rate in the 50s, pulse ox 98% on room air. Repeat blood work reveals sodium 134, potassium 4.3, BUN 91 creatinine 3.81. Renal function is worsening and patient is followed by nephrology. Nephrology is started the patient on IV Lasix 40 mg every 12 hours. Physical examination: Gen: This is 78-year-old male in no acute distress VS: reviewed HEENT: Head is atraumatic, normocephalic. Pupils equal, round. Sclerae is an icteric. NECK: Supple. No JVD. LUNGS: Clear to auscultation. No wheezes or rhonchi. No intercostal retractions. HEART: Regular rate and rhythm. Distant heart sounds. ABDOMEN: Soft No tenderness. EXTREMITIES: No pedal edema. No calf tenderness. NEUROLOGICAL: Patient is awake, alert and oriented x3. Assessment: Chronic systolic heart failure no clinical evidence of exacerbation Right flank pain and right lower quadrant abdominal pain Acute kidney injury Chronic kidney disease Coronary artery disease with known QUEEN PRODUCER of the RCA and intermediate disease in the left coronary system Cardiomyopathy with EF most recently 30 to 35% Persistent atrial fibrillation Recent permanent pacemaker implantation for sick sinus syndrome Hypertension Dyslipidemia History of TIA Carotid atherosclerosis History of colon cancer Plan: Resume patient's home cardiac medications IV Lasix 40 mg every 12 hours started by nephrology Interrogate pacemaker, obtain report No need to repeat echocardiogram as this was done in June Further recommendations to follow based upon clinical course Nurse practitioner note has been reviewed, I agree with documented findings and plan of care. Patient was seen and examined. Objective - Vital Signs Vital signs: Vital Signs Temp 97.4 F L 09/23/24 19:45 Pulse 55 L 09/24/24 03:26 Resp 16 09/24/24 03:26 BP 102/66 09/24/24 04:37 Pulse Ox 98 09/24/24 03:26 FiO2 Intake & Output 09/23/24 09/24/24 09/24/24 18:59 06:59 18:59 Intake Total 240 Output Total 550 300 Balance -310 -300 Weight 98 kg Intake: Oral 240 Output: Urine 550 300 Other: Voiding Method Indwelling Catheter Indwelling Catheter # Voids 1 - Labs CBC & Chem 7: 09/23/24 06:12 09/24/24 07:15 Labs: Abnormal Lab Results - Last 24 Hours (Table) 09/23/24 09/23/24 09/23/24 Range/Units 11:12 16:05 19:52 Sodium (137-145) mmol/L Carbon Dioxide (22-30) mmol/L BUN (9-20) mg/dL Creatinine (0.66-1.25) mg/dL Glucose (74-99) mg/dL POC Glucose (mg/dL) 142 H 198 H 203 H (70-110) mg/dL AST (17-59) U/L Total Protein (6.3-8.2) g/dL Albumin (3.5-5.0) g/dL 09/24/24 09/24/24 Range/Units 06:02 07:15 Sodium 134 L (137-145) mmol/L Carbon Dioxide 21 L (22-30) mmol/L BUN 91 H (9-20) mg/dL Creatinine 3.81 H (0.66-1.25) mg/dL Glucose 111 H (74-99) mg/dL POC Glucose (mg/dL) 133 H (70-110) mg/dL AST 110 H (17-59) U/L Total Protein 5.8 L (6.3-8.2) g/dL Albumin 3.4 L (3.5-5.0) g/dL
--- NOTE | 2024-09-24 11:09 | P.PN ---
Subjective Patient is seen in follow-up for acute kidney injury on chronic kidney disease. Creatinine up to 3.8 today. On IV Lasix. Has Perez catheter. Urine output documented as 850 cc in the last 24 hours. On room air. Denies chest pain or shortness of breath. Vital signs are stable. General: No acute distress. HEENT: Head exam is unremarkable. LUNGS: No audible rhonchi or wheezes. HEART: Rate and Rhythm are regular. ABDOMEN: Nontender. EXTREMITITES: Trace edema. Objective - Vital Signs Vital signs: Vital Signs Temp 96.4 F L 09/24/24 08:00 Pulse 56 L 09/24/24 08:00 Resp 16 09/24/24 08:00 BP 94/55 09/24/24 08:00 Pulse Ox 98 09/24/24 08:00 FiO2 Intake & Output 09/23/24 09/24/24 09/24/24 18:59 06:59 18:59 Intake Total 240 180 Output Total 550 300 Balance -310 -300 180 Weight 98 kg Intake: Oral 240 180 Output: Urine 550 300 Other: Voiding Method Indwelling Catheter Indwelling Catheter Indwelling Catheter # Voids 1 - Labs CBC & Chem 7: 09/23/24 06:12 09/24/24 07:15 Labs: Abnormal Lab Results - Last 24 Hours (Table) 09/23/24 09/23/24 09/23/24 Range/Units 11:12 16:05 19:52 Sodium (137-145) mmol/L Carbon Dioxide (22-30) mmol/L BUN (9-20) mg/dL Creatinine (0.66-1.25) mg/dL Glucose (74-99) mg/dL POC Glucose (mg/dL) 142 H 198 H 203 H (70-110) mg/dL AST (17-59) U/L Total Protein (6.3-8.2) g/dL Albumin (3.5-5.0) g/dL 09/24/24 09/24/24 Range/Units 06:02 07:15 Sodium 134 L (137-145) mmol/L Carbon Dioxide 21 L (22-30) mmol/L BUN 91 H (9-20) mg/dL Creatinine 3.81 H (0.66-1.25) mg/dL Glucose 111 H (74-99) mg/dL POC Glucose (mg/dL) 133 H (70-110) mg/dL AST 110 H (17-59) U/L Total Protein 5.8 L (6.3-8.2) g/dL Albumin 3.4 L (3.5-5.0) g/dL Assessment and Plan Plan: Assessment: 1. Acute kidney injury secondary to ATN secondary to cardiorenal syndrome. Creatinine 3.8 today. No hydronephrosis noted on CT. No proteinuria on UA. 2. Chronic kidney disease stage IV secondary to diabetic kidney disease and cardiorenal syndrome with baseline creatinine near 2.2. 3. Volume overload. Improved with diuresis. 4. Chronic kidney disease mineral bone disease maintained on calcitriol. 5. Diabetes mellitus. 6. Coronary disease with cardiac stents. 7. Acute on chronic systolic CHF ejection fraction of 30 to 35% with moderate mitral regurgitation. Plan: Transition to oral diuretics. Maintain Perez catheter. Hold Jardiance. Hold losartan. Avoid nephrotoxins. Continue to monitor renal function and urine output. Check chest x-ray. Add midodrine.
[2024-09-24 11:30] LABS: Glucose,Whole Blood 182 mg/dL (70-110)
--- NOTE | 2024-09-24 12:21 | XR ---
EXAMINATION TYPE: XR chest 1V DATE OF EXAM: 09/24/2024 12:04 PM COMPARISON: Chest radiographs from 09/22/2024. CLINICAL INDICATION: Male, 78 years old with history of sob; [facility] TECHNIQUE: XR chest 1V Frontal view of the chest. FINDINGS: Lungs/Pleura: Low lung volumes are present. Small right pleural effusion. There is no evidence of ple ural effusion, focal consolidation, or pneumothorax. Pulmonary vascularity: Unremarkable. Heart/mediastinum: Cardiomediastinal silhouette is unremarkable. Single-lead cardiac conduction devic e overlying the left hemithorax with lead projecting over the right ventricle. Musculoskeletal: No acute osseous pathology. IMPRESSION: Low lung volumes with a generalized hazy appearance which could represent atelectasis versus pulmonar y edema correlate with serum BNP. There is small right pleural effusion. [facility], , 09/24/2024 12:18 PM
[2024-09-24] MEDS: LACTULOSE 20 GM/30 ML CUP PO ONE (12:47)
[2024-09-24] MEDS: MIDODRINE 5 MG TAB PO SCH (12:47)
--- NOTE | 2024-09-24 14:11 | P.PN ---
Subjective Progress Note Date: 09/24/24 Hospital Course: 78-year-old male with a past medical history of CAD status post stenting x 2, history of cardiac arrest in 2013, chronic systolic congestive heart failure, valvular heart disease with atrial septal defect, chronic atrial fibrillation on anticoagulation with Eliquis, hypertension, hyperlipidemia, peripheral vascular disease, carotid stenosis status post R carotid endarterectomy, previous CVA, colon cancer status post bowel resection, insulin-dependent diabetes mellitus, stage IV CKD, DVT status post femoral thrombectomy, and previous CVA with no reported deficits. He presents to the ED for decreased urine output and right flank pain that has been progressively getting worse since Monday. Patient was recently admitted from 09/14-09/20. He had elevated troponins (peak of 0.259). Cardiology evaluated, underwent cardiac cath which showed severe triple-vessel disease with [employer]IAN of the RCA and diffuse severe disease involving left circumflex and [employer]RARIAN of the LAD. He also underwent pacemaker placement on 09/21 for sick sinus syndrome. On the day of discharge, he reports hurting his right back while trying to get into the car. The pain is described as sharp and stabbing. Pain radiated to the RLQ with 10/10 intensity which prompted him to come to the ED. He denies any dizziness, chest pain or shortness of breath. reports 100 cc of urine output since Monday. In the ED he underwent extensive evaluation. BP as low as 88/65, HR in the 50s, T 97.8F, 99% on RA. CBC, Coag panel, CMP significant for RBC 4.15, Hg 10.4, Hct 33, MCV 79.5, PT 15.5, INR 1.5, Na 133, bicarb 21, BUN 84, Cr 3.48, glu 124, AST 301, ALT 82. Trop 0.095. BNP 48261. UA 3+ glucose with small LE. CXR with pulmonary vascular congestion. EKG showing V paced rhythmm with prolonged QT of 586. CT AP showed no intraabdominal process, bladder wall thickening, moderate ascites around the liver, ventral wall hernia with no obstruction, right L5 pars interarticularis defect, severe CAD and moderate R (+ trace left) pleural effusion. Patient is admitted for further workup and management.Cardiology and nephrology consulted. Per cardiology, patient is not in heart failure exacerbation and can be resumed on home medications. Per nephrology, patient is suffering from AMY due to ATN in the settings of cardiorenal syndrome, AV Lasix 40 twice daily added, Jardiance and losartan on hold. 09/23: Patient seen examined at bedside, no acute events overnight, complaining of right flank pain. Discussed with RN, will add lidocaine patch. Patient was seen on oxygen 2 L, no documented hypoxia, will try to wean supplemental oxygen. Patient had bowel movement on 09/21, asked for stool softener, MiraLAX added. 09/24: Seen and examined at bedside, patient's present during exam, case discussed with case management, registered nurse. Patient states that he overall feels better, his right flank pain is resolved, however now he complains of lower back pain, nonradiating. His breathing is fine. He is afebrile heart rate in 50s, blood pressure soft 117/73, satting well on room air. Sodium remains stable at 134, bicarb 21, creatinine rising up to 3.8 and BUN up to 91, blood glucose is controlled. Patient was transition to oral diuretics by nephrology, continue to hold Jardiance and losartan. Chest x-ray was performed and showed hazy appearance atelectasis with trace edema. Cardiology following, pacemaker to be interrogated. Pertinent positives and negatives as discussed above, a complete review of systems was performed and all other systems are negative. Vitals Signs Reviewed. General: [nontoxic], [no distress], [appears at stated age] Derm: [warm], [dry] Head: [atraumatic], [normocephalic], [symmetric] Eyes: [EOMI], [no lid lag], [anicteric sclera] Mouth: [no lip lesion], [mucus membranes moist] Cardiovascular: [S1S2 reg], [no murmur] Lungs: [CTA bilateral], [no rhonchi, no rales] , [no accessory muscle use] Abdominal: [soft], [ nontender to palpation], [no guarding], [no appreciable organomegaly], Ext: [no gross muscle atrophy], [bilateral pedal edema], [no contractures]lower back tenderness, chronic venous stasis changes Neuro: [ CN II-XI grossly intact], [no focal neuro deficits] Psych: [Alert], [oriented], [appropriate affect] Assessment and Plan: Systolic CHF and mild exacerbation - Continue strict I's and O, daily weights, interrogate pacemaker, continue telemetry, goal potassium above 4 magnesium above 2. - Cardiology consulted, appreciate recommendations - IV Lasix discontinued, continue with oral Lasix 40 p.o. twice daily, monitor BMP daily in the settings of advanced CKD AMY on CKD stage IV likely cardiorenal etiology Right flank pain -No signs of hydronephrosis, kidney stones on CT -Continue holding Farxiga and losartan, monitor strict I's and O's, daily BMP -Nephrology consulted, transition to oral Lasix -Nicotine patch ordered for flank pain, discussed with RN Constipation: Start MiraLAX 17 g daily, still no bowel movements, ordered one- time dose of lactulose, abdomen soft, bowel sounds present. Troponin elevation with history of severe CAD - Continue ASA 162 mg PO QD. Lipitor 40 mg PO QHS - Neurology consulted, appreciate recommendations, blood pressure improved, Imdur 30 mg daily resumed, Toprol-XL 25 mg daily resumed Pleural effusion: Obtain chest US. Right effusion not marked due to presence of mobile lung tissue and anterior pocket. Microcytic anemia: At baseline. Continue ferrous sulfate 325 mg PO QD + B12 200 mcg PO QD. Transfuse if Hg < 7. Repeat CBC in the AM. Transaminitis: Possibly cardiohepatic. CT shows moderate ascites around the liver. Hold Lipitor. Repeat CMP in the morning ordered Right flank pain: Possibly MSK. CT AP unrevealing. [place] 5 mg PO Q6H PRN pain. BPH: Flomax 0.4 mg PO QD. AFib: Eliquis 2.5 mg PO BID for AC. Gout: Allopurinol 100 mg PO QD. Hypothyrodism: Synthroid 25 mcg PO QD. Hypertension: Continue home medications as above Dyslipidemia: Holding Lipitor due to transaminitis. Diabetes mellitus: ISS with Accuchecks ACHS along with hypoglycemic precautions. PVD, chronic left third toe wound: Patient follows with podiatry, will consult wound care DVT ppx: Eliquis Code status: Full code Anticipated discharge place: TBD Anticipated discharge time: TBD Objective - Vital Signs Vital signs: Vital Signs Temp 96.4 F L 09/24/24 08:00 Pulse 55 L 09/24/24 12:00 Resp 16 09/24/24 08:00 BP 117/73 09/24/24 12:00 Pulse Ox 99 09/24/24 12:00 FiO2 Intake & Output 09/23/24 09/24/24 09/24/24 18:59 06:59 18:59 Intake Total 240 180 Output Total 550 300 150 Balance -310 -300 30 Weight 98 kg Intake: Oral 240 180 Output: Urine 550 300 150 Other: Voiding Method Indwelling Catheter Indwelling Catheter Indwelling Catheter # Voids 1 - Labs CBC & Chem 7: 09/23/24 06:12 09/24/24 07:15 Labs: Abnormal Lab Results - Last 24 Hours (Table) 09/23/24 09/23/24 09/24/24 Range/Units 16:05 19:52 06:02 Sodium (137-145) mmol/L Carbon Dioxide (22-30) mmol/L BUN (9-20) mg/dL Creatinine (0.66-1.25) mg/dL Glucose (74-99) mg/dL POC Glucose (mg/dL) 198 H 203 H 133 H (70-110) mg/dL AST (17-59) U/L Total Protein (6.3-8.2) g/dL Albumin (3.5-5.0) g/dL 09/24/24 09/24/24 Range/Units 07:15 11:28 Sodium 134 L (137-145) mmol/L Carbon Dioxide 21 L (22-30) mmol/L BUN 91 H (9-20) mg/dL Creatinine 3.81 H (0.66-1.25) mg/dL Glucose 111 H (74-99) mg/dL POC Glucose (mg/dL) 182 H (70-110) mg/dL AST 110 H (17-59) U/L Total Protein 5.8 L (6.3-8.2) g/dL Albumin 3.4 L (3.5-5.0) g/dL
[2024-09-24] MEDS: FUROSEMIDE 40 MG TAB PO SCH (16:25)
[2024-09-24 16:40] LABS: Glucose,Whole Blood 172 mg/dL (70-110)
[2024-09-24 20:35] LABS: Glucose,Whole Blood 165 mg/dL (70-110)
[2024-09-25] MEDS: ACETAMINOPHEN IV (For NPO) 1,000 MG in EMPTY BAG 1 BAG IVPB SCH (00:35)
[2024-09-25 05:54] LABS: Glucose,Whole Blood 103 mg/dL (70-110)
[2024-09-25 07:17] LABS: African American GFR (CKD) 16 (>60 ml/min/1.73 sqM); Anion Gap 12 mmol/L; Blood Urea Nitrogen 93 mg/dL (9-20); Calcium 9.3 mg/dL (8.4-10.2); Carbon Dioxide 20 mmol/L (22-30); Chloride 101 mmol/L (98-107); Glucose 93 mg/dL (74-99); Magnesium 2.4 mg/dL (1.6-2.3); Non-African American GFR(CKD) 13 (>60 ml/min/1.73 sqM); Potassium 4.5 mmol/L (3.5-5.1); Sodium 133 mmol/L (137-145)
--- NOTE | 2024-09-25 09:33 | P.CONS ---
History of Present Illness - Reason for Consult Consult date: 09/25/24 wound care - History of Present Illness This is a 78-year-old patient being seen by the wound care center on [address] for nonhealing ulceration to the third digit of the left foot. Patient has had the ulceration for a few months now. states that she has been utilizing honey to the site. Patient was seen by his charrer who said that they wanted to do anything to the toe at that time. Patient presents with a nonpressure ulceration to the third digit dorsal aspect measuring approximately 1 x 1.4 x 0.1 cm with possible bone exposed. Patient has slough and nonviable tissue present. Patient does have mobility to the digit. Patient has Past medical history of atrial fibrillation, diabetes, hyperlipidemia, hypertension, renal disease, vascular disease, [place], and DVT. Review Of Systems: Constitutional: No fever, no chills, no night sweats. No weight change. No weakness, fatigue or lethargy. No daytime sleepiness. Integumentary:reports wounds, no lesions. No rash or pruritus. No unusual bruising. No change in hair or nails. Physical exam: General Appearance: Alert, cooperative, no distress, appears stated age. Skin: See HPI all other Skin color, texture, tugor normal, no rashes or lesions. Neurologic: Alert oriented x3 Assessment: 1. Nonpressure ulceration of other part of left foot with bone involvement without necrosis 2. Diabetic foot ulcer Plan: 1. Apply Santyl, saline moist gauze, dry gauze, rolled gauze and secure with paper tape. Change daily. Patient would benefit from advanced wound care and wound care setting would be happy to see him upon discharge. was agreeable at this time. Thank you for the consultation any questions please contact the wound care center DNP note has been reviewed and discussed with Dr. Lagunas and the impression and plan of care has been directed as dictated. Past Medical History Past Medical History: Atrial Fibrillation, Coronary Artery Disease (CAD), Cancer, Heart Failure, CVA/TIA, Diabetes Mellitus, Deep Vein Thrombosis (DVT), GERD/Reflux, Hearing Disorder / Deafness, Hyperlipidemia, Hypertension, Myocardial Infarction ([place]), Renal Disease, Sleep Apnea/CPAP/BIPAP, Vascular Diso rder Additional Past Medical History / Comment(s): BBOWEL OBSTRUCTION after colon cancer surgery., HX 2ND DEGREE HB,IBS,A FIB, RT FEMORAL DVT,CARDIO PULMONARY ARREST 2013, ATRIAL SEPTAL DEFECT,PVD, COLON CANCER 2005, per old hx ? ulcer in past. states her had a slight stroke no weakness from the stroke- states pt had stroke July 2024, no deficits from stroke per . Does not use CPAP Last Myocardial Infarction Date:: 11/2012 History of Any Multi-Drug Resistant Organisms: None Reported Past Surgical History: Bowel Resection, Heart Catheterization, Heart Catheteriza tion With Stent, Hernia Repair, Pacemaker Additional Past Surgical History / Comment(s): Colon Resection 1999. Right femoral thrombolectomy 11/2012. Colonoscopy 2012. Anal fissure repair.RT CARTOTID ENDARTERECTOMY, incarcerated ventral hernia/lysis of adhesions. Past Anesthesia/Blood Transfusion Reactions: No Reported Reaction Additional Past Anesthesia/Blood Transfusion Reaction / Comm: HX OF BLOOD TRANSFUSION Date of Last Stent Placement:: 11/2012 Type of Cardiac Device: Permanent Pacemaker Device Placement Date:: 09/19/24 Past Psychological History: No Psychological Hx Reported Smoking Status: Former smoker Past Alcohol Use History: None Reported Past Drug Use History: None Reported - Past Family History Sister(s) History Unknown: Yes Family Medical History: Cancer Father History Unknown: Yes Family Medical History: CVA/TIA, Diabetes Mellitus Mother History Unknown: Yes Family Medical History: Dementia Medications and Allergies Home Medications Medication Instructions Recorded Confirmed Type Nitroglycerin Sl Tabs [Nitrostat] 0.4 mg SL Q5M PRN 08/11/13 09/22/24 History Tamsulosin [Flomax] 0.4 mg PO DAILY 08/28/13 09/22/24 History Famotidine 40 mg PO DAILY 10/16/18 09/22/24 History Aspirin EC [Ecotrin Low Dose] 162 mg PO DAILY 06/19/24 09/22/24 History INSULIN ASPART (NovoLOG) [NovoLOG See Protocol SQ AC-TID 06/19/24 09/22/24 History (formulary)] Vitamin B-12 100mcg 200 mcg PO DAILY 06/19/24 09/22/24 History allopurinoL 100 mg PO DAILY 06/19/24 09/22/24 History calcitrioL 0.25 mcg PO MOWEFR 06/19/24 09/22/24 History Levothyroxine Sodium 25 mcg PO DAILY #30 tab 08/30/24 09/22/24 Rx Sucralfate [Carafate] 1 gm PO BID #60 tablet 08/30/24 09/22/24 Rx Apixaban [Eliquis] 2.5 mg PO BID 09/14/24 09/22/24 History Cholecalciferol (Vitamin D3) 50 mcg PO MOTUWETHFR 09/14/24 09/22/24 History [Vitamin D3 (50 Mcg = 2000 Iu)] Acetaminophen Tab [Tylenol] 650 mg PO Q6HR PRN tab 09/20/24 09/22/24 Rx Atorvastatin [Lipitor] 40 mg PO HS #30 tab 09/20/24 09/22/24 Rx Darbepoetin Sherif [Aranesp] 40 mcg SQ Q7D each 09/20/24 09/22/24 Rx Ferrous Sulfate [Feosol] 325 mg PO DAILY #30 tab 09/20/24 09/22/24 Rx Isosorbide Mononitrate ER [Imdur] 30 mg PO DAILY #30 tab 09/20/24 09/22/24 Rx Losartan [Cozaar] 12.5 mg PO DAILY #30 tab 09/20/24 09/22/24 Rx Empagliflozin [Jardiance] 10 mg PO DAILY 09/22/24 09/22/24 History Furosemide [Lasix] 40 mg PO BID 09/22/24 09/22/24 History Metoprolol Succinate [Metoprolol 25 mg PO DAILY 09/22/24 09/22/24 History Succinate ER] Allergies Allergy/AdvReac Type Severity Reaction Status Date / Time enalapril [Enalapril] AdvReac Unknown STATES BP Verified 09/22/24 16:15 TOO LOW lisinopril AdvReac Dizziness Verified 09/22/24 16:15 niacin AdvReac hyperglycemia, Verified 09/22/24 16:15 nausea Physical Exam Vitals: Vital Signs Temp Pulse Resp BP Pulse Ox 09/25/24 04:00 97.5 F L 55 L 16 94/62 98 09/25/24 01:29 55 L 16 09/25/24 00:00 97.7 F 55 L 17 90/60 97 09/24/24 20:00 97.9 F 55 L 16 90/55 100 09/24/24 16:00 54 L 82/54 96 09/24/24 14:00 55 L 16 09/24/24 12:00 55 L 117/73 99 Intake and Output 09/24/24 09/25/24 09/25/24 22:59 06:59 14:59 Intake Total 20 20 Output Total 100 Balance -80 20 Intake: IV 20 20 Invasive Line 1 10 10 Invasive Line 2 10 10 Output: Urine 100 Other: Voiding Method Indwelling Catheter Indwelling Catheter Weight 98.5 kg Results CBC & Chem 7: 09/23/24 06:12 09/25/24 06:18 Labs: Abnormal Lab Results - Last 24 Hours (Table) 09/24/24 09/24/24 09/24/24 Range/Units 11:28 16:38 20:33 Sodium (137-145) mmol/L Carbon Dioxide (22-30) mmol/L BUN (9-20) mg/dL Creatinine (0.66-1.25) mg/dL POC Glucose (mg/dL) 182 H 172 H 165 H (70-110) mg/dL Magnesium (1.6-2.3) mg/dL 09/25/24 Range/Units 06:18 Sodium 133 L (137-145) mmol/L Carbon Dioxide 20 L (22-30) mmol/L BUN 93 H (9-20) mg/dL Creatinine 4.04 H (0.66-1.25) mg/dL POC Glucose (mg/dL) (70-110) mg/dL Magnesium 2.4 H (1.6-2.3) mg/dL Assessment and Plan (1) Non-pressure chronic ulcer of other part of left foot with bone involvement without evidence of necrosis Current Visit: Yes Status: Acute Code(s): L97.526 - NON-PRS CHR ULC OTH PRT L FOOT WITH BNE INVL W/O EVD OF NECR SNOMED Code(s): 49899419677295823 (2) Type 2 diabetes mellitus with foot ulcer Current Visit: Yes Status: Acute Code(s): E11.621 - TYPE 2 DIABETES MELLITUS WITH FOOT ULCER; L97.509 - NON-PRESSURE CHRONIC ULCER OTH PRT UNSP FOOT W UNSP SEVERITY SNOMED Code(s): 8538685181667
[2024-09-25] MEDS: FAMOTIDINE 20 MG TAB PO SCH (09:41)
--- NOTE | 2024-09-25 09:45 | P.PN ---
Subjective Patient is seen in follow-up for acute kidney injury on chronic kidney disease. Renal function continues to worsen. Creatinine 4.04 today. Now on oral Lasix. Has Perez catheter. On room air. Denies chest pain or shortness of breath. Vital signs are stable. General: No acute distress. HEENT: Head exam is unremarkable. LUNGS: No audible rhonchi or wheezes. HEART: Rate and Rhythm are regular. ABDOMEN: Nontender. EXTREMITITES: Trace edema. Objective - Vital Signs Vital signs: Vital Signs Temp 97.5 F L 09/25/24 04:00 Pulse 55 L 09/25/24 04:00 Resp 16 09/25/24 04:00 BP 94/62 09/25/24 04:00 Pulse Ox 98 09/25/24 04:00 FiO2 Intake & Output 09/24/24 09/25/24 09/25/24 18:59 06:59 18:59 Intake Total 180 40 Output Total 250 Balance -70 40 Weight 98.5 kg Intake: IV 40 Invasive Line 1 20 Invasive Line 2 20 Oral 180 Output: Urine 250 Other: Voiding Method Indwelling Catheter Indwelling Catheter - Labs CBC & Chem 7: 09/23/24 06:12 09/25/24 06:18 Labs: Abnormal Lab Results - Last 24 Hours (Table) 09/24/24 09/24/24 09/24/24 Range/Units 11:28 16:38 20:33 Sodium (137-145) mmol/L Carbon Dioxide (22-30) mmol/L BUN (9-20) mg/dL Creatinine (0.66-1.25) mg/dL POC Glucose (mg/dL) 182 H 172 H 165 H (70-110) mg/dL Magnesium (1.6-2.3) mg/dL 09/25/24 Range/Units 06:18 Sodium 133 L (137-145) mmol/L Carbon Dioxide 20 L (22-30) mmol/L BUN 93 H (9-20) mg/dL Creatinine 4.04 H (0.66-1.25) mg/dL POC Glucose (mg/dL) (70-110) mg/dL Magnesium 2.4 H (1.6-2.3) mg/dL Assessment and Plan Plan: Assessment: 1. Acute kidney injury secondary to ATN secondary to cardiorenal syndrome. Creatinine 4.04 today. No hydronephrosis noted on CT. No proteinuria on UA. 2. Chronic kidney disease stage IV secondary to diabetic kidney disease and cardiorenal syndrome with baseline creatinine near 2.2. 3. Volume overload. Improved with diuresis. 4. Chronic kidney disease mineral bone disease maintained on calcitriol. 5. Diabetes mellitus. 6. Coronary disease with cardiac stents. 7. Acute on chronic systolic CHF ejection fraction of 30 to 35% with moderate mitral regurgitation. Plan: Hold diuretics today. Maintain Perez catheter. Continue to hold Jardiance and losartan. Avoid nephrotoxins. Continue to monitor renal function and urine output. Increase dose of midodrine. Continue to assess daily for need for renal replacement therapy. Case discussed with patient's and also primary attending.
[2024-09-25] MEDS ORDERED: ONDANSETRON 4 MG/2 ML VIAL IVP PRN (09:51)
--- NOTE | 2024-09-25 10:12 | P.PN ---
Subjective Progress Note Date: 09/25/24 Hospital Course: 78-year-old male with a past medical history of CAD status post stenting x 2, history of cardiac arrest in 2013, chronic systolic congestive heart failure, valvular heart disease with atrial septal defect, chronic atrial fibrillation on anticoagulation with Eliquis, hypertension, hyperlipidemia, peripheral vascular disease, carotid stenosis status post R carotid endarterectomy, previous CVA, colon cancer status post bowel resection, insulin-dependent diabetes mellitus, stage IV CKD, DVT status post femoral thrombectomy, and previous CVA with no reported deficits. He presents to the ED for decreased urine output and right flank pain that has been progressively getting worse since Monday. Patient was recently admitted from 09/14-09/20. He had elevated troponins (peak of 0.259). Cardiology evaluated, underwent cardiac cath which showed severe triple-vessel disease with FILE SYSTEM INSTALLER of the RCA and diffuse severe disease involving left circumflex and FILE SYSTEM INSTALLER of the LAD. He also underwent pacemaker placement on 09/21 for sick sinus syndrome. On the day of discharge, he reports hurting his right back while trying to get into the car. The pain is described as sharp and stabbing. Pain radiated to the RLQ with 10/10 intensity which prompted him to come to the ED. He denies any dizziness, chest pain or shortness of breath. reports 100 cc of urine output since Monday. In the ED he underwent extensive evaluation. BP as low as 88/65, HR in the 50s, T 97.8F, 99% on RA. CBC, Coag panel, CMP significant for RBC 4.15, Hg 10.4, Hct 33, MCV 79.5, PT 15.5, INR 1.5, Na 133, bicarb 21, BUN 84, Cr 3.48, glu 124, AST 301, ALT 82. Trop 0.095. BNP 38764. UA 3+ glucose with small LE. CXR with pulmonary vascular congestion. EKG showing V paced rhythmm with prolonged QT of 586. CT AP showed no intraabdominal process, bladder wall thickening, moderate ascites around the liver, ventral wall hernia with no obstruction, right L5 pars interarticularis defect, severe CAD and moderate R (+ trace left) pleural effusion. Patient is admitted for further workup and management.Cardiology and nephrology consulted. Per cardiology, patient is not in heart failure exacerbation and can be resumed on home medications. Per nephrology, patient is suffering from AMY due to ATN in the settings of cardiorenal syndrome, AV Lasix 40 twice daily added, Jardiance and losartan on hold. Patient had bowel movement on 09/21, asked for stool softener, MiraLAX added. Lactulose was provided twice on 09/24 and 09/25 09/24: Patient was transition to oral diuretics by nephrology, continue to hold jardiance and losartan. Chest x-ray was performed and showed hazy appearance atelectasis .Cardiology following, pacemaker to be interrogated. 09/25: Seen and examined at bedside, overnight patient developed lumbar back pain and was provided with IV Tylenol, this morning reported he was somewhat confused and now improving. On my examination patient states that he feels fine, he mentioned lower back pain, there is mild to moderate tenderness to palpation over the lumbar spine. Patient is afebrile, heart rate is 50s, blood pressure soft 90/62, satting well on room air.Sodium 133, creatinine 4.04, BUN 93. Nephrology at bedside, will continue to monitor urine output closely, hold diuretics, increase dose of midodrine, discussed possible need for renal replacement therapy. Patient's at bedside, discussed with RN as well. Later on I was notified that patient had 1 episode of vomiting, Zofran ordered. Pertinent positives and negatives as discussed above, a complete review of systems was performed and all other systems are negative. Vitals Signs Reviewed. General: [nontoxic], [no distress], [appears at stated age], chronically ill- appearing Derm: [warm], [dry] Head: [atraumatic], [normocephalic], [symmetric] Eyes: [EOMI], [no lid lag], [anicteric sclera] Mouth: [no lip lesion], [mucus membranes moist] Cardiovascular: [S1S2 reg], [no murmur] Lungs: [CTA bilateral], [no rhonchi, no rales] , [no accessory muscle use] Abdominal: [soft], [ nontender to palpation], [no guarding], [no appreciable organomegaly], abdominal wall hernia Ext: [no gross muscle atrophy], [bilateral pedal edema], [no contractures]lower back tenderness, chronic venous stasis changes Neuro: [ CN II-XI grossly intact], [no focal neuro deficits] Psych: [Alert], [oriented], [appropriate affect] Assessment and Plan: Systolic CHF, not in acute exacerbation - Continue strict I's and O, daily weights, interrogate pacemaker, continue telemetry, goal potassium above 4 magnesium above 2. - Cardiology consulted, appreciate recommendations - IV Lasix discontinued, on hold oral Lasix 40 p.o. twice daily, monitor BMP daily in the settings of advanced CKD AMY on CKD stage IV likely cardiorenal etiology Right flank pain -No signs of hydronephrosis, kidney stones on CT -Continue holding Farxiga and losartan, monitor strict I's and O's, daily BMP -Nephrology consulted, transition to oral Lasix -Nicotine patch ordered for flank pain, discussed with RN -Hold oral Lasix Constipation: Start MiraLAX 17 g daily, still no bowel movements, ordered one- time dose of lactulose on 09/24 and 09/25, abdomen soft, bowel sounds present. Troponin elevation with history of severe CAD - Continue ASA 162 mg PO QD. Lipitor 40 mg PO QHS - Neurology consulted, appreciate recommendations, blood pressure improved, Imdur 30 mg daily resumed, Toprol-XL 25 mg daily resumed Pleural effusion: Obtain chest US. Right effusion not marked due to presence of mobile lung tissue and anterior pocket. Microcytic anemia: At baseline. Continue ferrous sulfate 325 mg PO QD + B12 200 mcg PO QD. Transfuse if Hg < 7. Repeat CBC in the AM. Transaminitis: Possibly cardiohepatic. CT shows moderate ascites around the liver. Hold Lipitor. Repeat CMP in the morning ordered Right flank pain, resolved Lower back pain: Possibly MSK. CT AP unrevealing. [place] 5 mg PO Q6H PRN pain. Lidocaine patch added, Voltaren gel added BPH: Flomax 0.4 mg PO QD. AFib: Eliquis 2.5 mg PO BID for AC. Gout: Allopurinol 100 mg PO QD. Hypothyrodism: Synthroid 25 mcg PO QD. Hypertension: Continue home medications as above Dyslipidemia: Holding Lipitor due to transaminitis. Diabetes mellitus: ISS with Accuchecks ACHS along with hypoglycemic precautions. PVD, chronic left third toe wound: Patient follows with podiatry, will consult wound care, reviewed recommendations, apply Santyl, saline moist gauze, dry gauze, rolled gauze, change daily, recommend follow-up with advanced wound care DVT ppx: Eliquis Code status: Full code Anticipated discharge place: TBD Anticipated discharge time: TBD Objective - Vital Signs Vital signs: Vital Signs Temp 97.5 F L 09/25/24 04:00 Pulse 55 L 09/25/24 04:00 Resp 16 09/25/24 04:00 BP 94/62 09/25/24 04:00 Pulse Ox 98 09/25/24 04:00 FiO2 Intake & Output 09/24/24 09/25/24 09/25/24 18:59 06:59 18:59 Intake Total 180 40 Output Total 250 Balance -70 40 Weight 98.5 kg Intake: IV 40 Invasive Line 1 20 Invasive Line 2 20 Oral 180 Output: Urine 250 Other: Voiding Method Indwelling Catheter Indwelling Catheter - Labs CBC & Chem 7: 09/23/24 06:12 09/25/24 06:18 Labs: Abnormal Lab Results - Last 24 Hours (Table) 09/24/24 09/24/24 09/24/24 Range/Units 11:28 16:38 20:33 Sodium (137-145) mmol/L Carbon Dioxide (22-30) mmol/L BUN (9-20) mg/dL Creatinine (0.66-1.25) mg/dL POC Glucose (mg/dL) 182 H 172 H 165 H (70-110) mg/dL Magnesium (1.6-2.3) mg/dL 09/25/24 Range/Units 06:18 Sodium 133 L (137-145) mmol/L Carbon Dioxide 20 L (22-30) mmol/L BUN 93 H (9-20) mg/dL Creatinine 4.04 H (0.66-1.25) mg/dL POC Glucose (mg/dL) (70-110) mg/dL Magnesium 2.4 H (1.6-2.3) mg/dL
[2024-09-25] MEDS: DICLOFENAC SODIUM GEL 100 GM TUBE TOPICAL SCH (11:30)
[2024-09-25 11:55] LABS: Glucose,Whole Blood 113 mg/dL (70-110)
[2024-09-25] MEDS: COLLAGENASE 250 UNIT/GM OINTMENT 30 GM TUBE TOPICAL SCH (13:30)
[2024-09-25] MEDS: MIDODRINE 5 MG TAB PO SCH (13:30)
[2024-09-25] MEDS: LACTULOSE 20 GM/30 ML CUP PO ONE (13:30)
--- NOTE | 2024-09-25 13:35 | P.PN ---
Subjective Progress Note Date: 09/25/24 Consult reason: congestive heart failure History of present illness: This is a 78-year-old male patient of Dr. Leal with past medical history of coronary artery disease with known INCINERATOR PLANT SUPERVISOR of the RCA and intermediate disease involving the left coronary system as well as cardiomyopathy with EF between 25 and 30%, persistent atrial fibrillation, hypertension, dyslipidemia, history of TIA, carotid atherosclerosis, dilated ascending aorta, chronic kidney disease, history of colon cancer. We have been asked to evaluate the patient for acute CHF. Patient states that he came into the hospital due to right flank and abdominal pain. He states the pain initially started in the right flank and then moved into the abdomen. He denies chest pain or chest pressure. He denies chest tightness. He denies shortness of breath. He denies increased weight or increased edema to the lower extremities. Patient had a recent hospitalization in September at which time he was seen by cardiology and had a permanent pacemaker [employer] [facility] placed by Dr. RAJEEV Mauro on 09/19/2024. Patient has had no problems with the pacemaker site. Patient had presented for acute on chronic anemia and found to have a duodenal ulcer with evidence of bleeding. Patient's states that the pacemaker was interrogated in the emergency center but we are unable to locate a report. Blood pressure 115/70, heart rate in the 50s, pulse ox 100% on 2 L nasal cannula. -EKG: Ventricularly paced rhythm -Chest x-ray: Cardiomegaly, pulmonary vascular congestion and bilateral pleural effusions. -CT of the abdomen pelvis without contrast reveals no evidence of acute intra- abdominal process. Correlate for cystitis. Moderate ascites around the liver. No bowel obstruction. Patient does have a ventral hernia. Moderate cardiomegaly severe coronary artery atherosclerosis. Moderate right pleural effusion, trace left peripheral effusion. -Chest ultrasound revealed right pleural fusion pocket of 3 cm. Left pleural effusion pocket trace. -Laboratory studies: WBC 7.7, hemoglobin 10.1. Sodium 135, potassium 1.286 creatinine 3.67. Troponin 0.095, 0.09, 0.91 improved from his visit 09/14. AST 301, ALT 82. -Home cardiac medications: Eliquis 2.5 mg twice daily, aspirin 162 mg daily, atorvastatin 40 mg at bedtime, Jardiance 10 mg daily, ferrous sulfate 325 mg daily, Lasix 40 mg twice daily, Imdur 30 mg daily, losartan 12.5 mg daily, metoprolol succinate 25 mg daily, Nitrostat as needed, also on levothyroxine. -Echocardiogram performed 06/19/2024 revealed EF of 30 to 35% with segmental wall motion abnormality. Moderate mitral regurgitation and mild aortic regurgitation. Moderate tricuspid regurgitation with moderate pulmonary hypertension. 09/24/2024 Patient seen and examined. He denies chest pain no chest pressure no shortness of breath. Interrogation is not found in his chart. Nursing will follow-up and we will review later. Blood pressure 102/66, heart rate in the 50s, pulse ox 98% on room air. Repeat blood work reveals sodium 134, potassium 4.3, BUN 91 creatinine 3.81. Renal function is worsening and patient is followed by nephrology. Nephrology is started the patient on IV Lasix 40 mg every 12 hours. 09/25/2024 Patient seen and examined. Interrogation of patient's permanent pacemaker reviewed. Pacemaker appears to be functioning normally, no abnormalities noted. Blood pressure 109/72, heart rate 55, pulse ox 99% on room air. Repeat blood work reveals sodium 133, potassium 4.5, BUN 93 creatinine 4.0. IV Lasix has been discontinued by nephrology. Physical examination: Gen: This is 78-year-old male in no acute distress VS: reviewed HEENT: Head is atraumatic, normocephalic. Pupils equal, round. Sclerae is anicteric. NECK: Supple. No JVD. LUNGS: Clear to auscultation. No wheezes or rhonchi. No intercostal retractions. HEART: Regular rate and rhythm. Distant heart sounds. ABDOMEN: Soft No tenderness. EXTREMITIES: No pedal edema. No calf tenderness. NEUROLOGICAL: Patient is awake, alert and oriented x3. Assessment: Chronic systolic heart failure no clinical evidence of exacerbation Right flank pain and right lower quadrant abdominal pain Acute kidney injury Chronic kidney disease Coronary artery disease with known INCINERATOR PLANT SUPERVISOR of the RCA and intermediate disease in the left coronary system Cardiomyopathy with EF most recently 30 to 35% Persistent atrial fibrillation Recent permanent pacemaker implantation for sick sinus syndrome Hypertension Dyslipidemia History of TIA Carotid atherosclerosis History of colon cancer Plan: Continue patient's home cardiac medications Patient is currently off IV Lasix nephrology Interrogate pacemaker, reviewed finding no abnormalities No need to repeat echocardiogram as this was done in June No plan for any further cardiac workup Cardiology will sign off this case and follow on an as-needed basis. Please reconsult for any new concerns. Patient may follow-up in the office with Dr. Leal in one to 2 weeks. Nurse practitioner note has been reviewed, I agree with documented findings and plan of care. Patient was seen and examined. Objective - Vital Signs Vital signs: Vital Signs Temp 97.5 F L 09/25/24 04:00 Pulse 55 L 09/25/24 12:00 Resp 16 09/25/24 08:00 BP 109/72 09/25/24 12:00 Pulse Ox 99 09/25/24 12:00 FiO2 Intake & Output 09/24/24 09/25/24 09/25/24 18:59 06:59 18:59 Intake Total 180 40 Output Total 250 Balance -70 40 Weight 98.5 kg Intake: IV 40 Invasive Line 1 20 Invasive Line 2 20 Oral 180 Output: Urine 250 Other: Voiding Method Indwelling Catheter Indwelling Catheter Indwelling Catheter - Labs CBC & Chem 7: 09/23/24 06:12 09/25/24 06:18 Labs: Abnormal Lab Results - Last 24 Hours (Table) 09/24/24 09/24/24 09/25/24 Range/Units 16:38 20:33 06:18 Sodium 133 L (137-145) mmol/L Carbon Dioxide 20 L (22-30) mmol/L BUN 93 H (9-20) mg/dL Creatinine 4.04 H (0.66-1.25) mg/dL POC Glucose (mg/dL) 172 H 165 H (70-110) mg/dL Magnesium 2.4 H (1.6-2.3) mg/dL 09/25/24 Range/Units 11:53 Sodium (137-145) mmol/L Carbon Dioxide (22-30) mmol/L BUN (9-20) mg/dL Creatinine (0.66-1.25) mg/dL POC Glucose (mg/dL) 113 H (70-110) mg/dL Magnesium (1.6-2.3) mg/dL
[2024-09-25 16:40] LABS: Glucose,Whole Blood 121 mg/dL (70-110)
[2024-09-25] MEDS ORDERED: ACETAMINOPHEN IV (For NPO) 1,000 MG in EMPTY BAG 1 BAG IVPB PRN (16:50)
[2024-09-25 20:21] LABS: Glucose,Whole Blood 123 mg/dL (70-110)
[2024-09-26 05:52] LABS: Glucose,Whole Blood 99 mg/dL (70-110)
[2024-09-26 06:14] LABS: Basophils # (A) 0.04 10*3/uL (0.00-0.10); Basophils % (A) 0.7 %; Eosinophils # (A) 0.04 10*3/uL (0.04-0.35); Eosinophils % (A) 0.7 %; HCT 33.8 % (39.6-50.0); HGB 10.6 g/dL (13.0-17.0); Lymphocytes # (A) 0.33 10*3/uL (0.90-5.00); Lymphocytes % (A) 5.9 %; MCH 25.1 pg (27.0-32.0); MCHC 31.4 g/dL (32.0-37.0); MCV 80.1 fL (80.0-97.0); Mean Platelet Volume 10.4 fL (9.5-12.2); Monocytes # (A) 0.43 10*3/uL (0.20-1.00); Monocytes % (A) 7.7 %; Neutrophils # (A) 4.73 10*3/uL (1.80-7.70); Neutrophils % (A) 84.6 %; Platelet Count 146 10*3/uL (140-440); RBC 4.22 10*6/uL (4.40-5.60); RDW 22.4 % (11.5-14.5); WBC 5.59 10*3/uL (4.50-10.00)
[2024-09-26 06:28] LABS: African American GFR (CKD) 13 (>60 ml/min/1.73 sqM); Anion Gap 14 mmol/L; Blood Urea Nitrogen 98 mg/dL (9-20); Calcium 9.5 mg/dL (8.4-10.2); Carbon Dioxide 19 mmol/L (22-30); Chloride 100 mmol/L (98-107); Glucose 92 mg/dL (74-99); Magnesium 2.6 mg/dL (1.6-2.3); Non-African American GFR(CKD) 11 (>60 ml/min/1.73 sqM); Phosphorus 7.4 mg/dL (2.5-4.5); Potassium 4.7 mmol/L (3.5-5.1); Sodium 133 mmol/L (137-145)
--- NOTE | 2024-09-26 08:54 | XR ---
EXAMINATION TYPE: XR chest 1V DATE OF EXAM: 09/26/2024 6:58 AM COMPARISON: Chest radiographs from 09/24/2024. CLINICAL INDICATION: Male, 78 years old with history of sob; TECHNIQUE: XR chest 1V Frontal view of the chest. FINDINGS: Lungs/Pleura: Low lung volumes are present. There is no evidence of pleural effusion, focal consolida tion, or pneumothorax. Pulmonary vascularity: Pulmonary vascular congestion. Heart/mediastinum: Cardiomediastinal silhouette is enlarged. Single-lead cardiac conduction device ov erlying the left hemithorax with lead projecting over the right ventricle. Musculoskeletal: No acute osseous pathology. IMPRESSION: Low lung volumes with a generalized hazy appearance which could represent atelectasis versus pulmonar y edema correlate with serum BNP. [facility], , 09/26/2024 8:52 AM
--- NOTE | 2024-09-26 10:23 | P.PN ---
Subjective Patient is seen in follow-up for acute kidney injury on chronic kidney disease. Renal function continues to worsen. Creatinine 4.7 today. Lasix was held yesterday. He does have edema in the lower extremities. Patient confused and restless today. Vital signs are stable. General: No acute distress. HEENT: Head exam is unremarkable. LUNGS: No audible rhonchi or wheezes. HEART: Rate and Rhythm are regular. ABDOMEN: Nontender. EXTREMITITES: Trace edema in ankles and 1-2+ edema in the thighs. Objective - Vital Signs Vital signs: Vital Signs Temp 97.7 F 09/26/24 03:29 Pulse 57 L 09/26/24 03:29 Resp 16 09/26/24 03:29 BP 112/62 09/26/24 03:29 Pulse Ox 97 09/26/24 03:29 FiO2 Intake & Output 09/25/24 09/26/24 09/26/24 18:59 06:59 18:59 Output Total 300 Balance -300 Weight 102.5 kg Output: Urine 300 Other: Voiding Method Indwelling Catheter Indwelling Catheter - Labs CBC & Chem 7: 09/26/24 05:46 09/26/24 05:46 Labs: Abnormal Lab Results - Last 24 Hours (Table) 09/25/24 09/25/24 09/25/24 Range/Units 11:53 16:38 20:19 RBC (4.40-5.60) 10*6/uL Hgb (13.0-17.0) g/dL Hct (39.6-50.0) % MCH (27.0-32.0) pg MCHC (32.0-37.0) g/dL Lymphocytes # (0.90-5.00) 10*3/uL Sodium (137-145) mmol/L Carbon Dioxide (22-30) mmol/L BUN (9-20) mg/dL Creatinine (0.66-1.25) mg/dL POC Glucose (mg/dL) 113 H 121 H 123 H (70-110) mg/dL Phosphorus (2.5-4.5) mg/dL Magnesium (1.6-2.3) mg/dL 09/26/24 09/26/24 Range/Units 05:46 05:46 RBC 4.22 L (4.40-5.60) 10*6/uL Hgb 10.6 L (13.0-17.0) g/dL Hct 33.8 L (39.6-50.0) % MCH 25.1 L (27.0-32.0) pg MCHC 31.4 L (32.0-37.0) g/dL Lymphocytes # 0.33 L (0.90-5.00) 10*3/uL Sodium 133 L (137-145) mmol/L Carbon Dioxide 19 L (22-30) mmol/L BUN 98 H (9-20) mg/dL Creatinine 4.70 H (0.66-1.25) mg/dL POC Glucose (mg/dL) (70-110) mg/dL Phosphorus 7.4 H (2.5-4.5) mg/dL Magnesium 2.6 H (1.6-2.3) mg/dL Assessment and Plan Plan: Assessment: 1. Acute kidney injury secondary to ATN secondary to cardiorenal syndrome. Creatinine 4.7 today. No hydronephrosis noted on CT. No proteinuria on UA. 2. Chronic kidney disease stage IV secondary to diabetic kidney disease and cardiorenal syndrome with baseline creatinine near 2.2. 3. Volume overload. 4. Chronic kidney disease mineral bone disease maintained on calcitriol. 5. Diabetes mellitus. 6. Coronary disease with cardiac stents. 7. Acute on chronic systolic CHF ejection fraction of 30 to 35% with moderate mitral regurgitation. Plan: Add IV Lasix 80 mg twice daily. Maintain Perez catheter. Continue to hold Jardiance and losartan. Avoid nephrotoxins. Continue to monitor renal function and urine output. Maintain midodrine. Continue to assess daily for need for renal replacement therapy. Renal replacement therapy discussed with patient's and son present at bedside. They are willing to proceed if indicated. If no improvement in renal function and urine output in the next 24 hours, will initiate renal replacement therapy.
[2024-09-26] MEDS: FUROSEMIDE 10 MG/ML 10 ML VIAL IV SCH (10:55)
[2024-09-26 11:22] LABS: Glucose,Whole Blood 99 mg/dL (70-110)
--- NOTE | 2024-09-26 11:48 | P.PN ---
Subjective Progress Note Date: 09/26/24 Hospital Course: 78-year-old male with a past medical history of CAD status post stenting x 2, history of cardiac arrest in 2013, chronic systolic congestive heart failure, valvular heart disease with atrial septal defect, chronic atrial fibrillation on anticoagulation with Eliquis, hypertension, hyperlipidemia, peripheral vascular disease, carotid stenosis status post R carotid endarterectomy, previous CVA, colon cancer status post bowel resection, insulin-dependent diabetes mellitus, stage IV CKD, DVT status post femoral thrombectomy, and previous CVA with no reported deficits. He presents to the ED for decreased urine output and right flank pain that has been progressively getting worse since Monday. Patient was recently admitted from 09/14-09/20. He had elevated troponins (peak of 0.259). Cardiology evaluated, underwent cardiac cath which showed severe triple-vessel disease with FLYING II INSTRUCTOR of the RCA and diffuse severe disease involving left circumflex and FLYING II INSTRUCTOR of the LAD. He also underwent pacemaker placement on 09/21 for sick sinus syndrome. On the day of discharge, he reports hurting his right back while trying to get into the car. The pain is described as sharp and stabbing. Pain radiated to the RLQ with 10/10 intensity which prompted him to come to the ED. He denies any dizziness, chest pain or shortness of breath. reports 100 cc of urine output since Monday. In the ED he underwent extensive evaluation. BP as low as 88/65, HR in the 50s, T 97.8F, 99% on RA. CBC, Coag panel, CMP significant for RBC 4.15, Hg 10.4, Hct 33, MCV 79.5, PT 15.5, INR 1.5, Na 133, bicarb 21, BUN 84, Cr 3.48, glu 124, AST 301, ALT 82. Trop 0.095. BNP 03914. UA 3+ glucose with small LE. CXR with pulmonary vascular congestion. EKG showing V paced rhythmm with prolonged QT of 586. CT AP showed no intraabdominal process, bladder wall thickening, moderate ascites around the liver, ventral wall hernia with no obstruction, right L5 pars interarticularis defect, severe CAD and moderate R (+ trace left) pleural effusion. Patient is admitted for further workup and management.Cardiology and nephrology consulted. Per cardiology, patient is not in heart failure exacerbation and can be resumed on home medications. Per nephrology, patient is suffering from AMY due to ATN in the settings of cardiorenal syndrome, AV Lasix 40 twice daily added, Jardiance and losartan on hold. Patient had bowel movement on 09/21, asked for stool softener, MiraLAX added. Lactulose was provided twice on 09/24 and 09/25 09/24: Patient was transition to oral diuretics by nephrology, continue to hold jardiance and losartan. Chest x-ray was performed and showed hazy appearance atelectasis .Cardiology following, pacemaker to be interrogated. 09/25: Seen and examined at bedside, overnight patient developed lumbar back pain and was provided with IV Tylenol, this morning reported he was somewhat confused and now improving. Nephrology at bedside, will continue to monitor urine output closely, hold diuretics, increase dose of midodrine, discussed possible need for renal replacement therapy 09/26: Seen and examined at bedside. , son, RN present during exam. Patient is more somnolent, has decreased oral intake, UO 300c this morning. VSS with soft BP 110/60s, on RA. Hb stable, no WBC, Cr rising 4.7, I discontinued allopurinol and norco, nephrology atted Renvela for elevated P, trial of IV lasix 80 bid, possible HD if no improvement. Family understands the plan. Pertinent positives and negatives as discussed above, a complete review of systems was performed and all other systems are negative. Vitals Signs Reviewed. General: somnolent], chronically ill-appearing Derm: [warm], [dry] Head: [atraumatic], [normocephalic], [symmetric] Eyes: [EOMI], [no lid lag], [anicteric sclera] Mouth: [no lip lesion], [mucus membranes moist] Cardiovascular: [S1S2 reg], [no murmur] Lungs: [CTA bilateral], [no rhonchi, no rales] , [no accessory muscle use] Abdominal: [soft], [ nontender to palpation], [no guarding], [no appreciable organomegaly], abdominal wall hernia Ext: [no gross muscle atrophy], [bilateral pedal edema], [no contractures]lower back tenderness, chronic venous stasis changes Neuro: [ CN II-XI grossly intact], [no focal neuro deficits] Psych: [Alert], [oriented], [appropriate affect] Assessment and Plan: AMY on CKD stage IV likely cardiorenal etiology Acute metabolic encephalopathy 2/2 above Hyperphosphatemia Hypotension Right flank pain,resolved -No signs of hydronephrosis, kidney stones on CT -Continue holding Farxiga and losartan, monitor strict I's and O's, daily BMP -Nephrology consulted, -Nicotine patch ordered for flank pain, discussed with RN -IV lasix 80 bid -Nephrology ordered Renvela 800 mg p.o. 3 times daily with meals -Continue midodrine 1000 mg p.o. 3 times daily -strict I&O, discontinued allopurinol and norco Systolic CHF, not in acute exacerbation - Continue strict I's and O, daily weights, interrogate pacemaker, continue telemetry, goal potassium above 4 magnesium above 2. - Cardiology consulted, appreciate recommendations - IV Lasix as above, monitor BMP daily in the settings of advanced CKD Constipation: Start MiraLAX 17 g daily, still no bowel movements, ordered one- time dose of lactulose on 09/24 and 09/25, abdomen soft, bowel sounds present. Added daily bisacodyl rectal Troponin elevation with history of severe CAD - Continue ASA 162 mg PO QD. Lipitor 40 mg PO QHS - Neurology consulted, appreciate recommendations, blood pressure improved, Imdur 30 mg daily resumed, Toprol-XL 25 mg daily resumed Pleural effusion: Obtain chest US. Right effusion not marked due to presence of mobile lung tissue and anterior pocket. Microcytic anemia: At baseline. Continue ferrous sulfate 325 mg PO QD + B12 200 mcg PO QD. Transfuse if Hg < 7. Repeat CBC in the AM. Transaminitis: Possibly cardiohepatic. CT shows moderate ascites around the liver. Hold Lipitor. Repeat CMP in the morning ordered Right flank pain, resolved Lower back pain: Possibly MSK. CT AP unrevealing. Chrisney 5 mg PO Q6H PRN pain. Lidocaine patch added, Voltaren gel added BPH: Flomax 0.4 mg PO QD. AFib: Eliquis 2.5 mg PO BID for AC. Gout: Allopurinol 100 mg PO QD. Hypothyrodism: Synthroid 25 mcg PO QD. Hypertension: Continue home medications as above Dyslipidemia: Holding Lipitor due to transaminitis. Diabetes mellitus: ISS with Accuchecks ACHS along with hypoglycemic precautions. PVD, chronic left third toe wound: Patient follows with podiatry, will consult wound care, reviewed recommendations, apply Santyl, saline moist gauze, dry gauze, rolled gauze, change daily, recommend follow-up with advanced wound care DVT ppx: Eliquis Code status: Full code Anticipated discharge place: TBD Anticipated discharge time: TBD Objective - Vital Signs Vital signs: Vital Signs Temp 96.6 F L 09/26/24 08:00 Pulse 54 L 09/26/24 08:00 Resp 18 09/26/24 08:00 BP 103/64 09/26/24 08:00 Pulse Ox 97 09/26/24 08:00 FiO2 Intake & Output 09/25/24 09/26/24 09/26/24 18:59 06:59 18:59 Output Total 300 Balance -300 Weight 102.5 kg Output: Urine 300 Other: Voiding Method Indwelling Catheter Indwelling Catheter Indwelling Catheter - Labs CBC & Chem 7: 09/26/24 05:46 09/26/24 05:46 Labs: Abnormal Lab Results - Last 24 Hours (Table) 09/25/24 09/25/24 09/25/24 Range/Units 11:53 16:38 20:19 RBC (4.40-5.60) 10*6/uL Hgb (13.0-17.0) g/dL Hct (39.6-50.0) % MCH (27.0-32.0) pg MCHC (32.0-37.0) g/dL Lymphocytes # (0.90-5.00) 10*3/uL Sodium (137-145) mmol/L Carbon Dioxide (22-30) mmol/L BUN (9-20) mg/dL Creatinine (0.66-1.25) mg/dL POC Glucose (mg/dL) 113 H 121 H 123 H (70-110) mg/dL Phosphorus (2.5-4.5) mg/dL Magnesium (1.6-2.3) mg/dL 09/26/24 09/26/24 Range/Units 05:46 05:46 RBC 4.22 L (4.40-5.60) 10*6/uL Hgb 10.6 L (13.0-17.0) g/dL Hct 33.8 L (39.6-50.0) % MCH 25.1 L (27.0-32.0) pg MCHC 31.4 L (32.0-37.0) g/dL Lymphocytes # 0.33 L (0.90-5.00) 10*3/uL Sodium 133 L (137-145) mmol/L Carbon Dioxide 19 L (22-30) mmol/L BUN 98 H (9-20) mg/dL Creatinine 4.70 H (0.66-1.25) mg/dL POC Glucose (mg/dL) (70-110) mg/dL Phosphorus 7.4 H (2.5-4.5) mg/dL Magnesium 2.6 H (1.6-2.3) mg/dL
[2024-09-26] MEDS: bisacodyL 10 MG SUPP RECTAL SCH (12:07)
[2024-09-26] MEDS: SEVELAMER 800 MG TAB PO SCH (12:15)
[2024-09-26 16:26] LABS: Glucose,Whole Blood 117 mg/dL (70-110)
[2024-09-26 19:58] LABS: Glucose,Whole Blood 95 mg/dL (70-110)
[2024-09-27 05:57] LABS: Glucose,Whole Blood 92 mg/dL (70-110)
[2024-09-27 07:41] LABS: Basophils # (A) 0.04 10*3/uL (0.00-0.10); Basophils % (A) 0.5 %; Eosinophils # (A) 0.05 10*3/uL (0.04-0.35); Eosinophils % (A) 0.6 %; HCT 33.3 % (39.6-50.0); HGB 10.4 g/dL (13.0-17.0); Immature Platelet Fraction 2.3 % (1.1-6.1); Lymphocytes # (A) 0.53 10*3/uL (0.90-5.00); Lymphocytes % (A) 6.8 %; MCH 24.5 pg (27.0-32.0); MCHC 31.2 g/dL (32.0-37.0); MCV 78.5 fL (80.0-97.0); Mean Platelet Volume 10.6 fL (9.5-12.2); Monocytes # (A) 0.72 10*3/uL (0.20-1.00); Monocytes % (A) 9.3 %; Neutrophils # (A) 6.42 10*3/uL (1.80-7.70); Neutrophils % (A) 82.5 %; Platelet Count 137 10*3/uL (140-440); RBC 4.24 10*6/uL (4.40-5.60); RDW 22.6 % (11.5-14.5); WBC 7.78 10*3/uL (4.50-10.00)
[2024-09-27 09:38] LABS: African American GFR (CKD) 11 (>60 ml/min/1.73 sqM); Anion Gap 19 mmol/L; Calcium 9.7 mg/dL (8.4-10.2); Carbon Dioxide 14 mmol/L (22-30); Chloride 102 mmol/L (98-107); Glucose 81 mg/dL (74-99); Non-African American GFR(CKD) 9 (>60 ml/min/1.73 sqM); Phosphorus 7.8 mg/dL (2.5-4.5); Potassium 4.8 mmol/L (3.5-5.1); Sodium 135 mmol/L (137-145)
[2024-09-27 09:41] LABS: Blood Urea Nitrogen 104 mg/dL (9-20)
--- NOTE | 2024-09-27 10:17 | P.PN ---
Subjective Patient is seen in follow-up for acute kidney injury on chronic kidney disease. Renal function continues to worsen. Creatinine 5.44 today. Urine output remains low despite IV Lasix. Patient confused. Vital signs are stable. General: No acute distress. HEENT: Head exam is unremarkable. LUNGS: No audible rhonchi or wheezes. HEART: Rate and Rhythm are regular. ABDOMEN: Nontender. EXTREMITITES: Trace edema in ankles and 1-2+ edema in the thighs. Objective - Vital Signs Vital signs: Vital Signs Temp 97.2 F L 09/27/24 08:00 Pulse 56 L 09/27/24 08:00 Resp 18 09/27/24 08:00 BP 126/63 09/27/24 08:00 Pulse Ox 100 09/27/24 08:00 FiO2 Intake & Output 09/26/24 09/27/24 09/27/24 18:59 06:59 18:59 Output Total 300 300 Balance -300 -300 Weight 102.5 kg Output: Urine 300 300 Other: Voiding Method Indwelling Catheter Indwelling Catheter # Bowel Movements 1 1 - Labs CBC & Chem 7: 09/27/24 06:58 09/27/24 06:58 Labs: Abnormal Lab Results - Last 24 Hours (Table) 09/26/24 09/27/24 09/27/24 Range/Units 16:22 06:58 06:58 RBC 4.24 L (4.40-5.60) 10*6/uL Hgb 10.4 L (13.0-17.0) g/dL Hct 33.3 L (39.6-50.0) % MCV 78.5 L (80.0-97.0) fL MCH 24.5 L (27.0-32.0) pg MCHC 31.2 L (32.0-37.0) g/dL Plt Count 137 L (140-440) 10*3/uL Sodium 135 L (137-145) mmol/L Carbon Dioxide 14 L (22-30) mmol/L BUN 104 H* (9-20) mg/dL Creatinine 5.44 H (0.66-1.25) mg/dL POC Glucose (mg/dL) 117 H (70-110) mg/dL Phosphorus 7.8 H (2.5-4.5) mg/dL Assessment and Plan Plan: Assessment: 1. Acute kidney injury secondary to ATN secondary to cardiorenal syndrome. Creatinine 5.4 today. No hydronephrosis noted on CT. No proteinuria on UA. 2. Chronic kidney disease stage IV secondary to diabetic kidney disease and cardiorenal syndrome with baseline creatinine near 2.2. 3. Volume overload. 4. Chronic kidney disease mineral bone disease maintained on calcitriol. 5. Diabetes mellitus. 6. Coronary disease with cardiac stents. 7. Acute on chronic systolic CHF ejection fraction of 30 to 35% with moderate mitral regurgitation. Plan: Maintain IV Lasix. Maintain Perez catheter. Continue to hold Jardiance and losartan. Avoid nephrotoxins. Continue to monitor renal function and urine output. Maintain midodrine. With worsening renal function, fluid overload and concern for uremia, initiate renal replacement therapy. agreeable. Vascular surgery consulted for dialysis catheter placement today. Plan for first treatment of hemodialysis today and second treatment tomorrow.
[2024-09-27] MEDS: HYDROmorphone 0.5 MG/0.5 ML SYRINGE IVP PRN (10:24)
--- NOTE | 2024-09-27 10:55 | P.PN ---
Subjective Progress Note Date: 09/27/24 Hospital Course: 78-year-old male with a past medical history of CAD status post stenting x 2, history of cardiac arrest in 2013, chronic systolic congestive heart failure, valvular heart disease with atrial septal defect, chronic atrial fibrillation on anticoagulation with Eliquis, hypertension, hyperlipidemia, peripheral vascular disease, carotid stenosis status post R carotid endarterectomy, previous CVA, colon cancer status post bowel resection, insulin-dependent diabetes mellitus, stage IV CKD, DVT status post femoral thrombectomy, and previous CVA with no reported deficits. He presents to the ED for decreased urine output and right flank pain that has been progressively getting worse since Monday. Patient was recently admitted from 09/14-09/20. He had elevated troponins (peak of 0.259). Cardiology evaluated, underwent cardiac cath which showed severe triple-vessel disease with AGENCY CASHIER of the RCA and diffuse severe disease involving left circumflex and AGENCY CASHIER of the LAD. He also underwent pacemaker placement on 09/21 for sick sinus syndrome. On the day of discharge, he reports hurting his right back while trying to get into the car. The pain is described as sharp and stabbing. Pain radiated to the RLQ with 10/10 intensity which prompted him to come to the ED. He denies any dizziness, chest pain or shortness of breath. reports 100 cc of urine output since Monday. In the ED he underwent extensive evaluation. BP as low as 88/65, HR in the 50s, T 97.8F, 99% on RA. CBC, Coag panel, CMP significant for RBC 4.15, Hg 10.4, Hct 33, MCV 79.5, PT 15.5, INR 1.5, Na 133, bicarb 21, BUN 84, Cr 3.48, glu 124, AST 301, ALT 82. Trop 0.095. BNP 99377. UA 3+ glucose with small LE. CXR with pulmonary vascular congestion. EKG showing V paced rhythmm with prolonged QT of 586. CT AP showed no intraabdominal process, bladder wall thickening, moderate ascites around the liver, ventral wall hernia with no obstruction, right L5 pars interarticularis defect, severe CAD and moderate R (+ trace left) pleural effusion. Patient is admitted for further workup and management.Cardiology and nephrology consulted. Per cardiology, patient is not in heart failure exacerbation and can be resumed on home medications. Per nephrology, patient is suffering from AMY due to ATN in the settings of cardiorenal syndrome, AV Lasix 40 twice daily added, Jardiance and losartan on hold. Patient had bowel movement on 09/21, asked for stool softener, MiraLAX added. Lactulose was provided twice on 09/24 and 09/25 09/24: Patient was transition to oral diuretics by nephrology, continue to hold jardiance and losartan. Chest x-ray was performed and showed hazy appearance atelectasis .Cardiology following, pacemaker to be interrogated. 09/25: Seen and examined at bedside, overnight patient developed lumbar back pain and was provided with IV Tylenol, this morning reported he was somewhat confused and now improving. Nephrology at bedside, will continue to monitor urine output closely, hold diuretics, increase dose of midodrine, discussed possible need for renal replacement therapy 09/26 had a trial of IV Lasix without improvement in urine production and kidney function. 09/27: Seen examined at bedside, RN present during exam. No events overnight, patient is becoming more uremic, he is very confused, cannot participate in ROS, appears uncomfortable and restless. His vitals remained stable. Creatinine is rising to 5.4, BUN 104, phosphorus 7.8. RN reported that patient had significant prolonged bleeding after his IV got out. Vascular surgery was consulted for dialysis catheter placement, plan to initiate hemodialysis. Family is in agreement, if hemodialysis does not help, they would like to explore hospice options, hospice consult was placed. Pertinent positives and negatives as discussed above, a complete review of systems was performed and all other systems are negative. Vitals Signs Reviewed. General: somnolent], restless, ill-appearing Derm: [warm], [dry] Head: [atraumatic], [normocephalic], [symmetric] Eyes: [EOMI], [no lid lag], [anicteric sclera] Mouth: [no lip lesion], [dry mucous membranes] Cardiovascular: [S1S2 reg], [no murmur] Lungs: [CTA bilateral], [no rhonchi, no rales] , [no accessory muscle use] Abdominal: [soft], [ nontender to palpation], [no guarding], [no appreciable organomegaly], abdominal wall hernia Ext: [no gross muscle atrophy], [bilateral pedal edema], [no contractures]lower back tenderness, chronic venous stasis changes Neuro: [ CN II-XI grossly intact], [no focal neuro deficits] Psych: [Alert], [oriented], [appropriate affect] Assessment and Plan: AMY on CKD stage IV likely cardiorenal etiology Acute metabolic encephalopathy 2/2 above, uremia Hyperphosphatemia Hypotension -No signs of hydronephrosis, kidney stones on CT -Continue holding Farxiga and losartan, monitor strict I's and O's, daily BMP -Nephrology consulted,, vascular surgery consulted for hemodialysis catheter placement -Nicotine patch ordered for flank pain, discussed with RN - IV Lasix discontinued -Nephrology ordered Renvela 800 mg p.o. 3 times daily with meals -Continue midodrine 1000 mg p.o. 3 times daily -strict I&O, discontinued allopurinol and norco Systolic CHF, not in acute exacerbation - Continue strict I's and O, daily weights, interrogate pacemaker, continue telemetry, goal potassium above 4 magnesium above 2. - Cardiology consulted, appreciate recommendations - IV Lasix as above, monitor BMP daily in the settings of advanced CKD Constipation: Start MiraLAX 17 g daily, still no bowel movements, ordered one- time dose of lactulose on 09/24 and 09/25, abdomen soft, bowel sounds present. Added daily bisacodyl rectal. Had a bowel movement 09/27 overnight Troponin elevation with history of severe CAD - Continue ASA 162 mg PO QD. Lipitor 40 mg PO QHS - Cardiology consulted, appreciate recommendations, , Imdur 30 mg daily resumed, Toprol-XL 25 mg daily resumed Pleural effusion: Right effusion not marked due to presence of mobile lung t issue and anterior pocket. Microcytic anemia: At baseline. Continue ferrous sulfate 325 mg PO QD + B12 200 mcg PO QD. Transfuse if Hg < 7. Repeat CBC daily Transaminitis: Possibly cardiohepatic. CT shows moderate ascites around the liver. Hold Lipitor. Right flank pain, resolved Lower back pain: Possibly MSK. CT AP unrevealing. Moroni 5 mg PO Q6H PRN pain. Lidocaine patch added, Voltaren gel added BPH: Flomax 0.4 mg PO QD. AFib: Eliquis 2.5 mg PO BID for AC. Gout: Allopurinol 100 mg PO QD. Hypothyrodism: Synthroid 25 mcg PO QD. Hypertension: Now hypotensive requiring midodrine Dyslipidemia: Holding Lipitor due to transaminitis. Diabetes mellitus: ISS with Accuchecks ACHS along with hypoglycemic precautions. PVD, chronic left third toe wound: Patient follows with podiatry, will consult wound care, reviewed recommendations, apply Santyl, saline moist gauze, dry gauze, rolled gauze, change daily, recommend follow-up with advanced wound care DVT ppx: Eliquis Code status: Full code Anticipated discharge place: D Anticipated discharge time: TBD Objective - Vital Signs Vital signs: Vital Signs Temp 97.2 F L 09/27/24 08:00 Pulse 58 L 09/27/24 08:00 Resp 18 09/27/24 08:00 BP 126/63 09/27/24 08:00 Pulse Ox 100 09/27/24 08:00 FiO2 Intake & Output 09/26/24 09/27/24 09/27/24 18:59 06:59 18:59 Output Total 300 300 Balance -300 -300 Weight 102.5 kg Output: Urine 300 300 Other: Voiding Method Indwelling Catheter Indwelling Catheter Indwelling Catheter # Bowel Movements 1 1 - Labs CBC & Chem 7: 09/27/24 06:58 09/27/24 06:58 Labs: Abnormal Lab Results - Last 24 Hours (Table) 09/26/24 09/27/24 09/27/24 Range/Units 16:22 06:58 06:58 RBC 4.24 L (4.40-5.60) 10*6/uL Hgb 10.4 L (13.0-17.0) g/dL Hct 33.3 L (39.6-50.0) % MCV 78.5 L (80.0-97.0) fL MCH 24.5 L (27.0-32.0) pg MCHC 31.2 L (32.0-37.0) g/dL Plt Count 137 L (140-440) 10*3/uL Sodium 135 L (137-145) mmol/L Carbon Dioxide 14 L (22-30) mmol/L BUN 104 H* (9-20) mg/dL Creatinine 5.44 H (0.66-1.25) mg/dL POC Glucose (mg/dL) 117 H (70-110) mg/dL Phosphorus 7.8 H (2.5-4.5) mg/dL
[2024-09-27 11:15] VITALS: BMI 36.4
[2024-09-27 11:24] LABS: Anisocytosis (M) Present; Poikilocytosis (M) Present
[2024-09-27 11:31] LABS: Glucose,Whole Blood 83 mg/dL (70-110)
--- NOTE | 2024-09-27 12:45 | P.GSCN ---
History of Present Illness Consult date: 09/27/24 History of present illness: Patient is a 78-year-old male who was initially admitted to the hospital with Acute on chronic kidney disease and evidence of congestive heart failure. He has had worsening of his renal function and is more encephalopathic. History is obtained via the chart and nursing Past Medical History Past Medical History: Atrial Fibrillation, Coronary Artery Disease (CAD), Cancer, Heart Failure, CVA/TIA, Diabetes Mellitus, Deep Vein Thrombosis (DVT), GERD/Reflux, Hearing Disorder / Deafness, Hyperlipidemia, Hypertension, Myocardial Infarction ([place]), Renal Disease, Sleep Apnea/CPAP/BIPAP, Vascular Disorder Additional Past Medical History / Comment(s): BBOWEL OBSTRUCTION after colon cancer surgery., HX 2ND DEGREE HB,IBS,A FIB, RT FEMORAL DVT,CARDIO PULMONARY ARREST 2013, ATRIAL SEPTAL DEFECT,PVD, COLON CANCER 2005, per old hx ? ulcer in past. states her had a slight stroke no weakness from the stroke- states pt had stroke July 2024, no deficits from stroke per . Does not use CPAP Last Myocardial Infarction Date:: 11/2012 History of Any Multi-Drug Resistant Organisms: None Reported Past Surgical History: Bowel Resection, Heart Catheterization, Heart Catheterization With Stent, Hernia Repair, Pacemaker Additional Past Surgical History / Comment(s): Colon Resection 1999. Right femoral thrombolectomy 11/2012. Colonoscopy 2012. Anal fissure repair.RT CARTOTID ENDARTERECTOMY, incarcerated ventral hernia/lysis of adhesions. Past Anesthesia/Blood Transfusion Reactions: No Reported Reaction Additional Past Anesthesia/Blood Transfusion Reaction / Comm: HX OF BLOOD TRANSF USION Date of Last Stent Placement:: 11/2012 Type of Cardiac Device: Permanent Pacemaker Device Placement Date:: 09/19/24 Past Psychological History: No Psychological Hx Reported Smoking Status: Former smoker Past Alcohol Use History: None Reported Past Drug Use History: None Reported - Past Family History Sister(s) History Unknown: Yes Family Medical History: Cancer Father History Unknown: Yes Family Medical History: CVA/TIA, Diabetes Mellitus Mother History Unknown: Yes Family Medical History: Dementia Medications and Allergies Home Medications Medication Instructions Recorded Confirmed Type Nitroglycerin Sl Tabs [Nitrostat] 0.4 mg SL Q5M PRN 08/11/13 09/22/24 History Tamsulosin [Flomax] 0.4 mg PO DAILY 08/28/13 09/22/24 History Famotidine 40 mg PO DAILY 10/16/18 09/22/24 History Aspirin EC [Ecotrin Low Dose] 162 mg PO DAILY 06/19/24 09/22/24 History INSULIN ASPART (NovoLOG) [NovoLOG See Protocol SQ AC-TID 06/19/24 09/22/24 History (formulary)] Vitamin B-12 100mcg 200 mcg PO DAILY 06/19/24 09/22/24 History allopurinoL 100 mg PO DAILY 06/19/24 09/22/24 History calcitrioL 0.25 mcg PO MOWEFR 06/19/24 09/22/24 History Levothyroxine Sodium 25 mcg PO DAILY #30 tab 08/30/24 09/22/24 Rx Sucralfate [Carafate] 1 gm PO BID #60 tablet 08/30/24 09/22/24 Rx Apixaban [Eliquis] 2.5 mg PO BID 09/14/24 09/22/24 History Cholecalciferol (Vitamin D3) 50 mcg PO MOTUWETHFR 09/14/24 09/22/24 History [Vitamin D3 (50 Mcg = 2000 Iu)] Acetaminophen Tab [Tylenol] 650 mg PO Q6HR PRN tab 09/20/24 09/22/24 Rx Atorvastatin [Lipitor] 40 mg PO HS #30 tab 09/20/24 09/22/24 Rx Darbepoetin Sherif [Aranesp] 40 mcg SQ Q7D each 09/20/24 09/22/24 Rx Ferrous Sulfate [Feosol] 325 mg PO DAILY #30 tab 09/20/24 09/22/24 Rx Isosorbide Mononitrate ER [Imdur] 30 mg PO DAILY #30 tab 09/20/24 09/22/24 Rx Losartan [Cozaar] 12.5 mg PO DAILY #30 tab 09/20/24 09/22/24 Rx Empagliflozin [Jardiance] 10 mg PO DAILY 09/22/24 09/22/24 History Furosemide [Lasix] 40 mg PO BID 09/22/24 09/22/24 History Metoprolol Succinate [Metoprolol 25 mg PO DAILY 09/22/24 09/22/24 History Succinate ER] Allergies Allergy/AdvReac Type Severity Reaction Status Date / Time enalapril [Enalapril] AdvReac Unknown STATES BP Verified 09/22/24 16:15 TOO LOW lisinopril AdvReac Dizziness Verified 09/22/24 16:15 niacin AdvReac hyperglycemia, Verified 09/22/24 16:15 nausea Surgical - Exam Vital Signs Temp Pulse Resp BP Pulse Ox 97.8 F 55 L 20 93/60 99 09/22/24 11:27 09/22/24 11:27 09/22/24 11:27 09/22/24 11:27 09/22/24 11:27 General is a lethargic male in no acute distress. Abdomen is soft nontender nondistended. Extremities show no cyanosis. Results - Labs 09/27/24 06:58 09/27/24 06:58 Abnormal Lab Results - Last 24 Hours (Table) 09/26/24 09/27/24 09/27/24 Range/Units 16:22 06:58 06:58 RBC 4.24 L (4.40-5.60) 10*6/uL Hgb 10.4 L (13.0-17.0) g/dL Hct 33.3 L (39.6-50.0) % MCV 78.5 L (80.0-97.0) fL MCH 24.5 L (27.0-32.0) pg MCHC 31.2 L (32.0-37.0) g/dL Plt Count 137 L (140-440) 10*3/uL Lymphocytes # 0.53 L (0.90-5.00) 10*3/uL Sodium 135 L (137-145) mmol/L Carbon Dioxide 14 L (22-30) mmol/L BUN 104 H* (9-20) mg/dL Creatinine 5.44 H (0.66-1.25) mg/dL POC Glucose (mg/dL) 117 H (70-110) mg/dL Phosphorus 7.8 H (2.5-4.5) mg/dL Diabetes panel 09/27/24 Range/Units 06:58 Sodium 135 L (137-145) mmol/L Potassium 4.8 (3.5-5.1) mmol/L Chloride 102 (98-107) mmol/L Carbon Dioxide 14 L (22-30) mmol/L BUN 104 H* (9-20) mg/dL Creatinine 5.44 H (0.66-1.25) mg/dL Glucose 81 (74-99) mg/dL Calcium 9.7 (8.4-10.2) mg/dL Calcium panel 09/27/24 Range/Units 06:58 Calcium 9.7 (8.4-10.2) mg/dL Phosphorus 7.8 H (2.5-4.5) mg/dL Pituitary panel 09/27/24 Range/Units 06:58 Sodium 135 L (137-145) mmol/L Potassium 4.8 (3.5-5.1) mmol/L Chloride 102 (98-107) mmol/L Carbon Dioxide 14 L (22-30) mmol/L BUN 104 H* (9-20) mg/dL Creatinine 5.44 H (0.66-1.25) mg/dL Glucose 81 (74-99) mg/dL Calcium 9.7 (8.4-10.2) mg/dL Adrenal panel 09/27/24 Range/Units 06:58 Sodium 135 L (137-145) mmol/L Potassium 4.8 (3.5-5.1) mmol/L Chloride 102 (98-107) mmol/L Carbon Dioxide 14 L (22-30) mmol/L BUN 104 H* (9-20) mg/dL Creatinine 5.44 H (0.66-1.25) mg/dL Glucose 81 (74-99) mg/dL Calcium 9.7 (8.4-10.2) mg/dL Assessment and Plan Assessment: Need for dialysis Acute on chronic kidney disease Plan: Will plan to go forward placement of temporary femoral dialysis catheter as patient has been on anticoagulation. Consent has been obtained by nursing staff and questions answered.
--- NOTE | 2024-09-27 12:46 | P.OP ---
Date of Procedure: 09/27/24 Description of Procedure: SURGEON: Alexus Perez DO TABULATING CLERK: None PREOPERATIVE DIAGNOSIS: Need for dialysis, AMY with CKD POSTOPERATIVE DIAGNOSIS: Same OPERATION: Ultrasound-guided right common femoral vein access, placement of temporary dialysis catheter DESCRIPTION OF PROCEDURE: The groin was prepped and draped in usual sterile fashion. A preprocedure timeout was performed, all parties were in agreement. An ultrasound was utilized and the right common femoral vein was identified. It was patent and compressible. The skin overlying the vein was anesthetized with 1% lidocaine plain. A multipurpose needle was utilized and the femoral vein was accessed under ultrasound guidance on first attempt with return of dark venous, nonpulsatile blood. There was significant resistance through the subcutaneous tissue even with the needle due to reported previous catheterizations and scar tissue. The guidewire was passed easily. Serial dilation was performed of the subcutaneous tissues this was difficult however did successfully obtain proper dilation. The catheter was placed and secured with suture. It aspirated and flushed freely. A dressingwas applied. The patient tolerated the procedure well.
[2024-09-27 16:25] LABS: Glucose,Whole Blood 89 mg/dL (70-110)
[2024-09-27 17:07] LABS: Hepatitis B Surface AB- Quant 3.5 mIU/mL
[2024-09-27 17:14] LABS: Hepatitis B Surface Antigen Nonreactive (Nonreactive)
[2024-09-27 20:09] LABS: Glucose,Whole Blood 88 mg/dL (70-110)
[2024-09-28 03:49] VITALS: TEMP 97.8
[2024-09-28 06:21] LABS: Glucose,Whole Blood 94 mg/dL (70-110)
[2024-09-28 07:11] LABS: Basophils # (A) 0.04 10*3/uL (0.00-0.10); Basophils % (A) 0.6 %; Eosinophils # (A) 0.07 10*3/uL (0.04-0.35); Eosinophils % (A) 1.1 %; HCT 32.6 % (39.6-50.0); HGB 10.2 g/dL (13.0-17.0); Lymphocytes # (A) 0.35 10*3/uL (0.90-5.00); Lymphocytes % (A) 5.6 %; MCH 24.8 pg (27.0-32.0); MCHC 31.3 g/dL (32.0-37.0); MCV 79.3 fL (80.0-97.0); Mean Platelet Volume 10.3 fL (9.5-12.2); Monocytes # (A) 0.46 10*3/uL (0.20-1.00); Monocytes % (A) 7.3 %; Neutrophils # (A) 5.31 10*3/uL (1.80-7.70); Neutrophils % (A) 84.9 %; Platelet Count 133 10*3/uL (140-440); RBC 4.11 10*6/uL (4.40-5.60); RDW 22.4 % (11.5-14.5); WBC 6.26 10*3/uL (4.50-10.00)
[2024-09-28 07:24] LABS: African American GFR (CKD) 15 (>60 ml/min/1.73 sqM); Anion Gap 15 mmol/L; Blood Urea Nitrogen 84 mg/dL (9-20); Calcium 9.3 mg/dL (8.4-10.2); Carbon Dioxide 21 mmol/L (22-30); Chloride 101 mmol/L (98-107); Glucose 74 mg/dL (74-99); Non-African American GFR(CKD) 13 (>60 ml/min/1.73 sqM); Phosphorus 6.2 mg/dL (2.5-4.5); Potassium 3.9 mmol/L (3.5-5.1); Sodium 137 mmol/L (137-145)
[2024-09-28 08:04] LABS: Anisocytosis (M) Present
[2024-09-28 08:21] VITALS: BP 135/80; PULSE 87; RESP 16
[2024-09-28 09:07] LABS: Glucose,Whole Blood 79 mg/dL (70-110)
--- NOTE | 2024-09-28 09:57 | P.PN ---
Subjective Patient is seen in follow-up for acute kidney injury on chronic kidney disease. Started on hemodialysis September 27, 2024 via femoral catheter. Remains confused. Vital signs are stable. General: No acute distress. HEENT: Head exam is unremarkable. LUNGS: No audible rhonchi or wheezes. HEART: Rate and Rhythm are regular. ABDOMEN: Nontender. EXTREMITITES: Trace edema in ankles and 1-2+ edema in the thighs. Objective - Vital Signs Vital signs: Vital Signs Temp 97.8 F 09/28/24 08:16 Pulse 87 09/28/24 08:16 Resp 16 09/28/24 08:16 BP 135/80 09/28/24 08:16 Pulse Ox 97 09/28/24 08:16 FiO2 Intake & Output 09/27/24 09/28/24 09/28/24 18:59 06:59 18:59 Intake Total 1400 Output Total 500 1400 1400 Balance -500 0 -1400 Weight 102.5 kg 103 kg Intake: Hemodialysis 1400 Output: Urine 500 1400 Uretheral (Perez) 1400 Hemodialysis 400 Hemodialysis Net Amount 1000 Other: Voiding Method Indwelling Catheter Indwelling Catheter # Bowel Movements 1 - Labs CBC & Chem 7: 09/28/24 06:06 09/28/24 06:06 Labs: Abnormal Lab Results - Last 24 Hours (Table) 09/27/24 09/28/24 09/28/24 Range/Units 06:58 06:06 06:06 RBC 4.11 L (4.40-5.60) 10*6/uL Hgb 10.2 L (13.0-17.0) g/dL Hct 32.6 L (39.6-50.0) % MCV 79.3 L (80.0-97.0) fL MCH 24.8 L (27.0-32.0) pg MCHC 31.3 L (32.0-37.0) g/dL Plt Count 133 L (140-440) 10*3/uL Lymphocytes # 0.53 L 0.35 L (0.90-5.00) 10*3/uL Carbon Dioxide 21 L (22-30) mmol/L BUN 84 H (9-20) mg/dL Creatinine 4.12 H (0.66-1.25) mg/dL Phosphorus 6.2 H (2.5-4.5) mg/dL Assessment and Plan Plan: Assessment: 1. Acute kidney injury secondary to ATN secondary to cardiorenal syndrome. Creatinine 5.4 dated September 27, 2024. No hydronephrosis noted on CT. No proteinuria on UA. Started on hemodialysis September 27, 2024 via femoral catheter due to oliguria and volume overload. Also concern for uremia. 2. Chronic kidney disease stage IV secondary to diabetic kidney disease and cardiorenal syndrome with baseline creatinine near 2.2. 3. Volume overload. 4. Chronic kidney disease mineral bone disease maintained on calcitriol. 5. Diabetes mellitus. 6. Coronary disease with cardiac stents. 7. Acute on chronic systolic CHF ejection fraction of 30 to 35% with moderate mitral regurgitation. Plan: Currently seen while undergoing hemodialysis. Will try for 2 L UF. Maintain IV Lasix. Maintain Perez catheter. Continue to hold Jardiance and losartan. Hold midodrine for systolic blood pressure greater than 110. Avoid nephrotoxins. Continue to monitor renal function and urine output.
[2024-09-28] MEDS ORDERED: EPINEPHrine 10 ML SYRINGE (0.1 MG/ML) ONE (10:34)
[2024-09-28] MEDS ORDERED: SODIUM BICARB 8.4% 50 ML SYR (1 MEQ/ML) ONE (10:34)
[2024-09-28 10:41] LABS: Glucose,Whole Blood 91 mg/dL (70-110)
--- NOTE | 2024-09-28 12:20 | P.DS ---
Providers Date of admission: 09/22/24 14:53 Attending physician: Adilia Delacruz MD Consults: 09/22/24 14:53 Consult Physician Urgent Consulting Provider: [facility] Consult Reason/Comments: aechf, recent ppm Do you want consulting provider notified?: Yes 09/22/24 15:04 Consult Physician Urgent Consulting Provider: Raymon Tubbs Consult Reason/Comments: amy/ckd Do you want consulting provider notified?: Yes 09/27/24 09:04 Consult Physician Routine Consulting Provider: Cristobal Briggs Consult Reason/Comments: temp HD cath Do you want consulting provider notified?: Yes [facility]: Discharge Diagnosis: Cardiopulmonary arrest, asystole Possible causes include but are not limited :acute hypoxic respiratory failure secondary to aspiration, circulatory shock Acute kidney injury secondary to ATN in the settings of cardiorenal syndrome Oliguria, uremia Hyperphosphatemia Hypertension Systolic CHF EF 30 to 35% Persistent A-fib Recent permanent pacemaker implantation for sick sinus syndrome CKD stage IV Hyperlipidemia History of TIA Carotid arthrosclerosis History of colon cancer For thyroidism Type II DM PVD, chronic left third toe wound Hospital Course: 78-year-old male with a past medical history of CAD status post stenting x 2, history of cardiac arrest in 2013, chronic systolic congestive heart failure, valvular heart disease with atrial septal defect, chronic atrial fibrillation on anticoagulation with Eliquis, hypertension, hyperlipidemia, peripheral vascular disease, carotid stenosis status post R carotid endarterectomy, previous CVA, colon cancer status post bowel resection, insulin-dependent diabetes mellitus, stage IV CKD, DVT status post femoral thrombectomy, and previous CVA with no reported deficits. He presents to the ED for decreased urine output and right flank pain that has been progressively getting worse since Monday. Patient was recently admitted from 09/14-09/20. He had elevated troponins (peak of 0.259). Cardiology evaluated, underwent cardiac cath which showed severe triple-vessel disease with ELECTRIC MOTOR ANALYST of the RCA and diffuse severe disease involving left circumflex and ELECTRIC MOTOR ANALYST of the LAD. He also underwent pacemaker placement on 09/21 for sick sinus syndrome. On the day of discharge, he reports hurting his right back while trying to get into the car. The pain is described as sharp and stabbing. Pain radiated to the RLQ with 10/10 intensity which prompted him to come to the ED. He denies any dizziness, chest pain or shortness of breath. reports 100 cc of urine output since Monday. In the ED he underwent extensive evaluation. BP as low as 88/65, HR in the 50s, T 97.8F, 99% on RA. CBC, Coag panel, CMP significant for RBC 4.15, Hg 10.4, Hct 33, MCV 79.5, PT 15.5, INR 1.5, Na 133, bicarb 21, BUN 84, Cr 3.48, glu 124, AST 301, ALT 82. Trop 0.095. BNP 48078. UA 3+ glucose with small LE. CXR with pulmonary vascular congestion. EKG showing V paced rhythmm with prolonged QT of 586. CT AP showed no intraabdominal process, bladder wall thickening, moderate ascites around the liver, ventral wall hernia with no obstruction, right L5 pars interarticularis defect, severe CAD and moderate R (+ trace left) pleural effusion. Patient is admitted for further workup and management.Cardiology and nephrology consulted. Per cardiology, patient is not in heart failure exacerbation and can be resumed on home medications. Per nephrology, patient is suffering from AMY due to ATN in the settings of cardiorenal syndrome, AV Lasix 40 twice daily added, Jardiance and losartan on hold. Patient had bowel movement on 09/21, asked for stool softener, MiraLAX added. Lactulose was provided twice on 09/24 and 09/25, had a bowel movement on 09/27 09/24: Patient was transition to oral diuretics by nephrology, continue to hold jardiance and losartan. Chest x-ray was performed and showed hazy appearance atelectasis .Cardiology following, pacemaker to be interrogated. 09/25: Seen and examined at bedside, overnight patient developed lumbar back pain and was provided with IV Tylenol, this morning reported he was somewhat confused and now improving. Nephrology at bedside, will continue to monitor urine output closely, hold diuretics, increase dose of midodrine, discussed possible need for renal replacement therapy 09/26 had a trial of IV Lasix without improvement in urine production and kidney function. 09/27: Seen examined at bedside, RN present during exam. No events overnight, patient is becoming more uremic, he is very confused, cannot participate in ROS, appears uncomfortable and restless. His vitals remained stable. Creatinine is rising to 5.4, BUN 104, phosphorus 7.8. RN reported that patient had significant prolonged bleeding after his IV got out. Vascular surgery was consulted for dialysis catheter placement, plan to initiate hemodialysis. Family is in agreement, if hemodialysis does not help, they would like to explore hospice options, hospice consult was placed. 09/28: Seen and examined on morning rounds, nurse at bedside, patient is significantly more confused, opens eyes to voice, very restless upon awakening, moves all extremities spontaneously, he was undergoing hemodialysis, blood pressure was stable, he was on room air, with breath sounds on exam. Discussed with RN, plan to readdress CODE STATUS with patient's family. Later on CODE BLUE was called, I arrived at bedside, patient was in asystole, chest compressions initiated, he received 1 round of epinephrine, 1 amp of bicarb, ROSC achieved for about 1 minute and arrested again, chest compressions continued, I called patient's and explained the situation, the nature of resuscitation procedure, possible need for life support should be achieved ROSC, stated that patient would not want to be put on life support as they discussed previously, we were previously talking about hospice as well, thus, resuscitation procedure was stopped, patient right away 1042 on 09/09, patient's family arrived at bedside at 1052 and updated on the above events, nephrology Dr. Ruth at bedside. Appears that patient possibly had acute hypoxic respiratory failure due to aspiration on his own secretions, he was previously saturating well on room air however was noted to have loud breath sounds on exam, he had not had anything per mouth this morning though. It is also possible but he developed circulatory shock during hemodialysis, however, again he was hemodynamically stable before. He had advanced systolic CHF, advanced CKD, CAD and multiple other comorbidities, initiated on hemodialysis for worsening renal failure on 09/27, has been progressively declining with worsening mentation and uremia. A total of 40 minutes of time were spent preparing this complex discharge summary. Patient was discharged on 09/28/2024 as Patient Condition at Discharge: Serious Plan - Discharge Summary New Discharge Prescriptions: No Action Nitroglycerin Sl Tabs [Nitrostat] 0.4 mg SL Q5M PRN PRN Reason: Chest Pain Tamsulosin [Flomax] 0.4 mg PO DAILY Famotidine 40 mg PO DAILY INSULIN ASPART (NovoLOG) [NovoLOG (formulary)] See Protocol SQ AC-TID Levothyroxine Sodium 25 mcg PO DAILY #30 tab Darbepoetin Sherif [Aranesp] 40 mcg SQ Q7D each Losartan [Cozaar] 12.5 mg PO DAILY #30 tab Ferrous Sulfate [Feosol] 325 mg PO DAILY #30 tab Isosorbide Mononitrate ER [Imdur] 30 mg PO DAILY #30 tab Furosemide [Lasix] 40 mg PO BID calcitrioL 0.25 mcg PO MOWEFR allopurinoL 100 mg PO DAILY Aspirin EC [Ecotrin Low Dose] 162 mg PO DAILY Vitamin B-12 100mcg 200 mcg PO DAILY Sucralfate [Carafate] 1 gm PO BID #60 tablet Cholecalciferol (Vitamin D3) [Vitamin D3 (50 Mcg = 2000 Iu)] 50 mcg PO MOTUWETHFR Apixaban [Eliquis] 2.5 mg PO BID Atorvastatin [Lipitor] 40 mg PO HS #30 tab Acetaminophen Tab [Tylenol] 650 mg PO Q6HR PRN tab PRN Reason: Mild Pain Or Fever > 100.5 Empagliflozin [Jardiance] 10 mg PO DAILY Metoprolol Succinate [Metoprolol Succinate ER] 25 mg PO DAILY Discharge Medication List Nitroglycerin Sl Tabs [Nitrostat] 0.4 mg SL Q5M PRN 08/11/13 [History] Tamsulosin [Flomax] 0.4 mg PO DAILY 08/28/13 [History] Famotidine 40 mg PO DAILY 10/16/18 [History] Aspirin EC [Ecotrin Low Dose] 162 mg PO DAILY 06/19/24 [History] INSULIN ASPART (NovoLOG) [NovoLOG (formulary)] See Protocol SQ AC-TID 06/19/24 [History] Vitamin B-12 100mcg 200 mcg PO DAILY 06/19/24 [History] allopurinoL 100 mg PO DAILY 06/19/24 [History] calcitrioL 0.25 mcg PO MOWEFR 06/19/24 [History] Levothyroxine Sodium 25 mcg PO DAILY #30 tab 08/30/24 [Rx] Sucralfate [Carafate] 1 gm PO BID #60 tablet 08/30/24 [Rx] Apixaban [Eliquis] 2.5 mg PO BID 09/14/24 [History] Cholecalciferol (Vitamin D3) [Vitamin D3 (50 Mcg = 2000 Iu)] 50 mcg PO MOTUWETHFR 09/14/24 [History] Acetaminophen Tab [Tylenol] 650 mg PO Q6HR PRN tab 09/20/24 [Rx] Atorvastatin [Lipitor] 40 mg PO HS #30 tab 09/20/24 [Rx] Darbepoetin Sherif [Aranesp] 40 mcg SQ Q7D each 09/20/24 [Rx] Ferrous Sulfate [Feosol] 325 mg PO DAILY #30 tab 09/20/24 [Rx] Isosorbide Mononitrate ER [Imdur] 30 mg PO DAILY #30 tab 09/20/24 [Rx] Losartan [Cozaar] 12.5 mg PO DAILY #30 tab 09/20/24 [Rx] Empagliflozin [Jardiance] 10 mg PO DAILY 09/22/24 [History] Furosemide [Lasix] 40 mg PO BID 09/22/24 [History] Metoprolol Succinate [Metoprolol Succinate ER] 25 mg PO DAILY 09/22/24 [History] Follow up Appointment(s)/Referral(s): Brandon Graham DO [Primary Care Provider] - 1-2 days Activity/Diet/Wound Care/Special Instructions: Home Care referral sent to [facility] - they will arrange for home care nurse, physical therapy, and occupational therapy
--- NOTE | 2024-09-28 15:27 | P.PN ---
Subjective Progress Note Date: 09/28/24 Hospital Course: 78-year-old male with a past medical history of CAD status post stenting x 2, history of cardiac arrest in 2013, chronic systolic congestive heart failure, valvular heart disease with atrial septal defect, chronic atrial fibrillation on anticoagulation with Eliquis, hypertension, hyperlipidemia, peripheral vascular disease, carotid stenosis status post R carotid endarterectomy, previous CVA, colon cancer status post bowel resection, insulin-dependent diabetes mellitus, stage IV CKD, DVT status post femoral thrombectomy, and previous CVA with no reported deficits. He presents to the ED for decreased urine output and right flank pain that has been progressively getting worse since Monday. Patient was recently admitted from 09/14-09/20. He had elevated troponins (peak of 0.259). Cardiology evaluated, underwent cardiac cath which showed severe triple-vessel disease with ORDNANCE MECHANIC of the RCA and diffuse severe disease involving left circumflex and ORDNANCE MECHANIC of the LAD. He also underwent pacemaker placement on 09/21 for sick sinus syndrome. On the day of discharge, he reports hurting his right back while trying to get into the car. The pain is described as sharp and stabbing. Pain radiated to the RLQ with 10/10 intensity which prompted him to come to the ED. He denies any dizziness, chest pain or shortness of breath. reports 100 cc of urine output since Monday. In the ED he underwent extensive evaluation. BP as low as 88/65, HR in the 50s, T 97.8F, 99% on RA. CBC, Coag panel, CMP significant for RBC 4.15, Hg 10.4, Hct 33, MCV 79.5, PT 15.5, INR 1.5, Na 133, bicarb 21, BUN 84, Cr 3.48, glu 124, AST 301, ALT 82. Trop 0.095. BNP 70182. UA 3+ glucose with small LE. CXR with pulmonary vascular congestion. EKG showing V paced rhythmm with prolonged QT of 586. CT AP showed no intraabdominal process, bladder wall thickening, moderate ascites around the liver, ventral wall hernia with no obstruction, right L5 pars interarticularis defect, severe CAD and moderate R (+ trace left) pleural effusion. Patient is admitted for further workup and management.Cardiology and nephrology consulted. Per cardiology, patient is not in heart failure exacerbation and can be resumed on home medications. Per nephrology, patient is suffering from AMY due to ATN in the settings of cardiorenal syndrome, AV Lasix 40 twice daily added, Jardiance and losartan on hold. Patient had bowel movement on 09/21, asked for stool softener, MiraLAX added. Lactulose was provided twice on 09/24 and 09/25, had a bowel movement on 09/27 09/24: Patient was transition to oral diuretics by nephrology, continue to hold jardiance and losartan. Chest x-ray was performed and showed hazy appearance atelectasis .Cardiology following, pacemaker to be interrogated. 09/25: Seen and examined at bedside, overnight patient developed lumbar back pain and was provided with IV Tylenol, this morning reported he was somewhat confused and now improving. Nephrology at bedside, will continue to monitor urine output closely, hold diuretics, increase dose of midodrine, discussed possible need for renal replacement therapy 09/26 had a trial of IV Lasix without improvement in urine production and kidney function. 09/27: Seen examined at bedside, RN present during exam. No events overnight, patient is becoming more uremic, he is very confused, cannot participate in ROS, appears uncomfortable and restless. His vitals remained stable. Creatinine is rising to 5.4, BUN 104, phosphorus 7.8. RN reported that patient had significant prolonged bleeding after his IV got out. Vascular surgery was consulted for dialysis catheter placement, plan to initiate hemodialysis. Family is in agreement, if hemodialysis does not help, they would like to explore hospice options, hospice consult was placed. 09/28: Seen and examined on morning rounds, nurse at bedside, patient is significantly more confused, opens eyes to voice, very restless upon awakening, moves all extremities spontaneously, he was undergoing hemodialysis, blood pressure was stable, he was on room air, with breath sounds on exam. Reviewed blood work, normal WBC count, hemoglobin stable 10.2, creatinine improved to 4.12, BUN improving 84, sodium and potassium WNL. Phosphorus 6.2. Discussed with RN, plan to readdress CODE STATUS with patient's family. Later on [facility] was called, I arrived at bedside, patient was in asystole, chest co mpressions initiated, he received 1 round of epinephrine, 1 amp of bicarb, ROSC achieved for about 1 minute and arrested again, chest compressions continued, I called patient's and explained the situation, the nature of resuscitation procedure, possible need for life support should be achieved ROSC, stated that patient would not want to be put on life support as they discussed previously, we were previously talking about hospice as well, thus, resuscitation procedure was stopped, patient right away 1042 on 09/28/2024, Physical exam during morning rounds General: somnolent], restless, ill-appearing Derm: [warm], [dry] Head: [atraumatic], [normocephalic], [symmetric] Eyes: [[anicteric sclera] Mouth: [no lip lesion], [dry mucous membranes] Cardiovascular: [S1S2 reg], [no murmur] Lungs: wet [Breath breath sounds bilaterally] Abdominal: [soft], [ nontender to palpation], [no guarding], [no appreciable organomegaly], abdominal wall hernia Ext: [no gross muscle atrophy], [bilateral pedal edema], [no contractures]lower back tenderness, chronic venous stasis changes Neuro: Unable to assess due to altered mentation Psych: [Unable to assess due to altered mentation Assessment and Plan:AMY on CKD stage IV likely cardiorenal etiology Acute metabolic encephalopathy 2/2 above, uremia Hyperphosphatemia Hypotension -No signs of hydronephrosis, kidney stones on CT -Continue holding Farxiga and losartan, monitor strict I's and O's, daily BMP -Nephrology consulted,, vascular surgery consulted for hemodialysis catheter placement -Nicotine patch ordered for flank pain, discussed with RN - IV Lasix discontinued -Nephrology ordered Renvela 800 mg p.o. 3 times daily with meals -Continue midodrine 1000 mg p.o. 3 times daily -strict I&O, discontinued allopurinol and norco Systolic CHF, not in acute exacerbation - Continue strict I's and O, daily weights, interrogate pacemaker, continue telemetry, goal potassium above 4 magnesium above 2. - Cardiology consulted, appreciate recommendations - IV Lasix as above, monitor BMP daily in the settings of advanced CKD Constipation: Start MiraLAX 17 g daily, still no bowel movements, ordered one- time dose of lactulose on 09/24 and 09/25, abdomen soft, bowel sounds present. Added daily bisacodyl rectal. Had a bowel movement 09/27 overnight Troponin elevation with history of severe CAD - Continue ASA 162 mg PO QD. Lipitor 40 mg PO QHS - Cardiology consulted, appreciate recommendations, , Imdur 30 mg daily resumed, Toprol-XL 25 mg daily resumed Pleural effusion: Right effusion not marked due to presence of mobile lung tissue and anterior pocket. Microcytic anemia: At baseline. Continue ferrous sulfate 325 mg PO QD + B12 200 mcg PO QD. Transfuse if Hg < 7. Repeat CBC daily Transaminitis: Possibly cardiohepatic. CT shows moderate ascites around the liver. Hold Lipitor. Right flank pain, resolved Lower back pain: Possibly MSK. CT AP unrevealing. [place] 5 mg PO Q6H PRN pain. Lidocaine patch added, Voltaren gel added BPH: Flomax 0.4 mg PO QD. AFib: Eliquis 2.5 mg PO BID for AC. Gout: Allopurinol 100 mg PO QD. Hypothyrodism: Synthroid 25 mcg PO QD. Hypertension: Now hypotensive requiring midodrine Dyslipidemia: Holding Lipitor due to transaminitis. Diabetes mellitus: ISS with Accuchecks ACHS along with hypoglycemic precautions. PVD, chronic left third toe wound: Patient follows with podiatry, will consult wound care, reviewed recommendations, apply Santyl, saline moist gauze, dry gauze, rolled gauze, change daily, recommend follow-up with advanced wound care DVT ppx: Eliquis Objective - Vital Signs Vital signs: Vital Signs Temp 97.8 F 09/28/24 08:16 Pulse 87 09/28/24 08:16 Resp 16 09/28/24 08:16 BP 135/80 09/28/24 08:16 Pulse Ox 97 09/28/24 08:16 FiO2 Intake & Output 09/27/24 09/28/24 09/28/24 18:59 06:59 18:59 Intake Total 1400 10 Output Total 500 1400 1400 Balance -500 0 -1390 Weight 102.5 kg 103 kg Intake: IV 10 Invasive Line 3 10 Hemodialysis 1400 Output: Urine 500 1400 Uretheral (Perez) 1400 Hemodialysis 400 Hemodialysis Net Amount 1000 Other: Voiding Method Indwelling Catheter Indwelling Catheter Indwelling Catheter # Bowel Movements 1 - Labs CBC & Chem 7: 09/28/24 06:06 09/28/24 06:06 Labs: Abnormal Lab Results - Last 24 Hours (Table) 09/28/24 09/28/24 Range/Units 06:06 06:06 RBC 4.11 L (4.40-5.60) 10*6/uL Hgb 10.2 L (13.0-17.0) g/dL Hct 32.6 L (39.6-50.0) % MCV 79.3 L (80.0-97.0) fL MCH 24.8 L (27.0-32.0) pg MCHC 31.3 L (32.0-37.0) g/dL Plt Count 133 L (140-440) 10*3/uL Lymphocytes # 0.35 L (0.90-5.00) 10*3/uL Carbon Dioxide 21 L (22-30) mmol/L BUN 84 H (9-20) mg/dL Creatinine 4.12 H (0.66-1.25) mg/dL Phosphorus 6.2 H (2.5-4.5) mg/dL
== END 2024-09-28 13:28 | disposition expired | DRG 291 ==
LOC: EC 11:23 → 3SCARD 14:53
PROVIDERS: ADMIT Family Medicine; ATTEND Family Medicine
PROC: 06HY33Z Insertion of Infusion Device into Lower Vein, Percutaneous Approach (ICD-10-PCS; principal; 2024-09-27)
PROC: 5A1D70Z Performance of Urinary Filtration, Intermittent, Less than 6 Hours Per Day (ICD-10-PCS; 2024-09-27)
PROC: 5A12012 Performance of Cardiac Output, Single, Manual (ICD-10-PCS; 2024-09-28)
DX: I13.0 Hypertensive heart and chronic kidney disease with heart failure and stage 1 through stage 4 chronic kidney disease, or unspecified chronic kidney disease (principal); G93.41 Metabolic encephalopathy; N17.0 Acute kidney failure with tubular necrosis; J96.01 Acute respiratory failure with hypoxia; T17.990A Other foreign object in respiratory tract, part unspecified in causing asphyxiation, initial encounter; R18.8 Other ascites; N18.4 Chronic kidney disease, stage 4 (severe); E11.22 Type 2 diabetes mellitus with diabetic chronic kidney disease; I27.20 Pulmonary hypertension, unspecified; D50.9 Iron deficiency anemia, unspecified; I07.1 Rheumatic tricuspid insufficiency; I48.19 Other persistent atrial fibrillation; L97.526 Non-pressure chronic ulcer of other part of left foot with bone involvement without evidence of necrosis; I42.9 Cardiomyopathy, unspecified; I49.5 Sick sinus syndrome; E11.51 Type 2 diabetes mellitus with diabetic peripheral angiopathy without gangrene; E11.621 Type 2 diabetes mellitus with foot ulcer; Z79.4 Long term (current) use of insulin; I46.8 Cardiac arrest due to other underlying condition; I50.22 Chronic systolic (congestive) heart failure; E83.39 Other disorders of phosphorus metabolism; I25.82 Chronic total occlusion of coronary artery; E78.5 Hyperlipidemia, unspecified; I25.10 Atherosclerotic heart disease of native coronary artery without angina pectoris; N40.0 Benign prostatic hyperplasia without lower urinary tract symptoms; M10.9 Gout, unspecified; I34.0 Nonrheumatic mitral (valve) insufficiency; K59.00 Constipation, unspecified; I95.9 Hypotension, unspecified; K43.9 Ventral hernia without obstruction or gangrene; W44.F9XA Other object of natural or organic material, entering into or through a natural orifice, initial encounter; M54.50 Low back pain, unspecified; Z86.74 Personal history of sudden cardiac arrest; Z95.5 Presence of coronary angioplasty implant and graft; Z95.0 Presence of cardiac pacemaker; Z87.891 Personal history of nicotine dependence; Z86.73 Personal history of transient ischemic attack (TIA), and cerebral infarction without residual deficits; Z79.890 Hormone replacement therapy; Z79.84 Long term (current) use of oral hypoglycemic drugs; Z79.899 Other long term (current) drug therapy; Z79.82 Long term (current) use of aspirin; Z79.01 Long term (current) use of anticoagulants; Z85.038 Personal history of other malignant neoplasm of large intestine; I25.2 Old myocardial infarction
CPT/HCPCS: 36415; 51702; 51798; 71045; 71046; 74176; 76604; 80048; 80053; 81001; 83605; 83735; 83880; 84100; 84484; 85025; 85610; 85730; 86706; 87340; 90935; 92950; 93005; 96374; 99285